=== PATIENT | male | born 1970 | race Caucasian/White ===

== ENCOUNTER → 2022-06-30 13:39 | Outpatient (BNVA) | payer OTHER, SELFPAY | PROVIDERS: Visit Provider Internal Medicine | DX: L98.9 Disorder of the skin and subcutaneous tissue, unspecified (principal); F11.20 Opioid dependence, uncomplicated | CPT/HCPCS: 99202 ==

== ENCOUNTER 2022-07-18 08:00 | Outpatient (RCR) | payer OTHER, SELFPAY | END 2022-12-22 16:00 | disposition home or self-care (01) | LOC: HO.WCC 08:00 | PROVIDERS: PCP Internal Medicine; Visit Provider Physician Assistant | DX: M79.89 Other specified soft tissue disorders (principal); I87.002 Postthrombotic syndrome without complications of left lower extremity; I82.409 Acute embolism and thrombosis of unspecified deep veins of unspecified lower extremity; R60.0 Localized edema; I73.9 Peripheral vascular disease, unspecified; F11.20 Opioid dependence, uncomplicated; Z79.01 Long term (current) use of anticoagulants; Z86.19 Personal history of other infectious and parasitic diseases | CPT/HCPCS: 11042; 99212; 99213; 99215 ==

== ENCOUNTER → 2022-08-08 13:30 | Outpatient (BNVA) | payer OTHER, SELFPAY | PROVIDERS: PCP Internal Medicine; Referring Provider Internal Medicine; Visit Provider Surgery | DX: D17.1 Benign lipomatous neoplasm of skin and subcutaneous tissue of trunk (principal); F19.10 Other psychoactive substance abuse, uncomplicated; L98.9 Disorder of the skin and subcutaneous tissue, unspecified; R63.5 Abnormal weight gain; M79.89 Other specified soft tissue disorders | CPT/HCPCS: 99202 ==

== ENCOUNTER 2022-11-02 07:06 | Inpatient (IN) | payer OTHER, SELFPAY ==
--- NOTE | ~2022-11-02 | CT_ITS ---
EXAMINATION: CT ANGIOGRAM OF THE CHEST WITH AND WITHOUT CONTRAST (CT PULMONARY ANGIOGRAM FOR PE) CLINICAL INFORMATION: Reason for Exam bilateral DVT COMPARISON: None TECHNIQUE: Prior to contrast administration, noncontrast localization images were obtained. Subsequently, multidetector volumetric imaging was performed from the thoracic inlet to below the diaphragms following the administration of 65 mL Omnipaque 350 intravenous contrast. No contrast reaction reported Sagittal, coronal, and MIP oblique sagittal reformatted images were obtained on the CT workstation, uploaded to PACS, and reviewed. This CT examination was performed using dose optimization techniques as appropriate, variously including the following: *Automated exposure control *Adjustment of mA and/or kV according to patient size (this includes techniques or standardized protocols for targeted exams where dose is matched to indication/reason for exam; i.e. extremities or head) *Use of iterative reconstruction technique Total exam dose-length product 338 mGy-cm FINDINGS: QUALITY OF STUDY/CONTRAST BOLUS: Satisfactory. PULMONARY ARTERIES: Bilateral lower lobe pulmonary emboli are present. Emboli are present in the right upper lobe THORACIC AORTA: No aneurysm or dissection. LUNG: No focal consolidation, nodules or masses. PLEURA: No pleural effusion or pneumothorax. MEDIASTINUM: Normal heart size. No pericardial effusion. No hilar or mediastinal lymphadenopathy. No evidence of septal bowing or right heart strain. CHEST WALL/AXILLA: No axillary or internal mammary lymphadenopathy. There is bilateral gynecomastia. OSSEOUS STRUCTURES: No acute or suspicious osseous abnormality. UPPER ABDOMEN: Unremarkable. No reflux of contrast into the hepatic veins to suggest elevated right heart pressures. CT/CT angio chest PE protocol IMPRESSION: Bilateral pulmonary emboli. No evidence of right heart strain. VTE: positive.
--- NOTE | ~2022-11-02 | XR_ITS ---
EXAMINATION: XR CHEST CLINICAL INFORMATION: Bilateral lower extremity edema COMPARISON: None TECHNIQUE: 2 views of the chest were obtained. FINDINGS: No significant abnormality is noted involving the heart, lungs, mediastinum, bony thorax or soft tissues. XR/XR chest 2V IMPRESSION: Unremarkable examination.
--- NOTE | ~2022-11-02 | US_ITS ---
EXAMINATION: US VENOUS ULTRASOUND WITH DOPPLER LOWER EXTREMITY, BILATERAL CLINICAL INFORMATION: Bilateral lower extremity COMPARISON: None TECHNIQUE: Ultrasound of the deep veins is performed from the hip to the calf with compression sonography and color and pulse Doppler assessment. Spectral analysis with color-flow imaging is performed. FINDINGS: RIGHT: There is normal venous compression and respiratory variation and augmented flow. The thrombus is present in the popliteal vein extending throughout the femoral vein into the common femoral vein. Posterior tibial veins are patent, the peroneal veins not seen. No popliteal cyst. LEFT: There is partially occlusive thrombus in the femoral vein with an otherwise normal appearing left deep venous system. There is normal venous compression and respiratory variation and augmented flow. The visualized common femoral vein, profunda femoral vein, popliteal vein, and the trifurcation region shows no evidence of deep venous thrombosis. There is no significant popliteal fossa cyst. US/US venous duplex LE BI IMPRESSION: Bilateral DVT as described above.
[2022-11-02 07:15] VITALS: BP 138/94; BP 148/96; PULSE 116; PULSE 95; RESP 16; TEMP 36.4; O2SAT 95; BMI 34.5
[2022-11-02 07:27] VITALS: BP 138/94; PULSE 94; RESP 24; TEMP 37.6; O2SAT 97
--- NOTE | 2022-11-02 07:30 | PC.NURSE ---
patient a/ox 4 . pearrla . heart rate regular at 96 beats per minute . breathing even and unlabored . lungs clear throughout . skin warm and dry . lower extremities dry , with multiple scabs noted . patient has history of shooting heroine into areas . patient reports going to wound clinic for issues of edema and weeping bilaterally . no weeping noted by this RN at this time . non piting edema noted in right foot . pain reported 10 out of 10 in only right leg below knee . pulses positive in both legs . abdomen soft , positive bowel sounds throughout . patient reports using 2 bags of heroine at 1 am this Am r/t pain in leg and then going to his methadone clinic this AM as scheduled , has proof of last dose on him . patient is aware of plan of care .
[2022-11-02 09:10] LABS: MANUAL DIFF FLAG NO
[2022-11-02 09:12] LABS: Basophils Percent Auto 0.2 % (0-2); Eosinophils Percent Auto 0.2 % (0-4); Hematocrit 40.1 % (42.0-52.0); Hemoglobin 12.5 g/dl (14.0-18.0); Imm Gran Abs Auto 0.03 X10*3/uL (0.00-0.03); Imm Gran Pct Auto 0.3 % (0.0-0.4); Lymphocytes Absolute Auto 1.3 X10*3/uL (1.2-4.9); Lymphocytes Percent Auto 13.2 % (20-40); Mean Corpuscular HGB Conc 31.2 g/dl (31.0-36.0); Mean Corpuscular Hemoglobin 25.3 pg (27.0-33.0); Mean Platelet Volume 8.6 fL (9.4-12.4); Monocytes Absolute Auto 0.8 X10*3/uL (0.1-1.2); Monocytes Percent Auto 8.1 % (2-11); Neutrophils Absolute Auto 7.5 x10*3/uL (2.0-8.3); Platelet Count 253 X10*3/uL (160-400); Red Blood Count 4.95 X10*6/uL (4.60-5.80); Red Cell Distribution Width 15.4 % (11.0-16.0); White Blood Count 9.6 X10*3/uL (4.8-10.8)
[2022-11-02 09:23] LABS: Lactic Acid 0.8 mmol/L (0.5-2.0)
[2022-11-02 09:25] LABS: C Reactive Protein 13.92 mg/dL (< or = 0.50)
--- NOTE | 2022-11-02 09:30 | ED_ITS ---
HPI - Extremity Problem General Chief complaint: Extremity Problem Stated complaint: RLE PAIN/SWELLING PER EMS Time Seen by Provider: 11/02/22 08:02 Source: patient Mode of arrival: ambulatory Limitations: no limitations and physical limitation History of Present Illness HPI Narrative: 52-year-old male patient with a past medical history of back pain, migraines, and polysubstance abuse including IVDU presents to the emergency department with complaint of bilateral lower leg swelling x1 year with pain under his right knee that has been progressively getting worse. He also endorses shortness of breath. He states he last used IV heroin this morning at 1:00 a.m. (injected into the right AC) and received his dose of methadone at 6:00 a.m.. He states he is unable to ambulate due to pain. He states he has several healing lesions throughout his body where he has injected heroin. He denies any fever, chills, n umbness, tingling, chest pain, headache, vision changes, or dizziness. He denies any recent illness or known sick contacts. MD Complaint: extremity pain and extremity swelling Pain Consistency: constant Location: left, right and lower extremity Severity scale (1-10): 5 Quality: aching and constant Radiation: none Relieving factors: nothing Exacerbating factors: range of motion, weight bearing, walking, exertion and palpation Associated symptoms: shortness of breath Related Data Home Medications Medication Instructions Recorded Confirmed methadone 10 mg/mL oral concentrate 160 mg PO DAILY 06/09/22 11/02/22 Allergies Allergy/AdvReac Type Severity Reaction Status Date / Time No Known Allergies Allergy Verified 08/08/22 13:39 [No Known Allergies*] Review of Systems Review of Systems: Constitutional: No Weight loss, No Fever, No Chills, No Night Sweats, No Fatigue, No Malaise ENT/Mouth: No Hearing loss, No Ear Pain, No Nasal Congestion, No Sinus Pain, No Hoarseness, No sore throat, No Rhinorrhea, No Swallowing Difficulty Eyes: No Eye Pain, No Swelling, No Redness, No Discharge, No Vision Changes Cardiovascular: No Chest Pain, No Orthopnea, No Palpitations Respiratory: No Cough, No Sputum, No Wheezing, No Smoke Exposure, No Dyspnea Gastrointestinal: No Nausea, No Vomiting, No Diarrhea, No Constipation, No Abdominal pain, No Hematochezia, No Melena Genitourinary: No Dysuria, No Urinary Frequency, No Hematuria, No Urinary Incontinence/retention, No Urgency, No Flank Pain, No Urinary Flow Changes, No Hesitancy Musculoskeletal: No joint pain, No Myalgias, No Joint Swelling Skin: No rash Neuro: No Weakness, No Numbness, No Paresthesias, No Loss of Consciousness, No Dizziness, No Headache Psych: No Anxiety/Panic, No Depression, No SI/HI/AH/VH, Heme/Lymph: No Bruising, No Bleeding,No Lymphadenopathy Endocrine: No Polyuria, No Polydipsia, No Temperature Intolerance Yes all other systems are reviewed and are negative [facility] Past Medical History Attestation statement: The following information was validated with the patient. Source: old records reviewed Medical History Eyebrow laceration Surgical History No pertinent past surgical history Family History Family History (Updated 11/02/22 @ 14:26 by LANCE Quiroz) Mother COPD (chronic obstructive pulmonary disease) Father Hepatitis Liver cirrhosis Maternal Grandmother Alzheimer disease Maternal Grandfather Prostate cancer Diabetes Social History Social History Household Members: Family Housing: House Alcohol intake: former Year quit: 2011 Patient Tobacco Use Status: Never used Tobacco Smoked in Last 30 Days: No Substance Use Type: Heroin Advance Directives: No service: No Current occupational status: unemployed Cognitive needs: No Hearing needs: No Vision needs: Yes (reading) Physical Exam Vital Signs: Vital Signs: Last Vital Signs Temp 98.8 F 11/02/22 12:56 Pulse 75 11/02/22 12:56 Resp 20 11/02/22 12:56 BP 147/88 H 11/02/22 12:56 Pulse Ox 94 11/02/22 12:56 O2 Del Method 11/02/22 12:56 BMI result Body Mass Index 34.5 Const: General: cooperative, alert, awake and poor hygiene Nutritional Appearance: well nourished Orientation/consciousness: patient oriented x3 Limitations: physical limitations HEENT: Head: Yes normal to inspection, Yes normocephalic and Yes atraumatic Ears: hearing grossly normal bilaterally and external ears normal General nose exam: Normal external nose present and Normal nares present Face and sinus: Yes normal facial exam, Yes face symmetric, No ecchymosis, No erythema and No edema Mouth: Normal oral and palatal mucosa present and tongue normal Teeth and gingiva: abnormal tooth and associated gingiva, caries and poor dentition Throat: Yes uvula midline Eyes: General: appearance normal, both eyes and all related structures Visual Gamino: normal visual gamino by confrontation Alignment and Position: alignment normal Periorbital: periorbital findings normal Eyelids: Yes eyelids normal Conjunctivae: conjunctivae normal Sclerae: sclerae normal Corneas: corneas normal Pupils: Equal, round and reactive pupils present EOM: EOMs intact bilaterally Neck: Neck: Yes normal visual inspection, Yes full ROM and Yes no lymphadenopathy Chest: Chest palpation & inspection: normal inspection of the chest Resp: Effort & Inspection: normal respiratory effort and able to speak in complete sentences Auscultation: diminished lung sounds bilateral throughout Cardio: Rate: regular rate Rhythm: regular rhythm GI: Inspection: Yes distended Palpation (GI): Soft to palpation and nontender Auscultation: normal bowel sounds : General: Yes no CVA tenderness Back/Spine/Pelvis: Back: no CVA tenderness Cervical Spine: cervical ROM normal Thoracic/Lumbar Spine: pain with thoraco-lumbar ROM Skin: General skin exam: dry skin Lesions: lesion noted (bilateral lower extremities) Rashes: no rashes Trauma: no lacerations or abrasions Hair: normal Nails: normal Neuro: General: patient oriented x3, moves all extremities and Unable to assess gait Cranial nerves: Yes Equal, round and reactive pupils present, Yes Midline tongue present and Yes Ability to bilaterally elevate shoulders present Cognition (Neuro): normal cognition Gait exam (Neuro): Unable to assess gait Motor exam (neuro): Other motor observations present (5/5 strength BUE, 3/5 strength BLE) Extrem: General: Yes capillary refill normal, Yes edema (BLE with healing lesions BLE) and Yes other (scaring on BUE due to IVDU and recent injection site right AC) Right upper extremity: normal capillary refill and shoulder/upper arm Details: abnormal ROM Details: pain with active ROM Left upper extremity: full ROM and normal capillary refill Right lower extremity: edema Details: non-pitting and 3+ Left lower extremity: edema Details: non-pitting and 3+ Psych: Appearance: disheveled Mental Status: mental status grossly normal Speech and movement: Normal speech and movement present Affect: Sad affect present Attitude: cooperative Thought process: Normal thought process present Thought content: Normal thought content present Course Course Course Narrative: 0950: ESR and CRP elevated, US positive for DVTs in bilateral lower extremities. Plan for CT chest rule out PE. 1200: CTA chest positive for bilateral PE. Heparin protocol initiated. Pt updated on diagnostic findings and need for admission. Dr. Lemons contacted regarding need for hospital admission. Medications Administered Generic Name Dose Route Start Last Admin Trade Name Freq PRN Reason Stop Dose Admin Heparin Sodium/Sodium Chloride 25,000 unit in 250 mls @ 0 mls/hr 11/02/22 12:00 11/02/22 12:50 Heparin Sodium,Porcine/1/2ns IVCONT 14 units/kg/hr .Q0M JOSE LUIS 14 mls/hr Administration Protocol Per Protocol Discontinued Medications Generic Name Dose Route Start Last Admin Trade Name Freq PRN Reason Stop Dose Admin Heparin Sodium (Porcine) 8,000 unit 11/02/22 11:55 11/02/22 12:49 Heparin Sodium,Porcine 5,000 Unit/Ml Vial 80 unit/kg (8000 unit) 11/02/22 11:56 8,000 unit IVPUSH Administration ONCE ONE Iohexol 65 ml 11/02/22 11:07 11/02/22 11:09 Iohexol 350 Mg/Ml 100 Ml Infus..Btl IV 11/02/22 11:08 65 ml ONCE ONE Administration Medical Decision Making Medical Decision Making [facility] Narrative: 52-year-old male patient with a past medical history of back pain, migraines, and polysubstance abuse including IVDU presents to the emergency department with complaint of bilateral lower leg swelling x1 year with pain under his right knee that has been progressively getting worse with associated shortness of breath. Chest xray negative. US venous duplex shows bilateral DVTs. ESR and CRP elevated. Hematology showing H/H 12.5/40.1. Chemistry unremarkable. Serology negative. CTA chest VTE positive for bilateral PE with no evidence of right heart strain. Heparin protocol iniciated for treatment of DVT/PE. Admitting hospitalist contacted regarding diagnostic findings and need for admission. HPI, PE, diagnostics and plan discussed with patient with no unanswered questions at this time. Pt in agreement with plan. Lab Data [facility] Lab Attestation statement: I reviewed the patient's lab results. Result Diagrams: 11/02/22 09:03 11/02/22 09:03 Labs: Lab Results 11/02/22 11/02/22 11/02/22 Range/Units 09:03 09:03 09:03 WBC 9.6 (4.8-10.8) X10*3/uL RBC 4.95 (4.60-5.80) X10*6/uL Hgb 12.5 L (14.0-18.0) g/dl Hct 40.1 L (42.0-52.0) % MCV 81.0 (80.0-98.0) fL MCH 25.3 L (27.0-33.0) pg MCHC 31.2 (31.0-36.0) g/dl RDW 15.4 (11.0-16.0) % Plt Count 253 (160-400) X10*3/uL MPV 8.6 L (9.4-12.4) fL Immature Gran % (Auto) 0.3 (0.0-0.4) % Neut % (Auto) 78.0 H (45-73) % Lymph % (Auto) 13.2 L (20-40) % [place] % (Auto) 8.1 (2-11) % Eos % (Auto) 0.2 (0-4) % Baso % (Auto) 0.2 (0-2) % Lymph # (Auto) 1.3 (1.2-4.9) X10*3/uL [place] # (Auto) 0.8 (0.1-1.2) X10*3/uL Eos # (Auto) 0.0 (0.0-0.4) X10*3/uL Baso # (Auto) 0.0 (0.0-0.2) X10*3/uL Abs Immat Gran (auto) 0.03 (0.00-0.03) X10*3/uL Absolute Neuts (auto) 7.5 (2.0-8.3) x10*3/uL Absolute Nucleated RBC 0.000 (0.0-0.012) X10*3/uL Nucleated RBC % (auto) 0.0 (0.0-0.2) /100WBC ESR 60 H (0-15) MM/HR PT (10.0-13.1) SEC INR (0.9-1.1) APTT (26.0-36.4) SEC Sodium 134 L (135-145) mmol/L Potassium 4.8 (3.3-5.1) mmol/L Chloride 101 (96-108) mmol/L Carbon Dioxide 25 (22-29) mmol/L Anion Gap 13 (12-20) BUN 14 (9-16) mg/dL Creatinine 0.93 (0.5-1.4) mg/dL Estim Creat Clear Calc 104.7 Estimated GFR > 60 Random Glucose 91 (60-115) mg/dL Lactic Acid (0.5-2.0) mmol/L Calcium 8.7 (8.4-10.2) mg/dL Total Bilirubin 0.4 (0.0-1.0) mg/dL AST 29 (5-37) U/L ALT 30 (0-40) U/L Alkaline Phosphatase 103 (39-117) U/L C-Reactive Protein (< or = 0.50) mg/dL Total Protein 7.9 (6.5-8.0) g/dL Albumin 3.9 (3.5-5.0) g/dL Influenza Type A (PCR) (Negative) Influenza Type B (PCR) (Negative) RSV RNA Qual (PCR) (Negative) SARS-CoV-2 RNA (RT-PCR) (Negative) 11/02/22 11/02/22 11/02/22 Range/Units 09:03 09:03 10:53 WBC (4.8-10.8) X10*3/uL RBC (4.60-5.80) X10*6/uL Hgb (14.0-18.0) g/dl Hct (42.0-52.0) % MCV (80.0-98.0) fL MCH (27.0-33.0) pg MCHC (31.0-36.0) g/dl RDW (11.0-16.0) % Plt Count (160-400) X10*3/uL MPV (9.4-12.4) fL Immature Gran % (Auto) (0.0-0.4) % Neut % (Auto) (45-73) % Lymph % (Auto) (20-40) % [place] % (Auto) (2-11) % Eos % (Auto) (0-4) % Baso % (Auto) (0-2) % Lymph # (Auto) (1.2-4.9) X10*3/uL [place] # (Auto) (0.1-1.2) X10*3/uL Eos # (Auto) (0.0-0.4) X10*3/uL Baso # (Auto) (0.0-0.2) X10*3/uL Abs Immat Gran (auto) (0.00-0.03) X10*3/uL Absolute Neuts (auto) (2.0-8.3) x10*3/uL Absolute Nucleated RBC (0.0-0.012) X10*3/uL Nucleated RBC % (auto) (0.0-0.2) /100WBC ESR (0-15) MM/HR PT 15.4 H (10.0-13.1) SEC INR 1.3 H (0.9-1.1) APTT 32.4 (26.0-36.4) SEC Sodium (135-145) mmol/L Potassium (3.3-5.1) mmol/L Chloride (96-108) mmol/L Carbon Dioxide (22-29) mmol/L Anion Gap (12-20) BUN (9-16) mg/dL Creatinine (0.5-1.4) mg/dL Estim Creat Clear Calc Estimated GFR Random Glucose (60-115) mg/dL Lactic Acid 0.8 (0.5-2.0) mmol/L Calcium (8.4-10.2) mg/dL Total Bilirubin (0.0-1.0) mg/dL AST (5-37) U/L ALT (0-40) U/L Alkaline Phosphatase (39-117) U/L C-Reactive Protein 13.92 H (< or = 0.50) mg/dL Total Protein (6.5-8.0) g/dL Albumin (3.5-5.0) g/dL Influenza Type A (PCR) (Negative) Influenza Type B (PCR) (Negative) RSV RNA Qual (PCR) (Negative) SARS-CoV-2 RNA (RT-PCR) (Negative) 11/02/22 Range/Units 10:53 WBC (4.8-10.8) X10*3/uL RBC (4.60-5.80) X10*6/uL Hgb (14.0-18.0) g/dl Hct (42.0-52.0) % MCV (80.0-98.0) fL MCH (27.0-33.0) pg MCHC (31.0-36.0) g/dl RDW (11.0-16.0) % Plt Count (160-400) X10*3/uL MPV (9.4-12.4) fL Immature Gran % (Auto) (0.0-0.4) % Neut % (Auto) (45-73) % Lymph % (Auto) (20-40) % [place] % (Auto) (2-11) % Eos % (Auto) (0-4) % Baso % (Auto) (0-2) % Lymph # (Auto) (1.2-4.9) X10*3/uL [place] # (Auto) (0.1-1.2) X10*3/uL Eos # (Auto) (0.0-0.4) X10*3/uL Baso # (Auto) (0.0-0.2) X10*3/uL Abs Immat Gran (auto) (0.00-0.03) X10*3/uL Absolute Neuts (auto) (2.0-8.3) x10*3/uL Absolute Nucleated RBC (0.0-0.012) X10*3/uL Nucleated RBC % (auto) (0.0-0.2) /100WBC ESR (0-15) MM/HR PT (10.0-13.1) SEC INR (0.9-1.1) APTT (26.0-36.4) SEC Sodium (135-145) mmol/L Potassium (3.3-5.1) mmol/L Chloride (96-108) mmol/L Carbon Dioxide (22-29) mmol/L Anion Gap (12-20) BUN (9-16) mg/dL Creatinine (0.5-1.4) mg/dL Estim Creat Clear Calc Estimated GFR Random Glucose (60-115) mg/dL Lactic Acid (0.5-2.0) mmol/L Calcium (8.4-10.2) mg/dL Total Bilirubin (0.0-1.0) mg/dL AST (5-37) U/L ALT (0-40) U/L Alkaline Phosphatase (39-117) U/L C-Reactive Protein (< or = 0.50) mg/dL Total Protein (6.5-8.0) g/dL Albumin (3.5-5.0) g/dL Influenza Type A (PCR) NEGATIVE (Negative) Influenza Type B (PCR) NEGATIVE (Negative) RSV RNA Qual (PCR) NEGATIVE (Negative) SARS-CoV-2 RNA (RT-PCR) NEGATIVE (Negative) Radiology Impression Discussion of test interpretation with radiology: I have reviewed the radiologist's reading. Radiologist Impression: EXAMINATION: CT ANGIOGRAM OF THE CHEST WITH AND WITHOUT CONTRAST (CT PULMONARY ANGIOGRAM FOR PE) CLINICAL INFORMATION: Reason for Exam bilateral DVT COMPARISON: None? TECHNIQUE: Prior to contrast administration, noncontrast localization images were obtained. ? Subsequently, multidetector volumetric imaging was performed from the thoracic inlet to below the diaphragms following the administration of 65 mL Omnipaque 350 intravenous contrast. No contrast reaction reported Sagittal, coronal, and MIP oblique sagittal reformatted images were obtained on the CT workstation, uploaded to PACS, and reviewed. This CT examination was performed using dose optimization techniques as appropriate, variously including the following: *Automated exposure control *Adjustment of mA and/or kV according to patient size (this includes techniques or standardized protocols for targeted exams where dose is matched to indication/reason for exam; i.e. extremities or head) *Use of iterative reconstruction technique Total exam dose-length product 338 mGy-cm FINDINGS: QUALITY OF STUDY/CONTRAST BOLUS: Satisfactory. PULMONARY ARTERIES: Bilateral lower lobe pulmonary emboli are present. Emboli are present in the right upper lobe? THORACIC AORTA: No aneurysm or dissection. LUNG: No focal consolidation, nodules or masses. PLEURA: No pleural effusion or pneumothorax. MEDIASTINUM: Normal heart size.? No pericardial effusion.? No hilar or mediastinal lymphadenopathy.? No evidence of septal bowing or right heart strain. CHEST WALL/AXILLA: No axillary or internal mammary lymphadenopathy. There is bilateral gynecomastia. OSSEOUS STRUCTURES: No acute or suspicious osseous abnormality.? UPPER ABDOMEN: Unremarkable.? No reflux of contrast into the hepatic veins to suggest elevated right heart pressures. CT/CT angio chest PE protocol IMPRESSION: Bilateral pulmonary emboli. No evidence of right heart strain. VTE: positive. Dictated By: Chon Gutierrez MD Signed By: <Electronically signed by Chon Gutierrez MD in [place]> 11/02/22 1153 DD/ 1105 TD/TT:? Subway Operator: SS ------ EXAMINATION: XR CHEST CLINICAL INFORMATION: Bilateral lower extremity edema COMPARISON: None TECHNIQUE: 2 views of the chest were obtained. FINDINGS: No significant abnormality is noted involving the heart, lungs, mediastinum, bony thorax or soft tissues. XR/XR chest 2V IMPRESSION: Unremarkable examination. Dictated By: Chon Gutierrez MD Signed By: <Electronically signed by Chon Gutierrez MD in [place]> 11/02/22 0948 DD/ TD/TT:? Subway Operator: GREGORY EXAMINATION:? US VENOUS ULTRASOUND WITH DOPPLER LOWER EXTREMITY, BILATERAL CLINICAL INFORMATION:? Bilateral lower extremity COMPARISON:? None TECHNIQUE: Ultrasound of the deep veins is performed from the hip to the calf with compression sonography and color and pulse Doppler assessment. Spectral analysis with color-flow imaging is performed. FINDINGS: RIGHT: There is normal venous compression and respiratory variation and augmented flow. The thrombus is present in the popliteal vein extending throughout the femoral vein into the common femoral vein. Posterior tibial veins are patent, the peroneal veins not seen. No popliteal cyst. LEFT: There is partially occlusive thrombus in the femoral vein with an otherwise normal appearing left deep venous system. There is normal venous compression and respiratory variation and augmented flow. The visualized common femoral vein,? profunda femoral vein, popliteal vein, and the trifurcation region shows no evidence of deep venous thrombosis. ? There is no significant popliteal fossa cyst. US/US venous duplex LE BI IMPRESSION: Bilateral DVT as described above. ? Dictated By: Chon Gutierrez MD Signed By: <Electronically signed by Chon Gutierrez MD in [place]> 11/02/22946 DD/ 3 TD/TT:? Subway Operator: Discharge Plan Discharge Clinical Impression: DVT, bilateral lower limbs, Pulmonary emboli Patient Disposition: Admitted As Inpatient Discharge Plan Discharge Prescriptions: No Action methadone 10 mg/mL concentrate 5 mg PO DAILY Label Comments: pt reports 135 mg daily doxycycline hyclate 100 mg tablet 100 mg PO BID Qty: 20 0RF diclofenac sodium [Arthritis Pain (diclofenac)] 1 % gel 2 g topical QID Qty: 100 0RF Rx Instructions: apply to single elbow, wrist or hand; for hand includes palm/fingers/back of hand
[2022-11-02 09:33] LABS: Alanine Aminotransferase 30 U/L (0-40); Albumin Level 3.9 g/dL (3.5-5.0); Alkaline Phosphatase 103 U/L (39-117); Anion Gap 13 (12-20); Aspartate Amino Transferase 29 U/L (5-37); Blood Urea Nitrogen 14 mg/dL (9-16); Calcium 8.7 mg/dL (8.4-10.2); Carbon Dioxide 25 mmol/L (22-29); Chloride 101 mmol/L (96-108); Creatinine Clr Calc Pharmacy 104.7; Estimated Glomerular Filt Rate > 60; Glucose Random 91 mg/dL (60-115); Potassium 4.8 mmol/L (3.3-5.1); Sodium 134 mmol/L (135-145); Total Protein 7.9 g/dL (6.5-8.0)
[2022-11-02 09:41] LABS: Bilirubin Total 0.4 mg/dL (0.0-1.0)
[2022-11-02 10:00] LABS: Erythrocyte Sedimentation Rate 60 MM/HR (0-15)
[2022-11-02 10:56] VITALS: BP 134/76; PULSE 82; RESP 18; TEMP 37.2; O2SAT 94
--- NOTE | 2022-11-02 10:59 | PC.NURSE ---
Patient to C .T for images . patient aware of plan of care .
[2022-11-02] MEDS: iohexoL 350 MG/ML 100 ML INFUS..BTL 65 ML IV (11:09)
[2022-11-02 11:10] LABS: Partial Thromboplastin Time 32.4 SEC (26.0-36.4)
[2022-11-02 11:40] LABS: Influenza A PCR NEGATIVE (Negative); Influenza B PCR NEGATIVE (Negative); Resp Syncy Virus RNA Qual PCR NEGATIVE (Negative); SARS COV2 PCR INHOUSE NEGATIVE (Negative)
[2022-11-02 12:17] LABS: INTERNATIONAL NORM RATIO 1.3 (0.9-1.1); Prothrombin Time 15.4 SEC (10.0-13.1)
[2022-11-02] MEDS: Heparin Sodium,Porcine 5,000 UNIT/ML VIAL 8000 UNIT IVPUSH (12:49)
[2022-11-02] MEDS: Heparin Sodium,Porcine/1/2NS 25,000 UNIT/250 ML IV.SOLN 14 UNIT IVCONT (12:50)
--- NOTE | 2022-11-02 12:51 | P.HPHOSP_ITS ---
History of Present Illness Date of Service: 11/02/22 Attending physician on admission: Luis Rocha Chief Complaint: Right knee pain Pt is a 52-year-old male with a PMH significant for polysubstance abuse including IVDU, migraines, and back pain who presents to the ED today for evaluation of right leg pain. Patient states that for the past 2 days he has experienced worsening right leg pain in the back of his knee. The pain arrived acutely during the night while he was sleeping, and today he became so severe that he could not stand. He also notes that he used heroin earlier today because of the pain, after being clean on methadone for over two months. Pt also reports being SOB at rest and with exertion for past 1-2 months. Notes occasional left leg pain that is fleeting and comes and goes. Of note, pt has a recent history of IVDU and has been injecting in his legs intermittently for the past year. In the ED patient's chest x-ray was negative, chemistry unremarkable, serology negative, hematology with slightly reduced H&H of 12.5/40.1, elevated ESR of 60 and C reactive protein of 13.92. US venous duplex showed bilateral DVTs, and CTA VTE positive with bilateral pulmonary emboli and no evidence of right heart strain. Pt was started on heparin drip per protocol. Review of Systems Review of Systems: Constant right leg pain, 10/10 Intermittent left leg pain SOB at rest and with exertion No chest pain/pressure Yes all other systems are reviewed and are negative [facility] Medical History Eyebrow laceration Family History (Updated 11/02/22 @ 14:26 by LANCE Quiroz) Mother COPD (chronic obstructive pulmonary disease) Father Hepatitis Liver cirrhosis Maternal Grandmother Alzheimer disease Maternal Grandfather Prostate cancer Diabetes Surgical History No pertinent past surgical history Social History Household Members: Family Housing: House Alcohol intake: former Year quit: 2011 Patient Tobacco Use Status: Never used Tobacco Smoked in Last 30 Days: No Substance Use Type: Heroin Advance Directives: No service: No Current occupational status: unemployed Cognitive needs: No Hearing needs: No Vision needs: Yes (reading) Meds Allergies Allergy/AdvReac Type Severity Reaction Status Date / Time No Known Allergies Allergy Verified 08/08/22 13:39 [No Known Allergies*] Active Medications: Current Medications Heparin Sodium (Porcine) (Heparin Sodium,Porcine 5,000 Unit/Ml Vial) 4,000 unit 40 unit/kg (4000 unit) IVPUSH PROTOCOL BOLUS PRN; Protocol PRN Reason: 40 unit/kg - Heparin Protocol Heparin Sodium (Porcine) (Heparin Sodium,Porcine 5,000 Unit/Ml Vial) 8,000 unit 80 unit/kg (8000 unit) IVPUSH PROTOCOL BOLUS PRN; Protocol PRN Reason: 80 unit/kg - Heparin Protocol Heparin Sodium/Sodium Chloride (Heparin Sodium,Porcine/1/2ns) 25,000 unit in 250 mls @ 0 mls/hr IVCONT .Q0M JOSE LUIS; Protocol Home Medications Medication Instructions Recorded Confirmed Last Taken Type methadone 10 mg/mL oral concentrate 160 mg PO DAILY 06/09/22 11/02/22 11/02/22 History Physical Exam Vital Signs and Narrative: Vital Signs: Last Vital Signs Temp 99 F 11/02/22 10:56 Pulse 82 11/02/22 10:56 Resp 18 11/02/22 10:56 BP 134/76 11/02/22 10:56 Pulse Ox 94 11/02/22 10:56 O2 Del Method 11/02/22 10:56 BMI result Body Mass Index 34.5 Constitutional: Alert, in no acute distress. Mental Status: Oriented to person, place and time. Eyes: Pupils are equal, round, and reactive to light. Ear, Nose, and Throat: Poor dentition. Oropharynx clear, mucous membranes moist. Ears and nose without deformities. Trachea midline. Respiratory: Mild expiratory wheezing right lung; left lung CTA. Cardiovascular: S1, S2 regular. No murmurs, rubs, or gallops. Gastrointestinal: Abdomen soft, non-tender, non-distended. NOrmal bowel sounds. Neurologic: Cranial nerves II-XI are grossly intact. NO focal neurological deficits. Moves all extremities spontaneously. Skin: Lesions on bilateral lower legs, right lower abdomen. Musculoskeletal: No cyanosis or clubbing. Extremities: Bilateral edema and swelling of lower extremities; right knee swollen and tender to palpation. Feet cool to the touch and faint 1+ pedal pulses. Psychiatric: Normal mood and affect. Results Labs CBC and Chem 7: 11/02/22 09:03 11/02/22 09:03 Labs: Laboratory Results - last 24 hr 11/02/22 11/02/22 11/02/22 09:03 09:03 09:03 MCV 81.0 MCH 25.3 L MCHC 31.2 RDW 15.4 Plt Count 253 MPV 8.6 L Immature Gran % (Auto) 0.3 Neut % (Auto) 78.0 H Lymph % (Auto) 13.2 L Tripp % (Auto) 8.1 Eos % (Auto) 0.2 Baso % (Auto) 0.2 Lymph # (Auto) 1.3 Tripp # (Auto) 0.8 Eos # (Auto) 0.0 Baso # (Auto) 0.0 Abs Immat Gran (auto) 0.03 Absolute Neuts (auto) 7.5 Absolute Nucleated RBC 0.000 Nucleated RBC % (auto) 0.0 ESR 60 H PT INR APTT Anion Gap 13 Estim Creat Clear Calc 104.7 Estimated GFR > 60 Random Glucose 91 Lactic Acid Calcium 8.7 Total Bilirubin 0.4 AST 29 ALT 30 Alkaline Phosphatase 103 C-Reactive Protein Total Protein 7.9 Albumin 3.9 Influenza Type A (PCR) Influenza Type B (PCR) RSV RNA Qual (PCR) SARS-CoV-2 RNA (RT-PCR) 11/02/22 11/02/22 11/02/22 09:03 09:03 10:53 MCV MCH MCHC RDW Plt Count MPV Immature Gran % (Auto) Neut % (Auto) Lymph % (Auto) Tripp % (Auto) Eos % (Auto) Baso % (Auto) Lymph # (Auto) Tripp # (Auto) Eos # (Auto) Baso # (Auto) Abs Immat Gran (auto) Absolute Neuts (auto) Absolute Nucleated RBC Nucleated RBC % (auto) ESR PT 15.4 H INR 1.3 H APTT 32.4 Anion Gap Estim Creat Clear Calc Estimated GFR Random Glucose Lactic Acid 0.8 Calcium Total Bilirubin AST ALT Alkaline Phosphatase C-Reactive Protein 13.92 H Total Protein Albumin Influenza Type A (PCR) Influenza Type B (PCR) RSV RNA Qual (PCR) SARS-CoV-2 RNA (RT-PCR) 11/02/22 10:53 MCV MCH MCHC RDW Plt Count MPV Immature Gran % (Auto) Neut % (Auto) Lymph % (Auto) Tripp % (Auto) Eos % (Auto) Baso % (Auto) Lymph # (Auto) Tripp # (Auto) Eos # (Auto) Baso # (Auto) Abs Immat Gran (auto) Absolute Neuts (auto) Absolute Nucleated RBC Nucleated RBC % (auto) ESR PT INR APTT Anion Gap Estim Creat Clear Calc Estimated GFR Random Glucose Lactic Acid Calcium Total Bilirubin AST ALT Alkaline Phosphatase C-Reactive Protein Total Protein Albumin Influenza Type A (PCR) NEGATIVE Influenza Type B (PCR) NEGATIVE RSV RNA Qual (PCR) NEGATIVE SARS-CoV-2 RNA (RT-PCR) NEGATIVE Imaging Radiologist's Impressions: Impressions Venous Duplex 11/02/22 09:24 IMPRESSION: Bilateral DVT as described above. Chest X-Ray 11/02/22 09:30 IMPRESSION: Unremarkable examination. Chest CTA 11/02/22 11:05 IMPRESSION: Bilateral pulmonary emboli. No evidence of right heart strain. VTE: positive. Assessment and Plan (1) DVT, bilateral lower limbs: Status: Acute (2) Pulmonary emboli: Status: Acute Plan Pt is a 52-year-old male with a PMH significant for polysubstance abuse includin g IVDU, migraines, and back pain who presents to the ED today for evaluation of right leg pain. Imaging showed bilateral DVTs and PE. Pt will be admitted to telemetry for treatment with heparin drip protocol. # bilateral DVTs -- US noted thrombus in right leg in the popliteal vein extending throughout the femoral vein into the common femoral vein; in the left leg there is a partially occlusive thrombus in the femoral vein -- likely secondary to IVDU, pt has been using upper legs for heroin injection over past year -- pt on heparin drip per PE protocol -- hematology consult # bilateral PE -- pt has been experiencing SOB for past 1-2 months -- CTA showed bilateral pulmonary emboli with no evidence of right heart strain -- heparin drip per protocol -- admit to telemetry # IVDU -- on methadone, but used heroin earlier today d/t leg pain, first time in past couple of months -- continue methadone Pt will require a minimum hospitalization of at least two nights for treatment with heparin drip for bilateral PE. Time Spent With Patient Time: Total time managing care of this patient today ____ minutes. Quality Stroke Does the patient have a stroke diagnosis?: No VTE Prior VTE?: No VTE Risk Level:: Medical - moderate - high VTE Device Contraindication: Treatment Not Indicated VTE Drug Contraindication: N/A - Med Ordered
[2022-11-02 12:56] VITALS: BP 147/88; PULSE 75; RESP 20; TEMP 37.1; O2SAT 94
--- NOTE | 2022-11-02 12:58 | PC.NURSE ---
Heparin drip started at 14 units per kg / per/ hr as ordered . patient aware of plan of care for admission . hospitalist at bedside .
--- NOTE | 2022-11-02 14:03 | PHA.MEDREC ---
Pharmacy Consult ? Medication Reconciliation Pharmacy has completed the medication reconciliation. Patient takes 160mg last dosed 11/02 from [facility]
--- NOTE | 2022-11-02 17:49 | MHC.CM.PN ---
Met with admitted patient with bed assignment pending. HX IVDA. Used yesterday. States for the pain. Methadone x2 months. Bilateral DVT's and PE's. Would benefit from CARE/addiction consult. HCP reviewed, completed and signed. Copies given. Uploaded into [employer] and [facility] [employer]. HCP/mother Minal Morel ([phone]). No DME/Services. Unvaccinated. D/C plan: Home w/o services. Pt to arrange transport. CM to follow for discharge needs.
[2022-11-02 19:31] VITALS: BP 170/83; PULSE 74; RESP 16; TEMP 36.6; O2SAT 98
[2022-11-02 20:51] LABS: PTT Heparin Drip > 200.0 SEC (53-77.9)
--- NOTE | 2022-11-02 21:06 | PC.NURSE ---
received critical PTT HD <200. Heparin drip paused at 20:55. Plan stat PTT HD redraw scheduled at 21:55. No s/sx of acute bleeding noted.
[2022-11-02] MEDS: oxyCODONE HCl Immed Release 5 MG TABLET PO (21:20)
--- NOTE | 2022-11-02 21:23 | PC.NURSE ---
Pt c/o /10 posterior R knee intermittent pain described as sharp/ tight. Rn offered pt prn tylenol. Pt declined tylenol and stated, I have a bad liver I normally take aleve. Rn notified hospitalist. Rn administered oxycodone 5 mg po per order.
--- NOTE | 2022-11-02 22:39 | PC.NURSE ---
Telephone call from the lab with critical results for PTT HD 136.1. Heparin drip remaining on hold, next PTT HD scheduled at 22:55 per protocol-no s/s of acute bleeding noted, VSS.
[2022-11-02 23:52] LABS: PTT Heparin Drip 57.8 SEC (53-77.9)
[2022-11-03 00:02] VITALS: BP 148/81; PULSE 75; RESP 11; TEMP 36.9; O2SAT 91
[2022-11-03 00:52] VITALS: O2SAT 92
--- NOTE | 2022-11-03 00:53 | PC.NURSE ---
Addendum entered by Billie Marx RN 11/03/22 07:02: report given to PADMA Payne Original Note: report received from PADMA Frost pt is alert and oriented resting in bed no signs of acute distress notice breathing equally unlabored pt pn continous cardiac monitoring Heparin drip restarted per protocol, last Ptt 57.8, dose started at 10 unit/kg/hr per protocol, next draw at 0700am
[2022-11-03 06:04] VITALS: BP 149/81; PULSE 78; RESP 21; TEMP 36.9; O2SAT 93
[2022-11-03 07:19] LABS: Hematocrit 37.1 % (42.0-52.0); Hemoglobin 11.8 g/dl (14.0-18.0); Mean Corpuscular HGB Conc 31.8 g/dl (31.0-36.0); Mean Corpuscular Hemoglobin 25.6 pg (27.0-33.0); Mean Corpuscular Volume 80.5 fL (80.0-98.0); Mean Platelet Volume 8.7 fL (9.4-12.4); Platelet Count 264 X10*3/uL (160-400); Red Blood Count 4.61 X10*6/uL (4.60-5.80); Red Cell Distribution Width 15.5 % (11.0-16.0); White Blood Count 8.9 X10*3/uL (4.8-10.8)
[2022-11-03 07:29] LABS: INTERNATIONAL NORM RATIO 1.3 (0.9-1.1)
[2022-11-03 07:32] LABS: PTT Heparin Drip 66.5 SEC (53-77.9)
[2022-11-03] MEDS: methADONE HCl 20 MG/2 ML ORAL.CONC 160 MG PO (07:34)
[2022-11-03 07:40] VITALS: BP 119/79; PULSE 75; RESP 20; TEMP 36.6; O2SAT 97
--- NOTE | 2022-11-03 13:25 | HO.PM.IMPN ---
Subjective Subjective Date of Service: 11/03/22 Interval History: Seen and evaluated this morning Complaining of right lower extremity pain and swelling Breathing has been improving No other overnight events Review of Systems Review of Systems: Yes all other systems are reviewed and are negative Physical Exam Vital Signs: Vital Signs: Last Vital Signs Temp 97.9 F 11/03/22 07:40 Pulse 75 11/03/22 07:40 Resp 20 11/03/22 07:40 BP 119/79 11/03/22 07:40 Pulse Ox 97 11/03/22 07:40 O2 Del Method 11/03/22 07:40 BMI result Body Mass Index 34.5 Const: Other: Constitutional : Awake, interactive, not in distress Neck : Normal inspection, Supple Cardiovascular : RRR, no JVP, right lower extremity mildly swollen and wound Respiratory : good bilateral air entry, no crackles, wheezes or rhonchi Gastrointestinal: soft, lax, Normal bowel sounds, Non tender Skin : Warm, Dry Neurological : Alert & oriented x3, No focal deficit Objective Data Active Medications Acetaminophen (Acetaminophen 325 Mg Tablet) 650 mg PO Q6H PRN PRN Reason: Pain, Mild (Pain Scale 1-3) Docusate Sodium (Docusate Sodium 100 Mg Capsule) 100 mg PO DAILY PRN PRN Reason: Constipation Heparin Sodium (Porcine) (Heparin Sodium,Porcine 5,000 Unit/Ml Vial) 4,000 unit 40 unit/kg (4000 unit) IVPUSH PROTOCOL BOLUS PRN; Protocol PRN Reason: 40 unit/kg - Heparin Protocol Heparin Sodium (Porcine) (Heparin Sodium,Porcine 5,000 Unit/Ml Vial) 8,000 unit 80 unit/kg (8000 unit) IVPUSH PROTOCOL BOLUS PRN; Protocol PRN Reason: 80 unit/kg - Heparin Protocol Heparin Sodium/Sodium Chloride (Heparin Sodium,Porcine/1/2ns) 25,000 unit in 250 mls @ 0 mls/hr IVCONT .Q0M JOSE LUIS; Protocol Last Titration: 11/03/22 07:45 Dose: 10 units/kg/hr, 10 mls/hr Documented By: ENRIQUETA Co-signed By: NGUYỄN Methadone HCl (Methadone Hcl 20 Mg/2 Ml Oral.Conc) 160 mg PO DAILY [facility] Last Admin: 11/03/22 07:34 Dose: 160 mg Documented By: ENRIQUETA Oxycodone HCl (Oxycodone Hcl Immed Release 5 Mg Tablet) 5 mg PO Q4H PRN PRN Reason: Pain, Severe (Pain Scale 7-10) Last Admin: 11/02/22 21:20 Dose: 5 mg Documented By: HARISH Sodium Chloride (0.9 % Sodium Chloride Flush 3 Ml Syringe) 3 ml IVFLUSH QSHIFT JOSE LUIS Last Admin: 11/03/22 07:34 Dose: Not Given Documented By: ENRIQUETA Non-Admin Reason: IV Running Labs CBC & Chem 7: 11/03/22 06:56 11/02/22 09:03 Labs: Laboratory Results - last 24 hr 11/02/22 11/02/22 11/02/22 19:41 21:58 23:23 MCV MCH MCHC RDW Plt Count MPV Absolute Nucleated RBC Nucleated RBC % (auto) PT INR aPTT Heparin Protocol > 200.0 H* 136.1 H* D 57.8 D 11/03/22 11/03/22 11/03/22 06:56 06:56 06:56 MCV 80.5 MCH 25.6 L MCHC 31.8 RDW 15.5 Plt Count 264 MPV 8.7 L Absolute Nucleated RBC 0.000 Nucleated RBC % (auto) 0.0 PT Cancelled 15.0 H INR Cancelled 1.3 H aPTT Heparin Protocol 66.5 Microbiology Microbiology Results: Microbiology 11/02/22 09:03 Blood Culture - Preliminary Blood - Venous No growth after 24 hours. 11/02/22 09:03 Blood Culture - Preliminary Blood - Venous No growth after 24 hours. Assessment and Plan (1) DVT, bilateral lower limbs: Status: Acute (2) Pulmonary emboli: Status: Acute Plan Pt is a 52-year-old male with a PMH significant for polysubstance abuse including IVDU, migraines, and back pain who presents to the ED today for evaluation of right leg pain. Imaging showed bilateral DVTs and PE. Pt will be admitted to telemetry for treatment with heparin drip protocol. # bilateral DVTs occlusive thrombus in right leg in the popliteal vein ; in the left leg there is a partially occlusive thrombus in the femoral vein likely secondary to IVDU, using upper legs for heroin injection over past year continue heparin drip per PE protocol for 48 hours pending hematology consult # bilateral PE CTA showed bilateral pulmonary emboli with no evidence of right heart strain continued heparin drip per protocol plan for oral NOACs at time of discharge # IVDU on methadone, reports using heroin for pain management get Addiction team evaluation Pt will need overnight hospital stay to continue treatment of DVTs and PE with IV heparin pending safe discharge plan Time Spent With Patient Time: Total time managing care of this patient today ____ minutes. Quality Stroke Does the patient have a stroke diagnosis?: No VTE Prior VTE?: No VTE Risk Level:: Medical - moderate - high VTE Device Contraindication: Treatment Not Indicated VTE Drug Contraindication: N/A - Med Ordered
[2022-11-03] MEDS: Heparin Sodium,Porcine/1/2NS 25,000 UNIT/250 ML IV.SOLN 10 UNIT IVCONT (14:08)
--- NOTE | 2022-11-03 14:09 | PM.HEMONCCN ---
Subjective - Subjective Chief complaint: Right leg pain Patient: new to practice Consult date: 11/03/22 Primary Care Provider: Kyler Daley MD HPI - Consult Narrative Reason for consult: bilateral DVT and pulmonary emboli Narrative: Don Spence is a 52 year old male admitted for bilateral lower extremity DVT and pulmonary emboli. He presented with right leg pain and swelling. He says the pain is quite severe and he is unable to walk because of it. He has been doing IV drugs, used both lower and upper extremities to shoot up IV drugs. At this time, he denies any pleuritic chest pain shortness of breath or cough. No abdominal pain, nausea or emesis. Next visit This is 1st episode of thromboembolism. No family members with DVT or PE. Review of Systems - Constitutional Reports as per HPI, Denies malaise, Denies night sweats, Denies poor appetite, Denies weight loss - Cardiovascular Reports no additional cardiovascular complaints - Respiratory Reports no additional respiratory complaints [facility] Medical History: Medical History (Last Reviewed 11/02/22 @ 14:23 by LANCE Quiroz) Eyebrow laceration Family History: Family History (Last Updated 11/02/22 @ 14:26 by LANCE Quiroz) Mother COPD (chronic obstructive pulmonary disease) Father Hepatitis Liver cirrhosis Maternal Grandmother Alzheimer disease Maternal Grandfather Prostate cancer Diabetes Surgical History: Surgical History (Last Reviewed 11/02/22 @ 14:23 by LANCE Quiroz) No pertinent past surgical history Social History: Social History (Last Reviewed 11/02/22 @ 14:23 by LANCE Quiroz) Living Situation History: Household Members: Family Housing: House Tobacco History: Patient Tobacco Use Status: Never used Tobacco Smoked in Last 30 Days: No Substance Use History: Substance Use Type: Heroin Advance Directives: Advance Directives: No Advance Directives Information Provided: Advance Directives Information Provided comment: DECLINED Occupation Assessmet: service: No Current occupational status: unemployed Home Medications and Allergies Current Medications: Current Medications Acetaminophen (Acetaminophen 325 Mg Tablet) 650 mg PO Q6H PRN PRN Reason: Pain, Mild (Pain Scale 1-3) Docusate Sodium (Docusate Sodium 100 Mg Capsule) 100 mg PO DAILY PRN PRN Reason: Constipation Heparin Sodium (Porcine) (Heparin Sodium,Porcine 5,000 Unit/Ml Vial) 4,000 unit 40 unit/kg (4000 unit) IVPUSH PROTOCOL BOLUS PRN; Protocol PRN Reason: 40 unit/kg - Heparin Protocol Heparin Sodium (Porcine) (Heparin Sodium,Porcine 5,000 Unit/Ml Vial) 8,000 unit 80 unit/kg (8000 unit) IVPUSH PROTOCOL BOLUS PRN; Protocol PRN Reason: 80 unit/kg - Heparin Protocol Heparin Sodium/Sodium Chloride (Heparin Sodium,Porcine/1/2ns) 25,000 unit in 250 mls @ 0 mls/hr IVCONT .Q0M [facility]; Protocol Last Titration: 11/03/22 07:45 Dose: 10 units/kg/hr, 10 mls/hr Methadone HCl (Methadone Hcl 20 Mg/2 Ml Oral.Conc) 160 mg PO DAILY [facility] Last Admin: 11/03/22 07:34 Dose: 160 mg Oxycodone HCl (Oxycodone Hcl Immed Release 5 Mg Tablet) 5 mg PO Q4H PRN PRN Reason: Pain, Severe (Pain Scale 7-10) Last Admin: 11/02/22 21:20 Dose: 5 mg Sodium Chloride (0.9 % Sodium Chloride Flush 3 Ml Syringe) 3 ml IVFLUSH QSHIFT [facility] Last Admin: 11/03/22 07:34 Dose: Not Given Home Medications Medication Instructions Recorded Confirmed Type methadone 10 mg/mL oral concentrate 160 mg PO DAILY 06/09/22 11/02/22 History Allergies Allergy/AdvReac Type Severity Reaction Status Date / Time No Known Allergies Allergy Verified 08/08/22 13:39 [No Known Allergies*] Physical Exam Vital signs: Vital Signs Temp 97.9 F 11/03/22 07:40 Pulse 75 11/03/22 07:40 Resp 20 11/03/22 07:40 BP 119/79 11/03/22 07:40 Pulse Ox 97 11/03/22 07:40 O2 Del Method 11/03/22 07:40 Intake & Output 11/02/22 11/03/22 11/03/22 18:59 06:59 18:59 Intake Total 482.8 / 482.8 69.167 / 69.167 Output Total 425 / 675 250 / 675 Balance -425 / -192.2 232.8 / -192.2 69.167 / 69.167 Urine Output (Average ml/kg/hr) 0.35 0.21 0.21 Intake: Intake, Oral Amount 360 / 360 Intake, IV Amount 122.8 / 122.8 69.167 / 69.167 Heparin Sodium,Porcine/1/2NS 25 122.8 / 122.8 69.167 / 69.167 ,000 unit In 250 ml @ Per Protocol IVCONT .Q0M [facility] Rx#: [id number] Output: Output, Urine Amount 425 / 675 250 / 675 Other: Dinner % Eaten 75% Urine Urinal Urinal Urine Color Concentrated Tea Weight 100.018 kg Weight 100.018 kg - Constitutional Present: no acute distress - Routine HEENT Exam Head: Present: normal inspection Eye: Present: EOMI - Routine Neck Exam Present: supple - Routine Respiratory Exam Present: CTAB - Routine Cardiovascular Exam Cardiovascular: Present: S1, S2 - Routine Abdominal Exam Present: soft - Routine Extremities Exam Present: calf tenderness, joint swelling Comments: Swelling of right leg /tender - Routine Skin Exam Present: lesions Hem/Onc Consult Result - Labs CBC & Chem 7: 11/03/22 06:56 11/02/22 09:03 Labs: Short CBC 11/03/22 Range/Units 06:56 WBC 8.9 (4.8-10.8) X10*3/uL Hgb 11.8 L (14.0-18.0) g/dl Hct 37.1 L (42.0-52.0) % Plt Count 264 (160-400) X10*3/uL Assessment and Plan Patient Active problem list reviewed?: Yes (1) DVT, bilateral lower limbs Status: Acute Assessment and plan: 1. This is a 52-year-old male with bilateral lower extremity DVT, right worse than left and bilateral pulmonary emboli probably secondary to IV drug abuse. Bilateral lower extremity Doppler 11/02/22 revealed thrombus in the right popliteal vein extending throughout the femoral into common femoral vein. There is partially occlusive thrombus in the left femoral vein. CT angiogram showed bilateral lower lobe pulmonary emboli as well as emboli in the right lower lobe. Patient is having a lot of pain in the right lower extremity. He has been on IV heparin. There is swelling of his right knee, I would recommend a CT of his right knee to rule out septic arthritis. Although there is no fever, he is a IV drug abuser and his pain appears to be out of proportion to the extent of clot. Vascular surgery input would also be appreciated. There is no role of thrombophilia testing. I thank you for this consultation. - Time Spent With Patient Time Spent with Patient (in minutes): 20
[2022-11-03 14:11] VITALS: BP 114/88; PULSE 73; RESP 22; TEMP 37.4; O2SAT 96
[2022-11-03] MEDS: Heparin Sodium,Porcine 5,000 UNIT/ML VIAL 8000 UNIT IVPUSH (15:26)
[2022-11-03] MEDS: 0.9 % Sodium Chloride Flush 3 ML SYRINGE IVFLUSH (15:31)
--- NOTE | 2022-11-03 16:06 | MHC.RECOVRN ---
Attempted to meet with pt after consult placed to Addiction Medicine. Pt asleep. Chart reviewed. Will have [employer] football coach try to meet with pt this evening.
[2022-11-03 19:25] VITALS: BP 125/82; PULSE 77; RESP 20; TEMP 36.9; O2SAT 94
--- NOTE | 2022-11-03 19:30 | PC.NURSE ---
Assumed care for pt. Pt aox3. Breaths even and unlabored. NSR on monitor with HR 74. Pt reports left leg pain, 6/10. Bilateral pedal pulses present. Skin warm pink and dry. Heparin running on left ac at 14u/kg/hr. Pt resting in no apparent distress. Pt aware of plan of care. Will continue to monitor.
[2022-11-03] MEDS: oxyCODONE HCl Immed Release 5 MG TABLET PO (22:05)
--- NOTE | 2022-11-03 22:06 | PC.NURSE ---
Pt reports having a headache. Pt medicated for pain, 04/21. Juice provided. Heparin continues running at 14u/kg/h as ordered. Will continue to monitor.
--- NOTE | 2022-11-03 22:22 | PC.NURSE ---
Critical lab results called in: PTT HD >200. Heparin drip discontinued and tiger text sent to Dr. Wesley. Pending new orders from Dr. Wesley. PTT HD to be redrawn in one hour.
--- NOTE | 2022-11-03 22:28 | PC.NURSE ---
Dr Bermudez orders for Heparin drip to be discontinue and repeat PTT HD @ 2228. Pt aware of plan of care.
--- NOTE | 2022-11-03 23:31 | PC.NURSE ---
Critical lab result received: PTT HD 171.7. Heparin drip continues to be paused. Ordered entered for repeat PTT HD within one hour. [place] text sent to Dr Bermudez with this information.
[2022-11-04] VITALS (7 sets, daily range): BP systolic 101–146; BP diastolic 56–80; PULSE 63–80; RESP 16–20; TEMP 36.2–37.1; O2SAT 94–98
--- NOTE | 2022-11-04 00:30 | PC.NURSE ---
Ptt hd results at 66.1. Heparin drip re started at 10u/kg/h per protocol. Ptt Hd to be drawn at 0600. [place] text sent to Dr. Bermudez RN to RN report given to PADMA Fontaine. Pt being transferred to room 471. Pt aware of plan of care.
[2022-11-04] MEDS: 0.9 % Sodium Chloride Flush 3 ML SYRINGE IVFLUSH ×3 (01:09→19:33)
[2022-11-04] MEDS: oxyCODONE HCl Immed Release 5 MG TABLET PO ×3 (02:16→21:44)
[2022-11-04 07:18] LABS: PTT Heparin Drip 74.4 SEC (53-77.9)
[2022-11-04] MEDS: methADONE HCl 20 MG/2 ML ORAL.CONC 160 MG PO (08:08)
--- NOTE | 2022-11-04 11:57 | HO.PM.IMPN ---
Subjective Subjective Date of Service: 11/04/22 Interval History: Seen and evaluated this morning Complaining of right lower extremity pain and swelling With decreased range of motion Breathing has been improving No other overnight events Review of Systems Review of Systems: Yes all other systems are reviewed and are negative Physical Exam Vital Signs: Vital Signs: Last Vital Signs Temp 97.4 F 11/04/22 11:44 Pulse 63 11/04/22 11:44 Resp 16 11/04/22 11:44 BP 116/75 11/04/22 11:44 Pulse Ox 96 11/04/22 11:44 O2 Del Method 11/04/22 11:44 BMI result Body Mass Index 34.5 Const: Other: Constitutional : Awake, interactive, not in distress Neck : Normal inspection, Supple Cardiovascular : RRR, no JVP, right lower extremity mildly swollen and warm Respiratory : good bilateral air entry, no crackles, wheezes or rhonchi Gastrointestinal: soft, lax, Normal bowel sounds, Non tender Skin : Warm, Dry, mild erythema and swelling in lower extremities more noted on the right leg musculoskeletal; decrease range of motion in the right knee, tenderness medially on the back of the knee with no clear effusion Neurological : Alert & oriented x3, No focal deficit Objective Data Active Medications Acetaminophen (Acetaminophen 325 Mg Tablet) 650 mg PO Q6H PRN PRN Reason: Pain, Mild (Pain Scale 1-3) Apixaban (Apixaban 5 Mg Tablet) 10 mg PO BID [facility] Stop: 11/10/22 21:01 Docusate Sodium (Docusate Sodium 100 Mg Capsule) 100 mg PO DAILY PRN PRN Reason: Constipation Heparin Sodium (Porcine) (Heparin Sodium,Porcine 5,000 Unit/Ml Vial) 4,000 unit 40 unit/kg (4000 unit) IVPUSH PROTOCOL BOLUS PRN; Protocol PRN Reason: 40 unit/kg - Heparin Protocol Heparin Sodium (Porcine) (Heparin Sodium,Porcine 5,000 Unit/Ml Vial) 8,000 unit 80 unit/kg (8000 unit) IVPUSH PROTOCOL BOLUS PRN; Protocol PRN Reason: 80 unit/kg - Heparin Protocol Last Admin: 11/03/22 15:26 Dose: 8,000 unit Documented By: ENRIQUETA Heparin Sodium/Sodium Chloride (Heparin Sodium,Porcine/1/2ns) 25,000 unit in 250 mls @ 0 mls/hr IVCONT .Q0M [facility]; Protocol Stop: 11/04/22 12:00 Last Titration: 11/04/22 07:55 Dose: 10 units/kg/hr, 10 mls/hr Documented By: DARWIN Co-signed By: SHEA Methadone HCl (Methadone Hcl 20 Mg/2 Ml Oral.Conc) 160 mg PO DAILY [facility] Last Admin: 11/04/22 08:08 Dose: 160 mg Documented By: DARWIN Oxycodone HCl (Oxycodone Hcl Immed Release 5 Mg Tablet) 5 mg PO Q4H PRN PRN Reason: Pain, Severe (Pain Scale 7-10) Last Admin: 11/04/22 02:16 Dose: 5 mg Documented By: AJAY Sodium Chloride (0.9 % Sodium Chloride Flush 3 Ml Syringe) 3 ml IVFLUSH QSHIFT [facility] Last Admin: 11/04/22 08:08 Dose: 3 ml Documented By: DARWIN Labs CBC & Chem 7: 11/04/22 06:50 11/04/22 06:50 Labs: Laboratory Results - last 24 hr 11/03/22 11/03/22 11/03/22 14:41 21:28 22:48 MCV MCH MCHC RDW Plt Count MPV Absolute Nucleated RBC Nucleated RBC % (auto) aPTT Heparin Protocol 25.9 L D > 200.0 H* D 171.7 H* Anion Gap Estim Creat Clear Calc Estimated GFR Random Glucose Calcium 11/04/22 11/04/22 11/04/22 00:02 06:50 06:50 MCV 79.6 L MCH 25.4 L MCHC 31.9 RDW 15.3 Plt Count 257 MPV 8.5 L Absolute Nucleated RBC 0.000 Nucleated RBC % (auto) 0.0 aPTT Heparin Protocol 66.1 D Anion Gap 12 Estim Creat Clear Calc 121.7 Estimated GFR > 60 Random Glucose 102 Calcium 8.1 L D 11/04/22 06:50 MCV MCH MCHC RDW Plt Count MPV Absolute Nucleated RBC Nucleated RBC % (auto) aPTT Heparin Protocol 74.4 Anion Gap Estim Creat Clear Calc Estimated GFR Random Glucose Calcium Microbiology Microbiology Results: Microbiology 11/02/22 09:03 Blood Culture - Preliminary Blood - Venous No growth after 48 hours. 11/02/22 09:03 Blood Culture - Preliminary Blood - Venous No growth after 48 hours. Assessment and Plan (1) DVT, bilateral lower limbs: Status: Acute (2) Pulmonary emboli: Status: Acute (3) Right knee pain: Status: Acute Plan Pt is a 52-year-old male with a PMH significant for polysubstance abuse including IVDU, migraines, and back pain who presents to the ED today for evaluation of right leg pain. Imaging showed bilateral DVTs and PE. Pt will be admitted to telemetry for treatment with heparin drip protocol. # bilateral DVTs and PEs occlusive thrombus in right leg in the popliteal vein ; in the left leg there is a partially occlusive thrombus in the femoral vein CTA showed bilateral pulmonary emboli with no evidence of right heart strain likely secondary to IVDU, using upper legs for heroin injection over past year continue heparin drip per PE protocol for 48 hours then changed to full-dose Eliquis 10 mg b.i.d. appreciated hematology consult, no role for thrombophilia testing # knee pain Seems to be related to DVT event Check CT scan with contrast to rule out any abscess, septic arthritis Pain management oxycodone as needed consider vascular surgery evaluation if continues to have pain # IVDU on methadone, reports using heroin for pain management get Addiction team evaluation Pt will need overnight hospital stay to continue treatment of DVTs and PE with IV heparin pending safe discharge plan Time Spent With Patient Time: Total time managing care of this patient today ____ minutes. Quality Stroke Does the patient have a stroke diagnosis?: No VTE Prior VTE?: No VTE Risk Level:: Medical - moderate - high VTE Device Contraindication: Treatment Not Indicated VTE Drug Contraindication: N/A - Med Ordered
[2022-11-04] MEDS: Apixaban 5 MG TABLET 10 MG PO ×2 (12:39→19:32)
[2022-11-05] MEDS: oxyCODONE HCl Immed Release 5 MG TABLET PO ×3 (02:25→20:54)
[2022-11-05 07:08] VITALS: BP 136/84; PULSE 60; RESP 18; TEMP 36.3; O2SAT 95
[2022-11-05] MEDS: Apixaban 5 MG TABLET 10 MG PO ×2 (10:03→20:54)
[2022-11-05] MEDS: 0.9 % Sodium Chloride Flush 3 ML SYRINGE IVFLUSH ×2 (10:03→16:01)
[2022-11-05] MEDS: methADONE HCl 20 MG/2 ML ORAL.CONC 160 MG PO (10:04)
--- NOTE | 2022-11-05 11:47 | HO.PM.IMPN ---
Subjective Subjective Date of Service: 11/05/22 Interval History: Seen and evaluated this morning Complaining of right lower extremity painWith pain to stand and walk on a Breathing has been improving No other overnight events Review of Systems Review of Systems: Yes all other systems are reviewed and are negative Physical Exam Vital Signs: Vital Signs: Last Vital Signs Temp 97.3 F 11/05/22 07:08 Pulse 60 11/05/22 07:08 Resp 18 11/05/22 07:08 BP 136/84 11/05/22 07:08 Pulse Ox 95 11/05/22 07:08 O2 Del Method 11/05/22 07:08 BMI result Body Mass Index 34.5 Const: Other: Constitutional : Awake, interactive, not in distress Neck : Normal inspection, Supple Cardiovascular : RRR, no JVP, right lower extremity mildly swollen and warm Respiratory : good bilateral air entry, no crackles, wheezes or rhonchi Gastrointestinal: soft, lax, Normal bowel sounds, Non tender Skin : Warm, Dry, mild erythema and swelling in lower extremities more noted on the right leg musculoskeletal; decrease range of motion in the right knee, tenderness medially on the back of the knee with no clear effusion, erythema Neurological : Alert & oriented x3, No focal deficit Objective Data Active Medications Acetaminophen (Acetaminophen 325 Mg Tablet) 650 mg PO Q6H PRN PRN Reason: Pain, Mild (Pain Scale 1-3) Apixaban (Apixaban 5 Mg Tablet) 10 mg PO BID [facility] Stop: 11/10/22 21:01 Last Admin: 11/05/22 10:03 Dose: 10 mg Documented By: DOMINIK Docusate Sodium (Docusate Sodium 100 Mg Capsule) 100 mg PO DAILY PRN PRN Reason: Constipation Methadone HCl (Methadone Hcl 20 Mg/2 Ml Oral.Conc) 160 mg PO DAILY [facility] Last Admin: 11/05/22 10:04 Dose: 160 mg Documented By: DOMINIK Oxycodone HCl (Oxycodone Hcl Immed Release 5 Mg Tablet) 5 mg PO Q4H PRN PRN Reason: Pain, Severe (Pain Scale 7-10) Last Admin: 11/05/22 02:25 Dose: 5 mg Documented By: AJAY Sodium Chloride (0.9 % Sodium Chloride Flush 3 Ml Syringe) 3 ml IVFLUSH QSHIFT [facility] Last Admin: 11/05/22 10:03 Dose: 3 ml Documented By: DOMINIK Labs CBC & Chem 7: 11/04/22 06:50 11/04/22 06:50 Microbiology Microbiology Results: Microbiology 11/02/22 09:03 Blood Culture - Preliminary Blood - Venous No growth after 48 hours. 11/02/22 09:03 Blood Culture - Preliminary Blood - Venous No growth after 48 hours. Assessment and Plan (1) Right knee pain: Status: Acute (2) DVT, bilateral lower limbs: Status: Acute (3) Pulmonary emboli: Status: Acute Plan Pt is a 52-year-old male with a PMH significant for polysubstance abuse including IVDU, migraines, and back pain who presents to the ED today for evaluation of right leg pain. Imaging showed bilateral DVTs and PE. Pt will be admitted to telemetry for treatment with heparin drip protocol. # bilateral DVTs and PEs occlusive thrombus in right leg in the popliteal vein ; in the left leg there is a partially occlusive thrombus in the femoral vein CTA showed bilateral pulmonary emboli with no evidence of right heart strain likely secondary to IVDU, using upper legs for heroin injection over past year continue heparin drip per PE protocol for 48 hours then changed to full-dose Eliquis 10 mg b.i.d. appreciated hematology consult, no role for thrombophilia testing # knee pain Seems to be related to DVT event CT scan with contrast showed no evidence of any abscess, septic arthritis Pain management oxycodone as needed to get vascular surgery evaluation # IVDU on methadone, reports using heroin for pain management get Addiction team evaluation Pt will need overnight hospital stay to continue treatment of DVTs and PE pending vascular surgery evaluation for leg pain and safe discharge plan Time Spent With Patient Time: Total time managing care of this patient today ____ minutes. Quality Stroke Does the patient have a stroke diagnosis?: No VTE Prior VTE?: No VTE Risk Level:: Medical - moderate - high VTE Device Contraindication: Treatment Not Indicated VTE Drug Contraindication: N/A - Med Ordered
[2022-11-05 12:00] VITALS: BP 115/63; PULSE 61; RESP 19; TEMP 36.2; O2SAT 97
[2022-11-05 15:13] VITALS: BP 109/70; PULSE 85; RESP 18; TEMP 36.1; O2SAT 97
[2022-11-05 18:57] VITALS: BP 112/73; PULSE 69; RESP 20; TEMP 36; O2SAT 96
[2022-11-05] MEDS: Acetaminophen 325 MG TABLET 650 MG PO (23:27)
[2022-11-05 23:54] VITALS: BP 132/61; PULSE 68; RESP 18; TEMP 37.1; O2SAT 99
[2022-11-06] VITALS (7 sets, daily range): BP systolic 107–127; BP diastolic 60–70; PULSE 59–70; RESP 18–20; TEMP 36.6–37.1; O2SAT 93–99
[2022-11-06] MEDS: 0.9 % Sodium Chloride Flush 3 ML SYRINGE IVFLUSH ×2 (08:18→15:35)
[2022-11-06] MEDS: Apixaban 5 MG TABLET 10 MG PO ×2 (08:18→20:40)
[2022-11-06] MEDS: methADONE HCl 20 MG/2 ML ORAL.CONC 160 MG PO (08:19)
--- NOTE | 2022-11-06 09:08 | PM.CNGS ---
History of Present Illness Consult details Consult date: 11/06/22 Reason for consult: other ( DVT with PE) Narrative: very complex 52-year-old gentleman with a known history of polysubstance abuse presents to the hospital with significant swelling and pain of the right lower extremity. This appears to be a more acute events which happened over the last week or so. He has had persistent lesions throughout his body which have been a source of discomfort for him as well. He reports that actually the swelling and discomfort have been present for over 8 months. Also has occasional shortness of breath when walking long distances. He was subsequently over the past week noted to have an increased swelling and pain and discomfort and particular the right lower extremity. Brought into the hospital and worked up and found to have DVT with extensive clot burden on the right side and evidence of a pulmonary embolism upper lobes and lower lobes as well. He has been subsequently anticoagulated. He does continue to have right lower extremity pain. He now presents for vascular evaluation. Review of Systems Constitutional: Constitutional: Reports as per HPI ENT: Reports system reviewed and no additional complaints, except as documented Cardiovascular: Cardiovascular: Denies chest pain, Denies chest pain at rest and Denies chest pain with activity Respiratory: Respiratory: Denies chest congestion and Denies cough Gastrointestinal: Gastrointestinal: Reports no additional gastrointestinal complaints Musculoskeletal: Musculoskeletal: Denies abnormal gait Integumentary/Breasts: Skin/Breast: Reports pruritus and Denies wounds Neurologic: Reports system reviewed and no additional complaints, except as documented and Denies abnormal gait Psychiatric: Psychiatric: Denies no additional psychiatric complaints [facility] Past Medical History Medical History Eyebrow laceration Family History Family History (Updated 11/02/22 @ 14:26 by LANCE Quiroz) Mother COPD (chronic obstructive pulmonary disease) Father Hepatitis Liver cirrhosis Maternal Grandmother Alzheimer disease Maternal Grandfather Prostate cancer Diabetes Surgical History Surgical History No pertinent past surgical history Social History Social History Household Members: Friend(s) Housing: Unknown / Unable to assess Unable to assess alcohol history related to: Refusing to respond Alcohol intake: former Year quit: 2011 Patient Tobacco Use Status: Never used Tobacco e-Cigarette/Vaping Use: Never Used Second Hand Smoke Exposure: No Substance Use Type: Heroin service: No Current occupational status: unemployed Cognitive needs: No Hearing needs: No Vision needs: Yes (reading) Meds Allergies Allergy/AdvReac Type Severity Reaction Status Date / Time No Known Allergies Allergy Verified 08/08/22 13:39 [No Known Allergies*] Active Medications: Current Medications Acetaminophen (Acetaminophen 325 Mg Tablet) 650 mg PO Q6H PRN PRN Reason: Pain, Mild (Pain Scale 1-3) Last Admin: 11/05/22 23:27 Dose: 650 mg Apixaban (Apixaban 5 Mg Tablet) 10 mg PO BID [facility] Stop: 11/10/22 21:01 Last Admin: 11/06/22 08:18 Dose: 10 mg Docusate Sodium (Docusate Sodium 100 Mg Capsule) 100 mg PO DAILY PRN PRN Reason: Constipation Methadone HCl (Methadone Hcl 20 Mg/2 Ml Oral.Conc) 160 mg PO DAILY [facility] Last Admin: 11/06/22 08:19 Dose: 160 mg Oxycodone HCl (Oxycodone Hcl Immed Release 5 Mg Tablet) 5 mg PO Q4H PRN PRN Reason: Pain, Severe (Pain Scale 7-10) Last Admin: 11/05/22 20:54 Dose: 5 mg Sodium Chloride (0.9 % Sodium Chloride Flush 3 Ml Syringe) 3 ml IVFLUSH [facility] Last Admin: 11/06/22 08:18 Dose: 3 ml Home Medications Medication Instructions Recorded Confirmed Last Taken Type methadone 10 mg/mL oral concentrate 160 mg PO DAILY 06/09/22 11/02/22 11/02/22 History Physical Exam Vital Signs: Vital Signs: Last Vital Signs Temp 98.2 F 11/06/22 08:00 Pulse 59 11/06/22 08:00 Resp 20 11/06/22 08:00 BP 107/60 11/06/22 08:00 Pulse Ox 98 11/06/22 08:00 O2 Del Method 11/06/22 08:00 BMI result Body Mass Index 34.5 Const: General: cooperative, healthy appearing and comfortable Orientation/consciousness: oriented to person, oriented to place and oriented to time Neck: Carotids: no bruits Chest: Chest palpation & inspection: normal inspection of the chest and normal palpation of entire chest wall Resp: Effort & Inspection: normal respiratory effort and able to speak in complete sentences Cardio: Rate: regular rate Heart sounds: S1 normal heart sound present and S2 normal heart sound present Peripheral pulses: Peripheral pulses 2+ throughout GI: Inspection: Yes normal to inspection Skin: Other: +2 edema, Right lower extremity has some superficial lesions which appear to have healed over CEAP Classification C5 - evidence of healed ulceration Ep - Etiology Primary As - superficial veins and deep vein P - reflux General skin exam: dry skin Neuro: General: oriented to person, oriented to place and oriented to time Extrem: Right lower extremity: full ROM, normal capillary refill and edema Left lower extremity: full ROM, normal capillary refill and edema Psych: Mental Status: mental status grossly normal Results Labs Result diagrams: 11/04/22 06:50 11/04/22 06:50 Labs: All other labs normal. Assessment and Plan (1) DVT, bilateral lower limbs: Status: Acute in short patient has bilateral lower extremity DVTs. Unclear etiology of lower extremity pain. He does have palpable bilateral lower extremity pulses motor and sensation are intact. In actuality edema appears to have decreased by patient report as well. He notes that he just cannot find a comfortable position for that leg. At the current time I do not believe that the pain is secondary to A vascular issue. He has palpable arterial pulses. He may have evidence of reflux but he has been in bed and edema has significantly decreased. Would continue anticoagulation and begin physical therapy tomorrow. If he is unable to tolerate that he may benefit from an orthopedic evaluation. He will follow up with us on an as-needed basis. Thank you for allowing us to assist in his care. (2) Pulmonary emboli: Status: Acute Time Spent With Patient Time: Total time managing care of this patient today ____ minutes. Procedures Date of Service Date of Service: 11/06/22
[2022-11-06 09:10] LABS: Anion Gap 13 (12-20); Blood Urea Nitrogen 12 mg/dL (9-16); Calcium 8.7 mg/dL (8.4-10.2); Carbon Dioxide 24 mmol/L (22-29); Chloride 102 mmol/L (96-108); Creatinine Clr Calc Pharmacy 117.3; Estimated Glomerular Filt Rate > 60; Glucose Random 97 mg/dL (60-115); Potassium 5.2 mmol/L (3.3-5.1); Sodium 134 mmol/L (135-145)
--- NOTE | 2022-11-06 09:48 | HO.PM.IMPN ---
Subjective Subjective Date of Service: 11/06/22 Interval History: Seen and evaluated this morning Complaining of right lower extremity painWith pain to stand and walk on a Breathing has been improving No other overnight events Physical Exam Vital Signs: Vital Signs: Last Vital Signs Temp 98.2 F 11/06/22 08:00 Pulse 59 11/06/22 08:00 Resp 20 11/06/22 08:00 BP 107/60 11/06/22 08:00 Pulse Ox 98 11/06/22 08:00 O2 Del Method 11/06/22 08:00 BMI result Body Mass Index 34.5 Const: Other: Constitutional : Awake, interactive, not in distress Neck : Normal inspection, Supple Cardiovascular : RRR, no JVP, right lower extremity mildly swollen and warm Respiratory : good bilateral air entry, no crackles, wheezes or rhonchi Gastrointestinal: soft, lax, Normal bowel sounds, Non tender Skin : Warm, Dry, mild erythema and swelling in lower extremities more noted on the right leg musculoskeletal; decrease range of motion in the right knee, tenderness medially on the back of the knee with no clear effusion, erythema Neurological : Alert & oriented x3, No focal deficit Objective Data Active Medications Acetaminophen (Acetaminophen 325 Mg Tablet) 650 mg PO Q6H PRN PRN Reason: Pain, Mild (Pain Scale 1-3) Last Admin: 11/05/22 23:27 Dose: 650 mg Documented By: JAIMIE Apixaban (Apixaban 5 Mg Tablet) 10 mg PO BID [facility] Stop: 11/10/22 21:01 Last Admin: 11/06/22 08:18 Dose: 10 mg Documented By: AVRIL Docusate Sodium (Docusate Sodium 100 Mg Capsule) 100 mg PO DAILY PRN PRN Reason: Constipation Methadone HCl (Methadone Hcl 20 Mg/2 Ml Oral.Conc) 160 mg PO DAILY [facility] Last Admin: 11/06/22 08:19 Dose: 160 mg Documented By: AVRIL Oxycodone HCl (Oxycodone Hcl Immed Release 5 Mg Tablet) 5 mg PO Q4H PRN PRN Reason: Pain, Severe (Pain Scale 7-10) Last Admin: 11/05/22 20:54 Dose: 5 mg Documented By: JAIMIE Sodium Chloride (0.9 % Sodium Chloride Flush 3 Ml Syringe) 3 ml IVFLUSH QSHIFT [facility] Last Admin: 11/06/22 08:18 Dose: 3 ml Documented By: AVRIL Labs CBC & Chem 7: 11/04/22 06:50 11/06/22 07:34 Labs: Laboratory Results - last 24 hr 11/06/22 07:34 Anion Gap 13 Estim Creat Clear Calc 117.3 Estimated GFR > 60 Random Glucose 97 Calcium 8.7 D Assessment and Plan (1) Right knee pain: Status: Acute (2) DVT, bilateral lower limbs: Status: Acute (3) Pulmonary emboli: Status: Acute Plan Pt is a 52-year-old male with a PMH significant for polysubstance abuse including IVDU, migraines, and back pain who presents to the ED today for evaluation of right leg pain. Imaging showed bilateral DVTs and PE. Pt will be admitted to telemetry for treatment with heparin drip protocol. # bilateral DVTs and PEs occlusive thrombus in right leg in the popliteal vein ; in the left leg there is a partially occlusive thrombus in the femoral vein CTA showed bilateral pulmonary emboli with no evidence of right heart strain likely secondary to IVDU, using upper legs for heroin injection over past year changed to full-dose Eliquis 10 mg b.i.d, to finish total of 6 months of AC appreciated hematology consult, no role for thrombophilia testing # knee pain CT scan with contrast showed no evidence of any abscess, septic arthritis Pain management oxycodone as needed vascular surgery evaluation , no clear vascular etiology to pain, consider ortho consult if no improvement with PT to do PT eval for now # IVDU on methadone, reports using heroin for pain management pendinjg Addiction team evaluation Pt will need overnight hospital stay to continue treatment of DVTs and PE pending PT evaluation for leg pain and safe discharge plan Time Spent With Patient Time: Total time managing care of this patient today ____ minutes. Quality Stroke Does the patient have a stroke diagnosis?: No VTE Prior VTE?: No VTE Risk Level:: Medical - moderate - high VTE Device Contraindication: Treatment Not Indicated VTE Drug Contraindication: N/A - Med Ordered
[2022-11-06 11:09] LABS: Hematocrit 38.4 % (42.0-52.0); Hemoglobin 12.3 g/dl (14.0-18.0); Mean Corpuscular Hemoglobin 25.7 pg (27.0-33.0); Mean Corpuscular Volume 80.3 fL (80.0-98.0); Mean Platelet Volume 9.2 fL (9.4-12.4); Platelet Count 356 X10*3/uL (160-400); Red Blood Count 4.78 X10*6/uL (4.60-5.80); Red Cell Distribution Width 15.1 % (11.0-16.0); White Blood Count 7.1 X10*3/uL (4.8-10.8)
[2022-11-06] MEDS: oxyCODONE HCl Immed Release 5 MG TABLET PO ×2 (15:35→20:40)
[2022-11-07] MEDS: oxyCODONE HCl Immed Release 5 MG TABLET PO ×2 (00:40→10:22)
[2022-11-07] MEDS: 0.9 % Sodium Chloride Flush 3 ML SYRINGE IVFLUSH ×4 (00:41→21:06)
[2022-11-07 04:00] VITALS: BP 117/72; PULSE 66; RESP 20; TEMP 36.4
--- NOTE | 2022-11-07 07:20 | PM.CNOR ---
History of Present Illness HPI Consult date: 11/07/22 Chief complaint: Bilateral DVTs PE Narrative: 52-year-old male patient with a PMH of back pain, migraines, and polysubstance abuse, IVDA (last injecting Heroin on 11/02/22 around 1:00am in the right AC area) presented to the emergency department on 11/02/22 with complaint of bilateral lower leg swelling x1 year with pain behind his right knee that has been progressively getting worse over the past week. He also complained of shortness of breath. He states he has extreme pain when attempting to ambulate behind the right knee. He endorses increased pain with letting the leg hand over the side of the bed, again located behind the knee. He states he has several healing lesions throughout his body where he has injected heroin. Review of Systems Review of Systems: Yes all other systems are reviewed and are negative PMFSH Past Medical History Medical History Eyebrow laceration Family History Family History (Updated 11/02/22 @ 14:26 by LANCE Quiroz) Mother COPD (chronic obstructive pulmonary disease) Father Hepatitis Liver cirrhosis Maternal Grandmother Alzheimer disease Maternal Grandfather Prostate cancer Diabetes Surgical History Surgical History No pertinent past surgical history Social History Social History Household Members: Friend(s) Housing: Unknown / Unable to assess Unable to assess alcohol history related to: Refusing to respond Alcohol intake: former Year quit: 2011 Patient Tobacco Use Status: Never used Tobacco e-Cigarette/Vaping Use: Never Used Second Hand Smoke Exposure: No Substance Use Type: Heroin service: No Current occupational status: unemployed Cognitive needs: No Hearing needs: No Vision needs: Yes (reading) Meds Allergies Allergy/AdvReac Type Severity Reaction Status Date / Time No Known Allergies Allergy Verified 08/08/22 13:39 [No Known Allergies*] Active Medications: Current Medications Acetaminophen (Acetaminophen 325 Mg Tablet) 650 mg PO Q6H PRN PRN Reason: Pain, Mild (Pain Scale 1-3) Last Admin: 11/05/22 23:27 Dose: 650 mg Apixaban (Apixaban 5 Mg Tablet) 10 mg PO BID [facility] Stop: 11/10/22 21:01 Last Admin: 11/06/22 20:40 Dose: 10 mg Docusate Sodium (Docusate Sodium 100 Mg Capsule) 100 mg PO DAILY PRN PRN Reason: Constipation Methadone HCl (Methadone Hcl 20 Mg/2 Ml Oral.Conc) 160 mg PO DAILY [facility] Last Admin: 11/06/22 08:19 Dose: 160 mg Oxycodone HCl (Oxycodone Hcl Immed Release 5 Mg Tablet) 5 mg PO Q4H PRN PRN Reason: Pain, Severe (Pain Scale 7-10) Last Admin: 11/07/22 00:40 Dose: 5 mg Sodium Chloride (0.9 % Sodium Chloride Flush 3 Ml Syringe) 3 ml IVFLUSH QSHIFT [facility] Last Admin: 11/07/22 00:41 Dose: 3 ml Home Medications Medication Instructions Recorded Confirmed Last Taken Type methadone 10 mg/mL oral concentrate 160 mg PO DAILY 06/09/22 11/02/22 11/02/22 History Physical Exam Vital Signs: Vital Signs: Last Vital Signs Temp 97.5 F 11/07/22 04:00 Pulse 66 11/07/22 04:00 Resp 20 11/07/22 04:00 BP 117/72 11/07/22 04:00 Pulse Ox 99 11/06/22 23:17 O2 Del Method 11/07/22 04:00 BMI result Body Mass Index 34.5 Const: General: cooperative, healthy appearing and no acute distress Resp: Effort & Inspection: normal respiratory effort and able to speak in complete sentences Cardio: Rate: regular rate Peripheral pulses: Peripheral pulses 2+ throughout GI: Palpation (GI): Soft to palpation Skin: Lesions: no lesions Rashes: no rashes Extrem: Other: Right knee no erythema or joint effusion. No tenderness to palpation of the medial or lateral joint lines. ROM 0-20 degrees with pain located popliteal fossa. Pain with calf squeeze. Positive Homans. Denies numbness or tingling. Pedal pulse intact. Results Labs Result Diagrams: 11/06/22 10:45 11/06/22 07:34 Labs: Abnormal lab results 11/06/22 11/06/22 Range/Units 07:34 10:45 Hgb 12.3 L (14.0-18.0) g/dl Hct 38.4 L (42.0-52.0) % MCH 25.7 L (27.0-33.0) pg MPV 9.2 L (9.4-12.4) fL Sodium 134 L (135-145) mmol/L Potassium 5.2 H (3.3-5.1) mmol/L H & H 11/02/22 11/03/22 11/04/22 Range/Units 09:03 06:56 06:50 Hgb 12.5 L 11.8 L 11.1 L (14.0-18.0) g/dl Hct 40.1 L 37.1 L 34.8 L (42.0-52.0) % 11/06/22 Range/Units 10:45 Hgb 12.3 L (14.0-18.0) g/dl Hct 38.4 L (42.0-52.0) % Coagulation 11/02/22 11/03/22 11/03/22 Range/Units 10:53 06:56 06:56 INR 1.3 H Cancelled 1.3 H (0.9-1.1) All other labs normal. Assessment and Plan (1) Right knee pain: Status: Acute No evidence of septic joint Pain management as needed WBAT X-rays and CT of the right knee negative for any acute fracture or dislocation Gentle ROM to tolerance No additional orthopedic intervention needed at this time (2) DVT, bilateral lower limbs: Status: Acute (3) Pulmonary emboli: Status: Acute (4) Swelling of lower extremity: Status: Acute (5) History of opioid abuse: Status: Acute (6) Skin lesions: Status: Acute (7) Polysubstance abuse: Status: Acute Time Spent With Patient Time: Total time managing care of this patient today ____ minutes. Procedures Date of Service Date of Service: 11/07/22
[2022-11-07 07:30] VITALS: BP 136/69; PULSE 62; RESP 14; TEMP 36; O2SAT 97
[2022-11-07 08:34] LABS: Hematocrit 39.5 % (42.0-52.0); Hemoglobin 12.5 g/dl (14.0-18.0); Mean Corpuscular HGB Conc 31.6 g/dl (31.0-36.0); Mean Corpuscular Hemoglobin 25.4 pg (27.0-33.0); Mean Corpuscular Volume 80.1 fL (80.0-98.0); PLT CLUMP 1; Red Blood Count 4.93 X10*6/uL (4.60-5.80); Red Cell Distribution Width 15.2 % (11.0-16.0); White Blood Count 7.8 X10*3/uL (4.8-10.8)
[2022-11-07] MEDS: Lidocaine 4 % Patch ADH..PATCH 1 PATCH TRANSDERMA (10:21)
[2022-11-07] MEDS: Apixaban 5 MG TABLET 10 MG PO ×2 (10:22→21:04)
[2022-11-07] MEDS: methADONE HCl 20 MG/2 ML ORAL.CONC 160 MG PO (10:23)
[2022-11-07 10:44] LABS: Anion Gap 16 (12-20); Blood Urea Nitrogen 13 mg/dL (9-16); Calcium 8.8 mg/dL (8.4-10.2); Carbon Dioxide 23 mmol/L (22-29); Chloride 103 mmol/L (96-108); Creatinine Clr Calc Pharmacy 114.5; Estimated Glomerular Filt Rate > 60; Glucose Random 125 mg/dL (60-115); Sodium 137 mmol/L (135-145)
[2022-11-07 11:09] VITALS: BP 124/68; PULSE 58; RESP 14; TEMP 36.6; O2SAT 92
--- NOTE | 2022-11-07 14:46 | HO.PM.IMPN ---
Subjective Subjective Date of Service: 11/07/22 Interval History: Follow-up for bilateral DVTs and PEs Review of Systems still has leg pain right side similar to yesterday Denies any chest pain or shortness of breath or fever or chills. Physical Exam Vital Signs: Vital Signs: Last Vital Signs Temp 97.9 F 11/07/22 11:09 Pulse 58 11/07/22 11:09 Resp 14 11/07/22 11:09 BP 124/68 11/07/22 11:09 Pulse Ox 92 11/07/22 11:09 O2 Del Method 11/07/22 11:09 BMI result Body Mass Index 34.5 Constitutional : Awake, interactive, not in distress Cardiovascular : RRR,[id number]. Respiratory : good bilateral air entry,? no crackles, wheezes or rhonchi Gastrointestinal:? soft, lax, Normal bowel sounds, Non tender. Skin : Warm, Dry, mild erythema and swelling in lower extremities more noted on the right leg ?musculoskeletal; decrease range of motion in the right knee, tenderness medially on the back of the knee with no clear effusion. Neurological : Alert & oriented x3, No focal deficit Objective Data Active Medications Acetaminophen (Acetaminophen 325 Mg Tablet) 650 mg PO Q6H PRN PRN Reason: Pain, Mild (Pain Scale 1-3) Last Admin: 11/05/22 23:27 Dose: 650 mg Documented By: JAIMIE Apixaban (Apixaban 5 Mg Tablet) 10 mg PO BID [facility] Stop: 11/10/22 21:01 Last Admin: 11/07/22 10:22 Dose: 10 mg Documented By: TALIB Docusate Sodium (Docusate Sodium 100 Mg Capsule) 100 mg PO DAILY PRN PRN Reason: Constipation Lidocaine (Lidocaine 4 % Patch Adh..Patch) 1 patch TRANSDERMA DAILY [facility]; Protocol Last Admin: 11/07/22 10:21 Dose: 1 patch Documented By: TALIB Methadone HCl (Methadone Hcl 20 Mg/2 Ml Oral.Conc) 160 mg PO DAILY [facility] Last Admin: 11/07/22 10:23 Dose: 160 mg Documented By: TALIB Oxycodone HCl (Oxycodone Hcl Immed Release 5 Mg Tablet) 5 mg PO Q4H PRN PRN Reason: Pain, Severe (Pain Scale 7-10) Last Admin: 11/07/22 10:22 Dose: 5 mg Documented By: TALIB Sodium Chloride (0.9 % Sodium Chloride Flush 3 Ml Syringe) 3 ml IVFLUSH QSHIFT [facility] Last Admin: 11/07/22 10:24 Dose: 3 ml Documented By: TALIB Labs CBC & Chem 7: 11/07/22 08:12 11/07/22 09:43 Labs: Laboratory Results - last 24 hr 11/07/22 11/07/22 08:12 09:43 MCV 80.1 MCH 25.4 L MCHC 31.6 RDW 15.2 Plt Count TNP MPV Not Reportable Absolute Nucleated RBC 0.000 Nucleated RBC % (auto) 0.0 Anion Gap 16 Estim Creat Clear Calc 114.5 Estimated GFR > 60 Random Glucose 125 H D Calcium 8.8 Microbiology Microbiology Results: Microbiology 11/02/22 09:03 Blood Culture - Final Blood - Venous No growth after 5 days. 11/02/22 09:03 Blood Culture - Final Blood - Venous No growth after 5 days. Assessment and Plan (1) Right knee pain: Status: Acute (2) DVT, bilateral lower limbs: Status: Acute (3) Pulmonary emboli: Status: Acute Plan Pt is a 52-year-old male with a PMH significant for polysubstance abuse including IVDU, migraines, and back pain who presents to the ED today for evaluation of right leg pain. Imaging showed bilateral DVTs and PE. Pt will be admitted to telemetry for treatment with heparin drip protocol. # bilateral DVTs and PEs occlusive thrombus in right leg in the popliteal vein ; in the left leg there is a partially occlusive thrombus in the femoral vein CTA showed bilateral pulmonary emboli with no evidence of right heart strain likely secondary to IVDU, using upper legs for heroin injection over past year changed to full-dose Eliquis 10 mg b.i.d for 1 week,then switch to 5 mg bid, to finish total of 6 months of AC appreciated hematology consult, no role for thrombophilia testing # knee pain CT scan with contrast showed no evidence of any abscess, septic arthritis Pain management adjusted oxycodone,added lidocaine patch as needed vascular surgery evaluation , no clear vascular etiology to pain, consider ortho consult -No evidence of septic joint,Pain management as needed,WBAT X-rays and CT of the right knee negative for any acute fracture or dislocation Gentle ROM to tolerance No additional orthopedic intervention needed at this time # IVDU on methadone, reports using heroin for pain management pendin Addiction team evaluation inpatient need :awaiting placemnt Time Spent With Patient Time: Total time managing care of this patient today ____ minutes. Quality Stroke Does the patient have a stroke diagnosis?: No VTE Prior VTE?: No VTE Risk Level:: Medical - moderate - high VTE Device Contraindication: Treatment Not Indicated VTE Drug Contraindication: N/A - Med Ordered
[2022-11-07 15:17] VITALS: BP 118/65; PULSE 59; RESP 17; TEMP 36.6; O2SAT 97
--- NOTE | 2022-11-07 16:47 | MHC.RECOVRN ---
This screenplay writer met w/ pt, pt laying in bed, watching t.v. Pt states started using opiates in early 30's. Pt reports a few years of opiate use in early 30's then went to detox and was in recovery for 10 years. Pt reports during 10 years was doing well, taking care of Grandparents, keeping busy. Pt states in 2020, primary care provider retired and therefore pain management for chronic low back pain did not continue. Pt states reoccurrence on heroin for 1.5 years. Pt reports history of overdose with reoccurrence, in which narcan was administered. Pt reports for past 6 months has been on Methadone at clinic in [place]. Pt states current dose 160mg. Pt states minimal pain management for low back pain with methadone. Pt states for past 2 months, intermittent heroin use. Pt stated injected heroin in upper legs twice. Pt reports prior to coming to hospital, noticed increased, pain, swelling, redness in legs. Pt discussed prior to being on Methadone, during 1.5 year of heroin use, noticed significant injection site wounds that were crater-like, punched out holes. Pt reports has narcan at home. This screenplay writer and patient discussed current drug trends and harm reduction education. 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 Patient reports pain 4/10 currently laying in bed. Pt states pain is intolerable/excruciating when standing and sitting at bedside. This screenplay writer reviewed with Provider. Provider states will increase pain mediction. This screenplay writer reviewed with patient increased pain med with goal of patient able to ambulate in room/on unit with pain management. Pt verbalized understanding. Pt states concerns for DVT/PE and infection. T/W to check in with patient tomorrow.
[2022-11-07 19:26] VITALS: BP 109/60; PULSE 66; RESP 16; TEMP 35.9; O2SAT 94
[2022-11-07] MEDS: oxyCODONE HCl Immed Release 5 MG TABLET 10 MG PO (21:05)
[2022-11-07 23:47] VITALS: BP 109/69; PULSE 60; RESP 18; TEMP 37.1; O2SAT 96
[2022-11-08] MEDS: oxyCODONE HCl Immed Release 5 MG TABLET 10 MG PO ×3 (01:36→22:05)
[2022-11-08 03:44] VITALS: BP 116/65; PULSE 60; RESP 18; TEMP 36.3; O2SAT 95
[2022-11-08 07:40] VITALS: BP 129/73; PULSE 61; RESP 12; TEMP 36.6; O2SAT 96
[2022-11-08] MEDS: Lidocaine 4 % Patch ADH..PATCH 1 PATCH TRANSDERMA (08:40)
[2022-11-08] MEDS: Apixaban 5 MG TABLET PO (08:40)
[2022-11-08] MEDS: methADONE HCl 20 MG/2 ML ORAL.CONC 160 MG PO (08:42)
[2022-11-08] MEDS: 0.9 % Sodium Chloride Flush 3 ML SYRINGE IVFLUSH ×2 (08:43→21:08)
[2022-11-08] MEDS: Apixaban 5 MG TABLET 10 MG PO ×2 (08:49→21:08)
--- NOTE | 2022-11-08 11:09 | MHC.RECOVRN ---
This content writer met w/ patient, upon entering room, lights off, blinds drawn, t.v. off, patient laying in bed. This content writer and patient reviewed plan of care for DVT's. Pt had concerns for infection, reviewed assessments and lab results performed, which showed no evidence of infection. T/W and patient reviewed pain management and ambulation. Pt verbalized understanding. Pt expressed concerns with ambulation and plan at discharge related to movement and pain.
[2022-11-08 11:30] VITALS: BP 131/84; PULSE 65; RESP 12; TEMP 36.7; O2SAT 97
--- NOTE | 2022-11-08 15:24 | MHC.CM.PN ---
PT is recommending STR; [facility] is reviewing and CM will follow.
[2022-11-08 15:27] VITALS: BP 109/62; PULSE 61; RESP 18; TEMP 37; O2SAT 99
--- NOTE | 2022-11-08 17:12 | P.PNIM_ITS ---
Subjective Subjective Date of Service: 11/08/22 Interval History: dvt and P.e, Review of Systems patient has leg pains d/w him -adjusted oxydone yesterday/added lidocaine patch. Physical Exam Vital Signs: Vital Signs: Last Vital Signs Temp 98.6 F 11/08/22 15:27 Pulse 61 11/08/22 15:27 Resp 18 11/08/22 15:27 BP 109/62 11/08/22 15:27 Pulse Ox 99 11/08/22 15:27 O2 Del Method 11/08/22 15:27 BMI result Body Mass Index 34.5 Constitutional : Awake, interactive, not in distress Cardiovascular : RRR, no JVP,? right lower extremity mildly swollen and? warm Respiratory : good bilateral air entry,? no crackles, wheezes or rhonchi Gastrointestinal:? soft, lax, Normal bowel sounds, Non tender Skin : Warm, Dry, mild erythema and swelling in lower extremities more noted on the right leg ?musculoskeletal; decrease range of motion in the right knee, pain similar as per patient, erythema Neurological : Alert & oriented x3, No focal deficit Objective Data Active Medications Acetaminophen (Acetaminophen 325 Mg Tablet) 650 mg PO Q6H PRN PRN Reason: Pain, Mild (Pain Scale 1-3) Last Admin: 11/05/22 23:27 Dose: 650 mg Documented By: JAIMIE Apixaban (Apixaban 5 Mg Tablet) 10 mg PO BID [facility] Stop: 11/10/22 21:01 Last Admin: 11/08/22 08:49 Dose: 10 mg Documented By: LEODAN Apixaban (Apixaban 5 Mg Tablet) 5 mg PO BID [facility] Last Admin: 11/08/22 08:40 Dose: 5 mg Documented By: LEODAN Docusate Sodium (Docusate Sodium 100 Mg Capsule) 100 mg PO DAILY PRN PRN Reason: Constipation Lidocaine (Lidocaine 4 % Patch Adh..Patch) 1 patch TRANSDERMA DAILY [facility]; Protocol Last Admin: 11/08/22 08:40 Dose: 1 patch Documented By: LEODAN Methadone HCl (Methadone Hcl 20 Mg/2 Ml Oral.Conc) 160 mg PO DAILY [facility] Last Admin: 11/08/22 08:42 Dose: 160 mg Documented By: LEODAN Oxycodone HCl (Oxycodone Hcl Immed Release 5 Mg Tablet) 10 mg PO Q4H PRN PRN Reason: Pain, Severe (Pain Scale 7-10) Last Admin: 11/08/22 01:36 Dose: 10 mg Documented By: LISSETTLM Sodium Chloride (0.9 % Sodium Chloride Flush 3 Ml Syringe) 3 ml IVFLUSH QSHIFT [facility] Last Admin: 11/08/22 08:43 Dose: 3 ml Documented By: LEODAN Labs CBC & Chem 7: 11/07/22 08:12 11/07/22 09:43 Assessment and Plan (1) DVT, bilateral lower limbs: Status: Acute (2) Pulmonary emboli: Status: Acute (3) Obesity: Status: Acute Plan 52-year-old male with a PMH significant for polysubstance abuse including IVDU, migraines, and back pain who presents to the ED today for evaluation of right leg pain. Imaging showed bilateral DVTs and PE. Pt will be admitted to telemetry for treatment with heparin drip protocol. # bilateral DVTs and PEs ?occlusive thrombus in right leg in the popliteal vein ; in the left leg there is a partially occlusive thrombus in the femoral vein CTA showed bilateral pulmonary emboli with no evidence of right heart strain likely secondary to IVDU, using upper legs for heroin injection over past year changed to full-dose Eliquis 10 mg b.i.d, to finish total of 6 months of AC ?appreciated hematology consult, no role for thrombophilia testing #? knee pain CT scan with contrast? showed no evidence of any abscess, septic arthritis vascular surgery evaluation , no clear vascular etiology to pain, consider ortho consult if no improvement with PT to do PT eval for now-patient was strongly encouraged to mobilization, oxycodone adjusted yesterday as well as lidocaine patch added also has Tylenol p.r.n. # IVDU on methadone, ?reports using heroin for pain management Addiction team evaluation apprecaited . obesity : encouraged to lose weight. Pt will? need overnight hospital stay to continue treatment of DVTs and PE? pending PT evaluation for leg pain and safe discharge plan.patient Time Spent With Patient Time: Total time managing care of this patient today ____ minutes. Quality Stroke Does the patient have a stroke diagnosis?: No VTE Prior VTE?: No VTE Risk Level:: Medical - moderate - high VTE Device Contraindication: Treatment Not Indicated VTE Drug Contraindication: N/A - Med Ordered
[2022-11-08 20:00] VITALS: BP 112/67; PULSE 61; RESP 18; TEMP 36.8; O2SAT 99
[2022-11-08 23:53] VITALS: BP 118/75; PULSE 63; RESP 15; TEMP 36.1; O2SAT 96
[2022-11-09] MEDS: oxyCODONE HCl Immed Release 5 MG TABLET 10 MG PO (03:14)
[2022-11-09 03:35] VITALS: BP 108/67; PULSE 57; RESP 16; TEMP 36.1; O2SAT 98
[2022-11-09 07:56] VITALS: BP 107/62; PULSE 61; RESP 20; TEMP 36.9; O2SAT 99
[2022-11-09] MEDS: Lidocaine 4 % Patch ADH..PATCH 1 PATCH TRANSDERMA ×2 (09:23→11:07)
[2022-11-09] MEDS: Apixaban 5 MG TABLET 10 MG PO ×2 (09:24→21:20)
[2022-11-09] MEDS: methADONE HCl 20 MG/2 ML ORAL.CONC 160 MG PO (09:24)
[2022-11-09] MEDS: 0.9 % Sodium Chloride Flush 3 ML SYRINGE IVFLUSH ×2 (09:28→15:26)
[2022-11-09] MEDS: Gabapentin 100 MG CAPSULE PO ×3 (11:07→21:20)
[2022-11-09 11:09] VITALS: BP 111/61; PULSE 65; RESP 20; TEMP 36.1; O2SAT 94
--- NOTE | 2022-11-09 14:17 | P.PNIM_ITS ---
Subjective Subjective Date of Service: 11/10/22 Interval History: dvt and P.e,leg pains Review of Systems patient has leg pains-says can not walk on leg due to pain d/w him -adjusted oxydone yesterday/added lidocaine patch,added gabapentin also. Physical Exam Vital Signs: Vital Signs: Last Vital Signs Temp 97.0 F 11/09/22 11:09 Pulse 65 11/09/22 11:09 Resp 20 11/09/22 11:09 BP 111/61 11/09/22 11:09 Pulse Ox 94 11/09/22 11:09 O2 Del Method 11/09/22 11:09 BMI result Body Mass Index 34.5 ?Constitutional : Awake, interactive, not in distress Cardiovascular : RRR, no JVP,? right lower extremity mildly swollen and? warm Respiratory : good bilateral air entry,? no crackles, wheezes or rhonchi Gastrointestinal:? soft, lax, Normal bowel sounds, Non tender Skin : Warm, Dry, no erythema ,mild swelling in lower extremities more noted on the right leg ?musculoskeletal; decrease range of motion in the right knee, pain similar as per patient, erythema Neurological : Alert & oriented x3, No focal deficit Objective Data Active Medications Acetaminophen (Acetaminophen 325 Mg Tablet) 650 mg PO Q6H PRN PRN Reason: Pain, Mild (Pain Scale 1-3) Last Admin: 11/05/22 23:27 Dose: 650 mg Documented By: JAIMIE Apixaban (Apixaban 5 Mg Tablet) 10 mg PO BID [facility] Stop: 11/10/22 21:01 Last Admin: 11/09/22 09:24 Dose: 10 mg Documented By: LEODAN Apixaban (Apixaban 5 Mg Tablet) 5 mg PO BID [facility] Last Admin: 11/08/22 08:40 Dose: 5 mg Documented By: LEODAN Docusate Sodium (Docusate Sodium 100 Mg Capsule) 100 mg PO DAILY PRN PRN Reason: Constipation Gabapentin (Gabapentin 100 Mg Capsule) 100 mg PO TID [facility] Last Admin: 11/09/22 11:07 Dose: 100 mg Documented By: LEODAN Lidocaine (Lidocaine 4 % Patch Adh..Patch) 1 patch TRANSDERMA DAILY [facility]; Protocol Last Admin: 11/09/22 09:23 Dose: 1 patch Documented By: LEODAN Lidocaine (Lidocaine 4 % Patch Adh..Patch) 1 patch TRANSDERMA DAILY [facility]; Protocol Last Admin: 11/09/22 11:07 Dose: 1 patch Documented By: LEODAN Methadone HCl (Methadone Hcl 20 Mg/2 Ml Oral.Conc) 160 mg PO DAILY [facility] Last Admin: 11/09/22 09:24 Dose: 160 mg Documented By: LEODAN Oxycodone HCl (Oxycodone Hcl Immed Release 5 Mg Tablet) 10 mg PO Q4H PRN PRN Reason: Pain, Severe (Pain Scale 7-10) Last Admin: 11/09/22 03:14 Dose: 10 mg Documented By: JOSE DE JESUS Sodium Chloride (0.9 % Sodium Chloride Flush 3 Ml Syringe) 3 ml IVFLUSH QSHIFT [facility] Last Admin: 11/09/22 09:28 Dose: 3 ml Documented By: LEODAN Labs CBC & Chem 7: 11/07/22 08:12 11/07/22 09:43 Assessment and Plan (1) DVT, bilateral lower limbs: Status: Acute (2) Pulmonary emboli: Status: Acute (3) Obesity: Status: Acute Plan 52-year-old male with a PMH significant for polysubstance abuse including IVDU, migraines, and back pain who presents to the ED today for evaluation of right leg pain. Imaging showed bilateral DVTs and PE. Pt will be admitted to telemetry for treatment with heparin drip protocol. # bilateral DVTs and PEs ?occlusive thrombus in right leg in the popliteal vein ; in the left leg there is a partially occlusive thrombus in the femoral vein CTA showed bilateral pulmonary emboli with no evidence of right heart strain likely secondary to IVDU, using upper legs for heroin injection over past year changed to full-dose Eliquis 10 mg b.i.d, to finish total of 6 months of AC ?appreciated hematology consult, no role for thrombophilia testing #? knee pain CT scan with contrast? showed no evidence of any abscess, septic arthritis vascular surgery evaluation , no clear vascular etiology to pain, consider ortho consult if no improvement with PT to do PT eval for now-patient was strongly encouraged to mobilization, oxycodone adjusted yesterday as well as lidocaine patch added also has Tylenol p.r.n. # IVDU on methadone, ?reports using heroin for pain management Addiction team evaluation apprecaited . obesity : encouraged to lose weight. ongoin hospital stay to continue treatment of DVTs and PE? ,leg pain -unable to walk and participate with pt and safe discharge plan.patient Time Spent With Patient Time: Total time managing care of this patient today ____ minutes. Quality Stroke Does the patient have a stroke diagnosis?: No VTE Prior VTE?: No VTE Risk Level:: Medical - moderate - high VTE Device Contraindication: Treatment Not Indicated VTE Drug Contraindication: N/A - Med Ordered
[2022-11-09 15:41] VITALS: BP 133/79; PULSE 64; RESP 18; TEMP 36.6; O2SAT 93
[2022-11-09 20:00] VITALS: BP 125/57; PULSE 60; RESP 19; TEMP 36.7; O2SAT 95
[2022-11-09 23:04] VITALS: BP 102/62; PULSE 66; RESP 18; TEMP 36.2; O2SAT 96
[2022-11-10] MEDS: 0.9 % Sodium Chloride Flush 3 ML SYRINGE IVFLUSH ×4 (02:12→22:35)
[2022-11-10] MEDS: oxyCODONE HCl Immed Release 5 MG TABLET 10 MG PO ×2 (02:22→21:17)
[2022-11-10 04:00] VITALS: BP 109/59; PULSE 65; RESP 15; TEMP 36.1; O2SAT 95
[2022-11-10 07:50] VITALS: BP 114/55; PULSE 69; RESP 20; TEMP 36.3; O2SAT 97
[2022-11-10] MEDS: methADONE HCl 20 MG/2 ML ORAL.CONC 160 MG PO (08:34)
[2022-11-10] MEDS: Apixaban 5 MG TABLET 10 MG PO ×2 (08:35→21:16)
[2022-11-10] MEDS: Lidocaine 4 % Patch ADH..PATCH 1 PATCH TRANSDERMA ×2 (08:35→08:36)
[2022-11-10] MEDS: Gabapentin 100 MG CAPSULE PO (08:36)
[2022-11-10 11:23] VITALS: BP 106/63; PULSE 60; RESP 20; TEMP 36.1; O2SAT 97
--- NOTE | 2022-11-10 12:52 | P.PNIM_ITS ---
Subjective Subjective Date of Service: 11/11/22 Interval History: follow up for dvt and P.e,leg pains Review of Systems patient has leg pains-tried to stand him -says in lot of pain but at least able to stand with pain. d/w him -adjusted oxydone yesterday/added lidocaine patch,added gabapentin also. Physical Exam Vital Signs: Vital Signs: Last Vital Signs Temp 97.0 F 11/10/22 11:23 Pulse 60 11/10/22 11:23 Resp 20 11/10/22 11:23 BP 106/63 11/10/22 11:23 Pulse Ox 97 11/10/22 11:23 O2 Del Method 11/10/22 11:23 BMI result Body Mass Index 34.5 Constitutional : Awake, interactive, not in distress Cardiovascular : RRR, no JVP,? right lower extremity mildly swollen and? warm Respiratory : good bilateral air entry,? no crackles, wheezes or rhonchi Gastrointestinal:? soft, lax, Normal bowel sounds, Non tender Skin : Warm, Dry, no erythema ,mild swelling in lower extremities more noted on the right leg ?musculoskeletal; decrease range of motion in the right knee, pain similar as per patient, erythema Neurological : Alert & oriented x3, No focal deficiet Objective Data Active Medications Acetaminophen (Acetaminophen 325 Mg Tablet) 650 mg PO Q6H PRN PRN Reason: Pain, Mild (Pain Scale 1-3) Last Admin: 11/05/22 23:27 Dose: 650 mg Documented By: JAIMIE Apixaban (Apixaban 5 Mg Tablet) 10 mg PO BID [facility] Stop: 11/10/22 21:01 Last Admin: 11/10/22 08:35 Dose: 10 mg Documented By: DARWIN Apixaban (Apixaban 5 Mg Tablet) 5 mg PO BID [facility] Last Admin: 11/08/22 08:40 Dose: 5 mg Documented By: LEODAN Docusate Sodium (Docusate Sodium 100 Mg Capsule) 100 mg PO DAILY PRN PRN Reason: Constipation Gabapentin (Gabapentin 100 Mg Capsule) 100 mg PO TID [facility] Last Admin: 11/10/22 08:36 Dose: 100 mg Documented By: DARWIN Lidocaine (Lidocaine 4 % Patch Adh..Patch) 1 patch TRANSDERMA DAILY [facility]; Protocol Last Admin: 11/10/22 08:35 Dose: 1 patch Documented By: DARWIN Lidocaine (Lidocaine 4 % Patch Adh..Patch) 1 patch TRANSDERMA DAILY [facility]; Protocol Last Admin: 11/10/22 08:36 Dose: 1 patch Documented By: DARWIN Methadone HCl (Methadone Hcl 20 Mg/2 Ml Oral.Conc) 160 mg PO DAILY [facility] Last Admin: 11/10/22 08:34 Dose: 160 mg Documented By: DARWIN Oxycodone HCl (Oxycodone Hcl Immed Release 5 Mg Tablet) 10 mg PO Q4H PRN PRN Reason: Pain, Severe (Pain Scale 7-10) Last Admin: 11/10/22 02:22 Dose: 10 mg Documented By: DALILA Sodium Chloride (0.9 % Sodium Chloride Flush 3 Ml Syringe) 3 ml IVFLUSH QSHIFT [facility] Last Admin: 11/10/22 08:37 Dose: 3 ml Documented By: DARWIN Labs CBC & Chem 7: 11/07/22 08:12 11/07/22 09:43 Assessment and Plan (1) DVT, bilateral lower limbs: Status: Acute (2) Pulmonary emboli: Status: Acute (3) Obesity: Status: Acute Plan 52-year-old male with a PMH significant for polysubstance abuse including IVDU, migraines, and back pain who presents to the ED today for evaluation of right leg pain. Imaging showed bilateral DVTs and PE. Pt will be admitted to telemetry for treatment with heparin drip protocol. # bilateral DVTs and PEs ?occlusive thrombus in right leg in the popliteal vein ; in the left leg there is a partially occlusive thrombus in the femoral vein CTA showed bilateral pulmonary emboli with no evidence of right heart strain likely secondary to IVDU, using upper legs for heroin injection over past year changed to full-dose Eliquis 10 mg b.i.d, to finish total of 6 months of AC ?appreciated hematology consult, no role for thrombophilia testing #? knee pain CT scan with contrast? showed no evidence of any abscess, septic arthritis vascular surgery evaluation , no clear vascular etiology to pain, consider ortho consult if no improvement with PT to do PT eval for now-patient was strongly encouraged to mobilization, oxycodone adjusted yesterday as well as lidocaine patch added also has Tylenol ,gabapentinp.r.n. # IVDU on methadone, ?reports using heroin for pain management Addiction team evaluation apprecaited . obesity : encouraged to lose weight. ongoin hospital stay to continue treatment of DVTs and PE? ,leg pain -unable to walk and participate with pt and safe discharge plan.patient Time Spent With Patient Time: Total time managing care of this patient today ____ minutes. Quality Stroke Does the patient have a stroke diagnosis?: No VTE Prior VTE?: No VTE Risk Level:: Medical - moderate - high VTE Device Contraindication: Treatment Not Indicated VTE Drug Contraindication: N/A - Med Ordered
[2022-11-10] MEDS: Gabapentin 100 MG CAPSULE 200 MG PO ×2 (14:45→21:16)
[2022-11-10 16:00] VITALS: BP 131/68; PULSE 62; RESP 16; TEMP 36.5; O2SAT 95
--- NOTE | 2022-11-10 16:03 | MHC.CM.PN ---
REFERRAL FOR REHAB FAXED TO [facility] AWAITING RESPONSES. CM CONTINUING TO FOLLOW.
[2022-11-10 23:35] VITALS: BP 124/67; PULSE 61; RESP 16; TEMP 36.6; O2SAT 98
[2022-11-11] MEDS: oxyCODONE HCl Immed Release 5 MG TABLET 10 MG PO ×3 (02:37→20:37)
[2022-11-11 03:40] VITALS: BP 108/65; PULSE 66; RESP 16; TEMP 36.5; O2SAT 93
[2022-11-11 08:00] VITALS: BP 108/73; PULSE 60; RESP 16; TEMP 36.6; O2SAT 95
[2022-11-11] MEDS: Lidocaine 4 % Patch ADH..PATCH 1 PATCH TRANSDERMA ×2 (09:27→09:29)
[2022-11-11] MEDS: Apixaban 5 MG TABLET PO ×2 (09:28→20:38)
[2022-11-11] MEDS: Gabapentin 100 MG CAPSULE 200 MG PO ×3 (09:28→20:37)
[2022-11-11] MEDS: 0.9 % Sodium Chloride Flush 3 ML SYRINGE IVFLUSH ×3 (09:29→20:38)
[2022-11-11] MEDS: methADONE HCl 20 MG/2 ML ORAL.CONC 160 MG PO (09:29)
[2022-11-11 12:00] VITALS: BP 107/67; PULSE 60; RESP 16; TEMP 36.2; O2SAT 97
--- NOTE | 2022-11-11 15:02 | P.PNIM_ITS ---
Subjective Subjective Date of Service: 11/11/22 Interval History: follow up for dvt and P.e,leg pains Review of Systems Able to get out of bed at least today, still limited on walking Denies any chest pain or shortness of breath or abdominal pain or fever chills. Physical Exam Vital Signs: Vital Signs: Last Vital Signs Temp 97.2 F 11/11/22 12:00 Pulse 60 11/11/22 12:00 Resp 16 11/11/22 12:00 BP 107/67 11/11/22 12:00 Pulse Ox 97 11/11/22 12:00 O2 Del Method 11/11/22 12:00 BMI result Body Mass Index 34.5 Constitutional : Awake, interactive, not in distress Cardiovascular : RRR, no JVP,? right lower extremity mildly swollen and? warm Respiratory : good bilateral air entry,? no crackles, wheezes or rhonchi Gastrointestinal:? soft, lax, Normal bowel sounds, Non tender Skin : Warm, Dry, no erythema ,mild swelling in lower extremities more noted on the right leg ?musculoskeletal; decrease range of motion in the right knee, pain similar as per patient, erythema Neurological : Alert & oriented x3, No focal deficiet Objective Data Active Medications Acetaminophen (Acetaminophen 325 Mg Tablet) 650 mg PO Q6H PRN PRN Reason: Pain, Mild (Pain Scale 1-3) Last Admin: 11/05/22 23:27 Dose: 650 mg Documented By: JAIMIE Apixaban (Apixaban 5 Mg Tablet) 5 mg PO BID [facility] Last Admin: 11/11/22 09:28 Dose: 5 mg Documented By: LUIS M Docusate Sodium (Docusate Sodium 100 Mg Capsule) 100 mg PO DAILY PRN PRN Reason: Constipation Gabapentin (Gabapentin 100 Mg Capsule) 200 mg PO TID [facility] Last Admin: 11/11/22 14:38 Dose: 200 mg Documented By: LUIS M Lidocaine (Lidocaine 4 % Patch Adh..Patch) 1 patch TRANSDERMA DAILY [facility]; Protocol Last Admin: 11/11/22 09:27 Dose: 1 patch Documented By: LUIS M Lidocaine (Lidocaine 4 % Patch Adh..Patch) 1 patch TRANSDERMA DAILY [facility]; Protocol Last Admin: 11/11/22 09:29 Dose: 1 patch Documented By: LUIS M Methadone HCl (Methadone Hcl 20 Mg/2 Ml Oral.Conc) 160 mg PO DAILY [facility] Last Admin: 11/11/22 09:29 Dose: 160 mg Documented By: LUIS M Oxycodone HCl (Oxycodone Hcl Immed Release 5 Mg Tablet) 10 mg PO Q4H PRN PRN Reason: Pain, Severe (Pain Scale 7-10) Last Admin: 11/11/22 14:41 Dose: 10 mg Documented By: LUIS M Sodium Chloride (0.9 % Sodium Chloride Flush 3 Ml Syringe) 3 ml IVFLUSH QSHIFT [facility] Last Admin: 11/11/22 14:39 Dose: 3 ml Documented By: LUIS M Labs CBC & Chem 7: 11/07/22 08:12 11/07/22 09:43 Assessment and Plan (1) DVT, bilateral lower limbs: Status: Acute (2) Pulmonary emboli: Status: Acute (3) Obesity: Status: Acute Plan 52-year-old male with a PMH significant for polysubstance abuse including IVDU, migraines, and back pain who presents to the ED today for evaluation of right leg pain. Imaging showed bilateral DVTs and PE. Pt will be admitted to telemetry for treatment with heparin drip protocol. # bilateral DVTs and PEs ?occlusive thrombus in right leg in the popliteal vein ; in the left leg there is a partially occlusive thrombus in the femoral vein CTA showed bilateral pulmonary emboli with no evidence of right heart strain likely secondary to IVDU, using upper legs for heroin injection over past year changed to full-dose Eliquis 10 mg b.i.d, to finish total of 6 months of AC ?appreciated hematology consult, no role for thrombophilia testing #? knee pain CT scan with contrast? showed no evidence of any abscess, septic arthritis vascular surgery evaluation , no clear vascular etiology to pain, consider ortho consult if no improvement with PT to do PT eval for now-patient was strongly encouraged to mobilization, oxycodone adjusted yesterday as well as lidocaine patch added also has Tylenol ,gabapentinp.r.n. # IVDU on methadone, ?reports using heroin for pain management Addiction team evaluation apprecaited . obesity : encouraged to lose weight. ongoin hospital stay:awaitin rehab Time Spent With Patient Time: Total time managing care of this patient today ____ minutes. Quality Stroke Does the patient have a stroke diagnosis?: No VTE Prior VTE?: No VTE Risk Level:: Medical - moderate - high VTE Device Contraindication: Treatment Not Indicated VTE Drug Contraindication: N/A - Med Ordered
[2022-11-11 15:09] VITALS: BP 124/62; PULSE 65; RESP 20; TEMP 36.5; O2SAT 96
[2022-11-11 19:08] VITALS: BP 149/68; PULSE 89; RESP 20; TEMP 36.1; O2SAT 100
--- NOTE | 2022-11-11 20:28 | PM.HEMONCPN ---
Medical Summary - Medical Summary Date of Service: 11/11/22 Chief complaint: DVT and pulmonary emboli Interval History Interval history: He is tolerating his anticoagulation without bleeding. His chief complaint is pain in his left leg when he attempts to walk. He has been hemodynamically stable. Review of Systems - Constitutional Reports anorexia - Eyes Reports other - ENT Reports system reviewed and no additional complaints, except as documented - Cardiovascular Reports chest pain at rest, Reports shortness of breath when lying down - Respiratory Reports pain with cough, Reports dyspnea - Gastrointestinal Reports feeling full early - Genitourinary Genitourinary: Reports urinary hesitancy - Musculoskeletal Comments: Pain in left leg with weightbearing - Integumentary/Breasts Skin/Breast: Reports other - Neurologic Reports system reviewed and no additional complaints, except as documented, Denies abnormal gait [facility] Medical History: Medical History (Last Reviewed 11/02/22 @ 14:23 by LANCE Quiroz) Eyebrow laceration Family History: Family History (Last Updated 11/02/22 @ 14:26 by LANCE Quiroz) Mother COPD (chronic obstructive pulmonary disease) Father Hepatitis Liver cirrhosis Maternal Grandmother Alzheimer disease Maternal Grandfather Prostate cancer Diabetes Surgical History: Surgical History (Last Reviewed 11/02/22 @ 14:23 by LANCE Quiroz) No pertinent past surgical history Social History: Social History (Last Reviewed 11/02/22 @ 14:23 by LANCE Quiroz) Living Situation History: Household Members: Friend(s) Housing: Unknown / Unable to asses Alcohol History: Unable to assess alcohol history related to: Refusing to respond Tobacco History: Patient Tobacco Use Status: Never used Tobacco e-Cigarette/Vaping Use: Never Used Second Hand Smoke Exposure: No Substance Use History: Substance Use Type: Heroin Occupation Assessmet: service: No Current occupational status: unemployed Home Medications and Allergies Current Medications: Current Medications Acetaminophen (Acetaminophen 325 Mg Tablet) 650 mg PO Q6H PRN PRN Reason: Pain, Mild (Pain Scale 1-3) Last Admin: 11/05/22 23:27 Dose: 650 mg Apixaban (Apixaban 5 Mg Tablet) 5 mg PO BID JOSE LUIS Last Admin: 11/11/22 09:28 Dose: 5 mg Docusate Sodium (Docusate Sodium 100 Mg Capsule) 100 mg PO DAILY PRN PRN Reason: Constipation Gabapentin (Gabapentin 100 Mg Capsule) 200 mg PO TID [facility] Last Admin: 11/11/22 14:38 Dose: 200 mg Lidocaine (Lidocaine 4 % Patch Adh..Patch) 1 patch TRANSDERMA DAILY [facility]; Protocol Last Admin: 11/11/22 09:27 Dose: 1 patch Lidocaine (Lidocaine 4 % Patch Adh..Patch) 1 patch TRANSDERMA DAILY [facility]; Protocol Last Admin: 11/11/22 09:29 Dose: 1 patch Methadone HCl (Methadone Hcl 20 Mg/2 Ml Oral.Conc) 160 mg PO DAILY [facility] Last Admin: 11/11/22 09:29 Dose: 160 mg Oxycodone HCl (Oxycodone Hcl Immed Release 5 Mg Tablet) 10 mg PO Q4H PRN PRN Reason: Pain, Severe (Pain Scale 7-10) Last Admin: 11/11/22 14:41 Dose: 10 mg Sodium Chloride (0.9 % Sodium Chloride Flush 3 Ml Syringe) 3 ml IVFLUSH QSHIFT [facility] Last Admin: 11/11/22 14:39 Dose: 3 ml Home Medications Medication Instructions Recorded Confirmed Type methadone 10 mg/mL oral concentrate 160 mg PO DAILY 06/09/22 11/02/22 History Allergies Allergy/AdvReac Type Severity Reaction Status Date / Time No Known Allergies Allergy Verified 08/08/22 13:39 [No Known Allergies*] Exam Vital signs: Vital Signs Temp 97.0 F 11/11/22 19:08 Pulse 89 11/11/22 19:08 Resp 20 11/11/22 19:08 BP 149/68 H 11/11/22 19:08 Pulse Ox 100 11/11/22 19:08 O2 Del Method 11/11/22 19:08 Intake & Output 11/11/22 11/11/22 11/12/22 06:59 18:59 06:59 Intake Total 1620 / 1740 460 / 460 Output Total 2075 / 2875 500 / 500 Balance -455 / -1135 -40 / -40 Urine Output (Average ml/kg/hr) 1.73 0.42 Intake: Intake, Oral Amount 1620 / 1740 460 / 460 Output: Output, Urine Amount 2075 / 2875 500 / 500 Other: Meal Refused No Breakfast % Eaten 100% Lunch % Eaten 100% Urine Urinal Urinal Urine Color Yellow Yellow Last Bowel Movement 11/08/22 Weight 100.018 kg BMI result Body Mass Index 34.5 - Constitutional Present: no acute distress - Routine HEENT Exam Head: Present: atraumatic, normal inspection Eye: Present: normal appearance ENT: Present: mucous membranes moist - Routine Neck Exam Present: full ROM - Routine Respiratory Exam Present: decreased breath sounds, CTAB - Routine Cardiovascular Exam Cardiovascular: Present: RRR, S1, S2 - Routine Abdominal Exam Present: diminished bowel sounds, soft, nontender - Routine Rectal Exam Patient deferred: visual exam - Routine Extremities Exam Present: calf tenderness, joint swelling - Routine Skin Exam Present: lesions Data - Labs CBC & Chem 7: 11/07/22 08:12 11/07/22 09:43 Labs: 11/02/22 08:41 XR chest 2V Stat US venous duplex LE BI Stat 11/02/22 09:03 CBC W/AUTO DIFF [Complete Blood Count Auto Diff] Stat CMP [Comprehensive Met. Panel] Stat CRP [C Reactive Protein] Stat ESR [Erythrocyte Sedimentation Rate] Stat Lactic Acid Stat Blood Culture X2 [BC] Stat 11/02/22 09:49 CT angio chest PE protocol Stat 11/02/22 10:53 PTT [Partial Thromboplastin Time] Stat Prothrombin Time INR Stat SARS-CoV2/FLU/RSV Stat 11/02/22 11:07 iohexoL 350 MG/ML [Omnipaque 350 MG/ML] 65 ml IV ONCE ONE 11/02/22 11:55 Heparin Sodium,Porcine 4,000 unit IVPUSH PROTOCOL BOLUS PRN Heparin Sodium,Porcine 8,000 unit IVPUSH ONCE ONE Heparin Sodium,Porcine 8,000 unit IVPUSH PROTOCOL BOLUS PRN 11/02/22 12:00 Heparin Sodium,Porcine/1/2NS 25,000 unit in 250 ml IVCONT Per Protocol units/kg/hr 11/02/22 12:14 Add Laboratory Test Stat 11/02/22 19:41 PTT Heparin Drip Stat 11/02/22 21:12 oxyCODONE HCl Immed Release [Roxicodone] 5 mg PO Q4H PRN 11/02/22 21:58 PTT Heparin Drip Routine 11/02/22 23:23 PTT Heparin Drip Stat 11/03/22 06:56 Complete Blood Count no Diff Routine PTT Heparin Drip Stat Prothrombin Time INR Stat 11/03/22 14:41 PTT Heparin Drip Urgent 11/03/22 21:28 PTT Heparin Drip Urgent 11/03/22 22:48 PTT Heparin Drip Stat 11/04/22 CT knee RT w IV con Stat 11/04/22 00:02 PTT Heparin Drip Routine 11/04/22 06:50 Basic Metabolic Panel AM Complete Blood Count no Diff AM PTT Heparin Drip Routine 11/04/22 12:00 Apixaban [Eliquis] 10 mg PO BID 11/04/22 13:47 iohexoL 350 MG/ML [Omnipaque 350 MG/ML] 100 ml IV ONCE ONE 11/06/22 XR knee RT 3V Stat 11/06/22 07:34 Basic Metabolic Panel AM 11/06/22 09:46 Sodium Zirconium Cyclosilicate [Lokelma] 5 gm PO ONCE ONE 11/06/22 10:45 Complete Blood Count no Diff AM 11/07/22 08:12 Complete Blood Count no Diff Routine 11/07/22 09:43 Basic Metabolic Panel AM 11/09/22 11:00 Gabapentin [Neurontin] 100 mg PO TID Laboratory Last Values WBC 7.8 X10*3/uL (4.8-10.8) 11/07/22 08:12 RBC 4.93 X10*6/uL (4.60-5.80) 11/07/22 08:12 Hgb 12.5 g/dl (14.0-18.0) L 11/07/22 08:12 Hct 39.5 % (42.0-52.0) L 11/07/22 08:12 MCV 80.1 fL (80.0-98.0) 11/07/22 08:12 MCH 25.4 pg (27.0-33.0) L 11/07/22 08:12 MCHC 31.6 g/dl (31.0-36.0) 11/07/22 08:12 RDW 15.2 % (11.0-16.0) 11/07/22 08:12 Plt Count TNP 11/07/22 08:12 MPV Not Reportable 11/07/22 08:12 Immature Gran % (Auto) 0.3 % (0.0-0.4) 11/02/22 09:03 Neut % (Auto) 78.0 % (45-73) H 11/02/22 09:03 Lymph % (Auto) 13.2 % (20-40) L 11/02/22 09:03 [place] % (Auto) 8.1 % (2-11) 11/02/22 09:03 Eos % (Auto) 0.2 % (0-4) 11/02/22 09:03 Baso % (Auto) 0.2 % (0-2) 11/02/22 09:03 Lymph # (Auto) 1.3 X10*3/uL (1.2-4.9) 11/02/22 09:03 [place] # (Auto) 0.8 X10*3/uL (0.1-1.2) 11/02/22 09:03 Eos # (Auto) 0.0 X10*3/uL (0.0-0.4) 11/02/22 09:03 Baso # (Auto) 0.0 X10*3/uL (0.0-0.2) 11/02/22 09:03 Abs Immat Gran (auto) 0.03 X10*3/uL (0.00-0.03) 11/02/22 09:03 Absolute Neuts (auto) 7.5 x10*3/uL (2.0-8.3) 11/02/22 09:03 Absolute Nucleated RBC 0.000 X10*3/uL (0.0-0.012) 11/07/22 08:12 Nucleated RBC % (auto) 0.0 /100WBC (0.0-0.2) 11/07/22 08:12 ESR 60 MM/HR (0-15) H 11/02/22 09:03 PT 15.0 SEC (10.0-13.1) H 11/03/22 06:56 PT Cancelled 11/03/22 06:56 INR 1.3 (0.9-1.1) H 11/03/22 06:56 INR Cancelled 11/03/22 06:56 APTT 32.4 SEC (26.0-36.4) 11/02/22 10:53 aPTT Heparin Protocol 74.4 SEC (53-77.9) 11/04/22 06:50 Sodium 137 mmol/L (135-145) 11/07/22 09:43 Potassium 5.0 mmol/L (3.3-5.1) 11/07/22 09:43 Chloride 103 mmol/L (96-108) 11/07/22 09:43 Carbon Dioxide 23 mmol/L (22-29) 11/07/22 09:43 Anion Gap 16 (12-20) 11/07/22 09:43 BUN 13 mg/dL (9-16) 11/07/22 09:43 Creatinine 0.85 mg/dL (0.5-1.4) 11/07/22 09:43 Estim Creat Clear Calc 114.5 11/07/22 09:43 Estimated GFR > 60 11/07/22 09:43 Random Glucose 125 mg/dL (60-115) H D 11/07/22 09:43 Lactic Acid 0.8 mmol/L (0.5-2.0) 11/02/22 09:03 Calcium 8.8 mg/dL (8.4-10.2) 11/07/22 09:43 Total Bilirubin 0.4 mg/dL (0.0-1.0) 11/02/22 09:03 AST 29 U/L (5-37) 11/02/22 09:03 ALT 30 U/L (0-40) 11/02/22 09:03 Alkaline Phosphatase 103 U/L (39-117) 11/02/22 09:03 C-Reactive Protein 13.92 mg/dL (< or = 0.50) H 11/02/22 09:03 Total Protein 7.9 g/dL (6.5-8.0) 11/02/22 09:03 Albumin 3.9 g/dL (3.5-5.0) 11/02/22 09:03 Influenza Type A (PCR) NEGATIVE (Negative) 11/02/22 10:53 Influenza Type B (PCR) NEGATIVE (Negative) 11/02/22 10:53 RSV RNA Qual (PCR) NEGATIVE (Negative) 11/02/22 10:53 SARS-CoV-2 RNA (RT-PCR) NEGATIVE (Negative) 11/02/22 10:53 - Imaging Radiologist's impression: ITS Impressions Venous Duplex 11/02/22 09:24 IMPRESSION: Bilateral DVT as described above. Chest X-Ray 11/02/22 09:30 IMPRESSION: Unremarkable examination. Chest CTA 11/02/22 11:05 IMPRESSION: Bilateral pulmonary emboli. No evidence of right heart strain. VTE: positive. Knee CT 11/04/22 14:04 IMPRESSION: 1. No evidence of acute fracture. No CT findings to suggest definite osteomyelitis. 2. No focal fluid collection is seen within the muscles. 3. Small suprapatellar joint fluid. No specific findings to suggestive septic arthritis. Close clinical correlation and management is recommended. If there is persistent clinical concern for infectious or radiographically a soft tissue/osseous abnormality, MRI can be obtained. Orthopedic consultation, with joint aspiration could be considered as clinically warranted. Knee X-Ray 11/06/22 20:14 IMPRESSION: Mild degenerative changes in the medial compartment of the right knee. No evidence of acute osseous abnormality. No radiographic evidence of osteomyelitis in the right knee. Assessment and Plan Patient Active problem list reviewed?: Yes (1) Pulmonary emboli Status: Acute Assessment and plan: I agree with current therapy and anticoagulation. He is medically stable. No further suggestions. I will cover this patient, over the long weekend. - Time Spent With Patient Time Spent with Patient (in minutes): 15
[2022-11-11 23:35] VITALS: BP 116/67; PULSE 75; RESP 18; TEMP 36.6; O2SAT 97
[2022-11-12] MEDS: oxyCODONE HCl Immed Release 5 MG TABLET 10 MG PO ×2 (02:16→14:16)
[2022-11-12 03:48] VITALS: BP 104/71; PULSE 74; RESP 18; TEMP 36.6; O2SAT 95
[2022-11-12 07:31] VITALS: BP 122/64; PULSE 64; RESP 18; TEMP 36.6; O2SAT 98
[2022-11-12] MEDS: Apixaban 5 MG TABLET PO ×2 (10:03→19:48)
[2022-11-12] MEDS: Gabapentin 100 MG CAPSULE 200 MG PO ×3 (10:03→19:48)
[2022-11-12] MEDS: 0.9 % Sodium Chloride Flush 3 ML SYRINGE IVFLUSH ×3 (10:03→19:48)
[2022-11-12] MEDS: Lidocaine 4 % Patch ADH..PATCH 1 PATCH TRANSDERMA ×2 (10:03→10:04)
[2022-11-12] MEDS: methADONE HCl 20 MG/2 ML ORAL.CONC 160 MG PO (10:04)
[2022-11-12] MEDS: Acetaminophen 325 MG TABLET 650 MG PO (10:06)
[2022-11-12 11:54] VITALS: BP 109/68; PULSE 62; RESP 18; TEMP 36.4; O2SAT 94
[2022-11-12 15:17] VITALS: BP 101/67; PULSE 69; RESP 20; TEMP 36.5; O2SAT 96
--- NOTE | 2022-11-12 15:32 | HO.PM.IMPN ---
Subjective Subjective Date of Service: 11/13/22 Interval History: follow up for dvt and P.e,leg pains Review of Systems Able to walk few steps ,also encouraged to get out to chair Denies any chest pain or shortness of breath or abdominal pain or fever chills. Physical Exam Vital Signs: Vital Signs: Last Vital Signs Temp 97.7 F 11/12/22 15:17 Pulse 69 11/12/22 15:17 Resp 20 11/12/22 15:17 BP 101/67 11/12/22 15:17 Pulse Ox 96 11/12/22 15:17 O2 Del Method 11/12/22 15:17 BMI result Body Mass Index 34.5 Constitutional : Awake, interactive, not in distress Cardiovascular : RRR, no JVP,? right lower extremity mildly swollen and? warm Respiratory : good bilateral air entry,? no crackles, wheezes or rhonchi Gastrointestinal:? soft, lax, Normal bowel sounds, Non tender Skin : Warm, Dry, no erythema ,mild swelling in lower extremities more noted on the right leg ?musculoskeletal; decrease range of motion in the right knee, pain similar as per patient, erythema Neurological : Alert & oriented x3, No focal deficiet Objective Data Active Medications Acetaminophen (Acetaminophen 325 Mg Tablet) 650 mg PO Q6H PRN PRN Reason: Pain, Mild (Pain Scale 1-3) Last Admin: 11/12/22 10:06 Dose: 650 mg Documented By: LUIS M Apixaban (Apixaban 5 Mg Tablet) 5 mg PO BID [facility] Last Admin: 11/12/22 10:03 Dose: 5 mg Documented By: LUIS M Docusate Sodium (Docusate Sodium 100 Mg Capsule) 100 mg PO DAILY PRN PRN Reason: Constipation Gabapentin (Gabapentin 100 Mg Capsule) 200 mg PO TID [facility] Last Admin: 11/12/22 14:16 Dose: 200 mg Documented By: LUIS M Lidocaine (Lidocaine 4 % Patch Adh..Patch) 1 patch TRANSDERMA DAILY [facility]; Protocol Last Admin: 11/12/22 10:03 Dose: 1 patch Documented By: LUIS M Lidocaine (Lidocaine 4 % Patch Adh..Patch) 1 patch TRANSDERMA DAILY [facility]; Protocol Last Admin: 11/12/22 10:04 Dose: 1 patch Documented By: LUIS M Methadone HCl (Methadone Hcl 20 Mg/2 Ml Oral.Conc) 160 mg PO DAILY [facility] Last Admin: 11/12/22 10:04 Dose: 160 mg Documented By: LUIS M Sodium Chloride (0.9 % Sodium Chloride Flush 3 Ml Syringe) 3 ml IVFLUSH QSHIFT [facility] Last Admin: 11/12/22 14:17 Dose: 3 ml Documented By: LUIS M Labs CBC & Chem 7: 11/07/22 08:12 11/07/22 09:43 Assessment and Plan (1) DVT, bilateral lower limbs: Status: Acute (2) Pulmonary emboli: Status: Acute (3) Obesity: Status: Acute Plan 52-year-old male with a PMH significant for polysubstance abuse including IVDU, migraines, and back pain who presents to the ED today for evaluation of right leg pain. Imaging showed bilateral DVTs and PE. Pt will be admitted to telemetry for treatment with heparin drip protocol. # bilateral DVTs and PEs ?occlusive thrombus in right leg in the popliteal vein ; in the left leg there is a partially occlusive thrombus in the femoral vein CTA showed bilateral pulmonary emboli with no evidence of right heart strain likely secondary to IVDU, using upper legs for heroin injection over past year changed to full-dose Eliquis 10 mg b.i.d, to finish total of 6 months of AC ?appreciated hematology consult, no role for thrombophilia testing #? knee pain CT scan with contrast? showed no evidence of any abscess, septic arthritis vascular surgery evaluation , no clear vascular etiology to pain, consider ortho consult if no improvement with PT to do PT eval for now-patient was strongly encouraged to mobilization, oxycodone adjusted yesterday as well as lidocaine patch added also has Tylenol ,gabapentinp.r.n. # IVDU on methadone, ?reports using heroin for pain management Addiction team evaluation apprecaited . obesity : encouraged to lose weight. ongoin hospital stay:awaitin rehab Time Spent With Patient Time: Total time managing care of this patient today ____ minutes. Quality Stroke Does the patient have a stroke diagnosis?: No VTE Prior VTE?: No VTE Risk Level:: Medical - moderate - high VTE Device Contraindication: Treatment Not Indicated VTE Drug Contraindication: N/A - Med Ordered
[2022-11-12 19:04] VITALS: BP 96/61; PULSE 68; RESP 20; TEMP 36.2; O2SAT 94
[2022-11-12 23:31] VITALS: BP 130/71; PULSE 66; RESP 18; TEMP 36.6; O2SAT 96
[2022-11-13 03:02] VITALS: BP 114/59; PULSE 66; RESP 16; TEMP 36.7; O2SAT 95
[2022-11-13 07:21] VITALS: BP 103/62; PULSE 65; RESP 20; TEMP 36; O2SAT 95
[2022-11-13] MEDS: Lidocaine 4 % Patch ADH..PATCH 1 PATCH TRANSDERMA ×2 (09:04→09:16)
[2022-11-13] MEDS: Gabapentin 100 MG CAPSULE 200 MG PO ×3 (09:07→20:26)
[2022-11-13] MEDS: Apixaban 5 MG TABLET PO ×2 (09:07→20:26)
[2022-11-13] MEDS: 0.9 % Sodium Chloride Flush 3 ML SYRINGE IVFLUSH ×3 (09:10→20:26)
[2022-11-13] MEDS: methADONE HCl 20 MG/2 ML ORAL.CONC 160 MG PO (09:10)
--- NOTE | 2022-11-13 10:04 | MHC.CM.PN ---
Per MD request, CM is attempting to determine if any VNA would be able to accommodate Patient in order to explore the possibility of a dc to home instead of STR/SNF.CM will follow.
--- NOTE | 2022-11-13 10:27 | P.PNIM_ITS ---
Subjective Subjective Date of Service: 11/21/22 Interval History: follow up for dvt and P.e,leg pains Review of Systems as per patient walked to bathroom,still painful,also encouraged to get out? to chair Denies any chest pain or shortness of breath or abdominal pain or fever chills. Physical Exam Vital Signs: Vital Signs: Last Vital Signs Temp 96.8 F 11/13/22 07:21 Pulse 65 11/13/22 07:21 Resp 20 11/13/22 07:21 BP 103/62 11/13/22 07:21 Pulse Ox 95 11/13/22 07:21 O2 Del Method 11/13/22 07:21 BMI result Body Mass Index 34.5 ? Constitutional : Awake, interactive, not in distress Cardiovascular : RRR, no JVP,? right lower extremity mildly swollen and? warm Respiratory : good bilateral air entry,? no crackles, wheezes or rhonchi Gastrointestinal:? soft, lax, Normal bowel sounds, Non tender Skin : Warm, Dry, no erythema ,mild swelling in lower extremities more noted on the right leg ?musculoskeletal;range of motion in the right kneeimproving, pain also somewhat improving as per patient report, no erythema Neurological : Alert & oriented x3, No focal deficiet Objective Data Active Medications Acetaminophen (Acetaminophen 325 Mg Tablet) 650 mg PO Q6H PRN PRN Reason: Pain, Mild (Pain Scale 1-3) Last Admin: 11/12/22 10:06 Dose: 650 mg Documented By: LUIS M Apixaban (Apixaban 5 Mg Tablet) 5 mg PO BID [facility] Last Admin: 11/13/22 09:07 Dose: 5 mg Documented By: DAISY Docusate Sodium (Docusate Sodium 100 Mg Capsule) 100 mg PO DAILY PRN PRN Reason: Constipation Gabapentin (Gabapentin 100 Mg Capsule) 200 mg PO TID [facility] Last Admin: 11/13/22 09:07 Dose: 200 mg Documented By: DAISY Lidocaine (Lidocaine 4 % Patch Adh..Patch) 1 patch TRANSDERMA DAILY [facility]; Protocol Last Admin: 11/13/22 09:04 Dose: 1 patch Documented By: DAISY Lidocaine (Lidocaine 4 % Patch Adh..Patch) 1 patch TRANSDERMA DAILY [facility]; Protocol Last Admin: 11/13/22 09:16 Dose: 1 patch Documented By: DAISY Methadone HCl (Methadone Hcl 20 Mg/2 Ml Oral.Conc) 160 mg PO DAILY [facility] Last Admin: 11/13/22 09:10 Dose: 160 mg Documented By: DAISY Sodium Chloride (0.9 % Sodium Chloride Flush 3 Ml Syringe) 3 ml IVFLUSH QSHIFT [facility] Last Admin: 11/13/22 09:10 Dose: 3 ml Documented By: DAISY Labs 11/07/22 08:12 11/07/22 09:43 Assessment and Plan (1) DVT, bilateral lower limbs: Status: Acute (2) Pulmonary emboli: Status: Acute (3) Obesity: Status: Acute Plan 52-year-old male with a PMH significant for polysubstance abuse including IVDU, migraines, and back pain who presents to the ED today for evaluation of right leg pain. Imaging showed bilateral DVTs and PE. Pt will be admitted to telemetry for treatment with heparin drip protocol. # bilateral DVTs and PEs ?occlusive thrombus in right leg in the popliteal vein ; in the left leg there is a partially occlusive thrombus in the femoral vein CTA showed bilateral pulmonary emboli with no evidence of right heart strain likely secondary to IVDU, using upper legs for heroin injection over past year changed to full-dose Eliquis 10 mg b.i.d, to finish total of 6 months of AC ?appreciated hematology consult, no role for thrombophilia testing #? knee pain CT scan with contrast? showed no evidence of any abscess, septic arthritis vascular surgery evaluation , no clear vascular etiology to pain, consider ortho consult if no improvement with PT to do PT eval for now-patient was strongly encouraged to mobilization, oxycodone adjusted yesterday as well as lidocaine patch added also has Tylenol ,gabapentin p.r.n. # IVDU on methadone, ?reports using heroin for pain management Addiction team evaluation apprecaited . obesity : encouraged to lose weight. ongoin hospital stay:awaitin rehab , added reeval PT Time Spent With Patient Time: Total time managing care of this patient today ____ minutes. Quality Stroke Does the patient have a stroke diagnosis?: No VTE Prior VTE?: No VTE Risk Level:: Medical - moderate - high VTE Device Contraindication: Treatment Not Indicated VTE Drug Contraindication: N/A - Med Ordered
[2022-11-13 11:10] VITALS: BP 118/90; PULSE 66; RESP 20; TEMP 36.2; O2SAT 96
--- NOTE | 2022-11-13 13:44 | PM.HEMONCPN ---
Medical Summary - Medical Summary Date of Service: 11/13/22 Medical Summary: He remains hospitalized. Imaging showed DVT and pulmonary emboli. He has had no bleeding. He continues to complain of severe pain in his legs. Interval History Interval history: He is tolerating his anticoagulation without bleeding. His chief complaint is pain in his left leg when he attempts to walk. He has been hemodynamically stable. Review of Systems - Neurologic Reports system reviewed and no additional complaints, except as documented, Denies abnormal gait PMFSH Medical History: Medical History (Last Reviewed 11/02/22 @ 14:23 by LANCE Quiroz) Eyebrow laceration Family History: Family History (Last Updated 11/02/22 @ 14:26 by LANCE Quiroz) Mother COPD (chronic obstructive pulmonary disease) Father Hepatitis Liver cirrhosis Maternal Grandmother Alzheimer disease Maternal Grandfather Prostate cancer Diabetes Surgical History: Surgical History (Last Reviewed 11/02/22 @ 14:23 by LANCE Quiroz) No pertinent past surgical history Social History: Social History (Last Reviewed 11/02/22 @ 14:23 by LANCE Quiroz) Living Situation History: Household Members: Friend(s) Housing: Unknown / Unable to asses Alcohol History: Unable to assess alcohol history related to: Refusing to respond Tobacco History: Patient Tobacco Use Status: Never used Tobacco e-Cigarette/Vaping Use: Never Used Second Hand Smoke Exposure: No Substance Use History: Substance Use Type: Heroin Occupation Assessmet: service: No Current occupational status: unemployed Home Medications and Allergies Current Medications: Current Medications Acetaminophen (Acetaminophen 325 Mg Tablet) 650 mg PO Q6H PRN PRN Reason: Pain, Mild (Pain Scale 1-3) Last Admin: 11/12/22 10:06 Dose: 650 mg Apixaban (Apixaban 5 Mg Tablet) 5 mg PO BID [facility] Last Admin: 11/13/22 09:07 Dose: 5 mg Docusate Sodium (Docusate Sodium 100 Mg Capsule) 100 mg PO DAILY PRN PRN Reason: Constipation Gabapentin (Gabapentin 100 Mg Capsule) 200 mg PO TID [facility] Last Admin: 11/13/22 09:07 Dose: 200 mg Lidocaine (Lidocaine 4 % Patch Adh..Patch) 1 patch TRANSDERMA DAILY [facility]; Protocol Last Admin: 11/13/22 09:04 Dose: 1 patch Lidocaine (Lidocaine 4 % Patch Adh..Patch) 1 patch TRANSDERMA DAILY [facility]; Protocol Last Admin: 11/13/22 09:16 Dose: 1 patch Methadone HCl (Methadone Hcl 20 Mg/2 Ml Oral.Conc) 160 mg PO DAILY [facility] Last Admin: 11/13/22 09:10 Dose: 160 mg Oxycodone HCl (Oxycodone Hcl Immed Release 5 Mg Tablet) 10 mg PO Q4H PRN PRN Reason: Pain, Mild (Pain Scale 1-3) Sodium Chloride (0.9 % Sodium Chloride Flush 3 Ml Syringe) 3 ml IVFLUSH QSHIFT [facility] Last Admin: 11/13/22 09:10 Dose: 3 ml Home Medications Medication Instructions Recorded Confirmed Type methadone 10 mg/mL oral concentrate 160 mg PO DAILY 06/09/22 11/02/22 History Allergies Allergy/AdvReac Type Severity Reaction Status Date / Time No Known Allergies Allergy Verified 08/08/22 13:39 [No Known Allergies*] Exam Vital signs: Vital Signs Temp 97.1 F 11/13/22 11:10 Pulse 66 11/13/22 11:10 Resp 20 11/13/22 11:10 BP 118/90 H 11/13/22 11:10 Pulse Ox 96 11/13/22 11:10 O2 Del Method 11/13/22 11:10 Intake & Output 11/12/22 11/13/22 11/13/22 18:59 06:59 18:59 Intake Total 1040 / 1040 Output Total 225 / 1425 1200 / 1425 300 / 300 Balance -225 / -385 -160 / -385 -300 / -300 Urine Output (Average ml/kg/hr) 0.19 1.00 0.25 Intake: Intake, Oral Amount 1040 / 1040 Output: Output, Urine Amount 225 / 1425 1200 / 1425 300 / 300 Other: Urine Urinal Urine Color Yellow Last Bowel Movement 11/12/22 Weight 100.018 kg BMI result Body Mass Index 34.5 - Constitutional Present: no acute distress - Routine HEENT Exam Head: Present: atraumatic, normal inspection - Routine Neck Exam Present: full ROM - Routine Respiratory Exam Present: decreased breath sounds, CTAB - Routine Cardiovascular Exam Cardiovascular: Present: RRR, S1, S2 - Routine Abdominal Exam Present: diminished bowel sounds, soft, nontender - Routine Extremities Exam Present: calf tenderness, joint swelling - Routine Skin Exam Present: lesions Data - Labs CBC & Chem 7: 11/07/22 08:12 11/07/22 09:43 - Imaging Radiologist's impression: ITS Impressions Venous Duplex 11/02/22 09:24 IMPRESSION: Bilateral DVT as described above. Chest X-Ray 11/02/22 09:30 IMPRESSION: Unremarkable examination. Chest CTA 11/02/22 11:05 IMPRESSION: Bilateral pulmonary emboli. No evidence of right heart strain. VTE: positive. Knee CT 11/04/22 14:04 IMPRESSION: 1. No evidence of acute fracture. No CT findings to suggest definite osteomyelitis. 2. No focal fluid collection is seen within the muscles. 3. Small suprapatellar joint fluid. No specific findings to suggestive septic arthritis. Close clinical correlation and management is recommended. If there is persistent clinical concern for infectious or radiographically a soft tissue/osseous abnormality, MRI can be obtained. Orthopedic consultation, with joint aspiration could be considered as clinically warranted. Knee X-Ray 11/06/22 20:14 IMPRESSION: Mild degenerative changes in the medial compartment of the right knee. No evidence of acute osseous abnormality. No radiographic evidence of osteomyelitis in the right knee. Assessment and Plan Patient Active problem list reviewed?: Yes (1) Pulmonary emboli Status: Acute Assessment and plan: I agree with current therapy and anticoagulation. He is medically stable. No further suggestions. I will cover this patient, over the long weekend. - Time Spent With Patient Time Spent with Patient (in minutes): 15
[2022-11-13 15:27] VITALS: BP 117/59; PULSE 69; RESP 17; TEMP 36.4; O2SAT 95
[2022-11-13 19:12] VITALS: BP 137/80; PULSE 82; RESP 18; TEMP 36.9; O2SAT 93
[2022-11-13] MEDS: oxyCODONE HCl Immed Release 5 MG TABLET 10 MG PO (20:26)
[2022-11-13 23:19] VITALS: BP 143/66; PULSE 65; RESP 18; TEMP 37.1; O2SAT 96
[2022-11-14 03:20] VITALS: BP 115/69; PULSE 64; RESP 20; TEMP 37.1; O2SAT 92
[2022-11-14] MEDS: oxyCODONE HCl Immed Release 5 MG TABLET 10 MG PO ×3 (03:41→20:21)
[2022-11-14 07:00] VITALS: BP 116/67; PULSE 61; RESP 18; TEMP 36.6; O2SAT 96
[2022-11-14] MEDS: methADONE HCl 20 MG/2 ML ORAL.CONC 160 MG PO (07:48)
[2022-11-14] MEDS: Apixaban 5 MG TABLET PO ×2 (07:49→20:21)
[2022-11-14] MEDS: Gabapentin 100 MG CAPSULE 200 MG PO ×3 (07:49→20:21)
[2022-11-14] MEDS: Lidocaine 4 % Patch ADH..PATCH 1 PATCH TRANSDERMA ×2 (07:50→07:51)
[2022-11-14] MEDS: 0.9 % Sodium Chloride Flush 3 ML SYRINGE IVFLUSH ×3 (07:52→20:21)
[2022-11-14 11:44] VITALS: BP 118/61; PULSE 68; RESP 14; TEMP 36.4; O2SAT 95
[2022-11-14 15:33] VITALS: BP 124/61; PULSE 65; RESP 18; TEMP 36.9; O2SAT 95
--- NOTE | 2022-11-14 15:53 | MHC.CM.PN ---
[facility]IPLE [facility] REFERRALS OUT WITH NO OFFERS (PT HAS CLEARED FOR HOME) CM WILL CONTINUE TO PURSUE SERVICES. DEEDEE LUCAS UPDATED.
--- NOTE | 2022-11-14 16:46 | P.PNIM_ITS ---
Subjective Subjective Date of Service: 11/14/22 Interval History: Seen in follow-up for bilateral lower extremity DVT and bilateral pulmonary embolism Interval history: Patient reports improvement in pain in the lower extremities but still has mild discomfort in the right popliteal fossa. Denies any shortness of breath, chest pain. Review of Systems General: No fevers, malaise, unintentional weight loss Cardiovascular: No chest pain, palpitations, or leg edema Respiratory: No shortness of breath, wheezing, cough GI: No abdominal pain, nausea, vomiting, diarrhea MSK: No myalgia, back pain. +pain RLE Neuro: No headaches, weakness, paresthesias Skin: No rashes or lesions Physical Exam Vital Signs: Vital Signs: Last Vital Signs Temp 98.5 F 11/14/22 15:33 Pulse 65 11/14/22 15:33 Resp 18 11/14/22 15:33 BP 124/61 11/14/22 15:33 Pulse Ox 95 11/14/22 15:33 O2 Del Method 11/14/22 15:33 BMI result Body Mass Index 34.5 Constitutional - Awake and Alert, No apparent distress Eyes - PERRLA, EOMI Cardiovascular - S1S2, RRR, No edema Respiratory - Normal lung expansion, Normal respiratory effort, No respiratory distress, CTA bilaterally Gastrointestinal - NT / ND; +BS; No rebound or guarding Extremities - no calf tenderness bilaterally, mild/moderate swelling BLE with ttp right popliteal fossa Skin - Warm/Dry Neurological - Alert & oriented x3, Psychological - Appropriate affect Objective Data Active Medications Acetaminophen (Acetaminophen 325 Mg Tablet) 650 mg PO Q6H PRN PRN Reason: Pain, Mild (Pain Scale 1-3) Last Admin: 11/12/22 10:06 Dose: 650 mg Documented By: LUIS M Apixaban (Apixaban 5 Mg Tablet) 5 mg PO BID [facility] Last Admin: 11/14/22 07:49 Dose: 5 mg Documented By: AIDAN Docusate Sodium (Docusate Sodium 100 Mg Capsule) 100 mg PO DAILY PRN PRN Reason: Constipation Gabapentin (Gabapentin 100 Mg Capsule) 200 mg PO TID [facility] Last Admin: 11/14/22 15:36 Dose: 200 mg Documented By: AIDAN Lidocaine (Lidocaine 4 % Patch Adh..Patch) 1 patch TRANSDERMA DAILY [facility]; Protocol Last Admin: 11/14/22 07:50 Dose: 1 patch Documented By: AIDAN Lidocaine (Lidocaine 4 % Patch Adh..Patch) 1 patch TRANSDERMA DAILY [facility]; Protoc ol Last Admin: 11/14/22 07:51 Dose: 1 patch Documented By: AIDAN Methadone HCl (Methadone Hcl 20 Mg/2 Ml Oral.Conc) 160 mg PO DAILY [facility] Last Admin: 11/14/22 07:48 Dose: 160 mg Documented By: AIDAN Oxycodone HCl (Oxycodone Hcl Immed Release 5 Mg Tablet) 10 mg PO Q4H PRN PRN Reason: Pain, Mild (Pain Scale 1-3) Last Admin: 11/14/22 15:37 Dose: 10 mg Documented By: AIDAN Sodium Chloride (0.9 % Sodium Chloride Flush 3 Ml Syringe) 3 ml IVFLUSH QSHIFT [facility] Last Admin: 11/14/22 07:52 Dose: 3 ml Documented By: AIDAN Labs CBC & Chem 7: 11/07/22 08:12 11/07/22 09:43 Assessment and Plan (1) DVT, bilateral lower limbs: Status: Acute (2) Pulmonary emboli: Status: Acute (3) Obesity: Status: Acute Plan 52-year-old male with a PMH significant for polysubstance abuse including IVDU, migraines, and back pain who presents to the ED today for evaluation of right leg pain. Imaging showed bilateral DVTs and PE. Pt will be admitted to telemetry for treatment with heparin drip protocol. # bilateral DVTs and PEs ?occlusive thrombus in right leg in the popliteal vein ; in the left leg there is a partially occlusive thrombus in the femoral vein CTA showed bilateral pulmonary emboli with no evidence of right heart strain likely secondary to IVDU, using upper legs for heroin injection over past year changed to full-dose Eliquis 10 mg b.i.d, to finish total of 6 months of AC per hematology. No further testing required at this time #? knee pain CT scan with contrast? showed no evidence of any abscess, septic arthritis vascular surgery evaluation , no clear vascular etiology to pain, consider ortho consult if no improvement with PT to do PT eval for now-patient was strongly encouraged to mobilization, oxycodone adjusted yesterday as well as lidocaine patch added also has Tylenol ,gabapentinp.r.n. # IVDU on methadone, ?reports using heroin for pain management Addiction team evaluation apprecaited . obesity : encouraged to lose weight. ongoin hospital stay:awaitin rehab , added reeval PT. Pending acceptance for home services Time Spent With Patient Time: Total time managing care of this patient today 35 minutes. Quality Stroke Does the patient have a stroke diagnosis?: No VTE Prior VTE?: No VTE Risk Level:: Medical - moderate - high VTE Device Contraindication: Treatment Not Indicated VTE Drug Contraindication: N/A - Med Ordered
[2022-11-14 19:53] VITALS: BP 132/65; PULSE 68; RESP 17; TEMP 37.1; O2SAT 98
[2022-11-15] VITALS (7 sets, daily range): BP systolic 110–149; BP diastolic 66–84; PULSE 62–70; RESP 16–20; TEMP 36.1–37.1; O2SAT 94–97
[2022-11-15] MEDS: oxyCODONE HCl Immed Release 5 MG TABLET 10 MG PO ×2 (01:47→06:32)
[2022-11-15] MEDS: Lidocaine 4 % Patch ADH..PATCH 1 PATCH TRANSDERMA ×2 (08:02→08:03)
[2022-11-15] MEDS: methADONE HCl 20 MG/2 ML ORAL.CONC 160 MG PO (08:02)
[2022-11-15] MEDS: Apixaban 5 MG TABLET PO ×2 (08:03→20:39)
[2022-11-15] MEDS: Gabapentin 100 MG CAPSULE 200 MG PO ×3 (08:03→20:39)
[2022-11-15] MEDS: 0.9 % Sodium Chloride Flush 3 ML SYRINGE IVFLUSH ×3 (08:04→20:39)
--- NOTE | 2022-11-15 13:23 | MHC.CM.PN ---
Home with services is the goal; broad vna search updated and CM will follow.
--- NOTE | 2022-11-15 14:50 | P.PNIM_ITS ---
Subjective Subjective Date of Service: 11/15/22 Interval History: Seen and examined this morning Follow-up for DVT, PE Denies chest pain, palpitations Review of Systems Review of Systems: Yes all other systems are reviewed and are negative Constitutional Constitutional: Denies chills and Denies fever(s) ENT Ears, Nose, Mouth, and Throat: Denies dizziness Cardiovascular Cardiovascular: Denies chest pain and Denies palpitations Gastrointestinal Gastrointestinal: Denies abdominal pain Neurologic Neurologic: Denies dizziness Endocrine Endocrine: Denies palpitations Physical Exam Vital Signs: Vital Signs: Last Vital Signs Temp 97.0 F 11/15/22 11:57 Pulse 69 11/15/22 11:57 Resp 18 11/15/22 11:57 BP 110/66 11/15/22 11:57 Pulse Ox 96 11/15/22 11:57 O2 Del Method 11/15/22 11:57 BMI result Body Mass Index 34.5 Const: General: alert and awake Nutritional Appearance: overweight Orientation/consciousness: patient oriented x3 Resp: Effort & Inspection: normal respiratory effort and able to speak in complete sentences Auscultation: clear to auscultation bilaterally Cardio: Rate: regular rate Heart sounds: S1 normal heart sound present and S2 normal heart sound present GI: Inspection: No distended Palpation (GI): not soft and nontender Neuro: General: patient oriented x3 Extrem: Other: no calf tenderness Objective Data Active Medications Acetaminophen (Acetaminophen 325 Mg Tablet) 650 mg PO Q6H PRN PRN Reason: Pain, Mild (Pain Scale 1-3) Last Admin: 11/12/22 10:06 Dose: 650 mg Documented By: LUIS M Apixaban (Apixaban 5 Mg Tablet) 5 mg PO BID [facility] Last Admin: 11/15/22 08:03 Dose: 5 mg Documented By: AIDAN Docusate Sodium (Docusate Sodium 100 Mg Capsule) 100 mg PO DAILY PRN PRN Reason: Constipation Gabapentin (Gabapentin 100 Mg Capsule) 200 mg PO TID [facility] Last Admin: 11/15/22 08:03 Dose: 200 mg Documented By: AIDAN Lidocaine (Lidocaine 4 % Patch Adh..Patch) 1 patch TRANSDERMA DAILY [facility]; Protocol Last Admin: 11/15/22 08:02 Dose: 1 patch Documented By: AIDAN Lidocaine (Lidocaine 4 % Patch Adh..Patch) 1 patch TRANSDERMA DAILY [facility]; Protocol Last Admin: 11/15/22 08:03 Dose: 1 patch Documented By: AIDAN Methadone HCl (Methadone Hcl 20 Mg/2 Ml Oral.Conc) 160 mg PO DAILY [facility] Last Admin: 11/15/22 08:02 Dose: 160 mg Documented By: AIDAN Oxycodone HCl (Oxycodone Hcl Immed Release 5 Mg Tablet) 10 mg PO Q4H PRN PRN Reason: Pain, Mild (Pain Scale 1-3) Last Admin: 11/15/22 06:32 Dose: 10 mg Documented By: GABY Sodium Chloride (0.9 % Sodium Chloride Flush 3 Ml Syringe) 3 ml IVFLUSH QSHIFT [facility] Last Admin: 11/15/22 08:04 Dose: 3 ml Documented By: AIDAN Labs CBC & Chem 7: 11/07/22 08:12 11/07/22 09:43 Assessment and Plan (1) DVT, bilateral lower limbs: Status: Acute (2) Pulmonary emboli: Status: Acute Plan 52-year-old male with a PMH significant for polysubstance abuse including IVDU, migraines, and back pain who presents to the ED today for evaluation of right leg pain found to have bilateral DVTs and PE bilateral DVTs and PEs occlusive thrombus in right leg in the popliteal vein ; in the left leg there is a partially occlusive thrombus in the femoral vein CTA showed bilateral pulmonary emboli with no evidence of right heart strain likely secondary to IVDU, using upper legs for heroin injection over past year changed to Eliquis 5 mg bid to finish total of 6 months of AC per hematology. No further testing required at this time knee pain CT scan with contrast showed no evidence of any abscess, septic arthritis vascular surgery evaluation, no clear vascular etiology to pain, consider ortho consult if no improvement with PT continue pain control Opiate use disorder Continue methadone reports using heroin for pain management Addiction team evaluation appreciated obesity : encouraged to lose weight. attending [facility] Pending acceptance for home services Time Spent With Patient Time: Total time managing care of this patient today ____ minutes. Quality Stroke Does the patient have a stroke diagnosis?: No VTE Prior VTE?: No VTE Risk Level:: Medical - moderate - high VTE Device Contraindication: Treatment Not Indicated VTE Drug Contraindication: N/A - Med Ordered
[2022-11-16] MEDS: oxyCODONE HCl Immed Release 5 MG TABLET 10 MG PO ×2 (00:09→05:00)
[2022-11-16 04:00] VITALS: BP 125/66; PULSE 66; RESP 18; TEMP 36.2; O2SAT 96
[2022-11-16 07:33] VITALS: BP 109/71; PULSE 70; RESP 18; TEMP 35.9; O2SAT 95
[2022-11-16] MEDS: Lidocaine 4 % Patch ADH..PATCH 1 PATCH TRANSDERMA ×2 (08:30→08:31)
[2022-11-16] MEDS: Gabapentin 100 MG CAPSULE 200 MG PO (08:31)
[2022-11-16] MEDS: Apixaban 5 MG TABLET PO (08:31)
[2022-11-16] MEDS: methADONE HCl 20 MG/2 ML ORAL.CONC 160 MG PO (08:32)
[2022-11-16] MEDS: 0.9 % Sodium Chloride Flush 3 ML SYRINGE IVFLUSH (08:35)
[2022-11-16 10:48] VITALS: BP 105/64; PULSE 72; RESP 20; TEMP 36.2; O2SAT 94
--- NOTE | 2022-11-16 11:10 | P.DS_ITS ---
DS: Providers Provider Date of Service: 11/16/22 Date of admission: 11/02/22 13:28 Date of discharge: 11/16/22 Primary care physician: Kyler Daley MD Consults: 11/02/22 14:08 Consult to Hematology / Oncology Routine Consulting Provider: Dorie Kirk Reason for consultation: Bilateral DVTs, PE Has provider been notified: No 11/03/22 08:17 Addiction Medicine Routine Consulting Provider: Addiction Covering Reason for consultation: IVDU on Methadone, DVTs and PEs, for eval and rec. 11/05/22 11:46 Consult to Vascular Surgery Routine Consulting Provider: Parminder Bass Reason for consultation: bilateral DVT, left leg pain 11/06/22 12:44 Consult to Orthopedics Routine Consulting Provider: Michael López Reason for consultation: Rt knee\leg pain, New DVT, small effusion, for eval and rec. Has provider been notified: No Attending physician on discharge: Luis Rocha Discharging clinician: Jess Gutiérrez DS: Diagnosis Discharge Diagnosis (1) DVT, bilateral lower limbs: Status: Acute (2) Pulmonary emboli: Status: Acute DS: Summary Hospital Course Hospital Course: From H&P on day of admission Pt is a 52-year-old male with a PMH significant for polysubstance abuse including IVDU, migraines, and back pain who presents to the ED today for evaluation of right leg pain.? Patient states that for the past 2 days he has experienced worsening right leg pain in the back of his knee. The pain arrived acutely during the night while he was sleeping, and today he became so severe that he could not stand. He also notes that he used heroin earlier today because of the pain, after being clean on methadone for over two months. Pt also reports being SOB at rest and with exertion for past 1-2 months. Notes occasional left leg pain that is fleeting and comes and goes. Of note, pt has a recent history of IVDU and has been injecting in his legs intermittently for the past year.? In the ED patient's chest x-ray was negative, chemistry unremarkable, serology negative, hematology with slightly reduced H&H of 12.5/40.1, elevated ESR of 60 and C reactive protein of 13.92.? US venous duplex showed bilateral DVTs, and CTA VTE positive with bilateral pulmonary emboli and no evidence of right heart strain. Pt was started on heparin drip per protocol. bilateral DVTs and PEs Patient was found to have occlusive thrombus in right leg in the popliteal vein; in the left leg there is a partially occlusive thrombus in the femoral vein. CTA showed bilateral pulmonary emboli with no evidence of right heart strain. Blood clots likely secondary to IVDU, using upper legs for heroin injection over past year. was initially treated with heparin drip, transitioned to oral Eliquis 10 mg b.i.d. x1 week and now on 5 mg b.i.d. moving forward. Patient was seen in consultation by Hematology and recommended to complete total of 6 months of anticoagulation. He has remained hemodynamically stable and is not currently requiring any supplemental oxygen. He is stable for discharge home. knee pain CT scan with contrast showed no evidence of any abscess, septic arthritis. vascular surgery evaluation, no clear vascular etiology to pain. seen by orthopedic surgery, no fracture, dislocation or infection evident, no need for further orthopedic intervention. Pain improving, patient able to ambulate. Was initially evaluated by Physical therapy who recommended rehab however mobility and pain have improved and PT now recommends home with services. Unfortunately no home services were able to be obtained however the patient lives with multiple family members and has been able to ambulate independently and feels comfortable returning home without services. He has a follow-up appointment with his PCP in the next couple of weeks and he is encouraged to call to see if he is about to get outpatient physical therapy services. Opiate use disorder Continue methadone. was seen by Addiction team and harm reduction/continuing methadone was discussed. recommend to continue following at methadone clinic. encouraged complete cessation. Time Spent with Patient Time attestation: Total time managing care of this patient today ____ minutes. Discharge coordination time: Greater than 30 minutes Quality: Safe Use of Opioids Does Pt have an Active Cancer Diagnosis on the Problem List?: No Quality: Stroke Does the patient have a stroke diagnosis?: No Physical Exam Vital Signs: Vital Signs: Last Vital Signs Temp 97.1 F 11/16/22 10:48 Pulse 72 11/16/22 10:48 Resp 20 11/16/22 10:48 BP 105/64 11/16/22 10:48 Pulse Ox 94 11/16/22 10:48 O2 Del Method 11/16/22 10:48 BMI result Body Mass Index 34.5 Const: General: alert and awake Nutritional Appearance: overweight Orientation/consciousness: patient oriented x3 Resp: Effort & Inspection: normal respiratory effort and able to speak in complete sentences Auscultation: clear to auscultation bilaterally Cardio: Rate: regular rate Heart sounds: S1 normal heart sound present and S2 normal heart sound present GI: Inspection: No distended Palpation (GI): not soft and nontender Neuro: General: patient oriented x3 Extrem: Other: no calf tenderness Discharge Plan Discharge Anticipated Discharge Date/Time: 11/16/22 11:20 Patient Disposition: Home, Self-Care Discharge Diagnosis: bilateral pulmonary emboli bilateral lower extremity DVT Referrals: Dorie Kirk MD [Physician] - 2 Weeks Kyler Daley MD [Primary Care Provider] - 1 Week Discharge Medications: New Eliquis 5 mg Tablet 5 mg PO BID 30 Days Qty: 60 0RF lidocaine [Lidocaine Pain Relief] 4 % Adhesive Patch,Medicated 1 patch transdermal DAILY Qty: 30 0RF Protocol: Apply to: Apply to: pain area oxycodone 5 mg tablet 5 mg PO Q8H PRN (Reason: pain (scale score 7-10)) Qty: 15 0RF Rx Instructions: Partial Fill upon patient request. gabapentin 100 mg Capsule 200 mg PO TID 14 Days Qty: 84 0RF Continued methadone 10 mg/mL concentrate 160 mg PO DAILY Discharge Orders: Discharge Order (Routine); Ordered 11/16/22 Ordered By: Jess Gutiérrez Activity on Discharge: As tolerated Stand Alone Forms: Patient Portal Discharge page Care Plan Goals: see below Health Concerns: bilateral DVT and PE IVDU Plan of Treatment: call to schedule follow up with PCP - maybe able to arrange for outpatient physical therapy take Eliquis as prescribed. monitor for signs of bleeding. 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 do not use heroin Assessment: see discharge summary Discharge Date/Time: 11/16/22 12:35
--- NOTE | 2022-11-16 11:37 | MHC.CM.PN ---
Patient has been medically cleared for dc to home today, self care.
--- NOTE | 2022-11-16 12:30 | PC.NURSE ---
pt alert and oriented x 3, appropriate upon discharge. discharge instruction given to pt - pt verbalized understanding. last dose letter given to pt sealed in envelope, oxy 5mg PO script given to pt - instructed pt to go to pharmacy with physical script for retrieval of medication. pt verbalized understanding. [facility] staff wheeled pt down to main entrance to wait for brother.
== END 2022-11-16 12:35 | disposition home or self-care (01) | DRG 134 ==
LOC: HO.ED 08:56 → HO.EDOVER 14:03 → HO.IMC 11-04 00:05
PROVIDERS: Internal Medicine; Nurse Practitioner Family; Student in an Organized Health Care Education/Training Program; Admitting Provider Student in an Organized Health Care Education/Training Program; Emergency Provider Emergency Medicine Emergency Medical Services; PCP Internal Medicine; Visit Provider Physician Assistant Medical
DX: I26.99 Other pulmonary embolism without acute cor pulmonale (principal); I82.412 Acute embolism and thrombosis of left femoral vein; E66.9 Obesity, unspecified; Z68.34 Body mass index [BMI] 34.0-34.9, adult; I82.431 Acute embolism and thrombosis of right popliteal vein; F11.20 Opioid dependence, uncomplicated; Z20.822 Contact with and (suspected) exposure to COVID-19
CPT/HCPCS: 0241U; 36415; 71046; 71275; 73562; 73701; 80048; 80053; 83605; 85025; 85027; 85610; 85652; 85730; 86140; 87040; 93970; 97161; 97530; 99285; Q9967

== ENCOUNTER → 2022-12-01 13:39 | Outpatient (BNV) | payer OTHER, SELFPAY | PROVIDERS: PCP Internal Medicine Rheumatology; Visit Provider Internal Medicine | DX: I82.401 Acute embolism and thrombosis of unspecified deep veins of right lower extremity (principal); I82.402 Acute embolism and thrombosis of unspecified deep veins of left lower extremity | CPT/HCPCS: 99213; 99214; G2211 ==

== ENCOUNTER 2022-12-12 16:34 | Outpatient (REF) | payer OTHER, SELFPAY ==
--- NOTE | ~2022-12-12 | US_ITS ---
EXAMINATION: US VENOUS ULTRASOUND WITH DOPPLER LOWER EXTREMITY, BILATERAL CLINICAL INFORMATION: DVT COMPARISON: 11/02/2022 TECHNIQUE: Ultrasound of the deep veins is performed from the hip to the calf with compression sonography and color and pulse Doppler assessment. Spectral analysis with color-flow imaging is performed. FINDINGS: RIGHT: There has been some mild improvement, but similar changes of DVT are present, when compared to the prior study from 11/02/2022. Again noted is thrombus in the popliteal vein extending into the femoral vein. The common femoral vein is free of thrombus. The GSV is free of thrombus. In the distal femoral vein, there is partial flow seen at this time whereas previously this was occlusive. The popliteal vein remains with occlusive thrombus. As previously, calf veins could not be visualized. LEFT: There is partially occlusive thrombus seen in the proximal left femoral vein with the deep venous system appearing otherwise normal. Similar findings were present previously.The visualized common femoral vein, distal femoral vein, profunda femoral vein and popliteal vein show no evidence of deep venous thrombosis. There is no significant popliteal fossa cyst. US/US venous duplex LE BI IMPRESSION: Bilateral DVT, similar on the left with partially occlusive thrombus in the proximal femoral vein. On the right, appearances seen mildly improved with nonocclusive thrombus seen in the distal femoral vein where as previously this was occlusive. Other findings described above. This result was delivered to Anne nurse practitioner, in the provider's office at the time of the exam and it was ascertained that the content of the report was understood at the time of communication.
== END 2022-12-12 16:35 | disposition home or self-care (01) ==
LOC: HO.US 16:34
PROVIDERS: PCP Internal Medicine; Visit Provider Nurse Practitioner Family
DX: I82.403 Acute embolism and thrombosis of unspecified deep veins of lower extremity, bilateral (principal)
CPT/HCPCS: 93970

== ENCOUNTER 2022-12-14 13:17 | Outpatient (REF) | payer OTHER, SELFPAY ==
--- NOTE | ~2022-12-14 | MM_ITS ---
EXAMINATION: MM DIAGNOSTIC DIGITAL BREAST TOMOSYNTHESIS, BILATERAL US DIAGNOSTIC ULTRASOUND BREAST, LEFT CLINICAL INFORMATION: Left breast pain and fullness for several weeks. No discharge. Patient also notes subtle fullness anterior chest wall soft tissues just inferior to the left breast. Male age 52. No prior breast imaging. No known family history breast cancer. COMPARISON: No prior mammography (current study represents initial baseline exam). Comparison made with CTA chest 11/02/2022. TECHNIQUE: Digital breast tomosynthesis is performed in both the craniocaudal and mediolateral oblique views along with computer-aided detection (CAD). Synthesized 2D images are generated from the tomosynthesis. Ultrasound left breast is performed using grayscale imaging and color Doppler without and with harmonics. Imaging is targeted to the retroareolar and periareolar region with additional imaging in the area of additional palpable concern just inferior to the left breast. Comparison imaging is also performed right breast at time of real-time imaging. FINDINGS: There are scattered areas of fibroglandular density (ACR BI-RADS breast composition Category b). There is moderate bilateral gynecomastia type pattern, slightly greater on left. There is no mass or architectural abnormality. The axilla and skin contours are unremarkable. The synthesized 2-D images show scattered punctate densities retroareolar regions, more conspicuous on CC views, likely digital processing artifact rather than calcification. Patient has already left office and will be asked to return for additional standard 2-D views to confirm. Ultrasound left breast demonstrates no cystic or solid mass or architectural abnormality. There is no skin thickening or edema tracking in soft tissue planes. There is no cystic or solid mass in the area of palpable concern just inferior to the left breast. Preliminary results are discussed with patient at time of office visit. MM/MM tomosynthesis diagnostic BI IMPRESSION: -Bilateral gynecomastia, slightly greater on left. -Unremarkable targeted left breast ultrasound. -Probable digital processing artifact punctate densities on 2-D synthesized images. ASSESSMENT: BI-RADS 0: Incomplete - Need Additional Imaging Evaluation RECOMMENDATION: -Additional bilateral standard 2-D mammography (performed as an addendum to this exam).
== END 2022-12-14 13:18 | disposition home or self-care (01) ==
LOC: HO.CT 13:17
PROVIDERS: PCP Internal Medicine; Visit Provider Nurse Practitioner Family
DX: R22.9 Localized swelling, mass and lump, unspecified (principal)
CPT/HCPCS: 76642; 77062; 77066

== ENCOUNTER 2022-12-15 14:47 | Outpatient (REF) | payer OTHER, SELFPAY ==
--- NOTE | ~2022-12-15 | CT_ITS ---
EXAMINATION: CT ANGIOGRAM OF THE CHEST WITH AND WITHOUT CONTRAST (CT PULMONARY ANGIOGRAM FOR PE) CLINICAL INFORMATION: Pulmonary embolism without acute cor pulmonale COMPARISON: None TECHNIQUE: Prior to contrast administration, noncontrast localization images were obtained. Subsequently, multidetector volumetric imaging was performed from the thoracic inlet to below the diaphragms following the administration of 80 mL Omnipaque 350 intravenous contrast. No contrast reaction reported Sagittal, coronal, and MIP oblique sagittal reformatted images were obtained on the CT workstation, uploaded to PACS, and reviewed. This CT examination was performed using dose optimization techniques as appropriate, variously including the following: *Automated exposure control *Adjustment of mA and/or kV according to patient size (this includes techniques or standardized protocols for targeted exams where dose is matched to indication/reason for exam; i.e. extremities or head) *Use of iterative reconstruction technique Total exam dose-length product 167 mGy-cm FINDINGS: QUALITY OF STUDY/CONTRAST BOLUS: Satisfactory. PULMONARY ARTERIES: No central or segmental pulmonary emboli. THORACIC AORTA: No aneurysm or dissection. Minimal calcifications in the aortic arch LUNGS/PLEURA/AIRWAYS: No focal consolidation, significant/suspicious pulmonary nodules or masses. Mild bibasilar linear atelectasis/scarring. MEDIASTINUM: The thyroid gland is unremarkable. Normal heart size. No pericardial effusion. No hilar or mediastinal lymphadenopathy. No evidence of septal bowing or right heart strain. CORONARY ARTERY CALCIFICATION: None visualized on this study. CHEST WALL/AXILLA: No axillary or internal mammary lymphadenopathy. Moderate bilateral gynecomastia. OSSEOUS STRUCTURES: Mild multilevel degenerative changes. No suspicious abnormality. UPPER ABDOMEN: Unremarkable. No reflux of contrast into the hepatic veins to suggest elevated right heart pressures. CT/CT angio chest PE protocol IMPRESSION: 1. No evidence of pulmonary embolism. 2. No acute cardiopulmonary process. 3. Moderate bilateral gynecomastia. VTE: negative
[2022-12-15] MEDS: iohexoL 350 MG/ML 100 ML INFUS..BTL IV (15:57)
[2022-12-23 13:51] LABS: Creatinine POC 0.6 mg/dL (0.5-1.4); GFR POC > 60
== END 2022-12-15 14:48 | disposition home or self-care (01) ==
LOC: HO.CT 14:47
PROVIDERS: PCP Nurse Practitioner Family; Visit Provider Nurse Practitioner Family
DX: I26.99 Other pulmonary embolism without acute cor pulmonale (principal); R06.09 Other forms of dyspnea
CPT/HCPCS: 71275; 82565; Q9967

== ENCOUNTER → 2022-12-28 12:53 | Outpatient (REF) | payer OTHER, SELFPAY ==
--- NOTE | 2022-12-28 12:56 | CA_ITS ---
Transthoracic Echocardiogram Patient (Last, First, Middle): Don Spence, Gender: Male Date of : 1970 Age: 52 Procedure Date: 12/28/2022 Procedure Type: Transthoracic Echocardiogram Location: OP Height: 172.72 cm Weight: 99.79 kg BSA: 2.13 m2 Heart Rate: bpm BP: 135 / 84 mmHg Supervisor Payroll: ANGI Referring MD: Anne MENDEZ Healthcare Educator: Ciro Gramajo MD Symptoms: R06.09 - Other forms of dyspnea Study Quality: Fair, contrast ECG Rhythm: Sinus Conclusions: - Essentially normal study Findings Procedure Information Contrast agent, definity, is being given per protocol without apparent complications. Left Ventricle Normal left ventricular size, thickness, and systolic function. The visually estimated ejection fraction is between 60-65%. There is no evidence of regional wall motion abnormalities. Spectral Doppler is indicative of a normal filling pattern. Right Ventricle Mildly increased right ventricular cavity size. There is normal right ventricular systolic function. Atria Both atria are normal in size. There is no evidence of interatrial shunt. Aortic Valve The aortic valve structure and function is likely normal. There is no aortic valve stenosis. There is no aortic valve regurgitation. Mitral Valve Normal mitral valve structure and function. There is trace mitral valve regurgitation. There is no mitral valve stenosis. Pulmonic Valve The pulmonic valve was not well visualized. Tricuspid Valve Likely normal tricuspid valve structure and function. Tricuspid regurgitation envelope is inadequate for calculation of right ventricular systolic pressure. Normal right atrial pressure. Great Vessels All visible segments of the aorta are normal in size. The pulmonary artery was not well visualized. Venous The inferior vena cava is normal in size and collapses greater than 50% with inspiration. Pericardium/Pleural There is no evidence of pericardial effusion. Prior Study Comparison No prior study available for comparison. Measurements 2D Linear Measurements IVSd: 1.05 0.6-0.9/0.6-1.0 cm LVIDd: 5.08 3.9-5.3/4.2-5.9 cm LVIDd Index: 2.38 2.4-3.2/2.2-3.1 cm/m2 LVIDs: 2.81 2.0-3.6 cm LVPWd: 1.13 0.7-1.1 cm LA Diam: 4.10 2.7-3.8/3.0-4.0 cm LAIDs Index: 1.92 1.5-2.3 cm/m2 LV Mass: 261.62 67-162/88-224 g LV Mass Index: 122.83 43-95/49-115 g/m2 LVOT Diam: 2.20 3.0+(-)1.3 cm 2D Systolic Function EF 4C: 59.70 >55% EF 2C: 68.50 >55% EF BiP: 65.00 >55% Mitral Valve MV Pk E: 0.76 MV PK A: 0.54 MV Decel Time: 221.00 E/A: 1.40 E'Lateral: 11.60 E'Medial: 8.49 E/E' Med: 9.00 E/E' Lat: 6.60 PHT: 65.00 MVA PHT: 3.38 Decel [place]: 3.45 Aortic Valve AoV Pk Librado: 1.15 AoV Mn Librado: 0.87 AoV VTI: 0.26 AoV Pk Grad: 5.00 Aov Mn Grad: 3.00 SHAUNNA Cont.VTI: 2.85 LVOT LVOT Pk Librado: 0.82 LVOT Mn Librado: 0.60 LVOT VTI: 0.20 LVOT Pk Grad: 3.00 LVOT Mn Grad: 2.00 LVOT Diam: 2.20 LVOT Area: 3.80 Diastolic Function MV Pk E: 0.76 MV Pk A: 0.54 E/A: 1.40 E'Medial: 8.49 E/E' Med: 9.00 E' Laterial: 11.60 E/E' Lat: 6.60 Right Ventricle TAPSE (mm): 30.00 TVS' Librado: 12.70 Tricuspid Valve RA Press: 3.00 Great Vessels Aorta Sinus of Valsalva: 3.66 2.0-3.[address] [place]: 2.75 1.7-3.4 cm Ao Asc: 3.10 2.1-3.4 cm Updated in Other Vendor System with Status of Final Ciro Gramajo MD electronically signed on 12/28/2022 3:10:14 PM with status of Final
== END ==
LOC: HO.CARD 12:53
PROVIDERS: PCP Internal Medicine; Visit Provider Nurse Practitioner Family
DX: R06.09 Other forms of dyspnea (principal)
CPT/HCPCS: 93306; Q9957

== ENCOUNTER 2023-03-20 13:20 | Outpatient (REF) | payer OTHER, SELFPAY ==
--- NOTE | ~2023-03-20 | US_ITS ---
EXAMINATION: Ultrasound extremity nonvascular CLINICAL INFORMATION: Palpable lump COMPARISON: None. TECHNIQUE: Grayscale and color imaging of the soft tissues of the right groin using a linear transducer FINDINGS: There is a 0.5 cm round hyperechoic avascular area just deep to the skin corresponding to palpable abnormality. This probably represents a small lipoma. There are 2 small right inguinal lymph nodes. These are normal in size and demonstrate normal ultrasound morphology and flow. US/US extremity nonvascular IMPRESSION: Probable small lipoma just deep to the skin. Normal-appearing right inguinal lymph nodes.
== END 2023-03-20 13:21 | disposition home or self-care (01) ==
LOC: HO.US 13:20
PROVIDERS: PCP Nurse Practitioner Family; Visit Provider Nurse Practitioner Family
DX: R22.41 Localized swelling, mass and lump, right lower limb (principal)
CPT/HCPCS: 76882

== ENCOUNTER 2023-06-29 15:48 | Outpatient (REF) | payer OTHER, SELFPAY ==
--- NOTE | ~2023-06-29 | US_ITS ---
US/US venous duplex LE BI IMPRESSION: Bilateral deep venous thrombosis of the femoral veins extending into the popliteal veins. Similar findings were seen previously. Dr. Segovia was notified of findings at approximately 6:03 PM 06/29/2020. EXAMINATION: US VENOUS ULTRASOUND WITH DOPPLER LOWER EXTREMITY, BILATERAL CLINICAL INFORMATION: Swelling and pain. COMPARISON: None available. TECHNIQUE: Ultrasound of the deep veins is performed from the hip to the calf with compression sonography and color and pulse Doppler assessment. Spectral analysis with color-flow imaging is performed. FINDINGS: RIGHT: There is normal venous compression and respiratory variation and augmented flow within the right common femoral, profunda femoral and proximal femoral vein. There is nearly occlusive thrombus within the mid right femoral vein extending to the distal right femoral vein with partial thrombus within the right popliteal vein. The calf veins are not well seen on the right. There is no significant popliteal fossa cyst. LEFT: There is normal venous compression and respiratory variation and augmented flow within the common femoral, and deep femoral vein. There is partial thrombosis of the proximal femoral vein, popliteal vein and extending into the popliteal vein. Calf veins are not well seen. There is no popliteal fossa cyst.
== END 2023-06-29 15:49 | disposition home or self-care (01) ==
LOC: HO.US 15:48
PROVIDERS: PCP Nurse Practitioner Family; Visit Provider Internal Medicine
DX: I82.403 Acute embolism and thrombosis of unspecified deep veins of lower extremity, bilateral (principal)
CPT/HCPCS: 93970

== ENCOUNTER 2023-07-10 15:22 | Outpatient (AMB) | payer OTHER, SELFPAY ==
--- NOTE | 2023-07-10 15:26 | MHC.PC.OV ---
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: No Accompanied by: Self / Same As Patient Allergies No Known Allergies [No Known Allergies*] Allergy (Verified 07/10/23 15:44) Medication List - Last Reconciled 07/10/23 by VANESSA Bailey apixaban (Eliquis) 5 mg PO BID 30 days methadone 160 mg PO DAILY Tobacco use date assessed: 07/10/23 Dental Screening Dental Screen Date: 07/10/23 Did you have a dental visit in the last 12 months?: Yes Did you have a dental problem in the last 6 months where you did not have access to dental care?: No Was dental information given to patient?: Patient has dentist HPI BLE edema HPI Details Patient is a 53-year-old male who presents today to follow-up on bilateral lower extremity swelling.? Medical history significant for history of opioid abuse-on methadone, PE and bilateral lower extremity DVT 10/2022 - on Eliquis-followed by Dr. Kirk every 6 months, dyspnea on exertion, migraines, elevated LFTs 05/2023.? Patient reports that his bilateral lower extremity edema is improving although he still has intermittent pain-right leg pain when bending, left leg feel like tightness. He reports right-sided neck pain for the past almost 2 months now, reports taking ibuprofen as needed with no much improvement, denies injury. Denies chest pain, no difficulty breathing. 12/2022 echocardiogram Conclusions: - Essentially normal study ??? 12/2022 CT/CT angio chest PE protocol IMPRESSION: 1.? No evidence of pulmonary embolism. 2.? No acute cardiopulmonary process. 3.? Moderate bilateral gynecomastia. [facility] Medical History Encounter to establish care Eyebrow laceration Obesity Polysubstance abuse Surgical History No pertinent past surgical history Family History Mother COPD (chronic obstructive pulmonary disease) Father Hepatitis Liver cirrhosis Maternal Grandmother Alzheimer disease Maternal Grandfather Prostate cancer Diabetes Other Mental health disorder Substance use disorder Social History Household Members: Family Housing: House Unable to assess alcohol history related to: Refusing to respond Alcohol intake: former Year quit: 2012 Patient Tobacco Use Status: Former Tobacco user e-Cigarette/Vaping Use: Never Used Second Hand Smoke Exposure: No Substance Use Type: Heroin service: No Current occupational status: unemployed Cognitive needs: No Hearing needs: No Vision needs: Yes (reading) Questionnaire PHQ-9 Over the last 2 weeks, how often have you been bothered by any of the following problems? 1. Little interest or pleasure in doing things: not at all 2. Feeling down, depressed, or hopeless: not at all 3. Trouble falling or staying asleep, or sleeping too much: not at all 4. Feeling tired or having little energy: not at all 5. Poor appetite or overeating: not at all 6. Feeling bad about yourself - or that you are a failure or have let yourself or your family down: not at all 7. Trouble concentrating on things, such as reading the newspaper or watching television: not at all 8. Moving or speaking so slowly that other people could have noticed. Or the opposite - being so fidgety or restless that you have been moving around a lot more than usual: not at all 9. Thoughts that you would be better off or of hurting yourself in some way: not at all Total score: 0 Depression Screening Interpretation: Negative 07838 - PHQ-9 Billing: Yes Source: Developed by Drs. Angel Dent, Maria Isabel Dash, Gelacio Hernandez and colleagues, with an educational quincy from [employer]. Thrive Questionnaire Date Thrive assessed: 07/10/23 I am a: Patient What is your living situation today?: I have a steady place to live Within the past 12 months, did the food you bought not last and you didn't have the money to get more?: Never true Within the past 12 months, did you worry whether your food would run out before you got money to buy more?: Never true Do you have trouble paying for medicines?: No Do you have trouble getting transportation to medical appointments?: No Do you have trouble paying your heating and electricity bill?: No Do you have trouble taking care of your child, family member or friend?: No Do you have trouble with day-to-day activities such as bathing, preparing meals, shopping, managing finances, etc.?: No Are you currently unemployed and looking for a job?: No Are you interested in more education?: No Please select the resources that you would like help with: None Currently or been in a relationship where the following occur: no concerns reported AUDIT C Alcohol Use Questionnaire (AUDIT-C) 1. How often do you have a drink containing alcohol?: Never 3. How often do you have six or more drinks on one occasion?: Never Total Score: 0 Score Reviewed/Action Taken: No TIFFANIE-7 AMB Questionnaire TIFFANIE-7 Date TIFFANIE - 7 assessed: 07/10/23 Feeling nervous, anxious, or on edge: 0 = Not at all Not being able to stop or control worryin = Not at all Worrying too much about different things: 0 = Not at all Trouble relaxin = Not at all Being so restless that it is hard to sit still: 0 = Not at all Becoming easily annoyed or irritable: 0 = Not at all Feeling afraid as if something awful might happen: 0 = Not at all Total TIFFANIE-7 score (0-4 normal; 5-9 mild; 10-14 moderate; 15-21 severe): 0 Source: Developed by Drs. Angel Dent, Maria Isabel Dash, Gelacio Hernandez and colleagues, with an educational quincy from [employer]. TIFFANIE-7 Assessment Billing TIFFANIE-7 Assessment Tool: TIFFANIE-7 Assessment 19059 Review of Systems Const Denies body aches, Denies chills, Denies fever(s) and Denies headache(s) ENT Denies dizziness, Denies otalgia, Denies headache(s), Denies nasal discharge, Denies sinus pain and Denies sore throat Card Denies chest pain, Denies edema, Reports leg edema, Denies lightheadedness, Denies dyspnea and Reports dyspnea on exertion Resp Denies cough, Denies hemoptysis, Denies dyspnea and Reports dyspnea on exertion GI Denies constipation, Denies diarrhea, Denies nausea and Denies vomiting Denies dysuria Musc Details: Bilateral leg pain Reports as per HPI, Denies myalgias, Denies arthralgias and Denies joint swelling Skin/Breast Denies lesions and Denies rash Neuro Denies dizziness and Denies headache(s) Physical exam (Primary Care) Vital Signs: Last Vital Signs Pulse 89 07/10/23 15:27 BP 130/80 07/10/23 15:27 Pulse Ox 67 L 07/10/23 15:27 Oxygen Delivery Method Room Air 07/10/23 15:27 BMI result Body Mass Index 36.4 Tobacco/Smoking Status: Tobacco use Status Tobacco use date assessed 07/10/23 07/10/23 15:35 Patient Tobacco Use Status Former Tobacco user 07/10/23 15:35 e-Cigarette/Vaping Use Never Used 07/10/23 15:35 PHQ-9: PHQ-9 Score PHQ-9: Total score 0 07/10/23 15:41 Depression Screening Interpretation: Negative Thrive Assessment: Date of Thrive Assessment Date Thrive assessed 07/10/23 07/10/23 15:35 Currently or been in a relationship where the following occur: no concerns reported Const General: cooperative and no acute distress Orientation/consciousness: patient oriented x3 HENMT Head: Yes normocephalic and Yes atraumatic Face and sinus: Yes sinuses nontender Mouth: oropharynx normal and moist mucous membranes Throat: Yes posterior oropharynx normal Eyes General: appearance normal, both eyes and all related structures Pupils: Equal, round and reactive pupils present EOM: EOMs intact bilaterally Neck Neck: Yes normal visual inspection, Yes full ROM and Yes no lymphadenopathy Resp Effort & Inspection: normal respiratory effort and able to speak in complete sentences Auscultation: clear to auscultation bilaterally, no crackles, no rales, no rhonchi and no wheezes Cardio Rate: regular rate Rhythm: regular rhythm Heart sounds: S1 normal heart sound present, S2 normal heart sound present and no murmurs GI Auscultation: normal bowel sounds Back/Spine/Pelvis Cervical Spine: cervical ROM normal, cervical muscular tenderness (Right) and No Cervical spine tenderness Skin Other: Multiple intact scabs noted to bilateral lower extremity - no signs of infection noted Neuro General: patient oriented x3 Cranial nerves: Yes Equal, round and reactive pupils present Gait exam (Neuro): Normal gait present Extrem Other: Trace edema to bilateral distal lower extremity General: Yes full ROM Assessment and Plan Assessment & Plan (1) DVT, bilateral lower limbs: Code(s): I82.403 - Acute embolism and thrombosis of unspecified deep veins of lower extremity, bilateral Plan: Swelling improving Continue Eliquis 5 mg b.i.d.-continue to follow-up with Hematology Dr. Kirk - has appointment next month Elevate bilateral lower extremity, patient reports using compression stockings p.r.n. (2) Elevated LFTs: Code(s): R79.89 - Other specified abnormal findings of blood chemistry Plan: ALT 74, AST 77 05/2023 Abdominal ultrasound and hepatitis blood work ordered Also patient gained weight Encouraged healthy food choices and exercise as tolerated (3) Neck pain: Code(s): M54.2 - Cervicalgia Plan: Suspect musculoskeletal in origin Will treat with diclofenac cream q.i.d. p.r.n. and tizanidine at bedtime p.r.n.-educated about drowsiness Patient has declined physical therapy referral Encouraged heating packs p.r.n. Patient is to stop using ibuprofen due to being on Eliquis (4) Obesity (BMI 30-39.9): Code(s): E66.9 - Obesity, unspecified Plan: Healthy food choices and exercise as tolerated Dietitian referral Plan Follow-up in 4 months or sooner as needed Orders: Orders Comprehensive Met. Panel 2 Months R7. - Other specified abnormal findings of blood chemistry Hepatitis A,B,C Profile Today R7. - Other specified abnormal findings of blood chemistry US abdomen limited Today R7 - Other specified abnormal findings of blood chemistry Referrals Chief Ultrasound Technologist Nutrition Referral E66.9 - Obesity, unspecified Medications: New diclofenac sodium 1% (Arthritis Pain (diclofenac)) 2 grams topical QID PRN 100 grams 0RF pain M54.2 - Cervicalgia tizanidine 2 mg PO BEDTIME PRN 10 tabs 0RF muscle spasticity M54.2 - Cervicalgia Coding Level of Care Code Est Pt Level 4 (87754) Diagnoses DVT, bilateral lower limbs I82.403 Elevated LFTs R7. Neck pain M54.2 Obesity (BMI 30-39.9) E66.9 Additional Codes TIFFANIE-7 Assessment Billing - TIFFANIE-7 Assessment Tool: TIFFANIE-7 Assessment 52473 ([id number])
[2023-07-10 15:27] VITALS: BP 130/80; PULSE 89; O2SAT 97; BMI 36.4
== END 2023-07-10 16:01 | disposition home or self-care (01) ==
PROVIDERS: PCP Nurse Practitioner Family; Visit Provider Nurse Practitioner Family
DX: I82.403 Acute embolism and thrombosis of unspecified deep veins of lower extremity, bilateral (principal); R79.89 Other specified abnormal findings of blood chemistry; M54.2 Cervicalgia; Z68.34 Body mass index [BMI] 34.0-34.9, adult; E66.9 Obesity, unspecified
CPT/HCPCS: 99214

== ENCOUNTER 2023-08-10 13:47 | Outpatient (AMB) | payer OTHER, SELFPAY ==
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
[2023-08-10 14:38] LABS: ~PT, ~INR - Anti Coag Clinic 3.4 (0.9-1.1)
[2023-08-10 15:19] VITALS: BP 120/78; PULSE 54; RESP 18
== END 2023-08-10 16:40 | disposition home or self-care (01) ==
LOC: HO.ACS 13:47
PROVIDERS: PCP Nurse Practitioner Family; Visit Provider Internal Medicine
DX: Z79.01 Long term (current) use of anticoagulants (principal)

== ENCOUNTER → 2023-08-10 13:47 | Outpatient (BNVA) | payer OTHER, SELFPAY | PROVIDERS: PCP Nurse Practitioner Family; Visit Provider Internal Medicine | DX: I26.99 Other pulmonary embolism without acute cor pulmonale (principal); Z86.718 Personal history of other venous thrombosis and embolism; Z79.01 Long term (current) use of anticoagulants; Z51.81 Encounter for therapeutic drug level monitoring | CPT/HCPCS: 85610; 99202 ==

== ENCOUNTER 2023-08-13 08:41 | Outpatient (AMB) | payer OTHER, SELFPAY ==
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
[2023-08-13 09:01] LABS: Prothrombin Time Whole Bld POC 67.1 sec (11.1-13.5); ~PT, ~INR - Anti Coag Clinic 5.6 (0.9-1.1)
== END 2023-08-13 09:29 | disposition home or self-care (01) ==
LOC: HO.ACS 08:41
PROVIDERS: PCP Nurse Practitioner Family; Visit Provider Internal Medicine
DX: Z79.01 Long term (current) use of anticoagulants (principal)

== ENCOUNTER → 2023-08-13 08:41 | Outpatient (BNVA) | payer OTHER, SELFPAY | PROVIDERS: PCP Nurse Practitioner Family; Visit Provider Internal Medicine | DX: I26.99 Other pulmonary embolism without acute cor pulmonale (principal); Z86.718 Personal history of other venous thrombosis and embolism; Z51.81 Encounter for therapeutic drug level monitoring; Z79.01 Long term (current) use of anticoagulants | CPT/HCPCS: 85610; 99212 ==

== ENCOUNTER 2023-08-15 13:03 | Outpatient (AMB) | payer OTHER, SELFPAY ==
[2023-08-15 13:17] LABS: Prothrombin Time Whole Bld POC 43.5 sec (11.1-13.5); ~PT, ~INR - Anti Coag Clinic 3.6 (0.9-1.1)
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
== END 2023-08-15 13:46 | disposition home or self-care (01) ==
LOC: HO.ACS 13:03
PROVIDERS: PCP Nurse Practitioner Family; Visit Provider Internal Medicine
DX: Z79.01 Long term (current) use of anticoagulants (principal)

== ENCOUNTER → 2023-08-15 13:03 | Outpatient (BNVA) | payer OTHER, SELFPAY | PROVIDERS: PCP Nurse Practitioner Family; Visit Provider Internal Medicine | DX: Z86.718 Personal history of other venous thrombosis and embolism (principal); Z51.81 Encounter for therapeutic drug level monitoring; Z79.01 Long term (current) use of anticoagulants | CPT/HCPCS: 85610; 99211 ==

== ENCOUNTER 2023-08-17 14:47 | Outpatient (REF) | payer OTHER, SELFPAY | END 2023-08-17 14:48 | disposition home or self-care (01) | LOC: HO.US 14:47 | PROVIDERS: PCP Nurse Practitioner Family; Visit Provider Nurse Practitioner Family | DX: R79.89 Other specified abnormal findings of blood chemistry (principal) | CPT/HCPCS: 76705 ==

== ENCOUNTER 2023-08-21 14:21 | Outpatient (AMB) | payer OTHER, SELFPAY ==
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
== END 2023-08-21 14:36 | disposition home or self-care (01) ==
LOC: HO.ACS 14:21
PROVIDERS: PCP Nurse Practitioner Family; Visit Provider Internal Medicine
DX: Z79.01 Long term (current) use of anticoagulants (principal)

== ENCOUNTER → 2023-08-21 14:21 | Outpatient (BNVA) | payer OTHER, SELFPAY | PROVIDERS: PCP Nurse Practitioner Family; Visit Provider Internal Medicine | DX: Z86.718 Personal history of other venous thrombosis and embolism (principal); I26.99 Other pulmonary embolism without acute cor pulmonale; Z79.01 Long term (current) use of anticoagulants; Z51.81 Encounter for therapeutic drug level monitoring | CPT/HCPCS: 85610; 99211 ==

== ENCOUNTER 2023-08-24 14:16 | Outpatient (AMB) | payer OTHER, SELFPAY ==
[2023-08-24 14:38] LABS: Prothrombin Time Whole Bld POC 45.8 sec (11.1-13.5); ~PT, ~INR - Anti Coag Clinic 3.8 (0.9-1.1)
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
== END 2023-08-24 15:46 | disposition home or self-care (01) ==
LOC: HO.ACS 14:16
PROVIDERS: PCP Nurse Practitioner Family; Visit Provider Internal Medicine
DX: Z79.01 Long term (current) use of anticoagulants (principal)

== ENCOUNTER → 2023-08-24 14:16 | Outpatient (BNVA) | payer OTHER, SELFPAY | PROVIDERS: PCP Nurse Practitioner Family; Visit Provider Internal Medicine | DX: I26.99 Other pulmonary embolism without acute cor pulmonale (principal); Z86.718 Personal history of other venous thrombosis and embolism; Z79.01 Long term (current) use of anticoagulants; Z51.81 Encounter for therapeutic drug level monitoring | CPT/HCPCS: 85610; 99211 ==

== ENCOUNTER 2023-08-28 13:16 | Outpatient (AMB) | payer OTHER, SELFPAY ==
[2023-08-28 13:31] LABS: Prothrombin Time Whole Bld POC 34.6 sec (11.1-13.5); ~PT, ~INR - Anti Coag Clinic 2.9 (0.9-1.1)
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
== END 2023-08-28 13:41 | disposition home or self-care (01) ==
LOC: HO.ACS 13:16
PROVIDERS: PCP Nurse Practitioner Family; Visit Provider Internal Medicine
DX: Z79.01 Long term (current) use of anticoagulants (principal)

== ENCOUNTER → 2023-08-28 13:16 | Outpatient (BNVA) | payer OTHER, SELFPAY | PROVIDERS: PCP Nurse Practitioner Family; Visit Provider Internal Medicine | DX: I26.99 Other pulmonary embolism without acute cor pulmonale (principal); Z86.718 Personal history of other venous thrombosis and embolism; Z79.01 Long term (current) use of anticoagulants; Z51.81 Encounter for therapeutic drug level monitoring | CPT/HCPCS: 85610; 97802; 99211 ==

== ENCOUNTER 2023-08-28 13:49 | Outpatient (AMB) | payer OTHER, SELFPAY ==
--- NOTE | 2023-08-28 13:57 | A.OFFVIS_ITS ---
Intake VS Expanded 08/28/23 13:58 08/28/23 14:17 Height 5 ft 8 in 5 ft 8 in Weight 238 lb 8.642 oz 238 lb BMI 36.3 36.2 Intake Visit Reasons: Obesity, unspecified Allergies No Known Allergies [No Known Allergies*] Allergy (Verified 08/28/23 13:25) HPI Nutrition Presentation Details Pt presents for MNT for obesity. The Pt was referred by Roberto Pickett NP Pt has missing front teeth and is choosing soft foods Reports typically having coffee 2 x/d with milk and sugar Reports having 1-2 meals a day: 10 am cheerios with 2% milk 5-7 pm mashed potato, beef, broccoli, wa ter, ice tea Beverages: sports drink, ice tea (water/tea bags and sugar , 2% milk and yogurt physical activity: daily life activities ETOH/SMoking --- VQA-Eonitap-Ap.Jeor Equation Height 5 ft 8 in Weight 238 lb Resting Metabolic Rate 1902.21 Calculated Activity Level Sedentary Calories Needed to Maintain Weight 2282.65 Diagnosis Nutrition problem #1 food nutri know defi As related to (etiology) #1 diagnosis As evidenced by (sign/symptom) #1 knowledge deficit of diet Monitoring/Goals Nutrition problem monitoring level of knowledge/skill and weight Nutrition goal/outcome list 3 CHO foods, wt loss 5lbs in 2 months and list 3 high fiber foods Outcome progress verbalized understanding Learning/Education Readiness to learn good Stages of change preparation Educational materials provided Yes (meal planning ) Most Recent Diabetes Results: No Data to Display [facility] Medical History Encounter to establish care Eyebrow laceration Obesity Polysubstance abuse Surgical History No pertinent past surgical history Family History Mother COPD (chronic obstructive pulmonary disease) Father Hepatitis Liver cirrhosis Maternal Grandmother Alzheimer disease Maternal Grandfather Prostate cancer Diabetes Other Mental health disorder Substance use disorder Social History Household Members: Family Housing: House Unable to assess alcohol history related to: Refusing to respond Alcohol intake: former Year quit: 2012 Patient Tobacco Use Status: Former Tobacco user e-Cigarette/Vaping Use: Never Used Second Hand Smoke Exposure: No Substance Use Type: Heroin service: No Current occupational status: unemployed Current occupational exposures/hazards: No Cognitive needs: No Hearing needs: No Vision needs: Yes (reading) Assessment & Plan Assessment & Plan (1) Obesity (BMI 30-39.9): Code(s): E66.9 - Obesity, unspecified Plan: wt: 108 kg Est kcal needs as per MSJ: 2300 (40% carb, 30% protein/fat) Est fluid needs as per 25-30 ml/d: 3200 Est prot per day as per 1 g/kg bw: 108 Recommend fiber intake : 8-10 g per day and gradually increase to 25-28 g per day for women and 35-38 g for men or as tolerated Recommend sodium intake per day : less than 2000 mg Educated patient on: ( R = reviewed V = verbalizes understanding N/R = needs review N/A = not applicable * Food sources of carbohydrate, adequate serving sizes and its role in various health conditions: R * Reducing sugars :R * Differences between complex carbohydrates a simple carbohydrates, role of fiber in diet: R * Differences between types of fats and role in diet (mono on saturated fat fatty acids, saturated fatty acids, trans fats): R basic * Food sources of sodium in salt and healthy modifications for heart health in kidney health: NR * Vitamins and minerals: NR * Healthy plate method concept: R V * Physical activity: Benefits a precaution: R * Patient Instructions: Reduce sugar from beverages - see list of low sugar options Switch to great value angolan yogurt Have a fruit in place of pastry once a day Coding Level of Care Code Nutr Indiv Intake (38340) Diagnoses Obesity (BMI 30-39.9) E66.9 Time Spent (min) 30
[2023-08-28 13:58] VITALS: BMI 36.3
[2023-09-03 19:08] VITALS: BMI 36.2
== END 2023-08-28 14:28 | disposition home or self-care (01) ==
PROVIDERS: PCP Nurse Practitioner Family; Visit Provider Dietitian, Registered
DX: E66.9 Obesity, unspecified (principal)

== ENCOUNTER 2023-09-04 13:52 | Outpatient (AMB) | payer OTHER, SELFPAY ==
[2023-09-04 14:02] LABS: Prothrombin Time Whole Bld POC 25.1 sec (11.1-13.5); ~PT, ~INR - Anti Coag Clinic 2.1 (0.9-1.1)
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
== END 2023-09-04 14:32 | disposition home or self-care (01) ==
LOC: HO.ACS 13:52
PROVIDERS: PCP Nurse Practitioner Family; Visit Provider Internal Medicine
DX: Z79.01 Long term (current) use of anticoagulants (principal)

== ENCOUNTER → 2023-09-04 13:52 | Outpatient (BNVA) | payer OTHER, SELFPAY | PROVIDERS: PCP Nurse Practitioner Family; Visit Provider Internal Medicine | DX: Z86.718 Personal history of other venous thrombosis and embolism (principal); I26.99 Other pulmonary embolism without acute cor pulmonale; Z79.01 Long term (current) use of anticoagulants; Z51.81 Encounter for therapeutic drug level monitoring | CPT/HCPCS: 85610; 99211 ==

== ENCOUNTER 2023-09-11 15:52 | Outpatient (AMB) | payer OTHER, SELFPAY ==
[2023-09-11 15:57] LABS: Prothrombin Time Whole Bld POC 35.5 sec (11.1-13.5)
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
== END 2023-09-11 16:09 | disposition home or self-care (01) ==
LOC: HO.ACS 15:52
PROVIDERS: PCP Nurse Practitioner Family; Visit Provider Internal Medicine
DX: Z79.01 Long term (current) use of anticoagulants (principal)

== ENCOUNTER → 2023-09-11 15:52 | Outpatient (BNVA) | payer OTHER, SELFPAY | PROVIDERS: PCP Nurse Practitioner Family; Visit Provider Internal Medicine | DX: Z86.718 Personal history of other venous thrombosis and embolism (principal); Z79.01 Long term (current) use of anticoagulants; Z51.81 Encounter for therapeutic drug level monitoring | CPT/HCPCS: 85610; 99211 ==

== ENCOUNTER 2023-09-28 13:02 | Outpatient (AMB) | payer OTHER, SELFPAY ==
[2023-09-28 14:09] LABS: Prothrombin Time Whole Bld POC 24.9 sec (11.1-13.5); ~PT, ~INR - Anti Coag Clinic 2.1 (0.9-1.1)
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
== END 2023-09-28 14:14 | disposition home or self-care (01) ==
LOC: HO.ACS 13:02
PROVIDERS: PCP Nurse Practitioner Family; Visit Provider Internal Medicine
DX: Z79.01 Long term (current) use of anticoagulants (principal)

== ENCOUNTER → 2023-09-28 13:02 | Outpatient (BNVA) | payer OTHER, SELFPAY | PROVIDERS: PCP Nurse Practitioner Family; Visit Provider Internal Medicine | DX: I26.99 Other pulmonary embolism without acute cor pulmonale (principal); Z86.718 Personal history of other venous thrombosis and embolism; Z79.01 Long term (current) use of anticoagulants; Z51.81 Encounter for therapeutic drug level monitoring | CPT/HCPCS: 85610; 99211 ==

== ENCOUNTER 2023-10-15 11:15 | Outpatient (AMB) | payer OTHER, SELFPAY ==
[2023-10-15 11:21] LABS: Prothrombin Time Whole Bld POC 54.3 sec (11.1-13.5); ~PT, ~INR - Anti Coag Clinic 4.5 (0.9-1.1)
--- NOTE | 2023-10-15 11:33 | MHC.OFFVISCO ---
Intake Intake Visit Reasons: Anticoagulation Allergies No Known Allergies [No Known Allergies*] Allergy (Verified 10/15/23 11:16) Medication List - Last Reconciled 10/15/23 by Ana Lilia Garibay RN diclofenac sodium 1% (Arthritis Pain (diclofenac)) 2 grams topical QID PRN methadone 160 mg PO DAILY tizanidine 2 mg PO BEDTIME PRN warfarin 2.5 mg See Protocol PO DAILY Nursing Note INR 4.5 out of therapeutic range Medications and supplements reviewed Patient status: INCREASE IN STRESS Medications or supplements: NO CHANGES Diet: GOOD Denies any signs and symptoms of bleeding or clotting or unusual bruising Bleeding, bruising, clotting discussed Nutritional guidance given: REMEBER GREENS LOWER THE INR, COOKED MORE THAN RAW, AVOID EATING REDS AND ORANGE TODAY THEY RAISE THE INR Dose: HOLD TODAY AND DECREASE WEEKLY DOSE 2.5MG X 2 DAYS/ 1.25MG X 5 DAYS F/U INR Date : 1 WEEK? Patient verbalizing understanding of instructions given. Anti-Coag Initial Assessment Social Hx Patient Tobacco Use Status: Former Tobacco user alcohol intake: former Alcohol intake frequency: does not drink Cardiovascular Hx: HTN, Arrhythmias and Other Lung Disease HX: DVT/PE Endocrine Hx: Other Musculoskeletal Hx: Arthritis Blood Disorder Hx: Hepatitis GI Hx: Other Hx: Other Neurological Hx: Serious Head Injury and Migraines/Headaches Cancer HX: No Psych. 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
== END 2023-10-15 11:36 | disposition home or self-care (01) ==
LOC: HO.ACS 11:15
PROVIDERS: PCP Nurse Practitioner Family; Visit Provider Internal Medicine
DX: Z79.01 Long term (current) use of anticoagulants (principal)

== ENCOUNTER → 2023-10-15 11:15 | Outpatient (BNVA) | payer OTHER, SELFPAY | PROVIDERS: PCP Nurse Practitioner Family; Visit Provider Internal Medicine | DX: I26.99 Other pulmonary embolism without acute cor pulmonale (principal); Z86.718 Personal history of other venous thrombosis and embolism; Z79.01 Long term (current) use of anticoagulants; Z51.81 Encounter for therapeutic drug level monitoring | CPT/HCPCS: 85610; 99211 ==

== ENCOUNTER 2023-10-16 12:59 | Outpatient (AMB) | payer OTHER, SELFPAY ==
[2023-10-16 13:04] VITALS: BMI 35.8
--- NOTE | 2023-10-16 13:04 | MHC.AMNUTRGE ---
Intake VS Expanded 10/16/23 13:04 Height 5 ft 8 in Weight 235 lb 3.732 oz BMI 35.8 Intake Visit Reasons: obesity Allergies No Known Allergies [No Known Allergies*] Allergy (Verified 10/22/23 13:06) HPI Nutrition Presentation Details Pt presents for MNT for obesity with bilateral DVT Pt reports working on diet modifications, choosing lower calorie foods and foods with less sodium Typical meal intake Cereal ( cheerios with 2% ) fruits : 3-4 serving/day yogurt : 2-3 /day Chicken breast 6-8oz/d physical activity : reports doing stretches , hand movements beverages: flavored water , low sugar ice tea Most Recent Diabetes Results: No Data to Display [facility] Medical History Encounter to establish care Eyebrow laceration Obesity Polysubstance abuse Surgical History No pertinent past surgical history Family History Mother COPD (chronic obstructive pulmonary disease) Father Hepatitis Liver cirrhosis Maternal Grandmother Alzheimer disease Maternal Grandfather Prostate cancer Diabetes Other Mental health disorder Substance use disorder Social History Household Members: Family Housing: House Unable to assess alcohol history related to: Refusing to respond Alcohol intake: former Year quit: 2011 Patient Tobacco Use Status: Former Tobacco user e-Cigarette/Vaping Use: Never Used Second Hand Smoke Exposure: No Substance Use Type: Heroin service: No Current occupational status: unemployed Current occupational exposures/hazards: No Cognitive needs: No Hearing needs: No Vision needs: Yes (reading) Assessment & Plan Assessment & Plan (1) Obesity (BMI 30-39.9): Code(s): E66.9 - Obesity, unspecified Plan: wt: 108 kg (106 kg 10/2023) Est kcal needs as per MSJ: 2300 (40% carb, 30% protein/fat) Est fluid needs as per 25-30 ml/d: 3200 Est prot per day as per 1 g/kg bw: 108 Recommend fiber intake : 8-10 g per day and gradually increase to 25-28 g per day for women and 35-38 g for men or as tolerated Recommend sodium intake per day : less than 2000 mg Educated patient on: ( R = reviewed V = verbalizes understanding N/R = needs review N/A = not applicable Food sources of carbohydrate, adequate serving sizes and its role in various health conditions: R Reducing sugars :R Differences between complex carbohydrates a simple carbohydrates, role of fiber in diet: R Differences between types of fats and role in diet (mono on saturated fat fatty acids, saturated fatty acids, trans fats): R basic Food sources of sodium in salt and healthy modifications for heart health in kidney health: R Vitamins and minerals: NR Healthy plate method concept: R V Physical activity: Benefits a precaution: R Patient Instructions: Reduce on salt/sodium, read food labels aiming at less than 100 mg for snack (1-2 /day) and less than 500 mg at meal, 3 meals/d) Have a meal replacement at lunch time Coding Level of Care Code Nutr Indiv Subseq (25040) Diagnoses Obesity (BMI 30-39.9) E66.9 Time Spent (min) 20
== END 2023-10-16 13:26 | disposition home or self-care (01) ==
PROVIDERS: PCP Nurse Practitioner Family; Visit Provider Dietitian, Registered
DX: E66.9 Obesity, unspecified (principal)

== ENCOUNTER → 2023-10-16 12:59 | Outpatient (BNVA) | payer OTHER, SELFPAY | PROVIDERS: PCP Nurse Practitioner Family; Visit Provider Dietitian, Registered | DX: E66.9 Obesity, unspecified (principal); Z68.35 Body mass index [BMI] 35.0-35.9, adult | CPT/HCPCS: 97803 ==

== ENCOUNTER 2023-10-22 11:14 | Outpatient (AMB) | payer OTHER, SELFPAY ==
--- NOTE | 2023-10-22 11:15 | MHC.PC.OV ---
Vital Signs 10/22/23 11:16 Height 5 ft 8 in Weight 231 lb 6 oz BMI 35.2 BP 124/82 Blood Pressure Location Lt brachial Position Sitting Pulse 65 Pulse Source Pulse Oximeter Pulse Oximetry (%) 99 Oxygen Delivery Method Room Air Intake Visit Reasons: f/u on neck pain Diamond Cleaner Required: No Accompanied by: Self / Same As Patient Allergies No Known Allergies [No Known Allergies*] Allergy (Verified 10/22/23 11:29) Tobacco use date assessed: 07/10/23 Dental Screening Dental Screen Date: 10/22/23 Did you have a dental visit in the last 12 months?: Yes Did you have a dental problem in the last 6 months where you did not have access to dental care?: No Was dental information given to patient?: Patient has dentist HPI HPI Comments History of Present Illness Details 53-year-old male past medical history significant for migraines, pulmonary emboli, DVT currently on coumadin and neck pain. 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 Patient declined referral to physical therapy at that time was recommended to use heating packs as needed and avoid NSAIDs on coumadin. Patient presents today for follow-up pain Neck pain has resolved. Patient reports neck pain has resolved. Patient states he concerned over hx of blood clotts in legs and PE, states continues to have ongoing left leg swelling. Patient was advised to wear compression stocking by parks and recreation worker however he does not have the mom during this appointment today., D-dimer and elevated in July for , CTA performed in March 2023 showed resolution of pulmonary embolism. Given patient continues to have persistent leg swelling patient was transitioned to from Eliquis to Coumadin by Dr. Kirk. Patient advised to follow-up with parks and recreation worker regarding concerns of persistent left lower extremity swelling. Patient follows with [facility]in [facility]. Follow up D-dimer ordered. [facility] Medical History Encounter to establish care Eyebrow laceration Obesity Polysubstance abuse Surgical History No pertinent past surgical history Family History Mother COPD (chronic obstructive pulmonary disease) Father Hepatitis Liver cirrhosis Maternal Grandmother Alzheimer disease Maternal Grandfather Prostate cancer Diabetes Other Mental health disorder Substance use disorder Social History Household Members: Family Housing: House Unable to assess alcohol history related to: Refusing to respond Alcohol intake: former Year quit: 2012 Patient Tobacco Use Status: Former Tobacco user e-Cigarette/Vaping Use: Never Used Second Hand Smoke Exposure: No Substance Use Type: Heroin service: No Current occupational status: unemployed Current occupational exposures/hazards: No Cognitive needs: No Hearing needs: No Vision needs: Yes (reading) Questionnaire PHQ-9 Over the last 2 weeks, how often have you been bothered by any of the following problems? 1. Little interest or pleasure in doing things: not at all 2. Feeling down, depressed, or hopeless: not at all 3. Trouble falling or staying asleep, or sleeping too much: not at all 4. Feeling tired or having little energy: not at all 5. Poor appetite or overeating: not at all 6. Feeling bad about yourself - or that you are a failure or have let yourself or your family down: not at all 7. Trouble concentrating on things, such as reading the newspaper or watching television: not at all 8. Moving or speaking so slowly that other people could have noticed. Or the opposite - being so fidgety or restless that you have been moving around a lot more than usual: not at all 9. Thoughts that you would be better off or of hurting yourself in some way: not at all Total score: 0 Depression Screening Interpretation: Negative Depression Screening Done: Yes 01534 - PHQ-9 Billing: Yes Source: Developed by Drs. Angel Dent, Maria Isabel Dash, Gelacio Hernandez and colleagues, with an educational quincy from [employer]. Thrive Questionnaire Date Thrive assessed: 07/10/23 TIFFANIE-7 AMB Questionnaire TIFFANIE-7 Date TIFFANIE - 7 assessed: 07/10/23 Source: Developed by Drs. Angel Dent, Maria Isabel Dash, Gelacio Hernandez and colleagues, with an educational quincy from [employer]. Review of Systems Const Denies chills, Denies fatigue, Denies fever(s) and Denies poor appetite Eyes Denies no additional complaints ENT Reports Normal hearing present Card Denies chest pain, Denies syncope, Denies rapid heart rate and Denies dyspnea Resp Denies cough and Denies dyspnea GI Denies change in stool character, Denies constipation, Denies diarrhea, Denies nausea and Denies vomiting Denies dysuria, Denies urinary frequency and Denies urinary urgency Neuro Reports Normal hearing present, Denies confusion and Denies syncope Psych Denies confusion Endo Denies fatigue Physical exam (Primary Care) Vital Signs: Last Vital Signs Pulse 65 10/22/23 11:16 BP 124/82 10/22/23 11:16 Pulse Ox 99 10/22/23 11:16 Oxygen Delivery Method Room Air 10/22/23 11:16 BMI result Body Mass Index 35.2 Tobacco/Smoking Status: Tobacco use Status Tobacco use date assessed 07/10/23 10/22/23 11:17 Patient Tobacco Use Status Former Tobacco user 10/22/23 11:17 e-Cigarette/Vaping Use Never Used 10/22/23 11:17 PHQ-9: PHQ-9 Score PHQ-9: Total score 0 10/22/23 11:47 Depression Screening Interpretation: Negative Thrive Assessment: Date of Thrive Assessment Date Thrive assessed 07/10/23 10/22/23 11:17 Const General: No confusion Orientation/consciousness: No confusion HENMT Head: Yes normocephalic and Yes atraumatic Eyes Conjunctivae: conjunctivae normal Chest Chest palpation & inspection: normal inspection of the chest Resp Effort & Inspection: normal respiratory effort Auscultation: clear to auscultation bilaterally, no crackles, no rhonchi and no wheezes Cardio Rate: regular rate Rhythm: regular rhythm Heart sounds: S1 normal heart sound present and S2 normal heart sound present Peripheral pulses: dorsalis pedis present GI Inspection: Yes normal to inspection Neuro General: No confusion Cranial nerves: Yes Normal hearing present Extrem General: No edema Assessment and Plan Assessment & Plan (1) DVT, bilateral lower limbs: Code(s): I82.403 - Acute embolism and thrombosis of unspecified deep veins of lower extremity, bilateral Plan: Continue on Coumadin. Patient advised to follow-up with parks and recreation worker (2) Pulmonary emboli: Code(s): I26.99 - Other pulmonary embolism without acute cor pulmonale Plan: Patient continues to report ongoing shortness of breath. D-dimer in Isabel[place] remain elevated at 426, repeat D-dimer ordered. Repeat chest CTA in March 2023 showed resolution of pulmonary embolism. Cotninue to follow with hematology. (3) Neck pain: Code(s): M54.2 - Cervicalgia Plan: Patient reports neck pain has resolved. Plan Follow up in 4 months Orders: Orders D Dimer High Sensitivity Today I82.403 - Acute embolism and thrombosis of unspecified deep veins of lower extremity, bilateral Coding Level of Care Code Est Pt Level 3 (89439) Diagnoses DVT, bilateral lower limbs I82.403 Pulmonary emboli I26.99 Neck pain M54.2
[2023-10-22 11:16] VITALS: BP 124/82; PULSE 65; O2SAT 99; BMI 35.2
== END 2023-10-22 11:57 | disposition home or self-care (01) ==
PROVIDERS: PCP Nurse Practitioner Family; Visit Provider Nurse Practitioner Family
DX: I82.403 Acute embolism and thrombosis of unspecified deep veins of lower extremity, bilateral (principal); I26.99 Other pulmonary embolism without acute cor pulmonale; M54.2 Cervicalgia; G43.909 Migraine, unspecified, not intractable, without status migrainosus
CPT/HCPCS: 99213

== ENCOUNTER 2023-10-22 13:06 | Outpatient (AMB) | payer OTHER, SELFPAY ==
--- NOTE | 2023-10-22 13:10 | MHC.OFFVISCO ---
Intake Intake Visit Reasons: Anticoagulation Allergies No Known Allergies [No Known Allergies*] Allergy (Verified 10/22/23 13:06) Medication List - Last Reconciled 10/22/23 by Gege Rose RN diclofenac sodium 1% (Arthritis Pain (diclofenac)) 2 grams topical QID PRN methadone 160 mg PO DAILY tizanidine 2 mg PO BEDTIME PRN warfarin 2.5 mg See Protocol PO DAILY Nursing Note INR 2.2-? out of therapeutic range of 3.0-3.5 denies missed dose Medications and supplements reviewed Patient status: pt with increased stress with caring for brother Medications or supplements: no changes Diet: same Denies any signs and symptoms of bleeding or clotting or unusual bruising Bleeding, bruising, clotting discussed Nutritional guidance given: no greens for 2 days, eat reds to help raise Dose: 2.5mg today then cont prev dosing- 2.5mg x 2, 1.25mg x 5 F/U INR Date : 1 week?? Patient verbalizing understanding of instructions given. Anti-Coag Initial Assessment Social Hx Patient Tobacco Use Status: Former Tobacco user alcohol intake: former Alcohol intake frequency: does not drink Cardiovascular Hx: HTN, Arrhythmias and Other Lung Disease HX: DVT/PE Endocrine Hx: Other Musculoskeletal Hx: Arthritis Blood Disorder Hx: Hepatitis GI Hx: Other Hx: Other Neurological Hx: Serious Head Injury and Migraines/Headaches Cancer HX: No Psych. Illness/Depression: No Coding Level of Care Code Est Patient Level 1 Diagnoses Current use of anticoagulant therapy Z79.01 Assessment & Plan Assessment & Plan (1) Current use of anticoagulant therapy: Code(s): Z79.01 - supervisor intermediates (current) use of anticoagulants Category: Medical
[2023-10-22 13:11] LABS: ~PT, ~INR - Anti Coag Clinic 2.2 (0.9-1.1)
== END 2023-10-22 13:17 | disposition home or self-care (01) ==
LOC: HO.ACS 13:06
PROVIDERS: PCP Nurse Practitioner Family; Visit Provider Internal Medicine
DX: Z79.01 Long term (current) use of anticoagulants (principal)

== ENCOUNTER → 2023-10-22 13:06 | Outpatient (BNVA) | payer OTHER, SELFPAY | PROVIDERS: PCP Nurse Practitioner Family; Visit Provider Internal Medicine | DX: I26.99 Other pulmonary embolism without acute cor pulmonale (principal); Z86.718 Personal history of other venous thrombosis and embolism; Z79.01 Long term (current) use of anticoagulants; Z51.81 Encounter for therapeutic drug level monitoring | CPT/HCPCS: 85610; 99211 ==

== ENCOUNTER 2023-11-09 12:56 | Outpatient (AMB) | payer OTHER, SELFPAY ==
[2023-11-09 13:08] LABS: Prothrombin Time Whole Bld POC 27.2 sec (11.1-13.5); ~PT, ~INR - Anti Coag Clinic 2.3 (0.9-1.1)
--- NOTE | 2023-11-09 13:20 | MHC.OFFVISCO ---
Intake Intake Visit Reasons: Anticoagulation Allergies No Known Allergies [No Known Allergies*] Allergy (Verified 11/09/23 13:04) Medication List - Last Reconciled 11/09/23 by Adrienne Clemente RN diclofenac sodium 1% (Arthritis Pain (diclofenac)) 2 grams topical QID PRN methadone 160 mg PO DAILY tizanidine 2 mg PO BEDTIME PRN warfarin 2.5 mg See Protocol PO DAILY Nursing Note PT.DENIES ANY MISSED DOSES,CP,SOB,MED CHANGES OR SX OF BLEEDING. BOOSTER DOSE TODAY AND TOMORROW THEN INCREASE WEEKLY DOSE AND FOLLOW-UP IN 1 WEEK. NO GREENS 1-2 DAYS PT.VERB.GOOD UNDERSTANDING OF DOSING INSTR. Anti-Coag Initial Assessment Social Hx Patient Tobacco Use Status: Former Tobacco user alcohol intake: former Alcohol intake frequency: does not drink Cardiovascular Hx: HTN, Arrhythmias and Other Lung Disease HX: DVT/PE Endocrine Hx: Other Musculoskeletal Hx: Arthritis Blood Disorder Hx: Hepatitis GI Hx: Other Hx: Other Neurological Hx: Serious Head Injury and Migraines/Headaches Cancer HX: No Psych. Illness/Depression: No Coding Level of Care Code Est Patient Level 1 Diagnoses Current use of anticoagulant therapy Z79.01 Assessment & Plan Assessment & Plan (1) Current use of anticoagulant therapy: Code(s): Z79.01 - prison (current) use of anticoagulants Category: Medical
== END 2023-11-09 13:23 | disposition home or self-care (01) ==
LOC: HO.ACS 12:56
PROVIDERS: PCP Nurse Practitioner Family; Visit Provider Internal Medicine
DX: Z79.01 Long term (current) use of anticoagulants (principal)

== ENCOUNTER → 2023-11-09 12:56 | Outpatient (BNVA) | payer OTHER, SELFPAY | PROVIDERS: PCP Nurse Practitioner Family; Visit Provider Internal Medicine | DX: Z86.718 Personal history of other venous thrombosis and embolism (principal); Z51.81 Encounter for therapeutic drug level monitoring; Z79.01 Long term (current) use of anticoagulants | CPT/HCPCS: 85610; 99211 ==

== ENCOUNTER 2023-11-16 13:49 | Outpatient (AMB) | payer OTHER, SELFPAY ==
--- NOTE | 2023-11-16 13:57 | MHC.OFFVISCO ---
Intake Intake Visit Reasons: Anticoagulation Allergies No Known Allergies [No Known Allergies*] Allergy (Verified 11/16/23 13:52) Medication List - Last Reconciled 11/16/23 by Gege Rose RN diclofenac sodium 1% (Arthritis Pain (diclofenac)) 2 grams topical QID PRN methadone 160 mg PO DAILY tizanidine 2 mg PO BEDTIME PRN warfarin 2.5 mg See Protocol PO DAILY Nursing Note INR 3.9=? out of therapeutic range 3.0-3.5 Medications and supplements reviewed Patient status: pt states nose bleed this am Medications or supplements: no changes Diet: same, has not had greens or reds Denies any signs and symptoms of bleeding or clotting or unusual bruising Bleeding, bruising, clotting discussed Nutritional guidance given: eat greens today Dose: 1.25mg today then 2.5mg x 2, 1.25mg x 5 F/U INR Date : 1 week?? Patient verbalizing understanding of instructions given. Anti-Coag Initial Assessment Social Hx Patient Tobacco Use Status: Former Tobacco user alcohol intake: former Alcohol intake frequency: does not drink Cardiovascular Hx: HTN, Arrhythmias and Other Lung Disease HX: DVT/PE Endocrine Hx: Other Musculoskeletal Hx: Arthritis Blood Disorder Hx: Hepatitis GI Hx: Other Hx: Other Neurological Hx: Serious Head Injury and Migraines/Headaches Cancer HX: No Psych. Illness/Depression: No Coding Level of Care Code Est Patient Level 1 Diagnoses Current use of anticoagulant therapy Z79.01 Assessment & Plan Assessment & Plan (1) Current use of anticoagulant therapy: Code(s): Z79.01 - half-way (current) use of anticoagulants Category: Medical
== END 2023-11-16 14:06 | disposition home or self-care (01) ==
LOC: HO.ACS 13:49
PROVIDERS: PCP Nurse Practitioner Family; Visit Provider Internal Medicine
DX: Z79.01 Long term (current) use of anticoagulants (principal)

== ENCOUNTER → 2023-11-16 13:49 | Outpatient (BNVA) | payer OTHER, SELFPAY | PROVIDERS: PCP Nurse Practitioner Family; Visit Provider Internal Medicine | DX: Z86.718 Personal history of other venous thrombosis and embolism (principal); Z51.81 Encounter for therapeutic drug level monitoring; Z79.01 Long term (current) use of anticoagulants | CPT/HCPCS: 85610; 99211 ==

== ENCOUNTER 2023-11-23 13:03 | Outpatient (AMB) | payer OTHER, SELFPAY ==
[2023-11-23 13:30] LABS: Prothrombin Time Whole Bld POC 31.1 sec (11.1-13.5); ~PT, ~INR - Anti Coag Clinic 2.6 (0.9-1.1)
--- NOTE | 2023-11-23 13:40 | MHC.OFFVISCO ---
Intake Intake Visit Reasons: Anticoagulation Allergies No Known Allergies [No Known Allergies*] Allergy (Verified 11/23/23 13:23) Medication List - Last Reconciled 11/23/23 by Ana Lilia Garibay RN diclofenac sodium 1% (Arthritis Pain (diclofenac)) 2 grams topical QID PRN methadone 160 mg PO DAILY tizanidine 2 mg PO BEDTIME PRN warfarin 2.5 mg See Protocol PO DAILY Nursing Note INR 2.6??out of therapeutic range 3.0-3.5 Medications and supplements reviewed Patient status: LEGS BOTHER HIM - UMABLE TO WEAR COMPRESSION SOCKS - MAKE HIS LEGS TURN BLUE- HAS SCABS AND SMALL ULCERS ON LEGS MAY ENC VACULAR CONSULT Medications or supplements: NO CHANGES Diet: TRYING TO LOOSE WEIGHT EATING YOGURT AND CHEERIOS WATER AND TEA ONLY Denies any signs and symptoms of bleeding or clotting or unusual bruising Bleeding, bruising, clotting discussed Nutritional guidance given: BALANCE FRUITS IN YOGURT - MAY NEED OTHER FOODS FOR LEGS TO HEAL- DOESNT EAT VEGETABLES Dose: INCREASE TO 5MG X 3 DAYS THIS WEEK THEN RESUME 5MG X 2 DAYS/ 2.5MG X 5 DAYS- LAST TIME TRIED THIS DOSE HIS INR WENT TO 3.9 AND HE HAD A NOSE BLEED POSSIBLE 2MG TAB - UNCERTAIN OF BEST PLAN FOR HIM F/U INR Date : 1 WEEK ?? Patient verbalizing understanding of instructions given. Anti-Coag Initial Assessment Social Hx Patient Tobacco Use Status: Former Tobacco user alcohol intake: former Alcohol intake frequency: does not drink Cardiovascular Hx: HTN, Arrhythmias and Other Lung Disease HX: DVT/PE Endocrine Hx: Other Musculoskeletal Hx: Arthritis Blood Disorder Hx: Hepatitis GI Hx: Other Hx: Other Neurological Hx: Serious Head Injury and Migraines/Headaches Cancer HX: No Psych. Illness/Depression: No Coding Level of Care Code Est Patient Level 1 Diagnoses Current use of anticoagulant therapy Z79.01 Assessment & Plan Assessment & Plan (1) Current use of anticoagulant therapy: Code(s): Z79.01 - care home (current) use of anticoagulants Category: Medical
== END 2023-11-23 13:46 | disposition home or self-care (01) ==
LOC: HO.ACS 13:03
PROVIDERS: PCP Nurse Practitioner Family; Visit Provider Internal Medicine
DX: Z79.01 Long term (current) use of anticoagulants (principal)

== ENCOUNTER → 2023-11-23 13:03 | Outpatient (BNVA) | payer OTHER, SELFPAY | PROVIDERS: PCP Nurse Practitioner Family; Visit Provider Internal Medicine | DX: Z86.718 Personal history of other venous thrombosis and embolism (principal); Z79.01 Long term (current) use of anticoagulants; Z51.81 Encounter for therapeutic drug level monitoring | CPT/HCPCS: 85610; 99211 ==

== ENCOUNTER 2023-11-27 18:32 | Emergency (ER) | payer OTHER, SELFPAY ==
--- NOTE | ~2023-11-27 | US_ITS ---
EXAMINATION: US VENOUS WITH DOPPLER UPPER EXTREMITY, LEFT CLINICAL INFORMATION: Pain posteromedial elbow for 2 months. Bilateral lower extremity deep venous thrombosis with patient on Coumadin. COMPARISON: None available. TECHNIQUE: Ultrasound of the upper extremity is performed using compression sonography and color and pulse Doppler flow with assessment of augmentation of flow. There is also imaging and Doppler assessment of the jugular and subclavian veins. Spectral analysis with color-flow imaging is performed. FINDINGS: Respiratory variation, normal compression, and augmented flow are noted throughout the upper extremity including the axillary, brachial, cubital, and radial and ulnar veins. There is normal flow in the internal jugular and subclavian veins. There is no visible deep or superficial thrombophlebitis. In region of patient's pain, no abnormal fluid collections or edema identified. There is a circumscribed 1.3 x 0.8 cm homogeneously hyperechoic subcutaneous lesion about the posteromedial aspect of the elbow with the appearance of lipoma. Other smaller simple-appearing structures are present as well.. US/US venous duplex UE LT IMPRESSION: No acute DVT demonstrated in the left upper extremity.
--- NOTE | ~2023-11-27 | XR_ITS ---
EXAMINATION: XR CHEST CLINICAL INFORMATION: Chest pain after shoveling snow COMPARISON: 11/02/2022 TECHNIQUE: 2 views of the chest were obtained. FINDINGS: No significant abnormality is noted involving the heart, lungs, mediastinum, bony thorax or soft tissues. XR/XR chest 2V IMPRESSION: Unremarkable examination.
--- NOTE | ~2023-11-27 | US_ITS ---
EXAMINATION: US VENOUS ULTRASOUND WITH DOPPLER LOWER EXTREMITY, LEFT CLINICAL INFORMATION: History of DVT. Left leg pain.. Patient on umbilicus. COMPARISON: Bilateral ultrasound lower extremity 06/29/2023 TECHNIQUE: Ultrasound of the deep veins is performed from the hip to the calf with compression sonography and color and pulse Doppler assessment. Spectral analysis with color-flow imaging is performed. FINDINGS: There is normal venous compression and respiratory variation and augmented flow in left common femoral, greater saphenous, profunda and posterior tibial veins. There is an echogenic area seen within the veins which is partially occlusive suggestive chronic clot. Left peroneal veins are not seen. There is no Lowe's cyst. If the patient's symptoms persist, followup ultrasound in 5 days 7 days might be of value to exclude proximal propagation from a non-visualized calf vein. US/US venous duplex LE IMPRESSION: 1. Noncompressible chronic clot visualized with no flow in entire left superficial femoral and popliteal vein. Patient is on Eliquis. Similar findings were visualized on previous ultrasound 06/29/2023. 2. The left common femoral, greater saphenous, profunda and the posterior tibial vein are patent.
--- NOTE | 2023-11-27 18:40 | ECG_ITS ---
Test Reason : CHEST PAIN Blood Pressure : / mmHG Vent. Rate : 099 BPM Atrial Rate : 099 BPM P-R Int : 200 ms QRS Dur : 106 ms QT Int : 344 ms P-R-T Axes : 039 -22 086 degrees QTc Int : 441 ms Normal sinus rhythm Possible Left atrial enlargement Minimal voltage criteria for LVH, may be normal variant ( R in aVL ) Nonspecific ST and T wave abnormality Abnormal ECG No previous ECGs available Referred By: Generic ED Physician Electronically Signed By:ÁLVARO MITCHELL
[2023-11-27 18:42] VITALS: BP 158/97; PULSE 108; O2SAT 96
[2023-11-27 18:45] VITALS: BP 171/100; PULSE 92; RESP 18; TEMP 36.8; O2SAT 96; BMI 34.5
[2023-11-27 19:31] LABS: MANUAL DIFF FLAG NO
[2023-11-27 19:35] LABS: Basophils Percent Auto 0.2 % (0-2); Eosinophils Absolute Auto 0.1 X10*3/uL (0.0-0.4); Eosinophils Percent Auto 1.1 % (0-4); Hematocrit 40.6 % (42.0-52.0); Hemoglobin 13.1 g/dl (14.0-18.0); Imm Gran Abs Auto 0.02 X10*3/uL (0.00-0.03); Imm Gran Pct Auto 0.2 % (0.0-0.4); Mean Corpuscular HGB Conc 32.3 g/dl (31.0-36.0); Mean Corpuscular Hemoglobin 27.1 pg (27.0-33.0); Mean Corpuscular Volume 83.9 fL (80.0-98.0); Mean Platelet Volume 9.4 fL (9.4-12.4); Monocytes Absolute Auto 0.7 X10*3/uL (0.1-1.2); Neutrophils Absolute Auto 5.3 x10*3/uL (2.0-8.3); Neutrophils Percent Auto 65.5 % (45-73); Platelet Count 266 X10*3/uL (160-400); Red Blood Count 4.84 X10*6/uL (4.60-5.80); Red Cell Distribution Width 16.5 % (11.0-16.0); White Blood Count 8.1 X10*3/uL (4.8-10.8)
[2023-11-27 19:46] LABS: INTERNATIONAL NORM RATIO 2.4 (0.9-1.1); Prothrombin Time 29.5 SEC (11.1-13.3)
[2023-11-27 19:50] LABS: Alanine Aminotransferase 64 U/L (0-40); Albumin Level 4.1 g/dL (3.5-5.0); Alkaline Phosphatase 110 U/L (39-117); Anion Gap 14 (12-20); Aspartate Amino Transferase 96 U/L (5-37); Bilirubin Total 0.3 mg/dL (0.0-1.0); Blood Urea Nitrogen 17 mg/dL (9-16); Calcium 9.2 mg/dL (8.4-10.2); Carbon Dioxide 23 mmol/L (22-29); Chloride 102 mmol/L (96-108); Estimated Glomerular Filt Rate > 60; Glucose Random 85 mg/dL (60-115); Potassium 4.5 mmol/L (3.3-5.1); Sodium 134 mmol/L (135-145); Total Protein 8.5 g/dL (6.5-8.0)
[2023-11-27 19:55] LABS: B Type Natriuretic Peptide 26 pg/mL (<100)
[2023-11-27 20:00] LABS: Partial Thromboplastin Time 44.3 SEC (26.0-36.4)
[2023-11-27 20:11] LABS: Troponin-I High Sensitivity < 2.7 ng/L (<3.5-35.0)
--- NOTE | 2023-11-27 20:18 | ED_ITS ---
HPI - Chest Pain General Chief Complaint: Chest Pain Stated Complaint: PALPITATIONS FELLING OFF Time Seen by Provider: 11/28/23 06:11 Source: patient Mode of arrival: EMS Limitations: no limitations History of Present Illness HPI narrative: Patient comes to the emergency room via ambulance from home. Patient states that he had sharp pain approximately 1 hour prior to arrival. Patient also complaining of swelling in his left upper extremity and left lower extremity. Patient states that he has noticed that his left lower extremity is also becoming more erythematous. 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 At this time, patient states that he has no chest pain or shortness of breath. Related Data Home Medications Medication Instructions Recorded Confirmed methadone 10 mg/mL oral concentrate 160 mg PO DAILY 06/09/22 11/23/23 Previous Rx's Medication Instructions Recorded tizanidine 2 mg tablet 2 mg PO BEDTIME PRN muscle 07/10/23 spasticity #10 tabs warfarin 2.5 mg tablet 2.5 mg PO DAILY #90 tabs 08/15/23 diclofenac sodium 1 % topical gel 2 g topical QID PRN pain #100 grams 08/29/23 (Arthritis Pain (diclofenac)) cephalexin 500 mg capsule 500 mg PO BID #14 caps 11/28/23 doxycycline hyclate 100 mg capsule 100 mg PO BID #14 caps 11/28/23 Allergies Allergy/AdvReac Type Severity Reaction Status Date / Time No Known Allergies Allergy Verified 11/23/23 13:23 [No Known Allergies*] Review of Systems 2 Review of Systems: Constitutional : No Weight loss, No Fever, No Chills, No Night Sweats, No Fatigue, No Malaise ENT/Mouth : No Hearing loss, No Ear Pain, No Nasal Congestion, No Sinus Pain, No Hoarseness, No sore throat, No Rhinorrhea, No Swallowing Difficulty Eyes: No Eye Pain, No Swelling, No Redness, No Foreign Body, No Discharge, No Vision Changes Cardiovascular : Complaining of sharp chest pain that lasted a few minutes and then self-resolved., No SOB, No Dyspnea on Exertion, No Orthopnea, No Edema, No Palpitations Respiratory : No Cough, No Sputum, No Wheezing, No Smoke Exposure, No Dyspnea Gastrointestinal : No Nausea, No Vomiting, No Diarrhea, No Constipation, No abdominal Pain, No Hematochezia, No Melena Genitourinary : no irregular bleeding, No Dysuria, No Urinary Frequency, No Hematuria, No Urinary Incontinence, No Urgency, No Flank Pain, No Urinary Flow Changes, No Hesitancy Musculoskeletal : Complaining of redness and swelling of left lower extremity and swelling of the right upper extremity No joint pain, No Myalgias, No Joint Swelling Skin : No Skin Lesions, No rash Neuro : No Weakness, No Numbness, No Paresthesias, No Loss of Consciousness, No Dizziness, No Headache Psych : No Anxiety/Panic, No Depression, No SI/HI/AH/VH, No Social Issues, Heme/Lymph: No Bruising, No Bleeding,No Lymphadenopathy Endocrine : No Polyuria, No Polydipsia, No Temperature Intolerance PMFSH Past Medical History Onset Date is defined in the Problem List Problems that require an onset date and time if occurred within 24 hrs of arrival to the ED Aortic Dissection and Rupture; Neurologic impairment; Cardiopulmonary Arrest; Endotracheal Intubation; Insertion or Replacement of Mechanical Circulatory Assist Device Medical History (Updated 11/28/23 @ 06:33 by Maritza Quiros MD) Pulmonary emboli DVT, bilateral lower limbs Obesity Polysubstance abuse Encounter to establish care Eyebrow laceration Surgical History No pertinent past surgical history Family History Family History Mother COPD (chronic obstructive pulmonary disease) Father Hepatitis Liver cirrhosis Maternal Grandmother Alzheimer disease Maternal Grandfather Prostate cancer Diabetes Other Mental health disorder Substance use disorder Social History Social History Household Members: Family Housing: House Unable to assess alcohol history related to: Refusing to respond Alcohol intake: former Year quit: 2011 Patient Tobacco Use Status: Former Tobacco user Smoked in Last 30 Days: No e-Cigarette/Vaping Use: Never Used Second Hand Smoke Exposure: No Use of substances other than those prescribed or required for medical reasons: No Substance Use Type: Heroin Advance Directives: No Advance Directives Information Provided: Yes service: No Current occupational status: unemployed Current occupational exposures/hazards: No Cognitive needs: No Hearing needs: No Vision needs: Yes (reading) Physical Exam 2 Vital Signs: Vital Signs: Last Vital Signs Temp 98.5 F 11/28/23 04:47 Pulse 74 11/28/23 04:47 Resp 16 11/28/23 04:47 BP 133/79 11/28/23 04:47 Pulse Ox 98 11/28/23 04:47 O2 Del Method Room Air 11/28/23 04:47 BMI result Body Mass Index 34.5 Const: Other: Appearance: Alert. Oriented X3. No acute distress. Eyes: Pupils equal, round and reactive to light. ENT: Pharynx normal. Neck: Normal inspection. Neck supple. No lymph nodes noted. No crepitus CVS: Normal heart rate and rhythm. Pulses normal. Normal S1 and S2 Respiratory: No respiratory distress. Breath sounds normal. No Wheezing. No rales Abdomen: Soft and nontender. No rigidity. No distention. Skin: Skin warm and dry. Normal skin color. Normal skin turgor. Extremities: No lower extremity edema. Patient has erythema of both lower extremities, more so on the left lower extremity. Patient's left upper extremity is slightly swollen, nonpitting edema, especially around the elbow area not distally or proximally to the elbow. Neuro: Oriented X 3. No motor deficit. No sensory deficit. Moving all extremities. No slurred speech. CN 2 through 12 grossly intact Psych: calm, cooperative, normal affect Medical Decision Making Medical Decision Making MDM Narrative: -my interpretation of EKG: Normal sinus rhythm, heart rate 99, no ST segment depression or elevation, no T-wave inversion, QTC 441 -my interpretation of chest x-ray: No pneumonia -my interpretation of labs: Hematology at baseline, INR therapeutic at 2.4, chemistry shows no significant abnormalities in electrolytes, troponin x2 negative -patient seems to have cellulitis versus vasculitis in the lower extremity, patient's white blood cell count is 8.1. Patient has not become hypotensive. Sepsis not suspected. -ultrasound of the upper extremity and lower extremity both on the left pending -patient's vital stable, patient has no chest pain or shortness of breath, still complaining of mild discomfort in the left upper and lower extremity. -sign-out given to my colleague Dr. Fu Differential Diagnosis Differential Diagnoses: The differential diagnosis associated with the presentation includes (Acute coronary syndrome, anxiety, pneumonia, DVTs, cellulitis) Admission/Observation Consideration of admission/observation: Escalation of care including admission/observation considered (Given patient's initial presentation and past medical history, admission was considered on arrival) Lab Data MDM Lab Attestation statement: I reviewed the patient's lab results. 11/27/23 19:23 11/27/23 19:23 Labs: Lab Results 11/27/23 11/28/23 Range/Units 19:23 01:54 WBC 8.1 (4.8-10.8) X10*3/uL RBC 4.84 (4.60-5.80) X10*6/uL Hgb 13.1 L (14.0-18.0) g/dl Hct 40.6 L (42.0-52.0) % MCV 83.9 (80.0-98.0) fL MCH 27.1 (27.0-33.0) pg MCHC 32.3 (31.0-36.0) g/dl RDW 16.5 H (11.0-16.0) % Plt Count 266 (160-400) X10*3/uL MPV 9.4 (9.4-12.4) fL Immature Gran % (Auto) 0.2 (0.0-0.4) % Neut % (Auto) 65.5 (45-73) % Lymph % (Auto) 25.0 (20-40) % [place] % (Auto) 8.0 (2-11) % Eos % (Auto) 1.1 (0-4) % Baso % (Auto) 0.2 (0-2) % Lymph # (Auto) 2.0 (1.2-4.9) X10*3/uL [place] # (Auto) 0.7 (0.1-1.2) X10*3/uL Eos # (Auto) 0.1 (0.0-0.4) X10*3/uL Baso # (Auto) 0.0 (0.0-0.2) X10*3/uL Abs Immat Gran (auto) 0.02 (0.00-0.03) X10*3/uL Absolute Neuts (auto) 5.3 (2.0-8.3) x10*3/uL Absolute Nucleated RBC 0.000 (0.0-0.012) X10*3/uL Nucleated RBC % (auto) 0.0 (0.0-0.2) /100WBC PT 29.5 H (11.1-13.3) SEC INR 2.4 H (0.9-1.1) APTT 44.3 H D (26.0-36.4) SEC Sodium 134 L (135-145) mmol/L Potassium 4.5 (3.3-5.1) mmol/L Chloride 102 (96-108) mmol/L Carbon Dioxide 23 (22-29) mmol/L Anion Gap 14 (12-20) BUN 17 H (9-16) mg/dL Creatinine 1.13 (0.5-1.4) mg/dL Estim Creat Clear Calc 85.0 Estimated GFR > 60 Random Glucose 85 (60-115) mg/dL Calcium 9.2 (8.4-10.2) mg/dL Total Bilirubin 0.3 (0.0-1.0) mg/dL AST 96 H (5-37) U/L ALT 64 H (0-40) U/L Alkaline Phosphatase 110 (39-117) U/L Troponin I High Sens < 2.7 < 2.7 (<3.5-35.0) ng/L B-Natriuretic Peptide 26 (<100) pg/mL Total Protein 8.5 H (6.5-8.0) g/dL Albumin 4.1 (3.5-5.0) g/dL Independent Interpretation I performed an independent interpretation of an: Plain X-Ray Radiology Impression Discussion of test interpretation with radiology: I have reviewed the radiologist's reading. Radiologist Impression: FINDINGS: No significant abnormality is noted involving the heart, lungs, mediastinum, bony thorax or soft tissues. XR/XR chest 2V IMPRESSION: Unremarkable examination. Independent Historian Clinical information obtained from an independent historian. History obtained from or confirmed by: EMS Critical Care Time Critical Care Time Critical Care Time: Yes Total Critical Care Time: 60 Attestation: I have personally provided critical care time. Time includes review of lab data, radiology results, discussion with consultants, and monitoring for potential decompensation. Intervention performed as documented. Discharge Plan Discharge Clinical Impression: Atypical chest pain, Cellulitis Patient Disposition: Still a Patient Instructions: Chest Pain (ED), Cellulitis (ED) Additional Instructions: Please follow-up with your primary care physician tomorrow. If you have any worsening or new symptoms, please return to the emergency room or call 911 Prescriptions: New cephalexin 500 mg capsule 500 mg PO BID Qty: 14 0RF doxycycline hyclate 100 mg capsule 100 mg PO BID Qty: 14 0RF No Action warfarin 2.5 mg tablet 2.5 mg PO DAILY Qty: 90 1RF Protocol: Dose Management Condition: Sunday (Week One) Dose/Route: 2.5 mg Instruction: 1 x 2.5 mg tablet Condition: Sunday Dose/Route: 1.25 mg Instruction: 0.5 x 2.5 mg tablets Condition: Sunday Dose/Route: 1.25 mg Instruction: 0.5 x 2.5 mg tablets Condition: Sunday Dose/Route: 2.5 mg Instruction: 1 x 2.5 mg tablet Condition: Dose/Route: 1.25 mg Instruction: 0.5 x 2.5 mg tablets Condition: Sunday Dose/Route: 2.5 mg Instruction: 1 x 2.5 mg tablet Condition: Sunday Dose/Route: 1.25 mg Instruction: 0.5 x 2.5 mg tablets Condition: Sunday (Week Two) Dose/Route: 2.5 mg Instruction: 1 x 2.5 mg tablet Condition: Sunday Dose/Route: 1.25 mg Instruction: 0.5 x 2.5 mg tablets Condition: Sunday Dose/Route: 1.25 mg Instruction: 0.5 x 2.5 mg tablets Condition: Sunday Dose/Route: 2.5 mg Instruction: 1 x 2.5 mg tablet Condition: Dose/Route: 1.25 mg Instruction: 0.5 x 2.5 mg tablets Condition: Sunday Dose/Route: 1.25 mg Instruction: 0.5 x 2.5 mg tablets Condition: Sunday Dose/Route: 1.25 mg Instruction: 0.5 x 2.5 mg tablets Protocol Text: Adjustment Start Date: Sunday11/23/23 INR Value: 2.6 INR Date: 11/23/23 Recheck Date: 11/30/23 Additional Instructions: REVIEW FOOD LIST WEEKLY diclofenac sodium [Arthritis Pain (diclofenac)] 1 % gel 2 g topical QID PRN (Reason: pain) Qty: 100 0RF tizanidine 2 mg tablet 2 mg PO BEDTIME PRN (Reason: muscle spasticity) Qty: 10 0RF methadone 10 mg/mL concentrate 160 mg PO DAILY
[2023-11-27 21:07] VITALS: BP 195/91; PULSE 89; RESP 18; TEMP 36.8; O2SAT 97
[2023-11-27 21:11] VITALS: BP 185/96
--- NOTE | 2023-11-28 00:59 | MHC.EDTECH ---
attempted blood draw three times for repeat trop, unsuccessful due to poor access.
[2023-11-28 02:00] VITALS: BP 133/83; PULSE 85; RESP 18; O2SAT 92
[2023-11-28 02:23] LABS: Troponin-I High Sensitivity < 2.7 ng/L (<3.5-35.0)
[2023-11-28 04:47] VITALS: BP 133/79; PULSE 74; RESP 16; TEMP 36.9; O2SAT 98
[2023-11-28 08:18] VITALS: BP 129/70; PULSE 64; RESP 16; TEMP 36.6; O2SAT 93
== END 2023-11-28 09:25 | disposition still patient (30) ==
PROVIDERS: Registered Nurse Emergency; Emergency Provider Emergency Medicine; PCP Internal Medicine
DX: R07.89 Other chest pain (principal); L03.116 Cellulitis of left lower limb; R22.32 Localized swelling, mass and lump, left upper limb; Z86.718 Personal history of other venous thrombosis and embolism; Z79.01 Long term (current) use of anticoagulants
CPT/HCPCS: 36415; 71046; 80053; 83880; 84484; 85025; 85610; 85730; 93005; 93971; 99284

== ENCOUNTER → 2023-11-27 18:40 | Outpatient (BNV) | payer OTHER, SELFPAY | PROVIDERS: Emergency Provider Emergency Medicine; PCP Internal Medicine; Visit Provider Internal Medicine | DX: R07.9 Chest pain, unspecified (principal) | CPT/HCPCS: 93010 ==

== ENCOUNTER 2023-12-10 10:46 | Emergency (ER) | payer OTHER, SELFPAY ==
--- NOTE | ~2023-12-10 | XR_ITS ---
EXAMINATION: XR CHEST CLINICAL INFORMATION: Chest pain COMPARISON: None available. TECHNIQUE: 2 views of the chest were obtained. FINDINGS: No significant abnormality is noted involving the heart, lungs, mediastinum, bony thorax or soft tissues. XR/XR chest 2V IMPRESSION: Unremarkable chest examination.
--- NOTE | 2023-12-10 10:52 | ECG_ITS ---
Test Reason : CHEST PAIN X1HR Blood Pressure : / mmHG Vent. Rate : 062 BPM Atrial Rate : 062 BPM P-R Int : 154 ms QRS Dur : 102 ms QT Int : 442 ms P-R-T Axes : 042 -17 007 degrees QTc Int : 448 ms Normal sinus rhythm Minimal voltage criteria for LVH, may be normal variant ( R in aVL ) Borderline ECG When compared with ECG of 27-NOV-2023 19:22, Vent. rate has decreased BY 37 BPM T wave inversion now evident in Inferior leads Nonspecific T wave abnormality no longer evident in Lateral leads Referred By: Silke Fu Electronically Signed By:ZEYNEP VALENTIN MD
[2023-12-10 10:53] VITALS: BP 168/104; PULSE 89; O2SAT 95
[2023-12-10 11:04] VITALS: BP 158/89; PULSE 77; RESP 20; TEMP 36.8; O2SAT 96; BMI 35.2
--- NOTE | 2023-12-10 11:25 | ED_ITS ---
HPI - Chest Pain General Chief Complaint: Chest Pain Stated Complaint: CHEST TIGHTNESS,HIGH BP 164/109 PER EMS Time Seen by Provider: 12/10/23 10:53 Source: patient, EMS and RN notes reviewed Mode of arrival: EMS Limitations: no limitations History of Present Illness HPI narrative: Patient is a 53-year-old male with history of polysubstance abuse, PE, DVT, on methadone presenting to the emergency department with complaint of chest pain since this morning. Patient states that he was seen here recently for chest pain and was also prescribed antibiotics for cellulitis. 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 At that time he felt his cellulitis had improved so he did not begin taking the antibiotics as prescribed. Reports yesterday he noted some erythema to his left leg and began antibiotics at that time. This morning developed chest/epigastric pain and vomited twice. States emesis was nonbloody, nonbilious. States that when he checked his blood pressure he noted it was elevated. Reports some lightheadedness and feels anxious. MD complaint: chest pain Onset (ago): hour(s) Timing of current episode: episodic Prior episodes: Yes Onset: during rest Pain location: epigastric Pain radiation: none Severity: moderate Quality: burning Context: new medications Associated symptoms: nausea and vomiting Treatment prior to arrival: aspirin (from EMS) Related Data Home Medications Medication Instructions Recorded Confirmed methadone 10 mg/mL oral concentrate 160 mg PO DAILY 06/09/22 11/23/23 Previous Rx's Medication Instructions Recorded tizanidine 2 mg tablet 2 mg PO BEDTIME PRN muscle 07/10/23 spasticity #10 tabs warfarin 2.5 mg tablet 2.5 mg PO DAILY #90 tabs 08/15/23 diclofenac sodium 1 % topical gel 2 g topical QID PRN pain #100 grams 08/29/23 (Arthritis Pain (diclofenac)) cephalexin 500 mg capsule 500 mg PO BID #14 caps 11/28/23 doxycycline hyclate 100 mg capsule 100 mg PO BID #14 caps 11/28/23 ondansetron 4 mg disintegrating 4 mg PO Q8H PRN nausea and 12/10/23 tablet vomiting #10 tabs Allergies Allergy/AdvReac Type Severity Reaction Status Date / Time No Known Allergies Allergy Verified 11/23/23 13:23 [No Known Allergies*] Review of Systems 2 Review of Systems: As per HPI. Yes all other systems are reviewed and are negative Constitutional: Constitutional: Reports as per HPI [facility] [place] Past Medical History Medical History (Updated 12/10/23 @ 14:05 by Florence Schofield NP) Pulmonary emboli DVT, bilateral lower limbs Obesity Polysubstance abuse Encounter to establish care Eyebrow laceration Surgical History No pertinent past surgical history Family History Family History Mother COPD (chronic obstructive pulmonary disease) Father Hepatitis Liver cirrhosis Maternal Grandmother Alzheimer disease Maternal Grandfather Prostate cancer Diabetes Other Mental health disorder Substance use disorder Social History Social History Household Members: Family Housing: House Unable to assess alcohol history related to: Refusing to respond Alcohol intake: former Year quit: 2011 Patient Tobacco Use Status: Former Tobacco user e-Cigarette/Vaping Use: Never Used Second Hand Smoke Exposure: No Substance Use Type: Heroin Advance Directives: No Advance Directives Information Provided: No service: No Current occupational status: unemployed Current occupational exposures/hazards: No Cognitive needs: No Hearing needs: No Vision needs: Yes (reading) Physical Exam 2 Vital Signs: Vital Signs: Last Vital Signs Temp 98.2 F 12/10/23 11:04 Pulse 60 12/10/23 12:38 Resp 16 12/10/23 12:38 BP 151/95 H 12/10/23 12:38 Pulse Ox 95 12/10/23 12:38 O2 Del Method Room Air 12/10/23 12:38 BMI result Body Mass Index 35.2 Vital signs have been reviewed and appear to be correct. Blood pressure elevated. Heart rate normal. Respiratory rate normal. Temperature normal. Oxygen saturation normal. Const: General: cooperative and no acute distress O rientation/consciousness: oriented to person, oriented to place, oriented to time and patient oriented x3 Limitations: no limitations HEENT: Head: Yes normocephalic and Yes atraumatic Ears: external ears normal General nose exam: Normal external nose present Face and sinus: Yes face symmetric Mouth: oropharynx normal and moist mucous membranes Teeth and gingiva: poor dentition Throat: Yes uvula midline Eyes: Pupils: Equal, round and reactive pupils present Neck: Neck: Yes normal visual inspection and Yes supple Resp: Effort & Inspection: normal respiratory effort and able to speak in complete sentences Auscultation: clear to auscultation bilaterally Cardio: Rate: regular rate Rhythm: regular rhythm Heart sounds: S1 normal heart sound present and S2 normal heart sound present GI: Palpation (GI): Soft to palpation and nontender Auscultation: n ormoactive bowel sounds : General: Yes no CVA tenderness Back/Spine/Pelvis: Back: no CVA tenderness Skin: General skin exam: elasticity normal and turgor normal Neuro: General: oriented to person, oriented to place, oriented to time, patient oriented x3, moves all extremities, no focal motor deficits and CN's II- XI intact bilaterally Cranial nerves: Yes Equal, round and reactive pupils present Cognition (Neuro): normal cognition Extrem: Other: very slight erythema to LLE General: Yes full ROM, Yes no pedal edema and Yes no calf tenderness R ight lower extremity: foot Details: vascular exam Details: dorsalis pedis pulse present and posterior tibial pulse present Left lower extremity: foot Details: vascular exam Details: dorsalis pedis pulse present and posterior tibial pulse present Psych: Mental Status: mental status grossly normal Affect: normal affect Thought process: Normal thought process present Medical Decision Making Medical Decision Making MDM Narrative: Patient is a 53-year-old male with history of polysubstance abuse, PE, DVT, on methadone presenting to the emergency department with complaint of chest pain since this morning. On exam patient is awake, A+Ox3, VS WNL, afebrile, normal neurological exam without focal deficits, physical exam findings as above. Given reported symptoms and physical exam findings, initial differential includes ACS, adverse medication reaction, GERD, PUD, gastritis, musculoskeletal pain. Less likely PE as patient is anticoagulated but will check D-dimer. Plan: EKG, CXR, labs, viral swabs Labs notable for negative troponin, elevated LFTs consistent with baseline, normal bilirubin, no electrolyte abnormalities, no leukocytosis or left shift, microcytic anemia consistent with baseline. Age adjusted D-dimer negative. CTA not indicated. EKG shows normal sinus rhythm. X-ray notable for no acute abnormalities. My interpretation is in agreement with the radiologist's interpretation. HEART score 2. Feel patient is stable for discharge home. Discussed all results with patient and answered all questions, advised patient that he should be taking his antibiotics with a full meal. Case discussed with Dr. Fu who recommends discontinuing doxycycline and having patient finish only cephalexin, as patient does not have any abscesses or purulent drainage. Will prescribe zofran for nausea. Return precautions discussed. Patient verbalized understanding of and agreement with plan. Differential Diagnosis Differential Diagnoses: The differential diagnosis associated with the presentation includes As per [facility]. Admission/Observation Consideration of admission/observation: Escalation of care including admission/observation considered Lab Data [facility] Lab Attestation statement: I reviewed the patient's lab results. As Per MDM. 12/10/23 11:48 12/10/23 11:48 Labs: Lab Results 12/10/23 12/10/23 Range/Units 11:47 11:48 WBC 6.3 (4.8-10.8) X10*3/uL RBC 4.35 L (4.60-5.80) X10*6/uL Hgb 11.9 L (14.0-18.0) g/dl Hct 36.6 L (42.0-52.0) % MCV 84.1 (80.0-98.0) fL MCH 27.4 (27.0-33.0) pg MCHC 32.5 (31.0-36.0) g/dl RDW 15.8 (11.0-16.0) % Plt Count 234 (160-400) X10*3/uL MPV 9.1 L (9.4-12.4) fL Immature Gran % (Auto) 0.5 H (0.0-0.4) % Neut % (Auto) 65.5 (45-73) % Lymph % (Auto) 21.5 (20-40) % [place] % (Auto) 10.6 (2-11) % Eos % (Auto) 1.6 (0-4) % Baso % (Auto) 0.3 (0-2) % Lymph # (Auto) 1.4 (1.2-4.9) X10*3/uL [place] # (Auto) 0.7 (0.1-1.2) X10*3/uL Eos # (Auto) 0.1 (0.0-0.4) X10*3/uL Baso # (Auto) 0.0 (0.0-0.2) X10*3/uL Abs Immat Gran (auto) 0.03 (0.00-0.03) X10*3/uL Absolute Neuts (auto) 4.2 (2.0-8.3) x10*3/uL Absolute Nucleated RBC 0.000 (0.0-0.012) X10*3/uL Nucleated RBC % (auto) 0.0 (0.0-0.2) /100WBC PT 24.8 H (11.1-13.3) SEC INR 2.0 H (0.9-1.1) D-Dimer High Sensitivty 233 NG/ML Sodium 138 (135-145) mmol/L Potassium 4.7 (3.3-5.1) mmol/L Chloride 102 (96-108) mmol/L Carbon Dioxide 27 (22-29) mmol/L Anion Gap 14 (12-20) BUN 14 (9-16) mg/dL Creatinine 0.87 (0.5-1.4) mg/dL Estim Creat Clear Calc 111.7 Estimated GFR > 60 Random Glucose 96 (60-115) mg/dL Calcium 8.9 (8.4-10.2) mg/dL Magnesium 2.0 (1.6-2.6) mg/dL Total Bilirubin 0.2 (0.0-1.0) mg/dL AST 72 H (5-37) U/L ALT 79 H (0-40) U/L Alkaline Phosphatase 112 (39-117) U/L Troponin I High Sens < 2.7 (<3.5-35.0) ng/L Total Protein 7.7 (6.5-8.0) g/dL Albumin 3.5 (3.5-5.0) g/dL COVID-19 (REBA) Negative (Negative) COVID-19 Clin Com See Note Influenza Type A (ELINA) Negative (Negative) Influenza Type B (ELINA) Negative (Negative) Influenza A & B Note See Note Independent Interpretation I performed an independent interpretation of an: EKG (normal sinus rhythm, rate 62 bpm, normal LA interval and QTc) and Plain X-Ray Interpretation: no acute abnormalities on chest xray Radiology Impression Discussion of test interpretation with radiology: I have reviewed the radiologist's reading. Radiologist Impression: XR/XR chest 2V IMPRESSION: Unremarkable chest examination. External Record Review External record reviewed: Inpatient record, Office record and Outpatient record Prescription Management I considered prescription management with: Other Chronic Conditions Patient?s care impacted by: Other Scores Heart Score History: -0- slightly suspicious ECG: -0- normal Age: -1- >45 - <65 Risk factory: -1- 1 or 2 risk factors Troponin: -0- < or = normal limit Score: 2 Risk: 1.7% Discharge Plan Discharge Clinical Impression: Chest pain, Gastritis Patient Disposition: Home, Self-Care Instructions: Chest Pain (DC), Gastritis (DC) Additional Instructions: You were evaluated in the emergency department today for chest pain. Your evaluation has shown no signs of medical conditions requiring emergent intervention at this time, however we recommend that you follow-up with your primary care physician as soon as possible for further testing as an outpatient. You should STOP TAKING THE DOXYCYCLINE, BUT CONTINUE TAKING THE CEPHALEXIN UNTIL FINISHED. You are being prescribed zofran (ondansetron) which you can take every 8 hours as needed for nausea. Return to the emergency department if you experience worsening or uncontrolled chest pain, shortness of breath, lightheadedness, feeling faint, loss of consciousness, nausea, vomiting, or any other concerning symptoms. Prescriptions: New ondansetron 4 mg tablet,disintegrating 4 mg PO Q8H PRN (Reason: nausea and vomiting) Qty: 10 0RF No Action warfarin 2.5 mg tablet 2.5 mg PO DAILY Qty: 90 1RF Protocol: Dose Management Condition: Sunday (Week One) Dose/Route: 2.5 mg Instruction: 1 x 2.5 mg tablet Condition: Sunday Dose/Route: 1.25 mg Instruction: 0.5 x 2.5 mg tablets Condition: Sunday Dose/Route: 1.25 mg Instruction: 0.5 x 2.5 mg tablets Condition: Sunday Dose/Route: 2.5 mg Instruction: 1 x 2.5 mg tablet Condition: Dose/Route: 1.25 mg Instruction: 0.5 x 2.5 mg tablets Condition: Sunday Dose/Route: 2.5 mg Instruction: 1 x 2.5 mg tablet Condition: Sunday Dose/Route: 1.25 mg Instruction: 0.5 x 2.5 mg tablets Condition: Sunday (Week Two) Dose/Route: 2.5 mg Instruction: 1 x 2.5 mg tablet Condition: Sunday Dose/Route: 1.25 mg Instruction: 0.5 x 2.5 mg tablets Condition: Sunday Dose/Route: 1.25 mg Instruction: 0.5 x 2.5 mg tablets Condition: Sunday Dose/Route: 2.5 mg Instruction: 1 x 2.5 mg tablet Condition: Dose/Route: 1.25 mg Instruction: 0.5 x 2.5 mg tablets Condition: Sunday Dose/Route: 1.25 mg Instruction: 0.5 x 2.5 mg tablets Condition: Sunday Dose/Route: 1.25 mg Instruction: 0.5 x 2.5 mg tablets Protocol Text: Adjustment Start Date: Sunday11/23/23 INR Value: 2.6 INR Date: 11/23/23 Recheck Date: 11/30/23 Additional Instructions: REVIEW FOOD LIST WEEKLY diclofenac sodium [Arthritis Pain (diclofenac)] 1 % gel 2 g topical QID PRN (Reason: pain) Qty: 100 0RF cephalexin 500 mg capsule 500 mg PO BID Qty: 14 0RF doxycycline hyclate 100 mg capsule 100 mg PO BID Qty: 14 0RF tizanidine 2 mg tablet 2 mg PO BEDTIME PRN (Reason: muscle spasticity) Qty: 10 0RF methadone 10 mg/mL concentrate 160 mg PO DAILY
[2023-12-10 11:53] LABS: MANUAL DIFF FLAG NO
[2023-12-10 11:54] LABS: Basophils Percent Auto 0.3 % (0-2); Eosinophils Absolute Auto 0.1 X10*3/uL (0.0-0.4); Eosinophils Percent Auto 1.6 % (0-4); Hematocrit 36.6 % (42.0-52.0); Hemoglobin 11.9 g/dl (14.0-18.0); Imm Gran Abs Auto 0.03 X10*3/uL (0.00-0.03); Imm Gran Pct Auto 0.5 % (0.0-0.4); Lymphocytes Absolute Auto 1.4 X10*3/uL (1.2-4.9); Lymphocytes Percent Auto 21.5 % (20-40); Mean Corpuscular HGB Conc 32.5 g/dl (31.0-36.0); Mean Corpuscular Hemoglobin 27.4 pg (27.0-33.0); Mean Corpuscular Volume 84.1 fL (80.0-98.0); Mean Platelet Volume 9.1 fL (9.4-12.4); Monocytes Absolute Auto 0.7 X10*3/uL (0.1-1.2); Monocytes Percent Auto 10.6 % (2-11); Neutrophils Absolute Auto 4.2 x10*3/uL (2.0-8.3); Neutrophils Percent Auto 65.5 % (45-73); Platelet Count 234 X10*3/uL (160-400); Red Blood Count 4.35 X10*6/uL (4.60-5.80); Red Cell Distribution Width 15.8 % (11.0-16.0); White Blood Count 6.3 X10*3/uL (4.8-10.8)
[2023-12-10 12:04] LABS: Prothrombin Time 24.8 SEC (11.1-13.3)
[2023-12-10 12:06] LABS: D Dimer High Sensitivity 233 NG/ML
[2023-12-10 12:07] LABS: Alanine Aminotransferase 79 U/L (0-40); Albumin Level 3.5 g/dL (3.5-5.0); Alkaline Phosphatase 112 U/L (39-117); Anion Gap 14 (12-20); Aspartate Amino Transferase 72 U/L (5-37); Bilirubin Total 0.2 mg/dL (0.0-1.0); Blood Urea Nitrogen 14 mg/dL (9-16); Calcium 8.9 mg/dL (8.4-10.2); Carbon Dioxide 27 mmol/L (22-29); Chloride 102 mmol/L (96-108); Creatinine Clr Calc Pharmacy 111.7; Estimated Glomerular Filt Rate > 60; Glucose Random 96 mg/dL (60-115); Potassium 4.7 mmol/L (3.3-5.1); Sodium 138 mmol/L (135-145); Total Protein 7.7 g/dL (6.5-8.0)
[2023-12-10 12:08] LABS: COVID-19 Test Negative (Negative); IDNOW Serial# 08D9AD1C
[2023-12-10 12:12] LABS: IDNOW Serial# 152EDE1D; Influenza A Negative (Negative); Influenza B2 Negative (Negative)
[2023-12-10 12:17] LABS: Troponin-I High Sensitivity < 2.7 ng/L (<3.5-35.0)
[2023-12-10 12:38] VITALS: BP 151/95; PULSE 60; RESP 16; O2SAT 95
== END 2023-12-10 14:27 | disposition home or self-care (01) ==
PROVIDERS: Registered Nurse Emergency; Emergency Provider Emergency Medicine
DX: K29.70 Gastritis, unspecified, without bleeding (principal); R07.9 Chest pain, unspecified; F19.90 Other psychoactive substance use, unspecified, uncomplicated; Z86.711 Personal history of pulmonary embolism; Z11.52 Encounter for screening for COVID-19
CPT/HCPCS: 71046; 80053; 83735; 84484; 85025; 85379; 85610; 87502; 87635; 93005; 99283; 99284

== ENCOUNTER → 2023-12-10 10:52 | Outpatient (BNV) | payer OTHER, SELFPAY | PROVIDERS: Emergency Provider Emergency Medicine; Visit Provider Internal Medicine Cardiovascular Disease | DX: R07.89 Other chest pain (principal) | CPT/HCPCS: 93010 ==

== ENCOUNTER 2023-12-12 14:03 | Outpatient (AMB) | payer OTHER, SELFPAY ==
[2023-12-12 14:15] LABS: Prothrombin Time Whole Bld POC 18.9 sec (11.1-13.5); ~PT, ~INR - Anti Coag Clinic 1.6 (0.9-1.1)
--- NOTE | 2023-12-12 14:21 | MHC.OFFVISCO ---
Intake Intake Visit Reasons: Anticoagulation Allergies No Known Allergies [No Known Allergies*] Allergy (Verified 12/12/23 14:10) Medication List - Last Reconciled 12/12/23 by Ana Lilia Garibay, RN diclofenac sodium 1% (Arthritis Pain (diclofenac)) 2 grams topical QID PRN methadone 160 mg PO DAILY ondansetron 4 mg PO Q8H PRN tizanidine 2 mg PO BEDTIME PRN warfarin 2.5 mg See Protocol PO DAILY Nursing Note INR 1.6? out of therapeutic range Medications and supplements reviewed Patient status: pt is status post covid and leg cellulitis - he was on antbx and was afraid se he decreased his warfarin dose on his own to 1.25mg x 5 days he was enc to always call [facility] with any med changes he saw Dr Kirk today who ordered labs and referral for a vascular consult to assist with his circulation and pain Medications or supplements:no changes Diet: fair Denies any signs and symptoms of bleeding or clotting or unusual bruising Bleeding, bruising, clotting discussed Nutritional guidance given: avoid greens x 3 days , eat orange and red fruits and vegetables to help raise the INR Dose: 5mg today then 2.5mg x 3 days/ 1.25mg x 4 days F/U INR Date : 5 days ?? Enc hydration and walkin or ankle pumps for improved circulation for his legs Patient verbalizing understanding of instructions given. t/c to Dr Kirk to report INR and plan of care spoke with nursing triage line due to busy staff to report INR and plan of care to Dr Kirk this msg will be sent to Anti-Coag Initial Assessment Social Hx Patient Tobacco Use Status: Former Tobacco user alcohol intake: former Alcohol intake frequency: does not drink Cardiovascular Hx: HTN, Arrhythmias and Other Lung Disease HX: DVT/PE Endocrine Hx: Other Musculoskeletal Hx: Arthritis Blood Disorder Hx: Hepatitis GI Hx: Other Hx: Other Neurological Hx: Serious Head Injury and Migraines/Headaches Cancer HX: No Psych. 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
== END 2023-12-12 14:43 | disposition home or self-care (01) ==
LOC: HO.ACS 14:03
PROVIDERS: PCP Internal Medicine; Visit Provider Internal Medicine
DX: Z79.01 Long term (current) use of anticoagulants (principal)

== ENCOUNTER → 2023-12-12 14:03 | Outpatient (BNVA) | payer OTHER, SELFPAY | PROVIDERS: PCP Internal Medicine; Visit Provider Internal Medicine | DX: Z86.718 Personal history of other venous thrombosis and embolism (principal); Z79.01 Long term (current) use of anticoagulants; Z51.81 Encounter for therapeutic drug level monitoring | CPT/HCPCS: 85610; 99211 ==

== ENCOUNTER 2023-12-17 13:16 | Outpatient (AMB) | payer OTHER, SELFPAY ==
--- NOTE | 2023-12-17 13:43 | MHC.OFFVISCO ---
Intake Intake Visit Reasons: Anticoagulation Allergies No Known Allergies [No Known Allergies*] Allergy (Verified 12/17/23 13:19) Medication List - Last Reconciled 12/17/23 by Rashida Cash RN diclofenac sodium 1% (Arthritis Pain (diclofenac)) 2 grams topical QID PRN levothyroxine (Synthroid) 25 mcg PO DAILY methadone 160 mg PO DAILY ondansetron 4 mg PO Q8H PRN tizanidine 2 mg PO BEDTIME PRN warfarin 2.5 mg See Protocol PO DAILY Nursing Note INR: 4.2 in therapeutic range Medications and supplements reviewed, Pt to start levothyroxine today. No changes in health, diet, medications, or supplements, States he feels better S/P covid Denies any signs and symptoms of bleeding or bruising or clotting. Bleeding, bruising, clotting discussed Nutritional guidance given Dose: Hold today and then decrease to 2.5mg Tues and Fri and 1.25mg all other days, F/U INR: 1 week, Patient verbalizes understanding of instructions given Anti-Coag Initial Assessment Social Hx Patient Tobacco Use Status: Former Tobacco user alcohol intake: former Alcohol intake frequency: does not drink Cardiovascular Hx: HTN, Arrhythmias and Other Lung Disease HX: DVT/PE Endocrine Hx: Other Musculoskeletal Hx: Arthritis Blood Disorder Hx: Hepatitis GI Hx: Other Hx: Other Neurological Hx: Serious Head Injury and Migraines/Headaches Cancer HX: No Psych. Illness/Depression: No Coding Level of Care Code Est Patient Level 1 Diagnoses Current use of anticoagulant therapy Z79.01 Results AMB INR Fingerstick AMB INR Fingerstick 4.2 Last Edit by Rashida aCsh RN on 12/17/23 13:34 interface delay Assessment & Plan Assessment & Plan (1) Current use of anticoagulant therapy: Code(s): Z79.01 - FDC (current) use of anticoagulants Category: Medical
[2023-12-17 15:38] LABS: Prothrombin Time Whole Bld POC 51.1 sec (11.1-13.5); ~PT, ~INR - Anti Coag Clinic 4.3 (0.9-1.1)
== END 2023-12-17 13:52 | disposition home or self-care (01) ==
LOC: HO.ACS 13:16
PROVIDERS: PCP Internal Medicine; Visit Provider Internal Medicine
DX: Z79.01 Long term (current) use of anticoagulants (principal)

== ENCOUNTER → 2023-12-17 13:16 | Outpatient (BNVA) | payer OTHER, SELFPAY | PROVIDERS: PCP Internal Medicine; Visit Provider Internal Medicine | DX: I82.403 Acute embolism and thrombosis of unspecified deep veins of lower extremity, bilateral (principal); I26.99 Other pulmonary embolism without acute cor pulmonale; Z51.81 Encounter for therapeutic drug level monitoring; Z79.01 Long term (current) use of anticoagulants | CPT/HCPCS: 85610; 99211 ==

== ENCOUNTER 2023-12-19 10:06 | Outpatient (AMB) | payer OTHER, SELFPAY ==
--- NOTE | 2023-12-19 10:18 | MHC.PC.OV ---
Vital Signs 12/19/23 10:20 Height 5 ft 8 in Weight 239 lb 6 oz BMI 36.4 BP 142/70 H Blood Pressure Location Lt brachial Position Sitting Pulse 71 Pulse Source Pulse Oximeter Pulse Oximetry (%) 96 Oxygen Delivery Method Room Air Intake Visit Reasons: Deep vein thrombosis Intake Note: Patient is here to follow up on DVT. Left leg pain with swelling, possible cardiac issues with high blood pressure Intensive Care Anaesthetist Required: No Sql Server Developer: Not Required per policy Accompanied by: Self / Same As Patient Allergies No Known Allergies [No Known Allergies*] Allergy (Verified 12/21/23 11:50) Medication List - Last Reconciled 12/21/23 by Kyler Daley MD levothyroxine (Synthroid) 25 mcg PO DAILY methadone 160 mg PO DAILY warfarin 2.5 mg See Protocol PO DAILY Tobacco use date assessed: 12/19/23 Dental Screening Dental Screen Date: 12/19/23 Did you have a dental visit in the last 12 months?: No Did you have a dental problem in the last 6 months where you did not have access to dental care?: No Was dental information given to patient?: No HPI Deep vein thrombosis HPI Details 53-year-old male presents to the office to discuss his medical conditions. I am assuming his care as his primary care provider has left the practice. Patient has history of DVT in the right leg. He was on Eliquis when he had recurrent symptoms and is now on Coumadin. Pain in swelling in the right leg. In the past the DVT was triggered by injection of heroin. Patient has not been abusing drugs for many months now. Also complains of anxiety when his blood pressures go up suddenly. This has warranted a few trips to the emergency room. He recently had blood work done. [facility] Medical History (Updated 12/21/23 @ 11:55 by Kyler Daley MD) Acquired hypothyroidism Pulmonary emboli DVT, bilateral lower limbs Obesity Polysubstance abuse Encounter to establish care Eyebrow laceration Surgical History No pertinent past surgical history Family History Mother COPD (chronic obstructive pulmonary disease) Father Hepatitis Liver cirrhosis Maternal Grandmother Alzheimer disease Maternal Grandfather Prostate cancer Diabetes Other Mental health disorder Substance use disorder Social History Household Members: Family Housing: House Unable to assess alcohol history related to: Refusing to respond Alcohol intake: former Year quit: 2012 Patient Tobacco Use Status: Former Tobacco user e-Cigarette/Vaping Use: Never Used Second Hand Smoke Exposure: No Substance Use Type: Heroin service: No Current occupational status: unemployed Current occupational exposures/hazards: No Cognitive needs: No Hearing needs: No Vision needs: Yes (reading) Questionnaire PHQ-9 Over the last 2 weeks, how often have you been bothered by any of the following problems? 1. Little interest or pleasure in doing things: not at all 2. Feeling down, depressed, or hopeless: not at all 3. Trouble falling or staying asleep, or sleeping too much: not at all 4. Feeling tired or having little energy: not at all 5. Poor appetite or overeating: not at all 6. Feeling bad about yourself - or that you are a failure or have let yourself or your family down: not at all 7. Trouble concentrating on things, such as reading the newspaper or watching television: not at all 8. Moving or speaking so slowly that other people could have noticed. Or the opposite - being so fidgety or restless that you have been moving around a lot more than usual: not at all 9. Thoughts that you would be better off or of hurting yourself in some way: not at all Total score: 0 Depression Screening Interpretation: Negative Depression Screening Done: Yes Source: Developed by Drs. Angel Dent, Maria Isabel Dash, Gelacio Hernandez and colleagues, with an educational quincy from [employer]. Thrive Questionnaire Date Thrive assessed: 12/19/23 I am a: Patient What is your living situation today?: I have a steady place to live Within the past 12 months, did the food you bought not last and you didn't have the money to get more?: Never true Within the past 12 months, did you worry whether your food would run out before you got money to buy more?: Never true Do you have trouble paying for medicines?: No Do you have trouble getting transportation to medical appointments?: No Do you have trouble paying your heating and electricity bill?: No Do you have trouble taking care of your child, family member or friend?: No Do you have trouble with day-to-day activities such as bathing, preparing meals, shopping, managing finances, etc.?: No Are you currently unemployed and looking for a job?: No Are you interested in more education?: No Currently or been in a relationship where the following occur: no concerns reported THRIVE Score: 0 AUDIT C Alcohol Use Questionnaire (AUDIT-C) 1. How often do you have a drink containing alcohol?: Never Total Score: 0 TIFFANIE-7 AMB Questionnaire TIFFANIE-7 Date TIFFANIE - 7 assessed: 12/19/23 Feeling nervous, anxious, or on edge: 0 = Not at all Not being able to stop or control worryin = Not at all Worrying too much about different things: 0 = Not at all Trouble relaxin = Not at all Being so restless that it is hard to sit still: 0 = Not at all Becoming easily annoyed or irritable: 0 = Not at all Feeling afraid as if something awful might happen: 0 = Not at all Total TIFFANIE-7 score (0-4 normal; 5-9 mild; 10-14 moderate; 15-21 severe): 0 Source: Developed by Drs. Angel Dent, Maria Isabel Dash, Gelacio Hernandez and colleagues, with an educational quincy from [employer]. Physical exam (Primary Care) Vital Signs: Last Vital Signs Pulse 71 12/19/23 10:20 BP 142/70 H 12/19/23 10:20 Pulse Ox 96 12/19/23 10:20 Oxygen Delivery Method Room Air 12/19/23 10:20 Care Plan Goal for BP management: Blood pressure is stable. BMI result Body Mass Index 36.4 BMI Assessment/Plan discussion: High (1 lb per week weight loss suggested.) BMI High, discussed plan: lifestyle, weight reduction and dietary Tobacco/Smoking Status: Tobacco use Status Tobacco use date assessed 12/19/23 12/19/23 10:29 Patient Tobacco Use Status Former Tobacco user 12/19/23 10:29 e-Cigarette/Vaping Use Never Used 12/19/23 10:29 PHQ-9: PHQ-9 Score PHQ-9: Total score 0 12/19/23 10:29 Depression Screening Interpretation: Negative Thrive Assessment: Date of Thrive Assessment Date Thrive assessed 12/19/23 12/19/23 10:29 Currently or been in a relationship where the following occur: no concerns reported Const General: cooperative and healthy appearing Nutritional Appearance: well nourished Orientation/consciousness: patient oriented x3 Limitations: no limitations HENMT Head: Yes normal to inspection Eyes General: appearance normal, both eyes and all related structures Neck Neck: Yes normal visual inspection Chest Chest palpation & inspection: normal palpation of entire chest wall Resp Effort & Inspection: normal respiratory effort Neuro General: patient oriented x3 Assessment and Plan Assessment & Plan (1) Peripheral vascular disease: Code(s): I73.9 - Peripheral vascular disease, unspecified Plan: A referral with the vascular surgeon to rule out any peripheral vascular disease. (2) Pulmonary emboli: Code(s): I26.99 - Other pulmonary embolism without acute cor pulmonale Plan: Condition is stable. Patient is on anticoagulants. (3) History of opioid abuse: Code(s): F11.11 - Opioid abuse, in remission Plan: Patient has not been using drugs for a while. On methadone. (4) Acquired hypothyroidism: Code(s): E03.9 - Hypothyroidism, unspecified Plan: TSH is elevated. Synthroid has been started at 25 mcg. Repeat blood work in 6 weeks. Orders: Referrals Vascular Surgery Referral I73.9 - Peripheral vascular disease, unspecified Coding Level of Care Code Est Pt Level 4 (01444) Diagnoses Peripheral vascular disease I73.9 Pulmonary emboli I26.99 History of opioid abuse F11.11 Acquired hypothyroidism E03.9
[2023-12-19 10:20] VITALS: BP 142/70; PULSE 71; O2SAT 96; BMI 36.4
== END 2023-12-19 11:08 | disposition home or self-care (01) ==
PROVIDERS: PCP Internal Medicine; Visit Provider Internal Medicine
DX: I73.9 Peripheral vascular disease, unspecified (principal); I26.99 Other pulmonary embolism without acute cor pulmonale; F11.11 Opioid abuse, in remission; E03.9 Hypothyroidism, unspecified
CPT/HCPCS: 99214

== ENCOUNTER 2023-12-26 13:01 | Outpatient (AMB) | payer OTHER, SELFPAY ==
--- NOTE | 2023-12-26 13:13 | MHC.OFFVISCO ---
Intake Intake Visit Reasons: Anticoagulation Allergies No Known Allergies [No Known Allergies*] Allergy (Verified 12/26/23 13:08) Medication List - Last Reconciled 12/26/23 by Gege Rose RN levothyroxine (Synthroid) 25 mcg PO DAILY methadone 160 mg PO DAILY warfarin 2.5 mg See Protocol PO DAILY Nursing Note INR: 3.4 in therapeutic range of 3.0-3.5 Medications and supplements reviewed- recently started levothyroxine No changes in health, diet, medications, or supplements, Denies any signs and symptoms of bleeding or bruising or clotting. Bleeding, bruising, clotting discussed Nutritional guidance given Dose: 2.5mg x 2, 1.25mg x 5 F/U INR: 1 week Patient verbalizes understanding of instructions given Anti-Coag Initial Assessment Social Hx Patient Tobacco Use Status: Former Tobacco user alcohol intake: former Alcohol intake frequency: does not drink Cardiovascular Hx: HTN, Arrhythmias and Other Lung Disease HX: DVT/PE Endocrine Hx: Other Musculoskeletal Hx: Arthritis Blood Disorder Hx: Hepatitis GI Hx: Other Hx: Other Neurological Hx: Serious Head Injury and Migraines/Headaches Cancer HX: No Psych. 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
[2023-12-26 13:14] LABS: Prothrombin Time Whole Bld POC 40.8 sec (11.1-13.5); ~PT, ~INR - Anti Coag Clinic 3.4 (0.9-1.1)
== END 2023-12-26 13:17 | disposition home or self-care (01) ==
LOC: HO.ACS 13:01
PROVIDERS: PCP Internal Medicine; Visit Provider Internal Medicine
DX: Z79.01 Long term (current) use of anticoagulants (principal)

== ENCOUNTER → 2023-12-26 13:01 | Outpatient (BNVA) | payer OTHER, SELFPAY | PROVIDERS: PCP Internal Medicine; Visit Provider Internal Medicine | DX: I26.99 Other pulmonary embolism without acute cor pulmonale (principal); Z86.718 Personal history of other venous thrombosis and embolism; Z79.01 Long term (current) use of anticoagulants; Z51.81 Encounter for therapeutic drug level monitoring | CPT/HCPCS: 85610; 99211 ==

== ENCOUNTER 2024-01-07 14:08 | Outpatient (AMB) | payer OTHER, SELFPAY ==
[2024-01-07 14:16] LABS: Prothrombin Time Whole Bld POC 24.5 sec (11.1-13.5)
--- NOTE | 2024-01-07 14:23 | MHC.OFFVISCO ---
Intake Intake Visit Reasons: Anticoagulation Allergies No Known Allergies [No Known Allergies*] Allergy (Verified 01/07/24 14:10) Medication List - Last Reconciled 01/07/24 by Rashida Lee RN levothyroxine (Synthroid) 25 mcg PO DAILY methadone 160 mg PO DAILY warfarin 2.5 mg See Protocol PO DAILY Nursing Note Amb to [facility] feeling ok- mentions family member, brother ill cardiac issues Medications and supplements reviewed pt new to levothyroxine 12/17/23 (major raiser, unspecified onset) No other changes in health, diet, medications, or supplements Denies any unusual signs and symptoms of bruising, bleeding Denies any new Chest pain, SOB, or clotting INR: 2.0 below therapeutic range (3.0-3.5) Nutritional guidance given:no greens today, pt sts not much of a green eater diet mostly cheerios, cereals and fruit Dose: increase dose today to 2.5mg (vs 1.25mg) then resume usual dosing; 2.5mg x 2 days and 1.25mg x 5 days F/U INR: 1 week, however pt sts he has to check at home to see if brother has any appts- reminded to call and resched if needed Patient verbalizes understanding of instructions given with accurate read back/ teach back of dosing Anti-Coag Initial Assessment Social Hx Patient Tobacco Use Status: Former Tobacco user alcohol intake: former Alcohol intake frequency: does not drink Cardiovascular Hx: HTN, Arrhythmias and Other Lung Disease HX: DVT/PE Endocrine Hx: Other Musculoskeletal Hx: Arthritis Blood Disorder Hx: Hepatitis GI Hx: Other Hx: Other Neurological Hx: Serious Head Injury and Migraines/Headaches Cancer HX: No Psych. Illness/Depression: No Coding Level of Care Code Est Patient Level 1 Diagnoses Current use of anticoagulant therapy Z79.01 Time Spent (min) 15 Assessment & Plan Assessment & Plan (1) Current use of anticoagulant therapy: Code(s): Z79.01 - retirement (current) use of anticoagulants Category: Medical
== END 2024-01-07 15:04 | disposition home or self-care (01) ==
LOC: HO.ACS 14:08
PROVIDERS: PCP Internal Medicine; Visit Provider Internal Medicine
DX: Z79.01 Long term (current) use of anticoagulants (principal)

== ENCOUNTER → 2024-01-07 14:08 | Outpatient (BNVA) | payer OTHER, SELFPAY | PROVIDERS: PCP Internal Medicine; Visit Provider Internal Medicine | DX: Z86.718 Personal history of other venous thrombosis and embolism (principal); Z79.01 Long term (current) use of anticoagulants; Z51.81 Encounter for therapeutic drug level monitoring | CPT/HCPCS: 85610; 99211 ==

== ENCOUNTER 2024-01-14 12:56 | Outpatient (AMB) | payer OTHER, SELFPAY ==
[2024-01-14 13:05] LABS: Prothrombin Time Whole Bld POC 17.7 sec (11.1-13.5); ~PT, ~INR - Anti Coag Clinic 1.5 (0.9-1.1)
--- NOTE | 2024-01-14 13:16 | MHC.OFFVISCO ---
Intake Intake Visit Reasons: Anticoagulation Allergies No Known Allergies [No Known Allergies*] Allergy (Verified 01/14/24 13:00) Medication List - Last Reconciled 01/14/24 by Rashida Cash RN levothyroxine (Synthroid) 25 mcg PO DAILY methadone 160 mg PO DAILY warfarin 2.5 mg See Protocol PO DAILY Nursing Note INR 1.5 out of therapeutic range of 3-3.5 Pt states he did not miss a dose Medications and supplements reviewed: no changes Patient status: States he feels good He points out the swelling in his lower legs with some mild erythema bilat. Also , he has [place] on his arms, legs and abd that he states is not itchy but keeps picking at them. Diet: Trying to increase protein in his diet Denies any signs and symptoms of bleeding or clotting or unusual bruising Bleeding, bruising, clotting discussed Nutritional guidance given: no greens today tomorrow or next day Dose: increased today to 5mg (1.25mg) then usual dose of 2.5mg tomorrow and 1.25mg Sun and . Then will be tested again F/U INR Date : 4 days 01/18/24?? Patient verbalizing understanding of instructions given. Anti-Coag Initial Assessment Social Hx Patient Tobacco Use Status: Former Tobacco user alcohol intake: former Alcohol intake frequency: does not drink Cardiovascular Hx: HTN, Arrhythmias and Other Lung Disease HX: DVT/PE Endocrine Hx: Other Musculoskeletal Hx: Arthritis Blood Disorder Hx: Hepatitis GI Hx: Other Hx: Other Neurological Hx: Serious Head Injury and Migraines/Headaches Cancer HX: No Psych. Illness/Depression: No Coding Level of Care Code Est Patient Level 1 Diagnoses Current use of anticoagulant therapy Z79.01 Assessment & Plan Assessment & Plan (1) Current use of anticoagulant therapy: Code(s): Z79.01 - care home (current) use of anticoagulants Category: Medical
== END 2024-01-14 13:52 | disposition home or self-care (01) ==
LOC: HO.ACS 12:56
PROVIDERS: PCP Internal Medicine; Visit Provider Internal Medicine
DX: Z79.01 Long term (current) use of anticoagulants (principal)

== ENCOUNTER → 2024-01-14 12:56 | Outpatient (BNVA) | payer OTHER, SELFPAY | PROVIDERS: PCP Internal Medicine; Visit Provider Internal Medicine | DX: Z86.718 Personal history of other venous thrombosis and embolism (principal); Z79.01 Long term (current) use of anticoagulants; Z51.81 Encounter for therapeutic drug level monitoring | CPT/HCPCS: 85610; 99211 ==

== ENCOUNTER 2024-01-24 10:05 | Outpatient (AMB) | payer OTHER, SELFPAY ==
--- NOTE | 2024-01-24 10:23 | MHC.OFFVISCO ---
Intake Intake Visit Reasons: Anticoagulation Allergies No Known Allergies [No Known Allergies*] Allergy (Verified 01/24/24 10:40) Medication List - Last Reconciled 01/24/24 by Rashida Cash RN levothyroxine (Synthroid) 25 mcg PO DAILY methadone 160 mg PO DAILY warfarin 2.5 mg See Protocol PO DAILY Nursing Note INR: 3.9 out of therapeutic range of 2.5-3.5 Medications and supplements reviewed, pt states he is on antibx and today is last dose. He states he was on them but stopped early because cellulitis in left leg was better but then started to get worse again and he restarted the med. he has an appt with PCP today and will call [facility] if starts on new antibx. No changes in health, diet, medications, or supplements, Denies any signs and symptoms of bleeding or bruising or clotting. Bleeding, bruising, clotting discussed Nutritional guidance given Dose: will decrease tomorrow's dose to 1.25mg(2.5mg) then to continue usual dose of 2.5mg X2 days and 1.25mg X 5 days F/U INR: 1 week Patient verbalizes understanding of instructions given Anti-Coag Initial Assessment Social Hx Patient Tobacco Use Status: Former Tobacco user alcohol intake: former Alcohol intake frequency: does not drink Cardiovascular Hx: HTN, Arrhythmias and Other Lung Disease HX: DVT/PE Endocrine Hx: Other Musculoskeletal Hx: Arthritis Blood Disorder Hx: Hepatitis GI Hx: Other Hx: Other Neurological Hx: Serious Head Injury and Migraines/Headaches Cancer HX: No Psych. 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
[2024-01-24 10:32] LABS: Prothrombin Time Whole Bld POC 46.8 sec (11.1-13.5); ~PT, ~INR - Anti Coag Clinic 3.9 (0.9-1.1)
== END 2024-01-24 10:42 | disposition home or self-care (01) ==
LOC: HO.ACS 10:05
PROVIDERS: PCP Internal Medicine; Visit Provider Internal Medicine
DX: Z79.01 Long term (current) use of anticoagulants (principal)

== ENCOUNTER → 2024-01-24 10:05 | Outpatient (BNVA) | payer OTHER, SELFPAY | PROVIDERS: PCP Internal Medicine; Visit Provider Internal Medicine | DX: I26.99 Other pulmonary embolism without acute cor pulmonale (principal); Z86.718 Personal history of other venous thrombosis and embolism; Z79.01 Long term (current) use of anticoagulants; Z51.81 Encounter for therapeutic drug level monitoring | CPT/HCPCS: 85610; 99211 ==

== ENCOUNTER 2024-01-24 10:35 | Outpatient (AMB) | payer OTHER, SELFPAY ==
--- NOTE | 2024-01-24 10:39 | A.OFFPC_ITS ---
Vital Signs 01/24/24 10:41 Height 5 ft 8 in Weight 243 lb 6 oz BMI 37.0 BP 120/74 Blood Pressure Location Lt brachial Position Sitting Pulse 76 Pulse Source Pulse Oximeter Pulse Oximetry (%) 97 Oxygen Delivery Method Room Air Intake Visit Reasons: 3 month Follow up Intake Note: Patient is here to follow up on Obesity, Hypothyroidism Wearing Apparel Presser Required: No Upholsterer Helper: Not Required per policy Accompanied by: Self / Same As Patient Allergies No Known Allergies [No Known Allergies*] Allergy (Verified 01/24/24 11:11) Medication List - Last Reconciled 01/24/24 by Kyler Daley MD levothyroxine (Synthroid) 25 mcg PO DAILY methadone 160 mg PO DAILY warfarin 2.5 mg See Protocol PO DAILY Tobacco use date assessed: 01/24/24 Dental Screening Dental Screen Date: 01/24/24 Did you have a dental visit in the last 12 months?: Yes Did you have a dental problem in the last 6 months where you did not have access to dental care?: No Was dental information given to patient?: Patient has dentist HPI 3 month Follow up HPI Details 53-year-old male presents to the office for a follow-up visit. Patient is compliant with medications. He is taking the Coumadin as directed and following up at the lab to check his INR. INR is therapeutic. Patient continues to have pain and redness in both his lower extremities. He was in the ER recently and diagnosed with cellulitis. Taking his thyroid medications as directed. [facility] Medical History (Updated 12/21/23 @ 11:55 by Kyler Daley MD) Acquired hypothyroidism Pulmonary emboli DVT, bilateral lower limbs Obesity Polysubstance abuse Encounter to establish care Eyebrow laceration Surgical History No pertinent past surgical history Family History Mother COPD (chronic obstructive pulmonary disease) Father Hepatitis Liver cirrhosis Maternal Grandmother Alzheimer disease Maternal Grandfather Prostate cancer Diabetes Other Mental health disorder Substance use disorder Social History Household Members: Family Housing: House Unable to assess alcohol history related to: Refusing to respond Alcohol intake: former Year quit: 2011 Patient Tobacco Use Status: Former Tobacco user e-Cigarette/Vaping Use: Never Used Second Hand Smoke Exposure: No Substance Use Type: Heroin service: No Current occupational status: unemployed Current occupational exposures/hazards: No Cognitive needs: No Hearing needs: No Vision needs: Yes (reading) Questionnaire Thrive Questionnaire Date Thrive assessed: 12/19/23 TIFFANIE-7 AMB Questionnaire TIFFANIE-7 Date TIFFANIE - 7 assessed: 12/19/23 Source: Developed by Drs. Angel Dent, Maria Isabel Dash, Gelacio Hernandez and colleagues, with an educational quincy from [employer]. Physical exam (Primary Care) Vital Signs: Last Vital Signs Pulse 76 01/24/24 10:41 BP 120/74 01/24/24 10:41 Pulse Ox 97 01/24/24 10:41 Oxygen Delivery Method Room Air 01/24/24 10:41 BMI result Body Mass Index 37.0 Tobacco/Smoking Status: Tobacco use Status Tobacco use date assessed 01/24/24 01/24/24 10:41 Patient Tobacco Use Status Former Tobacco user 01/24/24 10:41 e-Cigarette/Vaping Use Never Used 01/24/24 10:41 Thrive Assessment: Date of Thrive Assessment Date Thrive assessed 12/19/23 01/24/24 10:41 Const General: cooperative and healthy appearing Nutritional Appearance: well nourished Orientation/consciousness: patient oriented x3 Limitations: no limitations HENMT Head: Yes normal to inspection Eyes General: appearance normal, both eyes and all related structures Neck Neck: Yes normal visual inspection Chest Chest palpation & inspection: normal palpation of entire chest wall Resp Effort & Inspection: normal respiratory effort Neuro General: patient oriented x3 Extrem Other: Right lower extremity: Erythema without break in skin. No pitting edema. Results AMB INR Fingerstick AMB INR Fingerstick 3.9 Last Edit by Rashida Cash RN on 10:25 interface delay Assessment and Plan Assessment & Plan (1) Acquired hypothyroidism: Code(s): E03.9 - Hypothyroidism, unspecified Plan: Patient tolerating the Synthroid. Repeat TSH has been ordered. Continue current medications. Patient has poor circulation in his legs. Advised to exercise. Medications: Refilled levothyroxine (Synthroid) 25 mcg PO DAILY 30 tabs 2RF Coding Level of Care Code Est Pt Level 3 (61021) Diagnoses Acquired hypothyroidism E03.9
[2024-01-24 10:41] VITALS: BP 120/74; PULSE 76; O2SAT 97; BMI 37.0
== END 2024-01-24 11:08 | disposition home or self-care (01) ==
PROVIDERS: PCP Nurse Practitioner Family; Visit Provider Internal Medicine
DX: E03.9 Hypothyroidism, unspecified (principal)
CPT/HCPCS: 99213

== ENCOUNTER 2024-02-08 13:26 | Outpatient (REF) | payer OTHER, SELFPAY | END 2024-02-08 13:27 | disposition home or self-care (01) | LOC: HO.LAB 13:26 | PROVIDERS: PCP Internal Medicine; Visit Provider Internal Medicine | DX: I82.409 Acute embolism and thrombosis of unspecified deep veins of unspecified lower extremity (principal); I26.99 Other pulmonary embolism without acute cor pulmonale; Z51.81 Encounter for therapeutic drug level monitoring; Z79.01 Long term (current) use of anticoagulants | CPT/HCPCS: 85610; 99211 ==

== ENCOUNTER 2024-02-08 13:26 | Outpatient (AMB) | payer OTHER, SELFPAY ==
[2024-02-08 13:39] LABS: Prothrombin Time Whole Bld POC 76.7 sec (11.1-13.5); ~PT, ~INR - Anti Coag Clinic 6.4 (0.9-1.1)
--- NOTE | 2024-02-08 13:49 | MHC.OFFVISCO ---
Intake Intake Visit Reasons: Anticoagulation Allergies No Known Allergies [No Known Allergies*] Allergy (Verified 02/08/24 13:32) Medication List - Last Reconciled 02/08/24 by Ana Lilia Garibay RN levothyroxine (Synthroid) 25 mcg PO DAILY methadone 160 mg PO DAILY warfarin 2.5 mg See Protocol PO DAILY Nursing Note INR 6.4 out of therapeutic range- PT HABITUALLY R/S APPTS Medications and supplements reviewed Patient status: STATES HIS LEGS HURT AND ARE SWOLLEN- ENC TO CALL MD OR GO TO ER HE STATES HE HAS AN APPT NEXT WEEK HE STATES HE CANNOT STAY FOR LAB WORK TODAY BECAUSE HIS BROTHER HAS AN APPT, HE STATES HE CAN DO IT SUNDAY, HE STATES HE IS A HARD STICK AND IT WOULD TAKE A WHILE Medications or supplements: STATES NO CHANGES - HE WAS STARTED ON THYROID MED ABOUT 4 WEEKS AGO, IT CAN RAISE THE INR - BUT IS A LOW DOSE -HE HAS A HX OF LIVER DISEASE - IT IS POSSIBLE THAT MAY BE CONTRIBUTING TO THE ELEVATED INR Diet: DOESNT EAT MUCH - YOGURT, CHERRIOS AND OCC MEAL WITH MOTHER Denies any signs and symptoms of bleeding or clotting or unusual bruising Bleeding, bruising, clotting discussed Nutritional guidance given: EAT GREENS TODAY AND HAVE REAL PROTEIN Dose: HOLD WARARIN TODAY AND TOMORROW / 1/25MG SUN F/U INR Date : RECHECK INR 02/11/24 WITH OTHER LABS - MAY NEED 1.25 MG DAILY ?? Patient verbalizing understanding of instructions given. INSTRUCTED TO GO TO ER WITH ANY UNUSUAL BLEEDING OR BRUISING OR INJURY AND TO APPLY COLD COMPRESS RIGHT AWAY PCP office called with results spoke with Miranda RUOSE who will convey msg to PCP or covering providers. Anti-Coag Initial Assessment Social Hx Patient Tobacco Use Status: Former Tobacco user alcohol intake: former Alcohol intake frequency: does not drink Cardiovascular Hx: HTN, Arrhythmias and Other Lung Disease HX: DVT/PE Endocrine Hx: Other Musculoskeletal Hx: Arthritis Blood Disorder Hx: Hepatitis GI Hx: Other Hx: Other Neurological Hx: Serious Head Injury and Migraines/Headaches Cancer HX: No Psych. 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 anticoagulants Category: Medical Orders: Orders Basic Metabolic Panel Today I26.99 - Other pulmonary embolism without acute cor pulmonale, I82.403 - Acute embolism and thrombosis of unspecified deep veins of lower extremity, bilateral, Z79.01 - terminal gauger supervisor (current) use of anticoagulants Prothrombin Time INR Today I26.99 - Other pulmonary embolism without acute cor pulmonale, I82.409 - Acute embolism and thrombosis of unspecified deep veins of unspecified lower extremity, Z79.01 - terminal gauger supervisor (current) use of anticoagulants Complete Blood Count Auto Diff Today I26.99 - Other pulmonary embolism without acute cor pulmonale, I82.403 - Acute embolism and thrombosis of unspecified deep veins of lower extremity, bilateral, Z79.01 - [facility] (current) use of anticoagulants
== END 2024-02-08 14:03 | disposition home or self-care (01) ==
LOC: HO.ACS 13:26
PROVIDERS: PCP Internal Medicine; Visit Provider Internal Medicine
DX: Z79.01 Long term (current) use of anticoagulants (principal)

== ENCOUNTER 2024-02-11 14:23 | Outpatient (AMB) | payer OTHER, SELFPAY ==
[2024-02-11 14:53] LABS: Prothrombin Time Whole Bld POC 35.1 sec (11.1-13.5); ~PT, ~INR - Anti Coag Clinic 2.9 (0.9-1.1)
--- NOTE | 2024-02-11 14:53 | MHC.OFFVISCO ---
Intake Intake Visit Reasons: Anticoagulation Allergies No Known Allergies [No Known Allergies*] Allergy (Verified 02/08/24 13:32) Medication List - Last Reconciled 02/11/24 by Ana Lilia Garibay RN levothyroxine (Synthroid) 25 mcg PO DAILY methadone 160 mg PO DAILY warfarin 2.5 mg See Protocol PO DAILY Nursing Note INR: 2.9 in therapeutic range- PT DID NOT STAY FOR LABS LAST WEEK OR TODAY - STATES HIS BROTHER HAS APPTS IN AT [address] IN [place], VERY NERVOUS ACTING BEHAVIOR Medications and supplements reviewed No changes in health, diet, medications, or supplements, Denies any signs and symptoms of bleeding or bruising or clotting. Bleeding, bruising, clotting discussed Nutritional guidance given REVIEW FOOD LIST WEEKLY, EAT 1 SERVING OF GREENS / WEEKS Dose: DECREASE WEEKLY DOSE TO 1.25MG X 1 DAY/ 2.5MG X 6 DAYS F/U INR: WEEKLY Patient verbalizes understanding of instructions given Anti-Coag Initial Assessment Social Hx Patient Tobacco Use Status: Former Tobacco user alcohol intake: former Alcohol intake frequency: does not drink Cardiovascular Hx: HTN, Arrhythmias and Other Lung Disease HX: DVT/PE Endocrine Hx: Other Musculoskeletal Hx: Arthritis Blood Disorder Hx: Hepatitis GI Hx: Other Hx: Other Neurological Hx: Serious Head Injury and Migraines/Headaches Cancer HX: No Psych. 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
== END 2024-02-11 14:57 | disposition home or self-care (01) ==
LOC: HO.ACS 14:23
PROVIDERS: PCP Internal Medicine; Visit Provider Internal Medicine
DX: Z79.01 Long term (current) use of anticoagulants (principal)

== ENCOUNTER → 2024-02-11 14:23 | Outpatient (BNVA) | payer OTHER, SELFPAY | PROVIDERS: PCP Internal Medicine; Visit Provider Internal Medicine | DX: I82.503 Chronic embolism and thrombosis of unspecified deep veins of lower extremity, bilateral (principal); I26.99 Other pulmonary embolism without acute cor pulmonale; Z79.01 Long term (current) use of anticoagulants; Z51.81 Encounter for therapeutic drug level monitoring | CPT/HCPCS: 85610; 99211 ==

== ENCOUNTER 2024-02-19 13:01 | Outpatient (AMB) | payer OTHER, SELFPAY ==
[2024-02-19 13:23] LABS: Prothrombin Time Whole Bld POC 42.9 sec (11.1-13.5); ~PT, ~INR - Anti Coag Clinic 3.6 (0.9-1.1)
--- NOTE | 2024-02-19 13:23 | MHC.OFFVISCO ---
Intake Intake Visit Reasons: Anticoagulation Allergies No Known Allergies [No Known Allergies*] Allergy (Verified 02/19/24 13:10) Medication List - Last Reconciled 02/19/24 by Rashida Cash, RN levothyroxine (Synthroid) 25 mcg PO DAILY methadone 160 mg PO DAILY warfarin 2.5 mg See Protocol PO DAILY Nursing Note INR: 3.6 out of therapeutic range of 3-3.5 Medications and supplements reviewed: no changes No changes in health, diet, medications, or supplements, Denies any signs and symptoms of bleeding or bruising or clotting. Bleeding, bruising, clotting discussed Nutritional guidance given to cont to balance greens and reds Dose: 2.5mg X 1 day and 1.25mg X 6 days F/U INR: 10 days Patient verbalizes understanding of instructions given Anti-Coag Initial Assessment Social Hx Patient Tobacco Use Status: Former Tobacco user alcohol intake: former Alcohol intake frequency: does not drink Cardiovascular Hx: HTN, Arrhythmias and Other Lung Disease HX: DVT/PE Endocrine Hx: Other Musculoskeletal Hx: Arthritis Blood Disorder Hx: Hepatitis GI Hx: Other Hx: Other Neurological Hx: Serious Head Injury and Migraines/Headaches Cancer HX: No Psych. Illness/Depression: No Coding Level of Care Code Est Patient Level 1 Diagnoses Current use of anticoagulant therapy Z79.01 Results AMB INR Fingerstick AMB INR Fingerstick 3.6 Last Edit by Rashida Cash RN on 02/19/24 13:15 interface delay Assessment & Plan Assessment & Plan (1) Current use of anticoagulant therapy: Code(s): Z79.01 - salvage determiner (current) use of anticoagulants Category: Medical
== END 2024-02-19 13:31 | disposition home or self-care (01) ==
LOC: HO.ACS 13:01
PROVIDERS: PCP Internal Medicine; Visit Provider Internal Medicine
DX: Z79.01 Long term (current) use of anticoagulants (principal)

== ENCOUNTER → 2024-02-19 13:01 | Outpatient (BNVA) | payer OTHER, SELFPAY | PROVIDERS: PCP Internal Medicine; Visit Provider Internal Medicine | DX: I82.403 Acute embolism and thrombosis of unspecified deep veins of lower extremity, bilateral (principal); I26.99 Other pulmonary embolism without acute cor pulmonale; Z79.01 Long term (current) use of anticoagulants; Z51.81 Encounter for therapeutic drug level monitoring | CPT/HCPCS: 85610; 99211 ==

== ENCOUNTER 2024-02-21 13:14 | Outpatient (AMB) | payer OTHER, SELFPAY ==
[2024-02-21 13:23] VITALS: BMI 36.3
--- NOTE | 2024-02-21 13:23 | MHC.OFFVIS ---
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 Pt has very swollen LE, w/ skin changes, hyperpigmentation, weeping, ulcers, dry skin, tightness and pain. Left LE is now more swollen than Right. Pain is with or without ambulation. 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 He has a prior history of IV drug abuse. And he reports that he had used his lower extremity veins for sites of injection. He does point to bilateral calf great saphenous veins. He subsequently developed bilateral lower extremities DVTs in October of 2022. He also at that time had pulmonary emboli. He had been on Eliquis at that time. He had a Doppler on 06/29/2023 he was subsequently started on Coumadin. There was concerns phlebitis at some point. He had repeat DVT studies which was concerning for chronic occlusive clots. He is quite concerned about his overall leg status. He has significantly edematous lower extremities. Patient denies any previous venous surgery or injections. Patient positive for 3 prior episodes Patient notes previous history phlebitis on several occasions in particular calf Trial of compression includes - compression of 20-30 mmHg They now present for vascular evaluation regarding their varicose veins. [facility] Medical History DVT (deep venous thrombosis) Acquired hypothyroidism Pulmonary emboli DVT, bilateral lower limbs Obesity Polysubstance abuse Encounter to establish care Eyebrow laceration Surgical History No pertinent past surgical history Family History Mother COPD (chronic obstructive pulmonary disease) Father Hepatitis Liver cirrhosis Maternal Grandmother Alzheimer disease Maternal Grandfather Prostate cancer Diabetes Other Mental health disorder Substance use disorder Social History Household Members: Family Housing: House Unable to assess alcohol history related to: Refusing to respond Alcohol intake: former Year quit: 2011 Patient Tobacco Use Status: Former Tobacco user e-Cigarette/Vaping Use: Never Used Second Hand Smoke Exposure: No Substance Use Type: Heroin service: No Current occupational status: unemployed Current occupational exposures/hazards: No Cognitive needs: No Hearing needs: No Vision needs: Yes (reading) Review of Systems Const Reports as per HPI ENT Reports no additional complaints Card Denies chest pain, Denies chest pain at rest and Denies chest pain with activity Resp Denies chest congestion and Denies cough GI Reports no additional complaints Musc Details: pain over varicosities, aching of lower extremities, swelling, cramping, heaviness and tiredness, itching Denies abnormal gait Skin/Breast Reports pruritus and Denies wounds Neuro Reports no additional complaints and Denies abnormal gait Psych Denies no additional complaints Physical Exam Vital Signs: BMI result Body Mass Index 36.3 Const General: cooperative, healthy appearing and comfortable Orientation/consciousness: oriented to person, oriented to place and oriented to time Neck Carotids: no bruits Chest Chest palpation & inspection: normal inspection of the chest and normal palpation of entire chest wall Resp Effort & Inspection: normal respiratory effort and able to speak in complete sentences Cardio Rate: regular rate Heart sounds: S1 normal heart sound present and S2 normal heart sound present Peripheral pulses: Peripheral pulses 2+ throughout GI Inspection: Yes normal to inspection Skin Other: +2 edema, large rope-like varicosities greater than 4 mm CEAP Classification C4 - skin color changes Ep - Etiology Primary As - superficial veins P - reflux General skin exam: dry skin Neuro General: oriented to person, oriented to place and oriented to time Extrem Right lower extremity: full ROM, normal capillary refill and edema Left lower extremity: full ROM, normal capillary refill and edema Psych Mental Status: mental status grossly normal Assessment & Plan Assessment & Plan (1) DVT, bilateral lower limbs: Code(s): I82.403 - Acute embolism and thrombosis of unspecified deep veins of lower extremity, bilateral Qualifiers: Affected thrombotic vein of extremity: unspecified vein of extremity Chronicity: unspecified Qualified Code(s): I82.403 - Acute embolism and thrombosis of unspecified deep veins of lower extremity, bilateral Plan: In short patient has significant bilateral lower extremity DVTs. The concern is the significant amount of swelling. Unfortunately due to his recurrent DVTs he would not be a candidate for any superficial vein treatments. I am concerned that there may be a more central problem to all this. I have taken the liberty of ordering a CT venogram to better elucidate this. He will follow up with us after testing. Thank you for allowing us to assist in his care. If there are any questions or concerns please do not hesitate to contact us. Orders: Orders Creatinine Today I82.403 - Acute embolism and thrombosis of unspecified deep veins of lower extremity, bilateral Blood Urea Nitrogen Today I82.403 - Acute embolism and thrombosis of unspecified deep veins of lower extremity, bilateral CT angio abdomen pelvis 1 Week I82.403 - Acute embolism and thrombosis of unspecified deep veins of lower extremity, bilateral Coding Level of Care Code Est Pt Level 4 (64889) Diagnoses Deep vein thrombosis (DVT) of both lower extremities, unspecified chronicity, unspecified vein I82.403 Affected thrombotic vein of extremity: unspecified vein of extremity Chronicity: unspecified
== END 2024-02-21 14:08 | disposition home or self-care (01) ==
PROVIDERS: PCP Internal Medicine; Visit Provider Surgery Vascular Surgery
DX: I82.403 Acute embolism and thrombosis of unspecified deep veins of lower extremity, bilateral (principal)
CPT/HCPCS: 99214

== ENCOUNTER → 2024-02-21 13:14 | Outpatient (BNVA) | payer OTHER, SELFPAY | PROVIDERS: PCP Internal Medicine; Visit Provider Surgery Vascular Surgery | DX: I82.403 Acute embolism and thrombosis of unspecified deep veins of lower extremity, bilateral (principal) | CPT/HCPCS: 99212 ==

== ENCOUNTER 2024-03-04 13:51 | Outpatient (AMB) | payer OTHER, SELFPAY ==
[2024-03-04 14:10] LABS: Prothrombin Time Whole Bld POC 23.7 sec (11.1-13.5)
--- NOTE | 2024-03-04 14:25 | MHC.OFFVISCO ---
Intake Intake Visit Reasons: Anticoagulation Allergies No Known Allergies [No Known Allergies*] Allergy (Verified 03/04/24 14:00) Medication List - Last Reconciled 03/04/24 by Ana Lilia Garibay RN levothyroxine (Synthroid) 25 mcg PO DAILY methadone 160 mg PO DAILY warfarin 2.5 mg See Protocol PO DAILY Nursing Note INR 2.0 out of therapeutic range 3.0-3.5- VERY LABILE Medications and supplements reviewed Patient status: PT states he has chronic leg pain and swelling , hx of chronic constipation, hypothyroidism and hx of iv drug abuse in the past on methadone, all can contribute to constipation and hyper coagu-ability, INR very labile, drinks a lot of ice-tea does not like plain water, Medications or supplements: no changes Diet: limited diet only has greens maybe 2 x / month- eats cheerios and yogurts Denies any signs and symptoms of bleeding or clotting or unusual bruising Bleeding, bruising, clotting discussed Nutritional guidance given: review food list, avoid greens x 3 days until INR back in range Dose: booster dose today of 3.75mg now/ 2.5mg sun / 1.25mg thur / chk INR Sunday F/U INR Date : ?03/07/24 he is supposed to have f/u labs this Sunday possibly for Endocrin 03/07/24 Patient verbalizing understanding of instructions given. Will send msg to Dr Kirk with f/u call also ask if he has had a vascular consult Anti-Coag Initial Assessment Social Hx Patient Tobacco Use Status: Former Tobacco user alcohol intake: former Alcohol intake frequency: does not drink Cardiovascular Hx: HTN, Arrhythmias and Other Lung Disease HX: DVT/PE Endocrine Hx: Other Musculoskeletal Hx: Arthritis Blood Disorder Hx: Hepatitis GI Hx: Other Hx: Other Neurological Hx: Serious Head Injury and Migraines/Headaches Cancer HX: No Psych. Illness/Depression: No Coding Level of Care Code Est Patient Level 1 Diagnoses Current use of anticoagulant therapy Z79.01 Results AMB INR Fingerstick AMB INR Fingerstick 2.0 Last Edit by Ana Lilia Garibay RN on 03/04/24 14:09 MANUAL ENTRY Assessment & Plan Assessment & Plan (1) Current use of anticoagulant therapy: Code(s): Z79.01 - halfway (current) use of anticoagulants Category: Medical
== END 2024-03-04 14:38 | disposition home or self-care (01) ==
LOC: HO.ACS 13:51
PROVIDERS: PCP Internal Medicine; Visit Provider Internal Medicine
DX: Z79.01 Long term (current) use of anticoagulants (principal)

== ENCOUNTER → 2024-03-04 13:51 | Outpatient (BNVA) | payer OTHER, SELFPAY | PROVIDERS: PCP Internal Medicine; Visit Provider Internal Medicine | DX: Z86.718 Personal history of other venous thrombosis and embolism (principal); Z51.81 Encounter for therapeutic drug level monitoring; Z79.01 Long term (current) use of anticoagulants | CPT/HCPCS: 85610; 99211 ==

== ENCOUNTER 2024-03-07 13:44 | Outpatient (AMB) | payer OTHER, SELFPAY ==
[2024-03-07 14:01] LABS: Prothrombin Time Whole Bld POC 38.6 sec (11.1-13.5); ~PT, ~INR - Anti Coag Clinic 3.2 (0.9-1.1)
--- NOTE | 2024-03-07 14:03 | MHC.OFFVISCO ---
Intake Intake Visit Reasons: Anticoagulation Allergies No Known Allergies [No Known Allergies*] Allergy (Verified 03/07/24 13:55) Medication List - Last Reconciled 03/07/24 by Gege Rose RN levothyroxine (Synthroid) 25 mcg PO DAILY methadone 160 mg PO DAILY warfarin 2.5 mg See Protocol PO DAILY Nursing Note INR: 3.2- in therapeutic range of 3.0-3.5 Medications and supplements reviewed- no changes No changes in health, diet, medications, or supplements, Denies any signs and symptoms of bleeding or bruising or clotting. Bleeding, bruising, clotting discussed Nutritional guidance given Dose: 2.5mg x 1. 1.25mg x 6 F/U INR: 1 week Patient verbalizes understanding of instructions given Anti-Coag Initial Assessment Social Hx Patient Tobacco Use Status: Former Tobacco user alcohol intake: former Alcohol intake frequency: does not drink Cardiovascular Hx: HTN, Arrhythmias and Other Lung Disease HX: DVT/PE Endocrine Hx: Other Musculoskeletal Hx: Arthritis Blood Disorder Hx: Hepatitis GI Hx: Other Hx: Other Neurological Hx: Serious Head Injury and Migraines/Headaches Cancer HX: No Psych. 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
== END 2024-03-07 14:07 | disposition home or self-care (01) ==
LOC: HO.ACS 13:44
PROVIDERS: PCP Internal Medicine; Visit Provider Internal Medicine
DX: Z79.01 Long term (current) use of anticoagulants (principal)

== ENCOUNTER → 2024-03-07 13:44 | Outpatient (BNVA) | payer OTHER, SELFPAY | PROVIDERS: PCP Internal Medicine; Visit Provider Internal Medicine | DX: I26.99 Other pulmonary embolism without acute cor pulmonale (principal); I82.403 Acute embolism and thrombosis of unspecified deep veins of lower extremity, bilateral; Z51.81 Encounter for therapeutic drug level monitoring; Z79.01 Long term (current) use of anticoagulants | CPT/HCPCS: 85610; 99211 ==

== ENCOUNTER 2024-03-14 15:31 | Outpatient (AMB) | payer OTHER, SELFPAY ==
[2024-03-14 15:49] LABS: Prothrombin Time Whole Bld POC 31.2 sec (11.1-13.5); ~PT, ~INR - Anti Coag Clinic 2.6 (0.9-1.1)
--- NOTE | 2024-03-14 16:20 | MHC.OFFVISCO ---
Intake Intake Visit Reasons: Anticoagulation Allergies No Known Allergies [No Known Allergies*] Allergy (Verified 03/14/24 15:43) Medication List - Last Reconciled 03/14/24 by Ana Lilia Garibay RN levothyroxine (Synthroid) 25 mcg PO DAILY methadone 160 mg PO DAILY warfarin 2.5 mg See Protocol PO DAILY Nursing Note INR 2.6?? 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 Patient verbalizing understanding of instructions given. Anti-Coag Initial Assessment Social Hx Patient Tobacco Use Status: Former Tobacco user alcohol intake: former Alcohol intake frequency: does not drink Cardiovascular Hx: HTN, Arrhythmias and Other Lung Disease HX: DVT/PE Endocrine Hx: Other Musculoskeletal Hx: Arthritis Blood Disorder Hx: Hepatitis GI Hx: Other Hx: Other Neurological Hx: Serious Head Injury and Migraines/Headaches Cancer HX: No Psych. 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
== END 2024-03-14 16:23 | disposition home or self-care (01) ==
LOC: HO.ACS 15:31
PROVIDERS: PCP Internal Medicine; Visit Provider Internal Medicine
DX: Z79.01 Long term (current) use of anticoagulants (principal)

== ENCOUNTER → 2024-03-14 15:31 | Outpatient (BNVA) | payer OTHER, SELFPAY | PROVIDERS: PCP Internal Medicine; Visit Provider Internal Medicine | DX: I26.99 Other pulmonary embolism without acute cor pulmonale (principal); Z86.718 Personal history of other venous thrombosis and embolism; Z51.81 Encounter for therapeutic drug level monitoring; Z79.01 Long term (current) use of anticoagulants | CPT/HCPCS: 85610; 99211 ==

== ENCOUNTER 2024-03-21 15:25 | Outpatient (AMB) | payer OTHER, SELFPAY ==
[2024-03-21 15:35] LABS: Prothrombin Time Whole Bld POC 33.1 sec (11.1-13.5); ~PT, ~INR - Anti Coag Clinic 2.8 (0.9-1.1)
--- NOTE | 2024-03-21 15:43 | MHC.OFFVISCO ---
Intake Intake Visit Reasons: Anticoagulation Allergies No Known Allergies [No Known Allergies*] Allergy (Verified 03/21/24 15:30) Medication List - Last Reconciled 03/21/24 by Adrienne Clemente RN levothyroxine (Synthroid) 25 mcg PO DAILY methadone 160 mg PO DAILY warfarin 2.5 mg See Protocol PO DAILY Nursing Note PT.DENIES ANY CP,SOB,DIET/MED CHANGES,FALLS OR SX OF BLEEDING. INCREASE WEEKLY DOSE AND FOLLOW-UP HERE IN 1 WEEK. GOOD UNDERSTANDING OF DOSING INSTR. Anti-Coag Initial Assessment Social Hx Patient Tobacco Use Status: Former Tobacco user alcohol intake: former Alcohol intake frequency: does not drink Cardiovascular Hx: HTN, Arrhythmias and Other Lung Disease HX: DVT/PE Endocrine Hx: Other Musculoskeletal Hx: Arthritis Blood Disorder Hx: Hepatitis GI Hx: Other Hx: Other Neurological Hx: Serious Head Injury and Migraines/Headaches Cancer HX: No Psych. 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
== END 2024-03-21 15:46 | disposition home or self-care (01) ==
LOC: HO.ACS 15:25
PROVIDERS: PCP Internal Medicine; Visit Provider Internal Medicine
DX: Z79.01 Long term (current) use of anticoagulants (principal)

== ENCOUNTER → 2024-03-21 15:25 | Outpatient (BNVA) | payer OTHER, SELFPAY | PROVIDERS: PCP Internal Medicine; Visit Provider Internal Medicine | DX: Z86.718 Personal history of other venous thrombosis and embolism (principal); Z51.81 Encounter for therapeutic drug level monitoring; Z79.01 Long term (current) use of anticoagulants | CPT/HCPCS: 85610; 99211 ==

== ENCOUNTER 2024-04-04 15:44 | Outpatient (AMB) | payer OTHER, SELFPAY ==
--- NOTE | 2024-04-04 15:49 | MHC.OFFVISCO ---
Intake Intake Visit Reasons: Anticoagulation Allergies No Known Allergies [No Known Allergies*] Allergy (Verified 04/04/24 15:45) Medication List - Last Reconciled 04/04/24 by Gege Rose RN levothyroxine (Synthroid) 25 mcg PO DAILY methadone 160 mg PO DAILY warfarin 2.5 mg See Protocol PO DAILY Nursing Note INR 2.4-?? out of therapeutic range of 3-3.5 denies missed dose Medications and supplements reviewed Patient status: pt with c.o sob, Medications or supplements: no changes Diet: same- 1500 job diet with attempt at weight loss Denies any signs and symptoms of bleeding or clotting or unusual bruising Bleeding, bruising, clotting discussed Nutritional guidance given: no greens for 2-3 days, eat reds to raise Dose: 2.5mg today and tomm then 2.5mg x 3, 1.25mg x 4 F/U INR Date : 1 week? Patient verbalizing understanding of instructions given. composed note to dr boucher with low inr Anti-Coag Initial Assessment Social Hx Patient Tobacco Use Status: Former Tobacco user alcohol intake: former Alcohol intake frequency: does not drink Cardiovascular Hx: HTN, Arrhythmias and Other Lung Disease HX: DVT/PE Endocrine Hx: Other Musculoskeletal Hx: Arthritis Blood Disorder Hx: Hepatitis GI Hx: Other Hx: Other Neurological Hx: Serious Head Injury and Migraines/Headaches Cancer HX: No Psych. Illness/Depression: No Coding Level of Care Code Est Patient Level 1 Diagnoses Current use of anticoagulant therapy Z79.01 Assessment & Plan Assessment & Plan (1) Current use of anticoagulant therapy: Code(s): Z79.01 - intermediate (current) use of anticoagulants Category: Medical
[2024-04-04 15:50] LABS: Prothrombin Time Whole Bld POC 28.5 sec (11.1-13.5); ~PT, ~INR - Anti Coag Clinic 2.4 (0.9-1.1)
== END 2024-04-04 16:17 | disposition home or self-care (01) ==
LOC: HO.ACS 15:44
PROVIDERS: PCP Internal Medicine; Visit Provider Internal Medicine
DX: Z79.01 Long term (current) use of anticoagulants (principal)

== ENCOUNTER → 2024-04-04 15:44 | Outpatient (BNVA) | payer OTHER, SELFPAY | PROVIDERS: PCP Internal Medicine; Visit Provider Internal Medicine | DX: I26.99 Other pulmonary embolism without acute cor pulmonale (principal); Z86.718 Personal history of other venous thrombosis and embolism; Z79.01 Long term (current) use of anticoagulants; Z51.81 Encounter for therapeutic drug level monitoring | CPT/HCPCS: 85610; 99211 ==

== ENCOUNTER 2024-04-14 13:58 | Outpatient (AMB) | payer OTHER, SELFPAY ==
[2024-04-14 14:30] LABS: Prothrombin Time Whole Bld POC 77.5 sec (11.1-13.5); ~PT, ~INR - Anti Coag Clinic 6.5 (0.9-1.1)
--- NOTE | 2024-04-14 14:40 | MHC.OFFVISCO ---
Intake Intake Visit Reasons: Anticoagulation Allergies No Known Allergies [No Known Allergies*] Allergy (Verified 04/14/24 14:24) Medication List - Last Reconciled 04/14/24 by Ana Lilia Garibay RN levothyroxine (Synthroid) 25 mcg PO DAILY methadone 160 mg PO DAILY warfarin 2.5 mg See Protocol PO DAILY Nursing Note INR 6.5 out of therapeutic range- REFUSED LAB DRAW TODAY DUE TO TIME BUT WILLING TO COME TOMORROW AND DO ALL LABS THAT ACS AND MD ORDERS. Medications and supplements reviewed Patient status: PT INR VERY LABILE- DIET IS MOSTLY 2 YOGURTS/ DAY , CHEERIOS AND OCC EGG SANDWHICH OR CHICKEN BREAST, SOME FRUITS WATERMELON OR GRAPES Medications or supplements: TOOK GABAPENTIN A FEW TIMES THAT HE HAD LEFT BECAUSE HIS LEGS ACHE SO BAD- NO RELIEF, METHADONE DOSE THE SAME NO CHANGES Diet: SAME PER PT Denies any signs and symptoms of bleeding or clotting or unusual bruising Bleeding, bruising, clotting discussed Nutritional guidance given: GREENS TODAY IF HE HAS THEM Dose: HOLD WARFARIN TODAY AND RECHECK TOMORROW F/U INR Date : 04/15/24 AT LAB ?? Patient verbalizing understanding of instructions given. Well send this msg to PCP and Hem/Onc with pt status and plan of care and to order labs PRN pt needs - pt states he is a hard stick and wants to get all the labs MD need all at once > Anti-Coag Initial Assessment Social Hx Patient Tobacco Use Status: Former Tobacco user alcohol intake: former Alcohol intake frequency: does not drink Cardiovascular Hx: HTN, Arrhythmias and Other Lung Disease HX: DVT/PE Endocrine Hx: Other Musculoskeletal Hx: Arthritis Blood Disorder Hx: Hepatitis GI Hx: Other Hx: Other Neurological Hx: Serious Head Injury and Migraines/Headaches Cancer HX: No Psych. Illness/Depression: No Coding Level of Care Code Est Patient Level 1 Diagnoses Current use of anticoagulant therapy Z79.01 Assessment & Plan Assessment & Plan (1) Current use of anticoagulant therapy: Code(s): Z79.01 - [facility] (current) use of anticoagulants Category: Medical Orders: Orders Prothrombin Time INR 04/15/24 Z79.01 - [facility] (current) use of anticoagulants Complete Blood Count Auto Diff 04/15/24 I26.99 - Other pulmonary embolism without acute cor pulmonale, I82.403 - Acute embolism and thrombosis of unspecified deep veins of lower extremity, bilateral Medications: New gabapentin PO
== END 2024-04-14 14:51 | disposition home or self-care (01) ==
LOC: HO.ACS 13:58
PROVIDERS: PCP Internal Medicine; Visit Provider Internal Medicine
DX: Z79.01 Long term (current) use of anticoagulants (principal)

== ENCOUNTER → 2024-04-14 13:58 | Outpatient (BNVA) | payer OTHER, SELFPAY | PROVIDERS: PCP Internal Medicine; Visit Provider Internal Medicine | DX: Z86.718 Personal history of other venous thrombosis and embolism (principal); I26.99 Other pulmonary embolism without acute cor pulmonale; Z51.81 Encounter for therapeutic drug level monitoring; Z79.01 Long term (current) use of anticoagulants | CPT/HCPCS: 85610; 99211 ==

== ENCOUNTER 2024-04-15 10:04 | Outpatient (REF) | payer OTHER, SELFPAY ==
[2024-04-15 10:30] LABS: MANUAL DIFF FLAG NO
[2024-04-15 10:32] LABS: Basophils Percent Auto 0.4 % (0-2); Eosinophils Absolute Auto 0.1 X10*3/uL (0.0-0.4); Eosinophils Percent Auto 2.3 % (0-4); Hematocrit 37.4 % (42.0-52.0); Hemoglobin 11.9 g/dl (14.0-18.0); Imm Gran Abs Auto 0.01 X10*3/uL (0.00-0.03); Imm Gran Pct Auto 0.2 % (0.0-0.4); Lymphocytes Absolute Auto 1.8 X10*3/uL (1.2-4.9); Lymphocytes Percent Auto 32.1 % (20-40); Mean Corpuscular HGB Conc 31.8 g/dl (31.0-36.0); Mean Corpuscular Hemoglobin 27.4 pg (27.0-33.0); Monocytes Absolute Auto 0.6 X10*3/uL (0.1-1.2); Monocytes Percent Auto 10.7 % (2-11); Neutrophils Absolute Auto 3.1 x10*3/uL (2.0-8.3); Neutrophils Percent Auto 54.3 % (45-73); Platelet Count 262 X10*3/uL (160-400); Red Blood Count 4.35 X10*6/uL (4.60-5.80); Red Cell Distribution Width 15.7 % (11.0-16.0); White Blood Count 5.7 X10*3/uL (4.8-10.8)
[2024-04-15 10:39] LABS: INTERNATIONAL NORM RATIO 4.8 (0.9-1.1); Prothrombin Time 58.4 SEC (11.1-13.3)
[2024-04-15 10:57] LABS: Anion Gap 14 (12-20); Blood Urea Nitrogen 15 mg/dL (9-16); Calcium 8.8 mg/dL (8.4-10.2); Carbon Dioxide 21 mmol/L (22-29); Chloride 107 mmol/L (96-108); Estimated Glomerular Filt Rate > 60; Glucose Random 87 mg/dL (60-115); Potassium 4.5 mmol/L (3.3-5.1); Sodium 137 mmol/L (135-145)
[2024-04-15 11:13] LABS: Thyroid Stimulating Hormone 3.58 uIU/mL (0.32-4.0)
== END 2024-04-15 10:05 | disposition home or self-care (01) ==
LOC: HO.LAB 10:04
PROVIDERS: PCP Internal Medicine; Visit Provider Internal Medicine
DX: E03.9 Hypothyroidism, unspecified (principal); I26.99 Other pulmonary embolism without acute cor pulmonale; I82.403 Acute embolism and thrombosis of unspecified deep veins of lower extremity, bilateral; Z79.01 Long term (current) use of anticoagulants
CPT/HCPCS: 36415; 80048; 84443; 85025; 85610; 99211

== ENCOUNTER 2024-04-15 10:14 | Outpatient (AMB) | payer OTHER, SELFPAY ==
--- NOTE | 2024-04-15 11:36 | MHC.OFFVISCO ---
Intake Intake Visit Reasons: Anticoagulation Allergies No Known Allergies [No Known Allergies*] Allergy (Verified 04/15/24 10:58) Medication List - Last Reconciled 04/15/24 by Ana Lilia Garibay RN gabapentin PO levothyroxine (Synthroid) 25 mcg PO DAILY methadone 160 mg PO DAILY warfarin 2.5 mg See Protocol PO DAILY Nursing Note came in f/u INR lab today - he was unable to stay for lab validation yesterday INR LAB 4.8?out of therapeutic range - BETTER THAN YESTERDAY Medications and supplements reviewed Patient status: pt came for other labs also - BUT forgot to fast for lipid and liver studies - he will do those another time Medications or supplements: no changes- discussed taking thyroid med in am 1 hour prior or 2 hours after any food and to take in am - may help sleep better when not taking it at night. Diet: same - no chagnes Denies any signs and symptoms of bleeding or clotting or unusual bruising Bleeding, bruising, clotting discussed Nutritional guidance given: review food list- keep what fruits and vegetables you are able to have in diet, likes melon grapes and broccoli Dose: hold today 2.5mg wed/ 1.25mg thur and chk hung - possible 2.5mg wed thur and 1.25mg x 5 days F/U INR Date : 04/18/24?? Patient verbalizing understanding of instructions given. Anti-Coag Initial Assessment Social Hx Patient Tobacco Use Status: Former Tobacco user alcohol intake: former Alcohol intake frequency: does not drink Cardiovascular Hx: HTN, Arrhythmias and Other Lung Disease HX: DVT/PE Endocrine Hx: Other Musculoskeletal Hx: Arthritis Blood Disorder Hx: Hepatitis GI Hx: Other Hx: Other Neurological Hx: Serious Head Injury and Migraines/Headaches Cancer HX: No Psych. Illness/Depression: No Coding Level of Care Code Est Patient Level 1 Diagnoses Current use of anticoagulant therapy Z79.01 Assessment & Plan Assessment & Plan (1) Current use of anticoagulant therapy: Code(s): Z79.01 - correction (current) use of anticoagulants Category: Medical Orders: Orders Prothrombin Time INR Today Z79.01 - salvage determiner (current) use of anticoagulants
== END 2024-04-15 11:50 | disposition home or self-care (01) ==
LOC: HO.ACS 10:14
PROVIDERS: PCP Internal Medicine; Visit Provider Internal Medicine
DX: Z79.01 Long term (current) use of anticoagulants (principal)

== ENCOUNTER 2024-04-18 13:23 | Outpatient (AMB) | payer OTHER, SELFPAY ==
[2024-04-18 13:32] LABS: Prothrombin Time Whole Bld POC 43.6 sec (11.1-13.5); ~PT, ~INR - Anti Coag Clinic 3.6 (0.9-1.1)
--- NOTE | 2024-04-18 13:42 | MHC.OFFVISCO ---
Intake Intake Visit Reasons: Anticoagulation Allergies No Known Allergies [No Known Allergies*] Allergy (Verified 04/18/24 13:27) Medication List - Last Reconciled 04/18/24 by Rashida Cash, PADMA gabapentin PO levothyroxine (Synthroid) 25 mcg PO DAILY methadone 160 mg PO DAILY warfarin 2.5 mg See Protocol PO DAILY Nursing Note INR: 3.6 out of therapeutic range of 3.0-3.5 Medications and supplements reviewed: no changes No changes in health, diet, medications, or supplements, Pt c/o swollen legs. Lower extremity pitting edema 2-3+ noted Denies any signs and symptoms of bleeding or bruising or clotting. Bleeding, bruising, clotting discussed Nutritional guidance given to balance fruits and vegetables Dose: 1.25mg X 5 days and 2.5mg X 2 days F/U INR: 1 week Patient verbalizes understanding of instructions given Anti-Coag Initial Assessment Social Hx Patient Tobacco Use Status: Former Tobacco user alcohol intake: former Alcohol intake frequency: does not drink Cardiovascular Hx: HTN, Arrhythmias and Other Lung Disease HX: DVT/PE Endocrine Hx: Other Musculoskeletal Hx: Arthritis Blood Disorder Hx: Hepatitis GI Hx: Other Hx: Other Neurological Hx: Serious Head Injury and Migraines/Headaches Cancer HX: No Psych. Illness/Depression: No Coding Level of Care Code Est Patient Level 1 Diagnoses Current use of anticoagulant therapy Z79.01 Assessment & Plan Assessment & Plan (1) Current use of anticoagulant therapy: Code(s): Z79.01 - shelter (current) use of anticoagulants Category: Medical
== END 2024-04-18 13:45 | disposition home or self-care (01) ==
LOC: HO.ACS 13:23
PROVIDERS: PCP Internal Medicine; Visit Provider Internal Medicine
DX: Z79.01 Long term (current) use of anticoagulants (principal)

== ENCOUNTER → 2024-04-18 13:23 | Outpatient (BNVA) | payer OTHER, SELFPAY | PROVIDERS: PCP Internal Medicine; Visit Provider Internal Medicine | DX: I26.99 Other pulmonary embolism without acute cor pulmonale (principal); Z86.718 Personal history of other venous thrombosis and embolism; Z79.01 Long term (current) use of anticoagulants; Z51.81 Encounter for therapeutic drug level monitoring | CPT/HCPCS: 85610; 99211 ==

== ENCOUNTER 2024-04-22 15:12 | Outpatient (REF) | payer OTHER, SELFPAY ==
--- NOTE | ~2024-04-22 | CT_ITS ---
EXAMINATION: CT ANGIOGRAM ABDOMEN AND PELVIS CLINICAL INFORMATION: Acute embolism and thrombosis of unspecified deep veins. COMPARISON: None available. TECHNIQUE: Multiple axial images were obtained through the abdomen and pelvis both before as well as following the administration of 100 mL of Omnipaque 350 intravenous contrast. Two postcontrast scans were performed, one during the arterial phase and another during the venous phase. Images were reviewed on a dedicated 3-D workstation. This CT examination was performed using dose optimization techniques as appropriate, variously including the following: *Automated exposure control *Adjustment of mA and/or kV according to patient size (this includes techniques or standardized protocols for targeted exams where dose is matched to indication/reason for exam; i.e. extremities or head) *Use of iterative reconstruction technique DLP: 712 mGy-cm VASCULAR FINDINGS: The abdominal aorta and iliofemoral vessels appear normal. The celiac, SMA and FRAN are patent. There is a single renal artery present on the right with 2 renal arteries present on the left, the larger of which has an extremely early bifurcation. The iliofemoral veins appear entirely normal as does the IVC. There is no evidence to suggest the presence of May-Thurner syndrome. Hepatic veins and the portal venous system are widely patent. NONVASCULAR FINDINGS: LUNG BASES: The visualized lung bases are unremarkable. LIVER, GALLBLADDER, AND BILIARY TREE: The liver is normal in size, shape, and attenuation. No focal hepatic lesion or biliary ductal dilatation is present. The gallbladder is unremarkable with no evidence of radiopaque gallstones, gallbladder wall thickening, or obvious pericholecystic inflammatory changes. PANCREAS: Unremarkable. SPLEEN: Unremarkable. ADRENAL GLANDS: Unremarkable. KIDNEYS AND URETERS: The kidneys are normal in size, shape, and attenuation. No hydronephrosis, hydroureter, or calculi seen. No perinephric stranding. A benign 1.0 cm right upper pole Bosniak class I renal cyst is noted which requires no additional imaging or follow up. No solid renal masses are seen. GASTROINTESTINAL TRACT: The small and large bowel are unremarkable. The appendix is unremarkable. ABDOMINAL WALL: No significant hernia is appreciated. LYMPH NODES: No adenopathy. Some small external iliac lymph nodes are present bilaterally. OSSEOUS STRUCTURES: There is a mild lumbar scoliosis convex to the left. Mild degenerative changes. No bony destructive lesions. CT/CT angio abdomen pelvis IMPRESSION: No evidence of May-Thurner syndrome. Fleischner guidelines were followed.
[2024-04-22] MEDS: iohexoL 350 MG/ML 100 ML INFUS..BTL 85 ML IV (17:01)
== END 2024-04-22 15:13 | disposition home or self-care (01) ==
LOC: HO.CT 15:12
PROVIDERS: PCP Internal Medicine; Visit Provider Surgery Vascular Surgery
DX: I82.403 Acute embolism and thrombosis of unspecified deep veins of lower extremity, bilateral (principal)
CPT/HCPCS: 74174; Q9967

== ENCOUNTER 2024-04-24 14:20 | Outpatient (AMB) | payer OTHER, SELFPAY ==
--- NOTE | 2024-04-24 14:24 | MHC.PC.OV ---
Vital Signs 04/24/24 14:26 Height 5 ft 8 in Weight 246 lb 8 oz BMI 37.5 BP 132/68 Blood Pressure Location Lt brachial Position Sitting Pulse 61 Pulse Source Pulse Oximeter Pulse Oximetry (%) 94 Oxygen Delivery Method Room Air Intake Visit Reasons: 3mth f/u Intake Note: Patient is here to follow up on Back Pain, Hypothyroidism. Barn Hand Required: No Lens Mold Setter: Not Required per policy Accompanied by: Self / Same As Patient Allergies No Known Allergies [No Known Allergies*] Allergy (Verified 04/24/24 14:26) Tobacco use date assessed: 04/24/24 Dental Screening Dental Screen Date: 01/24/24 HPI 3mth f/u HPI Details 54-year-old male presents to the office to discuss his medical condition. Patient continues to have left leg pain. He has been to the emergency room a few times for it. He has now seeing a vascular surgeon in an appointment is scheduled for next week. Compliant with his anticoagulants. [facility] Medical History DVT (deep venous thrombosis) Acquired hypothyroidism Pulmonary emboli DVT, bilateral lower limbs Obesity Polysubstance abuse Encounter to establish care Eyebrow laceration Surgical History No pertinent past surgical history Family History Mother COPD (chronic obstructive pulmonary disease) Father Hepatitis Liver cirrhosis Maternal Grandmother Alzheimer disease Maternal Grandfather Prostate cancer Diabetes Other Mental health disorder Substance use disorder Social History Household Members: Family Housing: House Unable to assess alcohol history related to: Refusing to respond Alcohol intake: former Year quit: 2011 Patient Tobacco Use Status: Former Tobacco user e-Cigarette/Vaping Use: Never Used Second Hand Smoke Exposure: No Substance Use Type: Heroin service: No Current occupational status: unemployed Current occupational exposures/hazards: No Cognitive needs: No Hearing needs: No Vision needs: Yes (reading) Questionnaire Thrive Questionnaire Date Thrive assessed: 12/19/23 TIFFANIE-7 AMB Questionnaire TIFFANIE-7 Date TIFFANIE - 7 assessed: 12/19/23 Source: Developed by Drs. Angel L. Maria Isabel Dent, Gelacio Hernandez and colleagues, with an educational quincy from [employer]. Physical exam (Primary Care) Vital Signs: Last Vital Signs Pulse 61 04/24/24 14:26 BP 132/68 04/24/24 14:26 Pulse Ox 94 04/24/24 14:26 Oxygen Delivery Method Room Air 04/24/24 14:26 BMI result Body Mass Index 37.5 Tobacco/Smoking Status: Tobacco use Status Tobacco use date assessed 04/24/24 04/24/24 14:27 Patient Tobacco Use Status Former Tobacco user 04/24/24 14:27 e-Cigarette/Vaping Use Never Used 04/24/24 14:27 Thrive Assessment: Date of Thrive Assessment Date Thrive assessed 12/19/23 04/24/24 14:27 Const General: cooperative and healthy appearing Nutritional Appearance: well nourished Orientation/consciousness: patient oriented x3 Limitations: no limitations HENMT Head: Yes normal to inspection Eyes General: appearance normal, both eyes and all related structures Neck Neck: Yes normal visual inspection Chest Chest palpation & inspection: normal palpation of entire chest wall Resp Effort & Inspection: normal respiratory effort Neuro General: patient oriented x3 Assessment and Plan Assessment & Plan (1) Pulmonary emboli: Code(s): I26.99 - Other pulmonary embolism without acute cor pulmonale Plan: Continue anticoagulation. Patient is current on his prescriptions. (2) Left leg pain: Code(s): M79.605 - Pain in left leg Plan: Patient has a follow-up appointment with the vascular surgeon. He just did a diagnostic test for him. Follow-up with the vascular surgeon. Coding Level of Care Code Est Pt Level 3 (91714) Complex EM visit Add On G2211 Diagnoses Pulmonary emboli I26.99 Left leg pain M79.605
[2024-04-24 14:26] VITALS: BP 132/68; PULSE 61; O2SAT 94; BMI 37.5
== END 2024-04-24 15:29 | disposition home or self-care (01) ==
LOC: HO.HMGH 14:21
PROVIDERS: PCP Internal Medicine; Visit Provider Internal Medicine
DX: I26.99 Other pulmonary embolism without acute cor pulmonale (principal); M79.605 Pain in left leg
CPT/HCPCS: 99213; G2211

== ENCOUNTER 2024-04-28 13:41 | Outpatient (AMB) | payer OTHER, SELFPAY ==
[2024-04-28 13:47] LABS: Prothrombin Time Whole Bld POC 30.8 sec (11.1-13.5); ~PT, ~INR - Anti Coag Clinic 2.6 (0.9-1.1)
--- NOTE | 2024-04-28 13:55 | MHC.OFFVISCO ---
Intake Intake Visit Reasons: Anticoagulation Allergies No Known Allergies [No Known Allergies*] Allergy (Verified 04/28/24 13:42) Medication List - Last Reconciled 04/28/24 by Rashida Lee RN gabapentin PO levothyroxine (Synthroid) 25 mcg PO DAILY methadone 160 mg PO DAILY warfarin 2.5 mg See Protocol PO DAILY Nursing Note Amb to [facility], noted ward wrap to both lower legs, sts its the blood clots sts they are causing him pain -05/21 sts there are wounds, sts Dr Kirk is aware Medications and supplements reviewed, sts he has not been taking the gabapentin (? dosing) (no warfarin interaction) encouraged to resume gabapentin and try for a week instead of just a couple days and see if better pain control No new changes in health, diet, medications, or supplements, diet limited, sts he eats cheerios, yogurt,watermelon, grapes, occasional egg sts he is trying to loose weight- sts 1250 calories per day- Denies any signs and symptoms of bleeding or bruising or clotting. Bleeding, bruising, clotting discussed INR 2.6 below therapeutic range (3.0-3.5) already took warfarin today- will increase dose tomorrow to 2.5mg, then resume usual dosing Sunday, 2.5mg x 2 days and 1.25mg x 5 days Nutritional guidance given try to eat a variety of foods F/U INR: 1 week Patient verbalizes understanding of instructions given Anti-Coag Initial Assessment Social Hx Patient Tobacco Use Status: Former Tobacco user alcohol intake: former Alcohol intake frequency: does not drink Cardiovascular Hx: HTN, Arrhythmias and Other Lung Disease HX: DVT/PE Endocrine Hx: Other Musculoskeletal Hx: Arthritis Blood Disorder Hx: Hepatitis GI Hx: Other Hx: Other Neurological Hx: Serious Head Injury and Migraines/Headaches Cancer HX: No Psych. Illness/Depression: No Coding Level of Care Code Est Patient Level 1 Diagnoses Current use of anticoagulant therapy Z79.01 Time Spent (min) 15 Assessment & Plan Assessment & Plan (1) Current use of anticoagulant therapy: Code(s): Z79.01 - FPC (current) use of anticoagulants Category: Medical
== END 2024-04-28 14:08 | disposition home or self-care (01) ==
LOC: HO.ACS 13:41
PROVIDERS: PCP Internal Medicine; Visit Provider Internal Medicine
DX: Z79.01 Long term (current) use of anticoagulants (principal)

== ENCOUNTER → 2024-04-28 13:41 | Outpatient (BNVA) | payer OTHER, SELFPAY | PROVIDERS: PCP Internal Medicine; Visit Provider Internal Medicine | DX: I26.99 Other pulmonary embolism without acute cor pulmonale (principal); Z86.718 Personal history of other venous thrombosis and embolism; Z79.01 Long term (current) use of anticoagulants; Z51.81 Encounter for therapeutic drug level monitoring | CPT/HCPCS: 85610; 99211 ==

== ENCOUNTER 2024-05-05 13:23 | Outpatient (AMB) | payer OTHER, SELFPAY ==
[2024-05-05 13:45] LABS: Prothrombin Time Whole Bld POC 38.5 sec (11.1-13.5); ~PT, ~INR - Anti Coag Clinic 3.2 (0.9-1.1)
--- NOTE | 2024-05-05 13:52 | MHC.OFFVISCO ---
Intake Intake Visit Reasons: Anticoagulation Allergies No Known Allergies [No Known Allergies*] Allergy (Verified 05/05/24 13:40) Medication List - Last Reconciled 05/05/24 by Rashida Cash, PADMA gabapentin PO levothyroxine (Synthroid) 25 mcg PO DAILY methadone 160 mg PO DAILY warfarin 2.5 mg See Protocol PO DAILY Nursing Note INR: 3.2 in therapeutic range of 3.0-3.5 Medications and supplements reviewed No changes in health, diet, medications, or supplements, Denies any signs and symptoms of bleeding or bruising or clotting. Bleeding, bruising, clotting discussed Nutritional guidance given Dose: this week 2.5mgX 2 days and 1.25mg X 5 days next week 2.5mg X 3 days and 1.25mg X 4 days F/U INR: 05/13/24 Patient verbalizes understanding of instructions given Anti-Coag Initial Assessment Social Hx Patient Tobacco Use Status: Former Tobacco user alcohol intake: former Alcohol intake frequency: does not drink Cardiovascular Hx: HTN, Arrhythmias and Other Lung Disease HX: DVT/PE Endocrine Hx: Other Musculoskeletal Hx: Arthritis Blood Disorder Hx: Hepatitis GI Hx: Other Hx: Other Neurological Hx: Serious Head Injury and Migraines/Headaches Cancer HX: No Psych. Illness/Depression: No Coding Level of Care Code Est Patient Level 1 Diagnoses Current use of anticoagulant therapy Z79.01 Assessment & Plan Assessment & Plan (1) Current use of anticoagulant therapy: Code(s): Z79.01 - snf (current) use of anticoagulants Category: Medical
== END 2024-05-05 13:56 | disposition home or self-care (01) ==
LOC: HO.ACS 13:23
PROVIDERS: PCP Internal Medicine; Visit Provider Internal Medicine
DX: Z79.01 Long term (current) use of anticoagulants (principal)

== ENCOUNTER → 2024-05-05 13:23 | Outpatient (BNVA) | payer OTHER, SELFPAY | PROVIDERS: PCP Internal Medicine; Visit Provider Internal Medicine | DX: Z86.718 Personal history of other venous thrombosis and embolism (principal); Z79.01 Long term (current) use of anticoagulants; Z51.81 Encounter for therapeutic drug level monitoring | CPT/HCPCS: 85610; 99211 ==

== ENCOUNTER 2024-05-26 14:07 | Outpatient (AMB) | payer OTHER, SELFPAY ==
[2024-05-26 14:27] LABS: Prothrombin Time Whole Bld POC 37.1 sec (11.1-13.5); ~PT, ~INR - Anti Coag Clinic 3.1 (0.9-1.1)
--- NOTE | 2024-05-26 14:32 | MHC.OFFVISCO ---
Intake Intake Visit Reasons: Anticoagulation Allergies No Known Allergies [No Known Allergies*] Allergy (Verified 05/26/24 14:22) Medication List - Last Reconciled 05/26/24 by Rashida Cash RN gabapentin PO levothyroxine (Synthroid) 25 mcg PO DAILY methadone 160 mg PO DAILY warfarin 2.5 mg See Protocol PO DAILY Nursing Note INR: 3.1 in therapeutic range of 3-3.5 Medications and supplements reviewed No changes in health, diet, medications, or supplements, Denies any signs and symptoms of bleeding or bruising or clotting. Bleeding, bruising, clotting discussed Nutritional guidance given to continue to balance reds and greens Dose: 1.25mg X 4 days and 2.5mg X 3 days F/U INR: 1 week Patient verbalizes understanding of instructions given Anti-Coag Initial Assessment Social Hx Patient Tobacco Use Status: Former Tobacco user alcohol intake: former Alcohol intake frequency: does not drink Cardiovascular Hx: HTN, Arrhythmias and Other Lung Disease HX: DVT/PE Endocrine Hx: Other Musculoskeletal Hx: Arthritis Blood Disorder Hx: Hepatitis GI Hx: Other Hx: Other Neurological Hx: Serious Head Injury and Migraines/Headaches Cancer HX: No Psych. 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
== END 2024-05-26 14:36 | disposition home or self-care (01) ==
LOC: HO.ACS 14:07
PROVIDERS: PCP Internal Medicine; Visit Provider Internal Medicine
DX: Z79.01 Long term (current) use of anticoagulants (principal)

== ENCOUNTER → 2024-05-26 14:07 | Outpatient (BNVA) | payer OTHER, SELFPAY | PROVIDERS: PCP Internal Medicine; Visit Provider Internal Medicine | DX: I82.403 Acute embolism and thrombosis of unspecified deep veins of lower extremity, bilateral (principal); I89.0 Lymphedema, not elsewhere classified; Z86.718 Personal history of other venous thrombosis and embolism; Z79.01 Long term (current) use of anticoagulants; Z51.81 Encounter for therapeutic drug level monitoring | CPT/HCPCS: 85610; 99211; 99212 ==

== ENCOUNTER 2024-05-26 14:44 | Outpatient (AMB) | payer OTHER, SELFPAY ==
--- NOTE | 2024-05-26 15:03 | A.OFFVIS_ITS ---
Vital Signs 05/26/24 15:04 Height 5 ft 8 in Weight 239 lb BMI 36.3 Intake Visit Reasons: f/u s/p CTA Abd/pelvis 04/22/2024 Intake Note: Follow up CTA Abb/pelvis 04/22/24 for Hx of Right LE DVT and Hx of multiple DVTs, on warfarin.Le swelling, hyperpigmentation, weeping, ulcers, tightness, dry skin and pain. Left LE swelling is wors connie Right LE, pain is w/ or w/o ambulation. Hx of PE as well. Accompanied by: Self / Same As Patient Allergies No Known Allergies [No Known Allergies*] Allergy (Verified 05/26/24 15:08) HPI HPI f/u s/p CTA Abd/pelvis 04/22/2024: Details: Morbidly obese 54-year-old gentleman presents for follow-up regarding lower extremity swelling. He has recurrent DVTs and has a prior history of IV drug abuse. He reports that he used his lower extremity vein sites for injection. He developed bilateral lower extremity DVTs in 10/31/2022 along with PE. This was his 3rd overall episode. It is concerning for his lower extremity swelling. Now presents for follow-up with CT angiogram. Of note his morbid obesity may be contributing to his lymphedema [facility] Medical History DVT (deep venous thrombosis) Acquired hypothyroidism Pulmonary emboli DVT, bilateral lower limbs Obesity Polysubstance abuse Encounter to establish care Eyebrow laceration Surgical History No pertinent past surgical history Family History Mother COPD (chronic obstructive pulmonary disease) Father Hepatitis Liver cirrhosis Maternal Grandmother Alzheimer disease Maternal Grandfather Prostate cancer Diabetes Other Mental health disorder Substance use disorder Social History Household Members: Family Housing: House Unable to assess alcohol history related to: Refusing to respond Alcohol intake: former Year quit: 2011 Patient Tobacco Use Status: Former Tobacco user e-Cigarette/Vaping Use: Never Used Second Hand Smoke Exposure: No Substance Use Type: Heroin service: No Current occupational status: unemployed Current occupational exposures/hazards: No Cognitive needs: No Hearing needs: No Vision needs: Yes (reading) Review of Systems Const All systems reviewed & are unremarkable except as noted in HPI and below Reports no additional complaints ENT Reports Normal hearing present Card Denies chest pain, Denies chest pain at rest, Denies chest pain with activity and Denies pedal edema Resp Denies cough GI Denies abdominal pain Musc Denies abnormal gait, Denies muscle cramps and Denies radiating pain into limb Skin/Breast Denies skin ulcer and Denies wounds Neuro Reports Normal hearing present and Denies abnormal gait Psych Reports no additional complaints Physical Exam Vital Signs: BMI result Body Mass Index 36.3 Const General: cooperative, healthy appearing and comfortable Orientation/consciousness: oriented to person, oriented to place and oriented to time HEENT Head: Yes normal to inspection Neck Neck: Yes normal visual inspection Carotids: no bruits Chest Chest palpation & inspection: normal inspection of the chest Resp Effort & Inspection: normal respiratory effort and able to speak in complete sentences Auscultation: clear to auscultation bilaterally, no crackles, no rales, no rhonchi and no wheezes Cardio Rate: regular rate Rhythm: regular rhythm Heart sounds: S1 normal heart sound present and S2 normal heart sound present Bruits: no carotid bruits Peripheral pulses: Peripheral pulses 2+ throughout GI Inspection: Yes normal to inspection Skin Wounds: no wounds Hair: normal Neuro General: oriented to person, oriented to place and oriented to time Cranial nerves: Yes CN's II-XII intact bilaterally and Yes Normal hearing present Cognition (Neuro): normal cognition Motor exam (neuro): 5/5 motor strength present throughout Extrem Other: venous exam: +2 to +3 edema Right in cm: Thigh 65 Knee 49 Calf 43.5 Ankle 31 Left in cm: Thigh 71 Knee 53.5 Calf 47 Ankle 34 Hip/waist 133 General: No clubbing, No cyanosis and Yes edema Psych Appearance: grossly normal Mental Status: mental status grossly normal Speech and movement: Normal speech and movement present Results AMB INR Fingerstick AMB INR Fingerstick 3.1 Last Edit by Rashida Cash RN on 0 05/26/24 14:32 interface delay Results Reviewed Results Reviewed: CT angio dated 04/22/2024 demonstrates normal iliofemoral veins and IVC. No evidence of May-Thurner written report and images were reviewed Assessment & Plan Assessment & Plan (1) DVT, bilateral lower limbs: Code(s): I82.403 - Acute embolism and thrombosis of unspecified deep veins of lower extremity, bilateral Category: Medical Qualifiers: Affected thrombotic vein of extremity: unspecified vein of extremity Chronicity: unspecified Qualified Code(s): I82.403 - Acute embolism and thrombosis of unspecified deep veins of lower extremity, bilateral Plan: Patient has lower extremity swelling just secondary to the fact of valvular damage secondary to DVTs. No intervention indicated. In addition CT scan demonstrates no central pathology as well. At the current time would manage conservatively. We will treat for lymphedema. (2) Lymphedema: Code(s): I89.0 - Lymphedema, not elsewhere classified Category: Medical Plan: In short the patient has late on sent lymphedema. The patient has been on conservative treatment for at least 3 months with minimal relief. Patient has tried 30 mm of mercury compression garments, elevation, exercise healthy diet and doing manual says self MLD to the best of their ability for over 4 weeks but with no significant relief. She has been compliant with the program but has provided minimal relief. In addition on physical we are noticing hyperpigmentation, lymphorrhea, and hyperplasia. It appears that she has stage 2 lymphedema. Patient has completed multiple forms of conservative therapy yet significant symptoms remain. Patient requires the use of a pneumatic compression device which we will assist in trying to have the patient obtain them. A pneumatic compression device will help reduce swelling and other lymphedema comorbidities. Thank you for allowing us to assist in this patient's care. Coding Level of Care Code Est Pt Level 4 (94910) Diagnoses Deep vein thrombosis (DVT) of both lower extremities, unspecified chronicity, unspecified vein I82.403 Affected thrombotic vein of extremity: unspecified vein of extremity Chronicity: unspecified Lymphedema I89.0
[2024-05-26 15:04] VITALS: BMI 36.3
== END 2024-05-26 15:35 | disposition home or self-care (01) ==
PROVIDERS: PCP Internal Medicine; Visit Provider Surgery Vascular Surgery
DX: I82.403 Acute embolism and thrombosis of unspecified deep veins of lower extremity, bilateral (principal); I89.0 Lymphedema, not elsewhere classified
CPT/HCPCS: 99214

== ENCOUNTER 2024-06-04 10:11 | Outpatient (AMB) | payer OTHER, SELFPAY ==
[2024-06-04 10:20] LABS: Prothrombin Time Whole Bld POC 51.7 sec (11.1-13.5); ~PT, ~INR - Anti Coag Clinic 4.3 (0.9-1.1)
--- NOTE | 2024-06-04 10:35 | MHC.OFFVISCO ---
Intake Intake Visit Reasons: Anticoagulation Allergies No Known Allergies [No Known Allergies*] Allergy (Verified 06/04/24 10:15) Medication List - Last Reconciled 06/04/24 by Adrienne Clemente RN gabapentin PO levothyroxine (Synthroid) 25 mcg PO DAILY methadone 160 mg PO DAILY warfarin 2.5 mg See Protocol PO DAILY Nursing Note PT.STATES THAT HE CONTINUES TO HAVE SOME SOB WITH EXERTION OF WHICH HIS PCP IS AWARE. NO CP,MED CHANGES OR SX OF BLEEDING. HOLD WARFARIN TOMORROW(TOOK THIS AM) THEN RESUME SAME DOSE AND FOLLOW-UP IN 1 WEEK. PT.WILL BE SURE TO HAVE D[place] TODAY AND TOMORROW. GOOD UNDERSTANDING OF DOSING INSTR. Anti-Coag Initial Assessment Social Hx Patient Tobacco Use Status: Former Tobacco user alcohol intake: former Alcohol intake frequency: does not drink Cardiovascular Hx: HTN, Arrhythmias and Other Lung Disease HX: DVT/PE Endocrine Hx: Other Musculoskeletal Hx: Arthritis Blood Disorder Hx: Hepatitis GI Hx: Other Hx: Other Neurological Hx: Serious Head Injury and Migraines/Headaches Cancer HX: No Psych. 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
== END 2024-06-04 10:38 | disposition home or self-care (01) ==
LOC: HO.ACS 10:11
PROVIDERS: PCP Internal Medicine; Visit Provider Internal Medicine
DX: Z79.01 Long term (current) use of anticoagulants (principal)

== ENCOUNTER → 2024-06-04 10:11 | Outpatient (BNVA) | payer OTHER, SELFPAY | PROVIDERS: PCP Internal Medicine; Visit Provider Internal Medicine | DX: I26.99 Other pulmonary embolism without acute cor pulmonale (principal); Z86.718 Personal history of other venous thrombosis and embolism; Z79.01 Long term (current) use of anticoagulants; Z51.81 Encounter for therapeutic drug level monitoring | CPT/HCPCS: 85610; 99211 ==

== ENCOUNTER 2024-06-13 13:01 | Outpatient (AMB) | payer OTHER, SELFPAY ==
--- NOTE | 2024-06-13 13:20 | MHC.OFFVISCO ---
Intake Intake Visit Reasons: Anticoagulation Allergies No Known Allergies [No Known Allergies*] Allergy (Verified 06/13/24 13:04) Medication List - Last Reconciled 06/13/24 by Ana Lilia Garibay RN gabapentin PO PRN levothyroxine (Synthroid) 25 mcg PO DAILY methadone 160 mg PO DAILY warfarin 2.5 mg See Protocol PO DAILY Nursing Note INR: 2.7 ALMOST therapeutic range 3.0-3.5 Medications and supplements reviewed No changes in health, diet, medications, or supplements, Denies any signs and symptoms of bleeding or bruising or clotting. Bleeding, bruising, clotting discussed Nutritional guidance given - EAT Dose: KEEP SAME FOR NOW 2.5MG MON SUN SAT/ 1.25MG X 4 DAYS- IT SEEMS WHENEVER HIS DOSE IS LOWERED OR INCREASED IT BECOMES EVEN MORE OUT OF RANGE F/U INR: 06/23/24 Patient verbalizes understanding of instructions given Anti-Coag Initial Assessment Social Hx Patient Tobacco Use Status: Former Tobacco user alcohol intake: former Alcohol intake frequency: does not drink Cardiovascular Hx: HTN, Arrhythmias and Other Lung Disease HX: DVT/PE Endocrine Hx: Other Musculoskeletal Hx: Arthritis Blood Disorder Hx: Hepatitis GI Hx: Other Hx: Other Neurological Hx: Serious Head Injury and Migraines/Headaches Cancer HX: No Psych. Illness/Depression: No Coding Level of Care Code Est Patient Level 1 Diagnoses Current use of anticoagulant therapy Z79.01 Results AMB INR Fingerstick AMB INR Fingerstick 2.7 Last Edit by Ana Lilia Garibay RN on 06/13/24 13:13 manual entry Assessment & Plan Assessment & Plan (1) Current use of anticoagulant therapy: Code(s): Z79.01 - half-way (current) use of anticoagulants Category: Medical
[2024-06-13 13:30] LABS: Prothrombin Time Whole Bld POC 32.1 sec (11.1-13.5); ~PT, ~INR - Anti Coag Clinic 2.7 (0.9-1.1)
== END 2024-06-13 13:23 | disposition home or self-care (01) ==
LOC: HO.ACS 13:01
PROVIDERS: PCP Internal Medicine; Visit Provider Internal Medicine
DX: Z79.01 Long term (current) use of anticoagulants (principal)

== ENCOUNTER → 2024-06-13 13:01 | Outpatient (BNVA) | payer OTHER, SELFPAY | PROVIDERS: PCP Internal Medicine; Visit Provider Internal Medicine | DX: Z86.718 Personal history of other venous thrombosis and embolism (principal); I26.99 Other pulmonary embolism without acute cor pulmonale; Z79.01 Long term (current) use of anticoagulants; Z51.81 Encounter for therapeutic drug level monitoring | CPT/HCPCS: 85610; 99211 ==

== ENCOUNTER 2024-06-30 13:02 | Outpatient (AMB) | payer OTHER, SELFPAY ==
[2024-06-30 13:12] LABS: Prothrombin Time Whole Bld POC 28.3 sec (11.1-13.5); ~PT, ~INR - Anti Coag Clinic 2.4 (0.9-1.1)
--- NOTE | 2024-06-30 13:21 | MHC.OFFVISCO ---
Intake Intake Visit Reasons: Anticoagulation Allergies No Known Allergies [No Known Allergies*] Allergy (Verified 06/30/24 13:07) Medication List - Last Reconciled 06/30/24 by Rashida Cash RN gabapentin PO PRN levothyroxine (Synthroid) 25 mcg PO DAILY methadone 160 mg PO DAILY warfarin 2.5 mg See Protocol PO DAILY Nursing Note INR 2.4?out of therapeutic range Medications and supplements reviewed Patient status: usual state of health Medications or supplements: no changes Diet: no change Denies any signs and symptoms of bleeding or clotting or unusual bruising Bleeding, bruising, clotting discussed Nutritional guidance given: to have a serving of food from the list that raises the INR Dose: increase today's dose to 3.75mg then resume usual dose of 1.25mg X 4 days and 2.5mg X 3 days F/U INR Date : 1 week?? Patient verbalizing understanding of instructions given. Composed note sent to Dr Kirk and to Dr Daley. Anti-Coag Initial Assessment Social Hx Patient Tobacco Use Status: Former Tobacco user alcohol intake: former Alcohol intake frequency: does not drink Cardiovascular Hx: HTN, Arrhythmias and Other Lung Disease HX: DVT/PE Endocrine Hx: Other Musculoskeletal Hx: Arthritis Blood Disorder Hx: Hepatitis GI Hx: Other Hx: Other Neurological Hx: Serious Head Injury and Migraines/Headaches Cancer HX: No Psych. 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
== END 2024-06-30 13:40 | disposition home or self-care (01) ==
LOC: HO.ACS 13:02
PROVIDERS: PCP Internal Medicine; Visit Provider Internal Medicine
DX: Z79.01 Long term (current) use of anticoagulants (principal)

== ENCOUNTER → 2024-06-30 13:02 | Outpatient (BNVA) | payer OTHER, SELFPAY | PROVIDERS: PCP Internal Medicine; Visit Provider Internal Medicine | DX: I26.99 Other pulmonary embolism without acute cor pulmonale (principal); Z86.718 Personal history of other venous thrombosis and embolism; Z79.01 Long term (current) use of anticoagulants; Z51.81 Encounter for therapeutic drug level monitoring | CPT/HCPCS: 85610; 99211 ==

== ENCOUNTER 2024-07-11 13:12 | Outpatient (AMB) | payer OTHER, SELFPAY ==
--- NOTE | 2024-07-11 13:34 | MHC.OFFVISCO ---
Intake Intake Visit Reasons: Anticoagulation Allergies No Known Allergies [No Known Allergies*] Allergy (Verified 07/11/24 13:30) Medication List - Last Reconciled 07/11/24 by Rashida Cash RN levothyroxine (Synthroid) 25 mcg PO DAILY methadone 160 mg PO DAILY warfarin 2.5 mg See Protocol PO DAILY Nursing Note INR: 3.1 in therapeutic range of 3-3.5 Medications and supplements reviewed No changes in health, diet, medications, or supplements, Denies any signs and symptoms of bleeding or bruising or clotting. Bleeding, bruising, clotting discussed Nutritional guidance given Dose: 2.5mg X 4 days and 1.25mg X 3 days F/U INR: 1 week Patient verbalizes understanding of instructions given Anti-Coag Initial Assessment Social Hx Patient Tobacco Use Status: Former Tobacco user alcohol intake: former Alcohol intake frequency: does not drink Cardiovascular Hx: HTN, Arrhythmias and Other Lung Disease HX: DVT/PE Endocrine Hx: Other Musculoskeletal Hx: Arthritis Blood Disorder Hx: Hepatitis GI Hx: Other Hx: Other Neurological Hx: Serious Head Injury and Migraines/Headaches Cancer HX: No Psych. Illness/Depression: No Coding Level of Care Code Est Patient Level 1 Diagnoses Current use of anticoagulant therapy Z79.01 Assessment & Plan Assessment & Plan (1) Current use of anticoagulant therapy: Code(s): Z79.01 - salvage determiner (current) use of anticoagulants Category: Medical
[2024-07-11 13:35] LABS: Prothrombin Time Whole Bld POC 37.3 sec (11.1-13.5); ~PT, ~INR - Anti Coag Clinic 3.1 (0.9-1.1)
== END 2024-07-11 13:46 | disposition home or self-care (01) ==
LOC: HO.ACS 13:12
PROVIDERS: PCP Internal Medicine; Visit Provider Internal Medicine
DX: Z79.01 Long term (current) use of anticoagulants (principal)

== ENCOUNTER → 2024-07-11 13:12 | Outpatient (BNVA) | payer OTHER, SELFPAY | PROVIDERS: PCP Internal Medicine; Visit Provider Internal Medicine | DX: I26.99 Other pulmonary embolism without acute cor pulmonale (principal); Z86.718 Personal history of other venous thrombosis and embolism; Z79.01 Long term (current) use of anticoagulants; Z51.81 Encounter for therapeutic drug level monitoring | CPT/HCPCS: 85610; 99211 ==

== ENCOUNTER 2024-07-25 13:19 | Outpatient (AMB) | payer OTHER, SELFPAY ==
[2024-07-25 13:43] LABS: Prothrombin Time Whole Bld POC 52.5 sec (11.1-13.5); ~PT, ~INR - Anti Coag Clinic 4.4 (0.9-1.1)
--- NOTE | 2024-07-25 14:00 | MHC.OFFVISCO ---
Intake Intake Visit Reasons: Anticoagulation Allergies No Known Allergies [No Known Allergies*] Allergy (Verified 07/25/24 13:32) Medication List - Last Reconciled 07/25/24 by Ana Lilia Garibay RN levothyroxine (Synthroid) 25 mcg PO DAILY methadone 160 mg PO DAILY warfarin 2.5 mg See Protocol PO DAILY Nursing Note INR: 4.4 OUT OF therapeutic range- ate a lot of fruit recently Medications and supplements reviewed pt ready to change diet of cheerios and yogurt - enc to try a protein daily, mix of fruits and vegetables -enc dietary consult legs are bothering him - enc vascular consult, enc to ask to recheck thyroid function- usually when starting on thyroid meds the thyroid function is checked every 4-6 months, also concerned about leg discoloration especially right foot and appears to be having a possible ulcer forming - will send msg to PCP enc pt to peform leg exercises and walk and elevate legs x 3 times daily Denies any signs and symptoms of bleeding or bruising or clotting. Bleeding, bruising, clotting discussed Nutritional guidance given - greenbeatriz today Dose: hold warfarin dose today- then try dose again 2.5mg mwf/ 1.25mg x 4 days - enc to eat a protein source daily and eat a mix of fruits and vegetables during the week. F/u with manager mechanical F/U INR: 1 week Patient verbalizes understanding of instructions given Anti-Coag Initial Assessment Social Hx Patient Tobacco Use Status: Former Tobacco user alcohol intake: former Alcohol intake frequency: does not drink Cardiovascular Hx: HTN, Arrhythmias and Other Lung Disease HX: DVT/PE Endocrine Hx: Other Musculoskeletal Hx: Arthritis Blood Disorder Hx: Hepatitis GI Hx: Other Hx: Other Neurological Hx: Serious Head Injury and Migraines/Headaches Cancer HX: No Psych. Illness/Depression: No Coding Level of Care Code Est Patient Level 1 Diagnoses Current use of anticoagulant therapy Z79.01 Assessment & Plan Assessment & Plan (1) Current use of anticoagulant therapy: Code(s): Z79.01 - senior living (current) use of anticoagulants Category: Medical
== END 2024-07-25 14:05 | disposition home or self-care (01) ==
LOC: HO.ACS 13:19
PROVIDERS: PCP Internal Medicine; Visit Provider Internal Medicine
DX: Z79.01 Long term (current) use of anticoagulants (principal)

== ENCOUNTER → 2024-07-25 13:19 | Outpatient (BNVA) | payer OTHER, SELFPAY | PROVIDERS: PCP Internal Medicine; Visit Provider Internal Medicine | DX: I26.99 Other pulmonary embolism without acute cor pulmonale (principal); Z86.718 Personal history of other venous thrombosis and embolism; Z79.01 Long term (current) use of anticoagulants; Z51.81 Encounter for therapeutic drug level monitoring | CPT/HCPCS: 85610; 99211 ==

== ENCOUNTER 2024-07-31 15:17 | Outpatient (AMB) | payer OTHER, SELFPAY ==
--- NOTE | 2024-07-31 15:21 | MHC.PC.OV ---
Vital Signs 07/31/24 15:23 Height 5 ft 8 in Weight 257 lb 8 oz BMI 39.1 BP 126/80 Blood Pressure Location Lt brachial Position Sitting Pulse 72 Pulse Source Pulse Oximeter Pulse Oximetry (%) 93 Oxygen Delivery Method Room Air Intake Visit Reasons: head pain, blood clots in legs blood clots in legs Intake Note: Patient is here to follow up on head pain, blood clots in both legs with foot pain. Pl Sql Developer Required: No Radiology Physician: Not Required per policy Accompanied by: Self / Same As Patient Allergies No Known Allergies [No Known Allergies*] Allergy (Verified 08/01/24 09:52) Medication List - Last Reconciled 08/01/24 by Kyler Daley MD levothyroxine (Synthroid) 25 mcg PO DAILY methadone 160 mg PO DAILY sulfamethoxazole-trimethoprim 800-160 mg (Bactrim DS) 1 tab PO BID 7 days warfarin 2.5 mg See Protocol PO DAILY Tobacco use date assessed: 07/31/24 Dental Screening Dental Screen Date: 01/24/24 HPI head pain, blood clots in legs blood clots in legs HPI Details 54-year-old male presents to the office with several questions regarding his health. Patient reports he is developing a rash all over his body. It starts office small blisters, that he scratches and on healing, they leave a scar. He has numerous such lesions on his arms and few on his chest. He has not tried any medications for them. Patient wonders if he should get a repeat thyroid blood work done. Continues to have pain in the left leg. Cramping in nature. The vascular surgeon had given him a lymphedema pump which he has not used fearing that it would dislodge a blood clot. Patient also has tiny break in skin over the right foot and is worried about an ulcer. Patient reports that despite eating a healthy diet with calorie restriction he is not losing weight. Not exercising. Patient reports increasing frequency of sharp stabbing pain in the forehead. Symptoms started suddenly and patient has to stop and rest. Episodes of pain last from 15-20 minutes. No change in vision. [facility] Medical History DVT (deep venous thrombosis) Acquired hypothyroidism Pulmonary emboli DVT, bilateral lower limbs Obesity Polysubstance abuse Encounter to establish care Eyebrow laceration Surgical History No pertinent past surgical history Family History Mother COPD (chronic obstructive pulmonary disease) Father Hepatitis Liver cirrhosis Maternal Grandmother Alzheimer disease Maternal Grandfather Prostate cancer Diabetes Other Mental health disorder Substance use disorder Social History Household Members: Family Housing: House Unable to assess alcohol history related to: Refusing to respond Alcohol intake: former Year quit: 2011 Patient Tobacco Use Status: Former Tobacco user e-Cigarette/Vaping Use: Never Used Second Hand Smoke Exposure: No Substance Use Type: Heroin service: No Current occupational status: unemployed Current occupational exposures/hazards: No Cognitive needs: No Hearing needs: No Vision needs: Yes (reading) Questionnaire Thrive Questionnaire Date Thrive assessed: 12/19/23 Are you currently unemployed and looking for a job?: No TIFFANIE-7 AMB Questionnaire TIFFANIE-7 Date TIFFANIE - 7 assessed: 12/19/23 Source: Developed by Drs. Angel Detn, Maria Isabel Dash, Gelacio Hernandez and colleagues, with an educational quincy from [employer]. Physical exam (Primary Care) Vital Signs: Last Vital Signs Pulse 72 07/31/24 15:23 BP 126/80 07/31/24 15:23 Pulse Ox 93 07/31/24 15:23 Oxygen Delivery Method Room Air 07/31/24 15:23 Care Plan Goal for BP management: Blood pressure is in range. BMI result Body Mass Index 39.1 BMI Assessment/Plan discussion: High (Appointment for a nutritional consult made.) BMI High, discussed plan: lifestyle, weight reduction, dietary and physical activity Tobacco/Smoking Status: Tobacco use Status Tobacco use date assessed 07/31/24 07/31/24 15:37 Patient Tobacco Use Status Former Tobacco user 07/31/24 15:37 e-Cigarette/Vaping Use Never Used 07/31/24 15:37 Thrive Assessment: Date of Thrive Assessment Date Thrive assessed 12/19/23 07/31/24 15:37 Const General: cooperative and healthy appearing Nutritional Appearance: well nourished Orientation/consciousness: patient oriented x3 Limitations: no limitations HENMT Head: Yes normal to inspection Eyes General: appearance normal, both eyes and all related structures Neck Neck: Yes normal visual inspection Chest Chest palpation & inspection: normal palpation of entire chest wall Resp Effort & Inspection: normal respiratory effort Skin Other: Right leg: Dry skin with erythema. No visible ulcers seen. Left leg: Dry skin. Upper extremity/chest: Scattered papules, few pustules. Neuro General: patient oriented x3 Assessment and Plan Assessment & Plan (1) Obesity (BMI 30-39.9): Code(s): E66.9 - Obesity, unspecified Plan: Nutrition consult has been placed. Patient has seen a outside sales representative insurance in the past. Encouraged to exercise. (2) Lymphedema: Code(s): I89.0 - Lymphedema, not elsewhere classified Plan: Patient encouraged to use the pump provided. Reassurance on the blood clot. (3) Acquired hypothyroidism: Code(s): E03.9 - Hypothyroidism, unspecified Plan: Patient was euthyroid in May. Repeat TSH will be in 6 months. (4) Bilateral headaches: Code(s): R51.9 - Headache, unspecified Plan: A CT scan of the head has been ordered. Will call with the results. (5) Rash: Code(s): R21 - Rash and other nonspecific skin eruption Plan: The rash on the lower extremities represents eczema in a advised him to continue the steroid cream. On the upper extremity he has folliculitis and Bactrim has been ordered. Orders: Referrals Medical Nutrition Therapy Referral E66.9 - Obesity, unspecified Cologuard Test Z12.11 - Encounter for screening for malignant neoplasm of colon, Z12.12 - Encounter for screening for malignant neoplasm of rectum Medications: New sulfamethoxazole-trimethoprim 800-160 mg (Bactrim DS) 1 tab PO BID 7 days 14 tabs 0RF Coding Level of Care Code Est Pt Level 4 (36718) Complex EM visit Add On G2211 Diagnoses Obesity (BMI 30-39.9) E66.9 Lymphedema I89.0 Acquired hypothyroidism E03.9 Bilateral headaches R51.9 Rash R21
[2024-07-31 15:23] VITALS: BP 126/80; PULSE 72; O2SAT 93; BMI 39.1
== END 2024-07-31 16:01 | disposition home or self-care (01) ==
PROVIDERS: PCP Internal Medicine; Visit Provider Internal Medicine
DX: I89.0 Lymphedema, not elsewhere classified (principal); E66.9 Obesity, unspecified; Z68.39 Body mass index [BMI] 39.0-39.9, adult; E03.9 Hypothyroidism, unspecified; R51.9 Headache, unspecified; R21 Rash and other nonspecific skin eruption

== ENCOUNTER → 2024-07-31 15:17 | Outpatient (BNVA) | payer OTHER, SELFPAY | PROVIDERS: PCP Internal Medicine; Visit Provider Internal Medicine | DX: I89.0 Lymphedema, not elsewhere classified (principal); E66.9 Obesity, unspecified; E03.9 Hypothyroidism, unspecified; R51.9 Headache, unspecified; R21 Rash and other nonspecific skin eruption | CPT/HCPCS: 99212 ==

== ENCOUNTER 2024-08-01 13:00 | Outpatient (AMB) | payer OTHER, SELFPAY ==
[2024-08-01 13:07] LABS: Prothrombin Time Whole Bld POC 22.1 sec (11.1-13.5); ~PT, ~INR - Anti Coag Clinic 1.8 (0.9-1.1)
--- NOTE | 2024-08-01 13:15 | MHC.OFFVISCO ---
Intake Intake Visit Reasons: Anticoagulation Allergies No Known Allergies [No Known Allergies*] Allergy (Verified 08/01/24 13:02) Medication List - Last Reconciled 08/01/24 by Adrienne Clemente RN levothyroxine (Synthroid) 25 mcg PO DAILY methadone 160 mg PO DAILY sulfamethoxazole-trimethoprim 800-160 mg (Bactrim DS) 1 tab PO BID 7 days warfarin 2.5 mg See Protocol PO DAILY Nursing Note NO CP,SOB,DIET/MED CHANGES,FALLS OR SX OF BLEEDING. BOOST TO 5MGM TODAY THEN RESUME USUAL DOSE AND FOLLOW-UP IN 1 WEEK. GOOD UNDERSTANDING OF DOSING INSTR. NO GREENS 2 DAYS Anti-Coag Initial Assessment Social Hx Patient Tobacco Use Status: Former Tobacco user alcohol intake: former Alcohol intake frequency: does not drink Cardiovascular Hx: HTN, Arrhythmias and Other Lung Disease HX: DVT/PE Endocrine Hx: Other Musculoskeletal Hx: Arthritis Blood Disorder Hx: Hepatitis GI Hx: Other Hx: Other Neurological Hx: Serious Head Injury and Migraines/Headaches Cancer HX: No Psych. Illness/Depression: No Coding Level of Care Code Est Patient Level 1 Diagnoses Current use of anticoagulant therapy Z79.01 Assessment & Plan Assessment & Plan (1) Current use of anticoagulant therapy: Code(s): Z79.01 - prison (current) use of anticoagulants Category: Medical
== END 2024-08-01 13:19 | disposition home or self-care (01) ==
LOC: HO.ACS 13:00
PROVIDERS: PCP Internal Medicine; Visit Provider Internal Medicine
DX: Z79.01 Long term (current) use of anticoagulants (principal)

== ENCOUNTER → 2024-08-01 13:00 | Outpatient (BNVA) | payer OTHER, SELFPAY | PROVIDERS: PCP Internal Medicine; Visit Provider Internal Medicine | DX: I26.99 Other pulmonary embolism without acute cor pulmonale (principal); Z86.718 Personal history of other venous thrombosis and embolism; Z79.01 Long term (current) use of anticoagulants; Z51.81 Encounter for therapeutic drug level monitoring | CPT/HCPCS: 85610; 99211 ==

== ENCOUNTER 2024-08-27 13:08 | Outpatient (AMB) | payer OTHER, SELFPAY ==
[2024-08-27 13:19] LABS: Prothrombin Time Whole Bld POC 42.5 sec (11.1-13.5); ~PT, ~INR - Anti Coag Clinic 3.5 (0.9-1.1)
--- NOTE | 2024-08-27 13:25 | MHC.OFFVISCO ---
Intake Intake Visit Reasons: Anticoagulation Allergies No Known Allergies [No Known Allergies*] Allergy (Verified 08/01/24 13:02) Medication List - Last Reconciled 08/27/24 by Adrienne Clemente RN levothyroxine (Synthroid) 25 mcg PO DAILY methadone 160 mg PO DAILY sulfamethoxazole-trimethoprim 800-160 mg (Bactrim DS) 1 tab PO BID 7 days warfarin 2.5 mg See Protocol PO DAILY Nursing Note PT.STATES THAT HE WAS ON ANTIBIOTICS> 1 WEEK AGO FOR (L)LEG CELLULITIS. LEG REMAINS SLIGHTLY REDENNED WITH PERSISTENT EDEMA. PT.AGREES TO CALL PCP IF ANY WORSENING SX DEVELOP. CONTINUE PRESENT WARFARIN DOSING AND FOLLOW-UP IN 1 WEEK. GOOD UNDERSTANDING OF DOSING INSTR. Anti-Coag Initial Assessment Social Hx Patient Tobacco Use Status: Former Tobacco user alcohol intake: former Alcohol intake frequency: does not drink Cardiovascular Hx: HTN, Arrhythmias and Other Lung Disease HX: DVT/PE Endocrine Hx: Other Musculoskeletal Hx: Arthritis Blood Disorder Hx: Hepatitis GI Hx: Other Hx: Other Neurological Hx: Serious Head Injury and Migraines/Headaches Cancer HX: No Psych. 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
== END 2024-08-27 13:29 | disposition home or self-care (01) ==
LOC: HO.ACS 13:08
PROVIDERS: PCP Internal Medicine; Visit Provider Internal Medicine
DX: Z79.01 Long term (current) use of anticoagulants (principal)

== ENCOUNTER → 2024-08-27 13:08 | Outpatient (BNVA) | payer OTHER, SELFPAY | PROVIDERS: PCP Internal Medicine; Visit Provider Internal Medicine | DX: I26.99 Other pulmonary embolism without acute cor pulmonale (principal); Z86.718 Personal history of other venous thrombosis and embolism; Z79.01 Long term (current) use of anticoagulants; Z51.81 Encounter for therapeutic drug level monitoring | CPT/HCPCS: 85610; 99211 ==

== ENCOUNTER 2024-09-08 13:05 | Outpatient (AMB) | payer OTHER, SELFPAY ==
--- NOTE | 2024-09-08 13:30 | MHC.OFFVISCO ---
Intake Intake Visit Reasons: Anticoagulation Allergies No Known Allergies [No Known Allergies*] Allergy (Verified 09/08/24 13:24) Medication List - Last Reconciled 09/08/24 by Gege Rose RN levothyroxine (Synthroid) 25 mcg PO DAILY methadone 160 mg PO DAILY warfarin 2.5 mg See Protocol PO DAILY Nursing Note INR 1.8-?? out of therapeutic range of 3.0-3.5 Medications and supplements reviewed Patient status: states edema LE Medications or supplements: no changes Diet: eating less, more veg Denies any signs and symptoms of bleeding or clotting or unusual bruising Bleeding, bruising, clotting discussed Nutritional guidance given: no greens for 2 days, eat a red Dose: 5mg today then cont reg 2.5mg x 3, 1.25mg x 4 F/U INR Date : 09/11/24? Patient verbalizing understanding of instructions given. dr boucher called at 1400- dr mcdermott covering-made aware pt with low inr/dosing and f/u appt Anti-Coag Initial Assessment Social Hx Patient Tobacco Use Status: Former Tobacco user alcohol intake: former Alcohol intake frequency: does not drink Cardiovascular Hx: HTN, Arrhythmias and Other Lung Disease HX: DVT/PE Endocrine Hx: Other Musculoskeletal Hx: Arthritis Blood Disorder Hx: Hepatitis GI Hx: Other Hx: Other Neurological Hx: Serious Head Injury and Migraines/Headaches Cancer HX: No Psych. Illness/Depression: No Coding Level of Care Code Est Patient Level 1 Diagnoses Current use of anticoagulant therapy Z79.01 Assessment & Plan Assessment & Plan (1) Current use of anticoagulant therapy: Code(s): Z79.01 - residential (current) use of anticoagulants Category: Medical Medications: Discontinued sulfamethoxazole-trimethoprim 800-160 mg (Bactrim DS) Discontinued Reason: Patient Completed Course 1 tab PO BID 7 days 14 tabs 0RF
[2024-09-08 13:31] LABS: Prothrombin Time Whole Bld POC 21.5 sec (11.1-13.5); ~PT, ~INR - Anti Coag Clinic 1.8 (0.9-1.1)
== END 2024-09-08 14:02 | disposition home or self-care (01) ==
LOC: HO.ACS 13:05
PROVIDERS: PCP Internal Medicine; Visit Provider Internal Medicine
DX: Z79.01 Long term (current) use of anticoagulants (principal)

== ENCOUNTER → 2024-09-08 13:05 | Outpatient (BNVA) | payer OTHER, SELFPAY | PROVIDERS: PCP Internal Medicine; Visit Provider Internal Medicine | DX: I26.99 Other pulmonary embolism without acute cor pulmonale (principal); Z86.718 Personal history of other venous thrombosis and embolism; Z79.01 Long term (current) use of anticoagulants; Z51.81 Encounter for therapeutic drug level monitoring | CPT/HCPCS: 85610; 99211 ==

== ENCOUNTER 2024-09-11 13:27 | Outpatient (AMB) | payer OTHER, SELFPAY ==
[2024-09-11 13:49] LABS: Prothrombin Time Whole Bld POC 35.5 sec (11.1-13.5)
--- NOTE | 2024-09-11 13:58 | MHC.OFFVISCO ---
Intake Intake Visit Reasons: Anticoagulation Allergies No Known Allergies [No Known Allergies*] Allergy (Verified 09/11/24 13:32) Medication List - Last Reconciled 09/11/24 by Ana Lilia Garibay RN levothyroxine (Synthroid) 25 mcg PO DAILY methadone 160 mg PO DAILY warfarin 2.5 mg See Protocol PO DAILY Nursing Note INR: 3.0 in therapeutic range Medications and supplements reviewed pt states that his headaches have been more frequent left temporal lobe area- start off as a stabbing pain 8/10 pain scale then dissipates over 10minutes then feels dizzy afterwards from 1-4 hours same thing happened today b/p 150/82 HR 80 regular- pt enc to go to ER when happens again or worsens in any way msg sent to pcp regardign pt status and request CT scan Denies any signs and symptoms of bleeding or bruising or clotting. Bleeding, bruising, clotting discussed Nutritional guidance given Dose: resume for now 2.5mg x 3 days/ 1.25mg x 4 days F/U INR: 1 week Patient verbalizes understanding of instructions given Anti-Coag Initial Assessment Social Hx Patient Tobacco Use Status: Former Tobacco user alcohol intake: former Alcohol intake frequency: does not drink Cardiovascular Hx: HTN, Arrhythmias and Other Lung Disease HX: DVT/PE Endocrine Hx: Other Musculoskeletal Hx: Arthritis Blood Disorder Hx: Hepatitis GI Hx: Other Hx: Other Neurological Hx: Serious Head Injury and Migraines/Headaches Cancer HX: No Psych. 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
== END 2024-09-11 14:03 | disposition home or self-care (01) ==
PROVIDERS: PCP Internal Medicine; Visit Provider Internal Medicine
DX: Z79.01 Long term (current) use of anticoagulants (principal)

== ENCOUNTER → 2024-09-11 13:27 | Outpatient (BNVA) | payer OTHER, SELFPAY | PROVIDERS: PCP Internal Medicine; Visit Provider Internal Medicine | DX: I26.99 Other pulmonary embolism without acute cor pulmonale (principal); Z86.718 Personal history of other venous thrombosis and embolism; Z79.01 Long term (current) use of anticoagulants; Z51.81 Encounter for therapeutic drug level monitoring | CPT/HCPCS: 85610; 99211 ==

== ENCOUNTER 2024-09-17 17:57 | Emergency (ER) | payer OTHER, SELFPAY ==
[2024-09-17 18:04] VITALS: BP 165/87; PULSE 92; RESP 20; TEMP 37.1; O2SAT 98; BMI 37.6
--- NOTE | 2024-09-17 18:07 | ED_ITS ---
HPI - Skin/Abscess/Foreign Bdy General Chief complaint: Skin/Abscess/Foreign Body Stated complaint: ? cellulitis legs Time Seen by Provider: 09/18/24 01:52 Source: patient Mode of arrival: ambulatory Limitations: no limitations History of Present Illness ED Provider: Dr. Maritza Quiros HPI narrative: Patient comes to emergency room complaining of redness and swelling of both lower extremities. Patient has history of recurrent cellulitis. Patient states that it hurts a lot when he walks. Patient states that he has history of DVTs, is currently on Coumadin and is compliant with his medications. Patient states that the redness started today. Patient denies fever chills. Patient states that he has had multiple times cellulitis, states that he does not do well with cephalosporins, doxycycline or Bactrim. Patient states that he has violent vomiting after taking any of these medications. Related Data Home Medications ?Medication ?Instructions ?Recorded ?Confirmed methadone 10 mg/mL oral concentrate 160 mg PO DAILY 06/09/22 09/11/24 Previous Rx's ?Medication ?Instructions ?Recorded levothyroxine 25 mcg tablet 25 mcg PO DAILY #90 tabs 08/28/24 (Synthroid) warfarin 2.5 mg tablet 2.5 mg PO DAILY #90 tabs 08/28/24 linezolid 600 mg tablet 600 mg PO BID #14 tabs 09/18/24 Allergies Allergy/AdvReac Type Severity Reaction Status Date / Time No Known Allergies Allergy Verified 09/17/24 18:07 [No Known Allergies*] Review of Systems 2 Review of Systems: Constitutional : No Weight loss, No Fever, No Chills, No Night Sweats, No Fatigue, No Malaise ENT/Mouth : No Hearing loss, No Ear Pain, No Nasal Congestion, No Sinus Pain, No Hoarseness, No sore throat, No Rhinorrhea, No Swallowing Difficulty Eyes: No Eye Pain, No Swelling, No Redness, No Foreign Body, No Discharge, No Vision Changes Cardiovascular : No Chest Pain, No SOB, No Dyspnea on Exertion, No Orthopnea, No Edema, No Palpitations Respiratory : No Cough, No Sputum, No Wheezing, No Smoke Exposure, No Dyspnea Gastrointestinal : No Nausea, No Vomiting, No Diarrhea, No Constipation, No abdominal Pain, No Hematochezia, No Melena Genitourinary : no irregular bleeding, No Dysuria, No Urinary Frequency, No Hematuria, No Urinary Incontinence, No Urgency, No Flank Pain, No Urinary Flow Changes, No Hesitancy Musculoskeletal : No joint pain, No Myalgias, No Joint Swelling Skin : Complaining of lower extremity redness Neuro : No Weakness, No Numbness, No Paresthesias, No Loss of Consciousness, No Dizziness, No Headache Psych : No Anxiety/Panic, No Depression, No SI/HI/AH/VH, No Social Issues, Heme/Lymph: No Bruising, No Bleeding,No Lymphadenopathy Endocrine : No Polyuria, No Polydipsia, No Temperature Intolerance [facility] Past Medical History Medical History Headache DVT (deep venous thrombosis) Acquired hypothyroidism Pulmonary emboli DVT, bilateral lower limbs Obesity Polysubstance abuse Encounter to establish care Eyebrow laceration Surgical History No pertinent past surgical history Family History Family History Mother COPD (chronic obstructive pulmonary disease) Father Hepatitis Liver cirrhosis Maternal Grandmother Alzheimer disease Maternal Grandfather Prostate cancer Diabetes Other Mental health disorder Substance use disorder Social History Social History Household Members: Family Housing: House Unable to assess alcohol history related to: Refusing to respond Alcohol intake: former Year quit: 2012 Patient Tobacco Use Status: Former Tobacco user Smoked in Last 30 Days: No e-Cigarette/Vaping Use: Never Used Second Hand Smoke Exposure: No Use of substances other than those prescribed or required for medical reasons: No Substance Use Type: Heroin Advance Directives: No Advance Directives Information Provided: Yes service: No Current occupational status: unemployed Current occupational exposures/hazards: No Cognitive needs: No Hearing needs: No Vision needs: Yes (reading) Physical Exam 2 Vital Signs: Vital Signs: Last Vital Signs Temp 98 F 09/17/24 22:06 Pulse 73 09/17/24 22:06 Resp 16 09/17/24 22:06 BP 149/108 H 09/17/24 22:06 Pulse Ox 96 09/17/24 22:06 O2 Del Method Room Air 09/17/24 22:06 BMI result Body Mass Index 37.6 Const: Other: Appearance: Alert. Oriented X3. No acute distress. Eyes: Pupils equal, round and reactive to light. ENT: Pharynx normal. Neck: Normal inspection. Neck supple. No lymph nodes noted. No crepitus CVS: Normal heart rate and rhythm. Pulses normal. Normal S1 and S2 Respiratory: No respiratory distress. Breath sounds normal. No Wheezing. No rales Abdomen: Soft and nontender. No rigidity. No distention. Skin: Skin warm and dry. See extremities below Extremities: Patient has history of chronic lymphedema, patient has bilateral lower extremity erythema. Plus 3 pitting edema. Neuro: Oriented X 3. No motor deficit. No sensory deficit. Moving all extremities. No slurred speech. CN 2 through 12 grossly intact Psych: calm, cooperative, normal affect Course Course Course Narrative: This is a Rapid Medical Examination (RME) performed by Dacia Martin PA-C in triage. Full HPI, ROS, assessment and treatment plan per primary provider in the Main ED. 54 yo male hx of hypothyroid, DVT, PE, lymphedema here for increased redness/ swelling to left lower leg x12 hours. hx of cellulitis to the LLE - noncompliant with antibiotics. currently on warfarin. Plan: labs Medical Decision Making Medical Decision Making [facility] Narrative: My interpretation of labs: Patient's white blood cell count 6.5, INR 4.2, normal chemistry, normal LFTs -given the appearance of the patient's legs, admission was considered and offered. However, patient states that he would prefer to try antibiotics p.o. and if needed he can return. Patient concerned about the side effects of the medications including cephalosporins, doxycycline and Bactrim. Patient was given p.o. Zofran prior to getting antibiotic, patient received a dose of linezolid p.o. -discussed with the patient that if the erythema worsens, develops fever, overall not improving or any worsening symptoms, he needs to be sent to the emergency room and likely plan for admission -patient's INR is supratherapeutic. Patient instructed to not take Coumadin today and then resume his normal dose. Patient is due for an INR check tomorrow at the [facility] Differential Diagnosis Differential Diagnoses: The differential diagnosis associated with the presentation includes Admission/Observation Consideration of admission/observation: Escalation of care including admission/observation considered Lab Data [facility] Lab Attestation statement: I reviewed the patient's lab results. 09/17/24 18:33 09/17/24 18:33 Labs: Lab Results 09/17/24 09/18/24 09/18/24 Range/Units 18:33 00:13 00:16 WBC 6.5 (4.8-10.8) X10*3/uL RBC 4.21 L (4.60-5.80) X10*6/uL Hgb 12.4 L (14.0-18.0) g/dl Hct 37.5 L (42.0-52.0) % MCV 89.1 (80.0-98.0) fL MCH 29.5 (27.0-33.0) pg MCHC 33.1 (31.0-36.0) g/dl RDW 14.4 (11.0-16.0) % Plt Count 228 (160-400) X10*3/uL MPV 9.0 L (9.4-12.4) fL Immature Gran % (Auto) 0.2 (0.0-0.4) % Neut % (Auto) 52.5 (45-73) % Lymph % (Auto) 30.9 (20-40) % [place] % (Auto) 13.5 H (2-11) % Eos % (Auto) 2.6 (0-4) % Baso % (Auto) 0.3 (0-2) % Lymph # (Auto) 2.0 (1.2-4.9) X10*3/uL [place] # (Auto) 0.9 (0.1-1.2) X10*3/uL Eos # (Auto) 0.2 (0.0-0.4) X10*3/uL Baso # (Auto) 0.0 (0.0-0.2) X10*3/uL Abs Immat Gran (auto) 0.01 (0.00-0.03) X10*3/uL Absolute Neuts (auto) 3.4 (2.0-8.3) x10*3/uL Absolute Nucleated RBC 0.000 (0.0-0.012) X10*3/uL Nucleated RBC % (auto) 0.0 (0.0-0.2) /100WBC PT 48.7 H (10.9-12.4) SEC INR 4.2 H (0.9-1.1) Sodium 136 (135-145) mmol/L Potassium 4.5 (3.3-5.1) mmol/L Chloride 102 (96-108) mmol/L Carbon Dioxide 23 (22-29) mmol/L Anion Gap 16 (12-20) BUN 21 H (9-16) mg/dL Creatinine 0.98 (0.5-1.4) mg/dL Estim Creat Clear Calc 101.4 Estimated GFR > 60 POC Glucose 120 H (60-115) mg/dL Random Glucose 94 (60-115) mg/dL Calcium 9.2 (8.4-10.2) mg/dL Magnesium 2.2 (1.6-2.6) mg/dL Total Bilirubin 0.4 (0.0-1.0) mg/dL AST 108 H (5-37) U/L ALT 103 H (0-40) U/L Alkaline Phosphatase 127 H (39-117) U/L Total Protein 8.1 H (6.5-8.0) g/dL Albumin 3.8 (3.5-5.0) g/dL Urine Color Yellow Urine Appearance Clear Urine pH 5.5 (5.0-9.0) Ur Specific [place] 1.015 (1.005-1.025) Urine Protein Negative (Neg-Trace) mg/dL Urine Glucose (UA) Negative (Negative) mg/dL Urine Ketones Negative (Negative) mg/dL Urine Blood Negative (Negative) Urine Nitrite Negative (Negative) Ur Leukocyte Esterase Negative (Negative) Discharge Plan Discharge Clinical Impression: Cellulitis, Supratherapeutic INR Patient Disposition: Home, Self-Care Instructions: Cellulitis (ED), Elevated INR (ED) Additional Instructions: Please follow-up with your primary care physician tomorrow. If you have any worsening or new symptoms, please return to the emergency room or call 911 Prescriptions: New linezolid 600 mg tablet 600 mg PO BID Qty: 14 0RF No Action levothyroxine [Synthroid] 25 mcg tablet 25 mcg PO DAILY Qty: 90 1RF warfarin 2.5 mg tablet 2.5 mg PO DAILY Qty: 90 1RF Protocol: Dose Management Condition: Sunday (Week One) Dose/Route: 1.25 mg Instruction: 0.5 x 2.5 mg tablets Condition: Sunday Dose/Route: 5 mg Instruction: 2 x 2.5 mg tablets Condition: Sunday Dose/Route: 1.25 mg Instruction: 0.5 x 2.5 mg tablets Condition: Sunday Dose/Route: 2.5 mg Instruction: 1 x 2.5 mg tablet Condition: Dose/Route: 1.25 mg Instruction: 0.5 x 2.5 mg tablets Condition: Sunday Dose/Route: 2.5 mg Instruction: 1 x 2.5 mg tablet Condition: Sunday Dose/Route: 1.25 mg Instruction: 0.5 x 2.5 mg tablets Condition: Sunday (Week Two) Dose/Route: 1.25 mg Instruction: 0.5 x 2.5 mg tablets Condition: Sunday Dose/Route: 2.5 mg Instruction: 1 x 2.5 mg tablet Condition: Sunday Dose/Route: 1.25 mg Instruction: 0.5 x 2.5 mg tablets Condition: Sunday Dose/Route: 2.5 mg Instruction: 1 x 2.5 mg tablet Condition: Dose/Route: 1.25 mg Instruction: 0.5 x 2.5 mg tablets Condition: Sunday Dose/Route: 2.5 mg Instruction: 1 x 2.5 mg tablet Condition: Sunday Dose/Route: 1.25 mg Instruction: 0.5 x 2.5 mg tablets Protocol Text: Adjustment Start Date: 09/11/24 INR Value: 3.0 INR Date: 09/11/24 Recheck Date: 09/18/24 Additional Instructions: REVIEW FOOD LIST WEEKLY, EAT A MIX OF FRUITS AND VEGETABLES methadone 10 mg/mL concentrate 160 mg PO DAILY Print Language: Kiswahili
[2024-09-17 18:40] LABS: MANUAL DIFF FLAG NO
[2024-09-17 18:44] LABS: Basophils Percent Auto 0.3 % (0-2); Eosinophils Absolute Auto 0.2 X10*3/uL (0.0-0.4); Eosinophils Percent Auto 2.6 % (0-4); Hematocrit 37.5 % (42.0-52.0); Hemoglobin 12.4 g/dl (14.0-18.0); Imm Gran Abs Auto 0.01 X10*3/uL (0.00-0.03); Imm Gran Pct Auto 0.2 % (0.0-0.4); Lymphocytes Percent Auto 30.9 % (20-40); Mean Corpuscular HGB Conc 33.1 g/dl (31.0-36.0); Mean Corpuscular Hemoglobin 29.5 pg (27.0-33.0); Mean Corpuscular Volume 89.1 fL (80.0-98.0); Monocytes Absolute Auto 0.9 X10*3/uL (0.1-1.2); Monocytes Percent Auto 13.5 % (2-11); Neutrophils Absolute Auto 3.4 x10*3/uL (2.0-8.3); Neutrophils Percent Auto 52.5 % (45-73); Platelet Count 228 X10*3/uL (160-400); Red Blood Count 4.21 X10*6/uL (4.60-5.80); Red Cell Distribution Width 14.4 % (11.0-16.0); White Blood Count 6.5 X10*3/uL (4.8-10.8)
[2024-09-17 19:00] LABS: Alanine Aminotransferase 103 U/L (0-40); Albumin Level 3.8 g/dL (3.5-5.0); Alkaline Phosphatase 127 U/L (39-117); Anion Gap 16 (12-20); Aspartate Amino Transferase 108 U/L (5-37); Bilirubin Total 0.4 mg/dL (0.0-1.0); Blood Urea Nitrogen 21 mg/dL (9-16); Calcium 9.2 mg/dL (8.4-10.2); Carbon Dioxide 23 mmol/L (22-29); Chloride 102 mmol/L (96-108); Creatinine Clr Calc Pharmacy 101.4; Estimated Glomerular Filt Rate > 60; Glucose Random 94 mg/dL (60-115); Magnesium 2.2 mg/dL (1.6-2.6); Potassium 4.5 mmol/L (3.3-5.1); Sodium 136 mmol/L (135-145); Total Protein 8.1 g/dL (6.5-8.0)
[2024-09-17 19:30] LABS: INTERNATIONAL NORM RATIO 4.2 (0.9-1.1); Prothrombin Time 48.7 SEC (10.9-12.4)
[2024-09-17 22:06] VITALS: BP 149/108; PULSE 73; RESP 16; TEMP 36.6; O2SAT 96
--- NOTE | 2024-09-17 23:13 | PC.NURSE ---
Pt reports 8/10 chronic bilateral leg pain Bilateral leg redness and warmth to touch Plan of care ongoing.
[2024-09-18 00:16] LABS: Glucose, Whole Blood 120 mg/dL (60-115)
[2024-09-18 00:26] LABS: Appearance Urine Clear; Color Urine Yellow; Glucose Urine UA Negative (Negative); Leukocyte Esterase Urine Negative (Negative); Nitrite Urine Negative (Negative); PH 5.5 (5.0-9.0); Specific Gravity - Urine 1.015 (1.005-1.025); Urine Blood Negative (Negative); Urine Ketones Negative (Negative); Urine Protein Negative (Neg-Trace)
[2024-09-18 02:28] VITALS: BP 121/66; PULSE 71; RESP 16; TEMP 36.8; O2SAT 94
[2024-09-18] MEDS: Linezolid 600 MG TABLET PO (03:18)
[2024-09-18] MEDS: Ondansetron ODT 4 MG TAB.RAPDIS TRANSLINGU (03:19)
[2024-09-18 03:21] VITALS: BP 121/66; PULSE 71; RESP 16; TEMP 36.8; O2SAT 94
== END 2024-09-18 03:22 | disposition home or self-care (01) ==
PROVIDERS: Physician Assistant Medical; Emergency Provider Emergency Medicine; PCP Internal Medicine
DX: L03.116 Cellulitis of left lower limb (principal); R79.1 Abnormal coagulation profile; R60.0 Localized edema; Z87.891 Personal history of nicotine dependence; Z86.718 Personal history of other venous thrombosis and embolism; Z79.01 Long term (current) use of anticoagulants; Z79.899 Other long term (current) drug therapy
CPT/HCPCS: 36415; 80053; 81003; 82947; 83735; 85025; 85610; 99283; 99284

== ENCOUNTER → 2024-09-19 14:49 | Outpatient (BNVA) | payer OTHER, SELFPAY | PROVIDERS: PCP Internal Medicine; Visit Provider Internal Medicine ==

== ENCOUNTER 2024-09-22 13:00 | Outpatient (AMB) | payer OTHER, SELFPAY ==
[2024-09-22 13:07] LABS: Prothrombin Time Whole Bld POC 42.5 sec (11.1-13.5); ~PT, ~INR - Anti Coag Clinic 3.5 (0.9-1.1)
--- NOTE | 2024-09-22 13:12 | MHC.OFFVISCO ---
Intake Intake Visit Reasons: Anticoagulation Allergies No Known Allergies [No Known Allergies*] Allergy (Verified 09/22/24 13:00) Medication List - Last Reconciled 09/22/24 by Rashida Lee RN levothyroxine (Synthroid) 25 mcg PO DAILY linezolid 600 mg PO BID methadone 160 mg PO DAILY warfarin 2.5 mg See Protocol PO DAILY Nursing Note Amb to ACS feeling OK sts continues with a lot of pain in lower legs, bilat edema noted, left greater than right, weeping wounds uncovered elevated INR 09/17 from ED visit Medications and supplements reviewed, continues on Linezoid (x 7 days) antibiotic for cellulitis and can raise INR No other changes in health, diet, medications, or supplements, Denies any unusual signs and symptoms of bleeding, bruising, or clotting. Bleeding, bruising, clotting discussed INR 3.5 in therapeutic range (3.0-3.5) Dose: decrease dose today to 1.25mg (vs 2.5mg anticipating rise from antibiotic and pt not a green eater) then continue usual dosing try to get a green in, watch the reds that can raise (has a drinking cup full of cut up cantelope, discussed that is a raiser) F/U INR: Sunday09/26/24 Patient verbalizes understanding of instructions given Anti-Coag Initial Assessment Social Hx Patient Tobacco Use Status: Former Tobacco user alcohol intake: former Alcohol intake frequency: does not drink Cardiovascular Hx: HTN, Arrhythmias and Other Lung Disease HX: DVT/PE Endocrine Hx: Other Musculoskeletal Hx: Arthritis Blood Disorder Hx: Hepatitis GI Hx: Other Hx: Other Neurological Hx: Serious Head Injury and Migraines/Headaches Cancer HX: No Psych. Illness/Depression: No Questionnaires HAS-BLED Does the patient had uncontrolled Hypertension?: Yes Does the patient have renal disease?: No Does the patient have liver disease?: Yes Does the patient have a history of stroke?: No Has the patient had major bleeding or predisposition to bleeding?: No Does the patient have labile INRs?: Yes Is the patient over 65 years of age?: No Is the patient on medications that gives them a predisposition to bleeding?: Yes Does the patient use alcohol?: No HAS-BLED Score: 4 CHADSVASC Age: <65 Gender: Male Does the patient have a history of CHF?: No Does the patient have a history of Hypertension?: Yes Does the patient have a history of Stroke/TIA/Thromboembolism?: Yes Does the patient have a history of Vascular Disease (prior [place], PAD or aortic plaque)?: No Does the patient have a history of Diabetes?: No CHADS VACS Score: 3 Evgeny Prediction Score Rsk VTE Active Cancer: No Previous VTE, excluding superficial vein thrombosis: Yes Reduced mobility: No Already known Thrombophilic Condition: Yes With-in last month Trauma and/or Surgery: No Elderly 70 year or older: No Heart and/or Respiratory Failure: No Acute Myocardial infarction and/or Ischemic Stroke: No Acute Infection and/or Rheumatologic Disorder: Yes Obesity (BMI 30 or greater): Yes Ongoing Hormonal Treatment: No Score: 8 Evgeny Score less than 4; Low Risk of VTE Evgeny Score 4 or greater; High Risk of VTE Coding Level of Care Code Est Patient Level 1 Diagnoses Current use of anticoagulant therapy Z79.01 Time Spent (min) 15 Assessment & Plan Assessment & Plan (1) Current use of anticoagulant therapy: Code(s): 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
== END 2024-09-22 13:29 | disposition home or self-care (01) ==
LOC: HO.ACS 13:00
PROVIDERS: PCP Internal Medicine; Visit Provider Internal Medicine
DX: Z79.01 Long term (current) use of anticoagulants (principal)

== ENCOUNTER → 2024-09-22 13:00 | Outpatient (BNVA) | payer OTHER, SELFPAY | PROVIDERS: PCP Internal Medicine; Visit Provider Internal Medicine | DX: I26.99 Other pulmonary embolism without acute cor pulmonale (principal); Z86.718 Personal history of other venous thrombosis and embolism; Z79.01 Long term (current) use of anticoagulants; Z51.81 Encounter for therapeutic drug level monitoring | CPT/HCPCS: 85610; 99211 ==

== ENCOUNTER 2024-10-02 13:07 | Outpatient (AMB) | payer OTHER, SELFPAY ==
[2024-10-02 13:17] LABS: Prothrombin Time Whole Bld POC 27.6 sec (11.1-13.5); ~PT, ~INR - Anti Coag Clinic 2.3 (0.9-1.1)
--- NOTE | 2024-10-02 13:23 | MHC.OFFVISCO ---
Intake Intake Visit Reasons: Anticoagulation Allergies No Known Allergies [No Known Allergies*] Allergy (Verified 10/02/24 13:11) Medication List - Last Reconciled 10/02/24 by Rashida Cash RN levothyroxine (Synthroid) 25 mcg PO DAILY methadone 160 mg PO DAILY warfarin 2.5 mg See Protocol PO DAILY Nursing Note INR 2.3 out of therapeutic range of 3.0-3.5 Pt denies missed dose. Dose had been decreased last week due to antibiotic for lower leg infection. Medications and supplements reviewedno change Patient status: usual state of health. Leg improving per pt. Dsg intact. Medications or supplements: Linezolid course of treatment completed Diet: usual diet for pt Denies any signs and symptoms of bleeding or clotting or unusual bruising Bleeding, bruising, clotting discussed Nutritional guidance given: to avoid greens and review food list and have increase foods that raise the INR. Dose: increase today's dose to 2.5mg (1.25mg) then resume usual dose of 1.25mg X 4 days and 2.5mg X 3 days F/U INR Date : 1 week?? Patient verbalizing understanding of instructions given. Dr Kirk notified of INR with dosing plan and next retest date. Anti-Coag Initial Assessment Social Hx Patient Tobacco Use Status: Former Tobacco user alcohol intake: former Alcohol intake frequency: does not drink Cardiovascular Hx: HTN, Arrhythmias and Other Lung Disease HX: DVT/PE Endocrine Hx: Other Musculoskeletal Hx: Arthritis Blood Disorder Hx: Hepatitis GI Hx: Other Hx: Other Neurological Hx: Serious Head Injury and Migraines/Headaches Cancer HX: No Psych. 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
== END 2024-10-02 13:42 | disposition home or self-care (01) ==
LOC: HO.ACS 13:07
PROVIDERS: PCP Internal Medicine; Visit Provider Internal Medicine
DX: Z79.01 Long term (current) use of anticoagulants (principal)

== ENCOUNTER → 2024-10-02 13:07 | Outpatient (BNVA) | payer OTHER, SELFPAY | PROVIDERS: PCP Internal Medicine; Visit Provider Internal Medicine | DX: I26.99 Other pulmonary embolism without acute cor pulmonale (principal); Z86.718 Personal history of other venous thrombosis and embolism; Z79.01 Long term (current) use of anticoagulants; Z51.81 Encounter for therapeutic drug level monitoring | CPT/HCPCS: 85610; 99211 ==

== ENCOUNTER 2024-10-08 13:04 | Outpatient (AMB) | payer OTHER, SELFPAY ==
[2024-10-08 13:12] LABS: Prothrombin Time Whole Bld POC 26.9 sec (11.1-13.5); ~PT, ~INR - Anti Coag Clinic 2.2 (0.9-1.1)
--- NOTE | 2024-10-08 13:13 | MHC.OFFVISCO ---
Intake Intake Visit Reasons: Anticoagulation Allergies No Known Allergies [No Known Allergies*] Allergy (Verified 10/08/24 13:06) Medication List - Last Reconciled 10/08/24 by Gege Rose RN levothyroxine (Synthroid) 25 mcg PO DAILY methadone 160 mg PO DAILY warfarin 2.5 mg See Protocol PO DAILY Nursing Note INR 2.2-? out of therapeutic range 3-3.5 Medications and supplements reviewed Patient status: pt cont with c/o leg pain, weight gain Medications or supplements: linezodil d/c on 09/25/24 Diet: same Denies any signs and symptoms of bleeding or clotting or unusual bruising Bleeding, bruising, clotting discussed Nutritional guidance given: no greens for 2-3 days, eat reds to raise Dose: increase today to 3.75mg then increase weekly dosing sl F/U INR Date : 1 week? Patient verbalizing understanding of instructions given. composed note to dr sander Gama Initial Assessment Social Hx Patient Tobacco Use Status: Former Tobacco user alcohol intake: former Alcohol intake frequency: does not drink Cardiovascular Hx: HTN, Arrhythmias and Other Lung Disease HX: DVT/PE Endocrine Hx: Other Musculoskeletal Hx: Arthritis Blood Disorder Hx: Hepatitis GI Hx: Other Hx: Other Neurological Hx: Serious Head Injury and Migraines/Headaches Cancer HX: No Psych. Illness/Depression: No Coding Level of Care Code Est Patient Level 1 Diagnoses Current use of anticoagulant therapy Z79.01 Assessment & Plan Assessment & Plan (1) Current use of anticoagulant therapy: Code(s): Z79.01 - FPC (current) use of anticoagulants Category: Medical
== END 2024-10-08 14:23 | disposition home or self-care (01) ==
LOC: HO.ACS 13:04
PROVIDERS: PCP Internal Medicine; Visit Provider Internal Medicine
DX: Z79.01 Long term (current) use of anticoagulants (principal)

== ENCOUNTER → 2024-10-08 13:04 | Outpatient (BNVA) | payer OTHER, SELFPAY | PROVIDERS: PCP Internal Medicine; Visit Provider Internal Medicine | DX: I26.99 Other pulmonary embolism without acute cor pulmonale (principal); Z86.718 Personal history of other venous thrombosis and embolism; Z79.01 Long term (current) use of anticoagulants; Z51.81 Encounter for therapeutic drug level monitoring | CPT/HCPCS: 85610; 99211 ==

== ENCOUNTER 2024-10-14 21:51 | Emergency (ER) | payer OTHER, SELFPAY ==
--- NOTE | 2024-10-14 | ECG_ITS ---
Test Reason : syncope Blood Pressure : / mmHG Vent. Rate : 081 BPM Atrial Rate : 081 BPM P-R Int : 160 ms QRS Dur : 104 ms QT Int : 340 ms P-R-T Axes : 029 -17 026 degrees QTc Int : 394 ms Normal sinus rhythm Minimal voltage criteria for LVH, may be normal variant ( R in aVL ) Borderline ECG When compared with ECG of 10-DEC-2023 12:36, No significant change was found Referred By: Generic ED Physician Electronically Signed By:Hilario Agarwal
--- NOTE | ~2024-10-14 | MR_ITS ---
EXAMINATION: MR BRAIN WITHOUT CONTRAST CLINICAL INFORMATION: Unable to walk COMPARISON: None available. TECHNIQUE: MRI of the brain was obtained using routine sequences without contrast. FINDINGS: Motion artifact is present. No acute intracranial hemorrhage or infarct. There is a single focus of susceptibility artifact in the right parietal lobe. No midline shift or hydrocephalus. No acute extra-axial fluid collections. The osseous structures are unremarkable. The pituitary gland, pineal gland and remaining midline structures are unremarkable. No orbital pathology. The paranasal sinuses and mastoid air cells are clear. MR/MR head/brain wo con IMPRESSION: -No acute intracranial abnormalities. -Single nonspecific focus of susceptibility artifact in the right parietal lobe. Electronically signed by: Christina Sanchez MD 10/15/2024 01:25 PM EST
--- NOTE | ~2024-10-14 | CT_ITS ---
EXAMINATION: CT HEAD WITHOUT CONTRAST CLINICAL INFORMATION: Headaches. COMPARISON: January 22, 2019. TECHNIQUE: Contiguous axial imaging was performed from the skull base to vertex without intravenous administration of contrast. This CT examination was performed using dose optimization techniques as appropriate, variously including the following: *Automated exposure control *Adjustment of mA and/or kV according to patient size (this includes techniques or standardized protocols for targeted exams where dose is matched to indication/reason for exam; i.e. extremities or head) *Use of iterative reconstruction technique DLP: 634 mGy-cm FINDINGS: There is cerebral volume loss with prominence of the lateral and the third ventricles. The cortical sulci are widened appropriately. The fourth ventricle and basal cisterns are normally outlined. There is no acute territorial defect, hemorrhage or midline shift. The extra-axial spaces are unremarkable. Calvarium/scalp: Intact. Maxillofacial sinuses and mastoids: Clear as visualized. CT/CT head/brain wo IV con IMPRESSION: 1. No acute intracranial pathology. 2. Cerebral volume loss with prominence of the lateral and third ventricles. Electronically signed by: Deonte Charles MD 10/15/2024 04:46 AM EST
[2024-10-14 22:00] VITALS: BP 155/85; PULSE 82; RESP 16; TEMP 36.6; O2SAT 93
[2024-10-14 22:02] VITALS: BP 150/80; PULSE 95; O2SAT 96; BMI 41.8
[2024-10-14 22:08] VITALS: PULSE 83
[2024-10-14 22:30] LABS: MANUAL DIFF FLAG NO
[2024-10-14 22:31] LABS: Basophils Percent Auto 0.2 % (0-2); Eosinophils Absolute Auto 0.1 X10*3/uL (0.0-0.4); Hematocrit 38.2 % (42.0-52.0); Hemoglobin 12.4 g/dl (14.0-18.0); Imm Gran Abs Auto 0.02 X10*3/uL (0.00-0.03); Imm Gran Pct Auto 0.4 % (0.0-0.4); Lymphocytes Absolute Auto 1.1 X10*3/uL (1.2-4.9); Lymphocytes Percent Auto 21.8 % (20-40); Mean Corpuscular HGB Conc 32.5 g/dl (31.0-36.0); Mean Corpuscular Hemoglobin 28.8 pg (27.0-33.0); Mean Corpuscular Volume 88.8 fL (80.0-98.0); Mean Platelet Volume 9.2 fL (9.4-12.4); Monocytes Absolute Auto 0.5 X10*3/uL (0.1-1.2); Monocytes Percent Auto 9.4 % (2-11); Neutrophils Absolute Auto 3.3 x10*3/uL (2.0-8.3); Neutrophils Percent Auto 66.2 % (45-73); Platelet Count 240 X10*3/uL (160-400); Red Cell Distribution Width 14.1 % (11.0-16.0)
[2024-10-14 22:51] LABS: Alanine Aminotransferase 103 U/L (0-40); Albumin Level 3.5 g/dL (3.5-5.0); Alkaline Phosphatase 125 U/L (39-117); Anion Gap 13 (12-20); Aspartate Amino Transferase 102 U/L (5-37); Bilirubin Total 0.2 mg/dL (0.0-1.0); Blood Urea Nitrogen 15 mg/dL (9-16); Calcium 8.5 mg/dL (8.4-10.2); Carbon Dioxide 25 mmol/L (22-29); Chloride 104 mmol/L (96-108); Creatinine Clr Calc Pharmacy 126.8; Estimated Glomerular Filt Rate > 60; Glucose Random 135 mg/dL (60-115); Potassium 4.4 mmol/L (3.3-5.1); Sodium 138 mmol/L (135-145); Total Protein 7.8 g/dL (6.5-8.0)
[2024-10-14 23:25] VITALS: BP 142/87; PULSE 70; RESP 18; TEMP 36.8; O2SAT 97
--- NOTE | 2024-10-14 23:29 | MHC.EDTECH ---
This tech took over care of patient at 2300,rounded and introduced self to pt,vitals taken,pt urinated 300MLS in urinal,(yellow) in color,sample obtained and sent to lab,pt appears comfortable,call le in reach
[2024-10-14 23:39] LABS: Appearance Urine Clear; Color Urine Yellow; Glucose Urine UA Negative (Negative); Leukocyte Esterase Urine Negative (Negative); Nitrite Urine Negative (Negative); PH 7.5 (5.0-9.0); Specific Gravity - Urine 1.015 (1.005-1.025); Urine Blood Negative (Negative); Urine Ketones Negative (Negative); Urine Protein Negative (Neg-Trace)
[2024-10-15] VITALS (8 sets, daily range): BP systolic 122–186; BP diastolic 79–97; PULSE 70–84; RESP 16–20; TEMP 36.8–36.9; O2SAT 94–96
--- NOTE | 2024-10-15 00:24 | ED.SYNCOPE ---
HPI - Syncope General Chief Complaint: Syncope Stated Complaint: unwitnessed syncopal episode, +thinners Time Seen by Provider: 10/15/24 00:23 Source: patient History of Present Illness ED Provider: Dr. Junadi Hastings HPI narrative: 52-year-old male with a past medical history of polysubstance abuse including IVDU, cellulitis, migraines, hepatitis-C, and back pain who presents emergency department for evaluation of left-sided severe headache and syncope. Patient states he has been having severe, sharp, intermittent, brief stabbing pain behind his left ear for 8 months. States that today he had multiple episodes of this pain. He became dizzy and lightheaded and had a syncopal episode causing him to fall to the ground. Patient had loss of consciousness for an unknown amount of time. He was not certain if he hit his head. He was on warfarin. Patient has seen his PCP for the headache in his scheduled for a CT scan of the head next week. Related Data Home Medications ?Medication ?Instructions ?Recorded ?Confirmed methadone 10 mg/mL oral concentrate 160 mg PO DAILY 06/09/22 09/22/24 Previous Rx's ?Medication ?Instructions ?Recorded levothyroxine 25 mcg tablet 25 mcg PO DAILY #90 tabs 08/28/24 (Synthroid) warfarin 2.5 mg tablet 2.5 mg PO DAILY #90 tabs 08/28/24 Allergies Allergy/AdvReac Type Severity Reaction Status Date / Time No Known Allergies Allergy Verified 10/14/24 22:07 [No Known Allergies*] Review of Systems Review of Systems: Yes all other systems are reviewed and are negative PMFSH Past Medical History Medical History Headache DVT (deep venous thrombosis) Acquired hypothyroidism Pulmonary emboli DVT, bilateral lower limbs Obesity Polysubstance abuse Encounter to establish care Eyebrow laceration Surgical History No pertinent past surgical history Family History Family History Mother COPD (chronic obstructive pulmonary disease) Father Hepatitis Liver cirrhosis Maternal Grandmother Alzheimer disease Maternal Grandfather Prostate cancer Diabetes Other Mental health disorder Substance use disorder Social History Social History Household Members: Family Housing: House Unable to assess alcohol history related to: Refusing to respond Alcohol intake: former Year quit: 2011 Patient Tobacco Use Status: Former Tobacco user Smoked in Last 30 Days: No e-Cigarette/Vaping Use: Never Used Second Hand Smoke Exposure: No Use of substances other than those prescribed or required for medical reasons: No Substance Use Type: Heroin Advance Directives: No Advance Directives Information Provided: No Do you have a plan to hurt others: No Plan service: No Current occupational status: unemployed Current occupational exposures/hazards: No Cognitive needs: No Hearing needs: No Vision needs: Yes (reading) Physical Exam Vital Signs: Vital Signs: Last Vital Signs Temp 98.2 F 10/14/24 23:25 Pulse 70 10/14/24 23:25 Resp 18 10/14/24 23:25 BP 142/87 H 10/14/24 23:25 Pulse Ox 97 10/14/24 23:25 O2 Del Method Room Air 10/14/24 23:25 BMI result Body Mass Index 41.8 Vital signs revealed an elevated blood pressure of 142/87 Exam: General: Awake, alert in no distress Head: Normocephalic, atraumatic EENT: PERRL, Lids normal, sclera normal, conjunctiva normal, nose normal , ears normal, throat without erythema or exudates Neck: Supple, no adenopathy Lung: breath sounds symmetric, no wheezing, rales or rhonchi Chest: symmetric movement, nontender Heart: regular rate and rhythm, normal S1, S2 no murmurs or rubs Abdomen: soft, non-tender, nondistended, normal bowel sounds Back: no vertebral tenderness, no CVAT Extremities: no deformities, moves all extremities symmetrically Neuro: Awake, alert, oriented, normal speech, cranial nerves intact, moves all extremities symmetrically Psych: Pleasant, cooperative Medical Decision Making Medical Decision Making MDM Narrative: 52-year-old male with a past medical history of polysubstance abuse including IVDU, cellulitis, hepatitis-C, migraines, and back pain who presents emergency department for evaluation of left-sided severe headache x8 months worse today, dizziness and syncope with loss of consciousness and fall to the ground. Patient was on warfarin. Vital signs revealed elevated blood pressure otherwise unremarkable. Physical examination was unremarkable Differential diagnosis: ?Includes but is not limited to skull fracture, intracranial bleed, trigeminal neuralgia, myocardial infarction, myocardial ischemia, arrhythmia, vasovagal syncope Course: 02:00 My interpretation patient's laboratory evaluation is as follows: CBC was normal. Glucose elevated 135. AST, ALT and alkaline phosphatase were elevated at 102, 103, and 125-this is secondary to his hepatitis-C. Twelve EKG was unremarkable. At the end of my shift, the PT/INR, PTT and a CT scan of the head of the head and neck are pending therefore the patient's care was turned over to my colleague, Dr. Alyssa Riley. Admission/Observation Consideration of admission/observation: Escalation of care including admission/observation considered (Yes) Lab Data MDM Lab Attestation statement: I reviewed the patient's lab results. 10/14/24 22:22 10/14/24 22:22 Labs: Lab Results 10/14/24 10/14/24 10/15/24 Range/Units 22:22 23:28 02:09 WBC 5.0 (4.8-10.8) X10*3/uL RBC 4.30 L (4.60-5.80) X10*6/uL Hgb 12.4 L (14.0-18.0) g/dl Hct 38.2 L (42.0-52.0) % MCV 88.8 (80.0-98.0) fL MCH 28.8 (27.0-33.0) pg MCHC 32.5 (31.0-36.0) g/dl RDW 14.1 (11.0-16.0) % Plt Count 240 (160-400) X10*3/uL MPV 9.2 L (9.4-12.4) fL Immature Gran % (Auto) 0.4 (0.0-0.4) % Neut % (Auto) 66.2 (45-73) % Lymph % (Auto) 21.8 (20-40) % [place] % (Auto) 9.4 (2-11) % Eos % (Auto) 2.0 (0-4) % Baso % (Auto) 0.2 (0-2) % Lymph # (Auto) 1.1 L (1.2-4.9) X10*3/uL [place] # (Auto) 0.5 (0.1-1.2) X10*3/uL Eos # (Auto) 0.1 (0.0-0.4) X10*3/uL Baso # (Auto) 0.0 (0.0-0.2) X10*3/uL Abs Immat Gran (auto) 0.02 (0.00-0.03) X10*3/uL Absolute Neuts (auto) 3.3 (2.0-8.3) x10*3/uL Absolute Nucleated RBC 0.000 (0.0-0.012) X10*3/uL Nucleated RBC % (auto) 0.0 (0.0-0.2) /100WBC PT 41.7 H (10.9-12.4) SEC INR 3.6 H (0.9-1.1) APTT 53.6 H (26.0-36.8) SEC Sodium 138 (135-145) mmol/L Potassium 4.4 (3.3-5.1) mmol/L Chloride 104 (96-108) mmol/L Carbon Dioxide 25 (22-29) mmol/L Anion Gap 13 (12-20) BUN 15 (9-16) mg/dL Creatinine 0.83 (0.5-1.4) mg/dL Estim Creat Clear Calc 126.8 Estimated GFR > 60 Random Glucose 135 H (60-115) mg/dL Calcium 8.5 D (8.4-10.2) mg/dL Total Bilirubin 0.2 (0.0-1.0) mg/dL AST 102 H (5-37) U/L ALT 103 H (0-40) U/L Alkaline Phosphatase 125 H (39-117) U/L Total Protein 7.8 (6.5-8.0) g/dL Albumin 3.5 (3.5-5.0) g/dL Urine Color Yellow Urine Appearance Clear Urine pH 7.5 (5.0-9.0) Ur Specific [place] 1.015 (1.005-1.025) Urine Protein Negative (Neg-Trace) mg/dL Urine Glucose (UA) Negative (Negative) mg/dL Urine Ketones Negative (Negative) mg/dL Urine Blood Negative (Negative) Urine Nitrite Negative (Negative) Ur Leukocyte Esterase Negative (Negative) Independent Interpretation I performed an independent interpretation of an: EKG Interpretation: My independent interpretation patient's 12 EKG done at your 22:08 hours is as follows: Normal sinus rhythm rate of 81, normal VA interval, QRS duration and QTC interval, no ST segment elevation, no ST segment depression, no significant T-wave abnormalities, no PACs, no PVCs Prescription Management I considered prescription management with: Other (Hep C, polysubstance use disorder) Discharge Plan Discharge Clinical Impression: Syncope, Head injury, acute Patient Disposition: Still a Patient Instructions: Trigeminal Neuralgia (ED), Syncope (ED) Prescriptions: No Action levothyroxine [Synthroid] 25 mcg tablet 25 mcg PO DAILY Qty: 90 1RF warfarin 2.5 mg tablet 2.5 mg PO DAILY Qty: 90 1RF Protocol: Dose Management Condition: Sunday (Week One) Dose/Route: 1.25 mg Instruction: 0.5 x 2.5 mg tablets Condition: Sunday Dose/Route: 2.5 mg Instruction: 1 x 2.5 mg tablet Condition: Sunday Dose/Route: 1.25 mg Instruction: 0.5 x 2.5 mg tablets Condition: Sunday Dose/Route: 3.75 mg Instruction: 1.5 x 2.5 mg tablets Condition: Dose/Route: 1.25 mg Instruction: 0.5 x 2.5 mg tablets Condition: Sunday Dose/Route: 2.5 mg Instruction: 1 x 2.5 mg tablet Condition: Sunday Dose/Route: 1.25 mg Instruction: 0.5 x 2.5 mg tablets Condition: Sunday (Week Two) Dose/Route: 2.5 mg Instruction: 1 x 2.5 mg tablet Condition: Sunday Dose/Route: 1.25 mg Instruction: 0.5 x 2.5 mg tablets Condition: Sunday Dose/Route: 2.5 mg Instruction: 1 x 2.5 mg tablet Condition: Sunday Dose/Route: 1.25 mg Instruction: 0.5 x 2.5 mg tablets Condition: Dose/Route: 2.5 mg Instruction: 1 x 2.5 mg tablet Condition: Sunday Dose/Route: 1.25 mg Instruction: 0.5 x 2.5 mg tablets Condition: Sunday Dose/Route: 2.5 mg Instruction: 1 x 2.5 mg tablet Protocol Text: Adjustment Start Date: Sunday10/08/24 INR Value: 2.2 INR Date: 10/08/24 Recheck Date: 10/15/24 Additional Instructions: take 3.75mg today, increase weekly dosing sl no greens for 3 days, eat a red today methadone 10 mg/mL concentrate 160 mg PO DAILY Print Language: Bruneian
--- NOTE | 2024-10-15 02:10 | MHC.EDTECH ---
Lab drawn and sent to lab.
[2024-10-15 02:22] LABS: INTERNATIONAL NORM RATIO 3.6 (0.9-1.1); Prothrombin Time 41.7 SEC (10.9-12.4)
[2024-10-15 02:25] LABS: Partial Thromboplastin Time 53.6 SEC (26.0-36.8)
--- NOTE | 2024-10-15 03:23 | MHC.EDTECH ---
Rounds and vitals completed,emptied 600MLS from urinal,pt is resting quietly,call le in reach
--- NOTE | 2024-10-15 05:43 | MHC.EDTECH ---
Orthostatic vitals completed,attempted to ambulate pt,pt took a few steps stated I cant walk I'm to dizzy RN and provider were made aware
[2024-10-15] MEDS: LORazepam 1 MG TABLET 2 MG PO (05:51)
[2024-10-15] MEDS: Meclizine HCl 25 MG TABLET 50 MG PO (05:52)
--- NOTE | 2024-10-15 07:19 | PC.NURSE ---
Attempted to stand patient to ambulate, patient sitting on edge of bed with eyes closed stating he stills feels dizzy. Stood up but states feels drunk and wobbly. Returned to bed, provider aware.
--- NOTE | 2024-10-15 11:06 | MHC.EDTECH ---
attempted to walk patient , patient would not open his eyes when t/w called his name. Patient did not move when i gently shook his arm. Marcela ROUSE aware
--- NOTE | 2024-10-15 12:13 | PC.NURSE ---
MD attempted to ambulate patient, patient to dizzy to ambulate. MRI ordered. Transported to MRI at this time.
[2024-10-15 14:03] LABS: Amphetamine Screen Urine Not Detected (Not Detect); Barbiturates, Urine Not Detected (Not Detect); Benzodiazepines Screen Urine Not Detected (Not Detect); Buprenorphine Scr Not Detected (Not Detect); Cannabinoid Screen Urine Not Detected (Not Detect); Cocaine Screen Urine Not Detected (Not Detect); Fentanyl, urine Not Detected (Not Detect); Methadone Screen, Urine Positive (Not Detect); Opiate Screen Urine Not Detected (Not Detect); Oxycodone Screen Urine Not Detected (Not Detect); Phencyclidine Screen Urine Not Detected (Not Detect)
--- NOTE | 2024-10-15 14:23 | MHC.CM.ED ---
Received case management consult from Dr Mccabe. Patient came to the ER with vertigo symptoms. Work up essentially negative. Physical therapy eval completed. Rehab is recommended. It is felt patient is experiencing vertigo symptoms. Met with patient in regards to discharge planning. Patient lives with his mother and brother, ambulates independently and gets methadone from [facility] in [place], [place]. PCP verified. Copy of HCP verified to be on file. Patient aware referral will be broadcasted. Continue to monitor for d/c needs.
[2024-10-15 14:33] LABS: COVID-19 Test Negative (Negative); IDNOW Serial# 152EDE1D
--- NOTE | 2024-10-15 14:46 | PHA.MEDREC ---
Addendum entered by Killian Welsh RPh 10/15/24 15:01: Med rec was reviewed by Jennifer. Original Note: Pharmacy Consult ? Medication Reconciliation Pharmacy has completed the medication reconciliation. Spoke with patient and he confirmed his medicitons. Patient confirmed his Methadone and confirmed he is taking 160mg daily of that. He confirmed he is taking his Warfarin 2.5mg and confirmed he is taking 1 2.5mg tab on Sundays, Tuesdays, and Saturdays and states he has been taking 1.25mg (1/2 tab) on Mondays, Wednesdays and Fridays. He claims he has was not able to take any medications this morning but states he took all his medications yesterday.
--- NOTE | 2024-10-15 17:01 | PC.NURSE ---
Attempted to call [facility] to verify patients methadone dose , called multiple times and was unable to verify dose as playback operator stating that they do not have record of patient. Patient stating that he already had his mom bring him in his methadone dose for today so he does not need his methadone until tomorrow. Provider aware that patient took home dose of methadone today. Patient states has home methadone bottles for the month but they are at home.
--- NOTE | 2024-10-15 20:18 | PC.NURSE ---
Patient arrived from ED. Report received from PADMA Elmore. Pt ambulated with slow steady gait to bathroom. Moved to Overflow 3.
--- NOTE | 2024-10-15 22:40 | PC.NURSE ---
Spoke with Irma ROUSE who reported that patient's Methadone dose couldn't be confirmed by the listed clinic and was advised to contact [facility] at in the morning once they are open. Patient aware of this. Patient stated that he took his Methadone dose today and denies needing it during the overnight. Requested & given turkey sandwich, pudding, and water. Denies any other needs at this time. Care ongoing by this RN.
--- NOTE | 2024-10-16 03:20 | MHC.EDTECH ---
This tech took over care of patient at 0300AM,rounded and introduced self to pt,pt appears comfortable,call le in reach
[2024-10-16 05:47] VITALS: BP 160/94; PULSE 73; RESP 18; TEMP 36.9; O2SAT 94
--- NOTE | 2024-10-16 05:54 | MHC.EDTECH ---
Rounds and vitals completed,emptied 400MLS from urinal,(yellow in color) patient is resting quietly,call le in reach
--- NOTE | 2024-10-16 08:00 | PC.NURSE ---
This RN call [facility] [phone] and spoke with Priscilla SIM at facility and confirmed Methadone dosing for patient. Patient was last dosed at clinic 10/03 at 8am with 160mg oral suspension and given 27 take home doses. Patient states he did take his dose at home yesterday before arriving to hospital. made aware.
[2024-10-16] MEDS: Levothyroxine Sodium 25 MCG TABLET PO (09:42)
--- NOTE | 2024-10-16 10:17 | HE.PHANOTE ---
METHADONE VERIFICATION Dose: 160 mg, last dosed 10/15/24 @0830. Per [facility], patient was last given 160mg on 10/03 @0820 and given 27 home doses, patient states he took his dose yesterday 10/15/24 @0830.
[2024-10-16] MEDS: methADONE HCl 20 MG/2 ML ORAL.CONC 160 MG PO (11:22)
[2024-10-16 12:56] LABS: INTERNATIONAL NORM RATIO 3.2 (0.9-1.1); Prothrombin Time 37.9 SEC (10.9-12.4)
--- NOTE | 2024-10-16 13:24 | MHC.CM.ED ---
Patient remains in ER overflow. Repeat physical therapy eval is still recommending short term rehab. [facility] are able to offer a bed. [facility] still reviewing. Met with patient to discuss d/c plan. Patient feels he can safely return home with [facility]NA for prison and physical therapy. Patient agreeable to referral to [facility]. Patient's family will transport patient home. Patient, Bonita ROUSE and Ngoc LUCAS aware. Continue to monitor for d/c needs.
[2024-10-16 13:35] VITALS: BP 154/78; PULSE 76; RESP 18; TEMP 36.7; O2SAT 96
== END 2024-10-16 13:43 | disposition home or self-care (01) ==
PROVIDERS: Emergency Medicine Emergency Medical Services; Physician Assistant Medical; Emergency Provider Emergency Medicine; PCP Internal Medicine
DX: S09.90XA Unspecified injury of head, initial encounter (principal); R42 Dizziness and giddiness; R26.81 Unsteadiness on feet; R94.31 Abnormal electrocardiogram [ECG] [EKG]; R55 Syncope and collapse; R51.9 Headache, unspecified; W19.XXXA Unspecified fall, initial encounter; Y93.89 Activity, other specified; Y92.89 Other specified places as the place of occurrence of the external cause; Y99.8 Other external cause status; Z51.81 Encounter for therapeutic drug level monitoring; Z79.899 Other long term (current) drug therapy; Z11.52 Encounter for screening for COVID-19
CPT/HCPCS: 36415; 70450; 70551; 80053; 80307; 81003; 85025; 85610; 85730; 87635; 93005; 95992; 97162; 99285

== ENCOUNTER → 2024-10-14 22:08 | Outpatient (BNV) | payer OTHER, SELFPAY | PROVIDERS: Emergency Provider Emergency Medicine; PCP Internal Medicine; Visit Provider Internal Medicine Cardiovascular Disease | DX: R55 Syncope and collapse (principal); R94.31 Abnormal electrocardiogram [ECG] [EKG] | CPT/HCPCS: 93010 ==

== ENCOUNTER 2024-10-22 13:01 | Outpatient (AMB) | payer OTHER, SELFPAY ==
[2024-10-22 13:10] LABS: Prothrombin Time Whole Bld POC 53.5 sec (11.1-13.5); ~PT, ~INR - Anti Coag Clinic 4.5 (0.9-1.1)
--- NOTE | 2024-10-22 13:23 | MHC.OFFVISCO ---
Intake Intake Visit Reasons: Anticoagulation Allergies No Known Allergies [No Known Allergies*] Allergy (Verified 10/22/24 13:05) Medication List - Last Reconciled 10/22/24 by Adrienne Clemente RN levothyroxine 25 mcg PO DAILY@0600 methadone 160 mg PO DAILY warfarin 2.5 mg PO SUTUTHSA@1800 warfarin 1.25 mg See Protocol PO MOWEFR@1800 Nursing Note PT.STATES THAT HE CONTINUES TO HAVE DIZZINESS/VERTIGO. NO CP,SOB,DIET/MED CHANGES,FALLS OR SX OF BLEEDING. INR RANGE HAS WIDENED TO: 2.0-3.5 HOLD WARFARIN TODAY THEN REDUCE WEEKLY DOSE AND FOLLOW-UP IN 1 WEEK. PT.AGREES TO HAVE [place] TODAY AND TOMORROW. TO CALL [facility] IN MEANTIME IF ANY QUESTIONS/CONCERNS ARISE. Anti-Coag Initial Assessment Social Hx Patient Tobacco Use Status: Former Tobacco user alcohol intake: former Alcohol intake frequency: does not drink Cardiovascular Hx: HTN, Arrhythmias and Other Lung Disease HX: DVT/PE Endocrine Hx: Other Musculoskeletal Hx: Arthritis Blood Disorder Hx: Hepatitis GI Hx: Other Hx: Other Neurological Hx: Serious Head Injury and Migraines/Headaches Cancer HX: No Psych. Illness/Depression: No Coding Level of Care Code Est Patient Level 1 Diagnoses Current use of anticoagulant therapy Z79.01 Assessment & Plan Assessment & Plan (1) Current use of anticoagulant therapy: Code(s): Z79.01 - superintendent terminal (current) use of anticoagulants Category: Medical
== END 2024-10-22 13:27 | disposition home or self-care (01) ==
LOC: HO.ACS 13:01
PROVIDERS: PCP Internal Medicine; Visit Provider Internal Medicine
DX: Z79.01 Long term (current) use of anticoagulants (principal)

== ENCOUNTER → 2024-10-22 13:01 | Outpatient (BNVA) | payer OTHER, SELFPAY | PROVIDERS: PCP Internal Medicine; Visit Provider Internal Medicine | DX: I26.99 Other pulmonary embolism without acute cor pulmonale (principal); Z86.718 Personal history of other venous thrombosis and embolism; Z79.01 Long term (current) use of anticoagulants; Z51.81 Encounter for therapeutic drug level monitoring | CPT/HCPCS: 85610; 99211 ==

== ENCOUNTER 2024-11-13 14:23 | Outpatient (REF) | payer OTHER, SELFPAY ==
[2024-11-13 16:28] LABS: MANUAL DIFF FLAG NO
[2024-11-13 17:22] LABS: Basophils Percent Auto 0.3 % (0-2); Eosinophils Absolute Auto 0.2 X10*3/uL (0.0-0.4); Eosinophils Percent Auto 3.4 % (0-4); Hematocrit 42.5 % (42.0-52.0); Hemoglobin 13.4 g/dl (14.0-18.0); Imm Gran Abs Auto 0.01 X10*3/uL (0.00-0.03); Imm Gran Pct Auto 0.2 % (0.0-0.4); Lymphocytes Percent Auto 33.7 % (20-40); Mean Corpuscular HGB Conc 31.5 g/dl (31.0-36.0); Mean Corpuscular Hemoglobin 28.2 pg (27.0-33.0); Mean Corpuscular Volume 89.5 fL (80.0-98.0); Mean Platelet Volume 9.6 fL (9.4-12.4); Monocytes Absolute Auto 0.7 X10*3/uL (0.1-1.2); Monocytes Percent Auto 12.7 % (2-11); Neutrophils Absolute Auto 2.9 x10*3/uL (2.0-8.3); Neutrophils Percent Auto 49.7 % (45-73); Platelet Count 221 X10*3/uL (160-400); Red Blood Count 4.75 X10*6/uL (4.60-5.80); Red Cell Distribution Width 14.5 % (11.0-16.0); White Blood Count 5.8 X10*3/uL (4.8-10.8)
[2024-11-13 17:56] LABS: Alanine Aminotransferase 107 U/L (0-40); Albumin Level 3.9 g/dL (3.5-5.0); Alkaline Phosphatase 120 U/L (39-117); Anion Gap 10 (12-20); Aspartate Amino Transferase 89 U/L (5-37); Bilirubin Direct 0.1 mg/dL (0.0-0.5); Bilirubin Total 0.3 mg/dL (0.0-1.0); Blood Urea Nitrogen 16 mg/dL (9-16); Carbon Dioxide 28 mmol/L (22-29); Chloride 104 mmol/L (96-108); Estimated Glomerular Filt Rate > 60; Glucose Fasting 83 mg/dL (60-99); Magnesium 2.1 mg/dL (1.6-2.6); Potassium 4.7 mmol/L (3.3-5.1); Sodium 137 mmol/L (135-145); Total Protein 8.5 g/dL (6.5-8.0)
[2024-11-13 17:59] LABS: B Type Natriuretic Peptide < 10 pg/mL (<100)
== END 2024-11-13 14:24 | disposition home or self-care (01) ==
LOC: HO.LAB 14:23
PROVIDERS: Physician Assistant Medical; PCP Internal Medicine; Visit Provider Internal Medicine
DX: I10 Essential (primary) hypertension (principal); R60.0 Localized edema; R06.02 Shortness of breath; R06.09 Other forms of dyspnea; I80.9 Phlebitis and thrombophlebitis of unspecified site; R42 Dizziness and giddiness; R55 Syncope and collapse; I26.99 Other pulmonary embolism without acute cor pulmonale; Z86.718 Personal history of other venous thrombosis and embolism; Z51.81 Encounter for therapeutic drug level monitoring; Z79.01 Long term (current) use of anticoagulants
CPT/HCPCS: 36415; 80053; 80076; 82248; 83735; 83880; 85025; 85610; 99211; 99212

== ENCOUNTER 2024-11-13 14:23 | Outpatient (AMB) | payer OTHER, SELFPAY ==
[2024-11-13 14:38] LABS: Prothrombin Time Whole Bld POC 30.7 sec (11.1-13.5); ~PT, ~INR - Anti Coag Clinic 2.6 (0.9-1.1)
--- NOTE | 2024-11-13 14:43 | MHC.OFFVISCO ---
Intake Intake Visit Reasons: Anticoagulation Allergies No Known Allergies [No Known Allergies*] Allergy (Verified 11/13/24 14:33) Medication List - Last Reconciled 11/13/24 by Rashida Cash RN levothyroxine 25 mcg PO DAILY@0600 methadone 160 mg PO DAILY warfarin 2.5 mg See Protocol PO SUTUTHSA@1800 warfarin 1.25 mg See Protocol PO MOWEFR@1800 Nursing Note INR: 2.6 in therapeutic range of 2-3.5 Medications and supplements reviewed No changes in health, diet, medications, or supplements, Denies any signs and symptoms of bleeding or bruising or clotting. Bleeding, bruising, clotting discussed Nutritional guidance given Dose: 2.5mg X 3 days and 1.25mg X 4 days F/U INR: 11 days Patient verbalizes understanding of instructions given Anti-Coag Initial Assessment Social Hx Patient Tobacco Use Status: Former Tobacco user alcohol intake: former Alcohol intake frequency: does not drink Cardiovascular Hx: HTN, Arrhythmias and Other Lung Disease HX: DVT/PE Endocrine Hx: Other Musculoskeletal Hx: Arthritis Blood Disorder Hx: Hepatitis GI Hx: Other Hx: Other Neurological Hx: Serious Head Injury and Migraines/Headaches Cancer HX: No Psych. Illness/Depression: No Coding Level of Care Code Est Patient Level 1 Diagnoses Current use of anticoagulant therapy Z79.01 Assessment & Plan Assessment & Plan (1) Current use of anticoagulant therapy: Code(s): Z79.01 - [facility] (current) use of anticoagulants Category: Medical
== END 2024-11-13 14:45 | disposition home or self-care (01) ==
LOC: HO.ACS 14:23
PROVIDERS: PCP Internal Medicine; Visit Provider Internal Medicine
DX: Z79.01 Long term (current) use of anticoagulants (principal)

== ENCOUNTER 2024-11-13 14:55 | Outpatient (AMB) | payer OTHER, SELFPAY ==
--- NOTE | 2024-11-13 15:10 | A.OFFPC_ITS ---
Vital Signs 11/13/24 15:12 Height 5 ft 7 in Weight 268 lb 4 oz BMI 42.0 BP 138/82 Blood Pressure Location Lt brachial Position Sitting Pulse 71 Pulse Source Pulse Oximeter Pulse Oximetry (%) 95 Oxygen Delivery Method Room Air Intake Visit Reasons: 3mth f/u Intake Note: Patient is here to follow up on Hypothyroidism, DVT, Lymphedema. Pt decline flu shot today. Support Coordinator Required: No Network Desktop Support Specialist: Not Required per policy Accompanied by: Self / Same As Patient Allergies No Known Allergies [No Known Allergies*] Allergy (Verified 11/13/24 15:12) Tobacco use date assessed: 11/13/24 Dental Screening Dental Screen Date: 11/13/24 Did you have a dental visit in the last 12 months?: No Did you have a dental problem in the last 6 months where you did not have access to dental care?: No Was dental information given to patient?: No [facility] Medical History Headache DVT (deep venous thrombosis) Acquired hypothyroidism Pulmonary emboli DVT, bilateral lower limbs Obesity Polysubstance abuse Encounter to establish care Eyebrow laceration Surgical History No pertinent past surgical history Family History Mother COPD (chronic obstructive pulmonary disease) Father Hepatitis Liver cirrhosis Maternal Grandmother Alzheimer disease Maternal Grandfather Prostate cancer Diabetes Other Mental health disorder Substance use disorder Social History Household Members: Family Housing: House Unable to assess alcohol history related to: Refusing to respond Alcohol intake: former Year quit: 2011 Patient Tobacco Use Status: Former Tobacco user e-Cigarette/Vaping Use: Never Used Second Hand Smoke Exposure: Yes Substance Use Type: Heroin service: No Current occupational status: unemployed Current occupational exposures/hazards: No Cognitive needs: No Hearing needs: No Vision needs: Yes (reading) Questionnaire PHQ-9 Over the last 2 weeks, how often have you been bothered by any of the following problems? 1. Little interest or pleasure in doing things: not at all 2. Feeling down, depressed, or hopeless: not at all 3. Trouble falling or staying asleep, or sleeping too much: not at all 4. Feeling tired or having little energy: not at all 5. Poor appetite or overeating: not at all 6. Feeling bad about yourself - or that you are a failure or have let yourself or your family down: not at all 7. Trouble concentrating on things, such as reading the newspaper or watching television: not at all 8. Moving or speaking so slowly that other people could have noticed. Or the opposite - being so fidgety or restless that you have been moving around a lot more than usual: not at all 9. Thoughts that you would be better off or of hurting yourself in some way: not at all Total score: 0 Depression Screening Interpretation: Negative Depression Screening Done: Yes Source: Developed by Drs. Angel Dent, Maria Isabel Dash, Gelacio Hernandez and colleagues, with an educational quincy from [employer] Thrive Questionnaire Date Thrive assessed: 11/13/24 I am a: Patient What is your living situation today?: I have a steady place to live Within the past 12 months, did the food you bought not last and you didn't have the money to get more?: Never true Within the past 12 months, did you worry whether your food would run out before you got money to buy more?: Never true Do you have trouble paying for medicines?: No Do you have trouble getting transportation to medical appointments?: No Do you have trouble paying your heating and electricity bill?: No Do you have trouble taking care of your child, family member or friend?: No Do you have trouble with day-to-day activities such as bathing, preparing meals, shopping, managing finances, etc.?: No Are you currently unemployed and looking for a job?: No Are you interested in more education?: No Currently or been in a relationship where the following occur: No concerns reported THRIVE Score: 0 AUDIT C Alcohol Use Questionnaire (AUDIT-C) 1. How often do you have a drink containing alcohol?: Never Total Score: 0 TIFFANIE-7 AMB Questionnaire TIFFANIE-7 Date TIFFANIE - 7 assessed: 11/13/24 Feeling nervous, anxious, or on edge: 0 = Not at all Not being able to stop or control worryin = Not at all Worrying too much about different things: 0 = Not at all Trouble relaxin = Not at all Being so restless that it is hard to sit still: 0 = Not at all Becoming easily annoyed or irritable: 0 = Not at all Feeling afraid as if something awful might happen: 0 = Not at all Total TIFFANIE-7 score (0-4 normal; 5-9 mild; 10-14 moderate; 15-21 severe): 0 Source: Developed by Drs. Angel Dent, Maria Isabel Dash, Gelacio Hernandez and colleagues, with an educational quincy from [employer] Physical exam (Primary Care) Vital Signs: Last Vital Signs Pulse 71 11/13/24 15:12 BP 138/82 11/13/24 15:12 Pulse Ox 95 11/13/24 15:12 Oxygen Delivery Method Room Air 11/13/24 15:12 BMI result Body Mass Index 42.0 Tobacco/Smoking Status: Tobacco use Status Tobacco use date assessed 11/13/24 11/13/24 15:18 Patient Tobacco Use Status Former Tobacco user 11/13/24 15:18 e-Cigarette/Vaping Use Never Used 11/13/24 15:18 PHQ-9: PHQ-9 Score PHQ-9: Total score 0 11/13/24 15:18 Depression Screening Interpretation: Negative Thrive Assessment: Date of Thrive Assessment Date Thrive assessed 11/13/24 11/13/24 15:18 Currently or been in a relationship where the following occur: No concerns reported Coding Level of Care Code Est Pt Level 4 (31492) Complex EM visit Add On G2211 Diagnoses Follow-up exam, 3-6 months since previous exam Z09 Dyspnea on exertion R06.09 Shortness of breath R06.02 Pedal edema R60.0 Hypertension I10 Thrombophlebitis I80.9 Dizziness R42 Atypical syncope R55 Assessment & Plan Assessment & Plan (1) Follow-up exam, 3-6 months since previous exam: Code(s): Z09 - Encounter for follow-up examination after completed treatment for conditions other than malignant neoplasm Category: Medical (2) Dyspnea on exertion: Code(s): R06.09 - Other forms of dyspnea Category: Medical Plan: On exam vitals are stable. Lungs clear to auscultation. No rales rhonchi noted. No obvious JVD is noted. There is pedal edema. Will order BNP to evaluate for possible heart failure. Will continue to monitor (3) Shortness of breath: Code(s): R06.02 - Shortness of breath Category: Medical Plan: On exam vitals are stable. Lungs clear to auscultation. No rales rhonchi noted. No obvious JVD is noted. There is pedal edema. Will order BNP to evaluate for possible heart failure. Will continue to monitor (4) Pedal edema: Code(s): R60.0 - Localized edema Category: Medical Plan: On exam vitals are stable. Lungs clear to auscultation. No rales rhonchi noted. No obvious JVD is noted. There is pedal edema. Will order BNP to evaluate for possible heart failure. Will continue to monitor (5) Hypertension: Code(s): I10 - Essential (primary) hypertension Category: Medical Plan: Patient noted to be hypertensive in the emergency department and on today's visit. Patient's blood pressure 138/82. He denies any dizziness or any neuro or cardiac related complaints at this time. Patient will be started on lisinopril 10 mg daily. He is instructed to keep a diary of his blood pressure daily. Will continue to monitor. (6) Thrombophlebitis: Code(s): I80.9 - Phlebitis and thrombophlebitis of unspecified site Category: Medical Plan: Right elbow with full range of motion. There is no erythema or warmth to touch. Patient most likely superficial thrombophlebitis. Patient instructed to continue his warfarin as prescribed his INR was assessed today at 2.6 which is therapeutic level. Instructed to place warm compresses and to contact us if he develops any worsening swelling, erythema, warmth to touch or inability to flex or extend the joint. Will continue to monitor. (7) Dizziness: Code(s): R42 - Dizziness and giddiness Category: Medical Plan: Patient not currently dizzy at this time. Intermittent dizziness for the past 8 months. Has a normal neuro exam at this time. Had a negative CT and MRI in the emergency department on 10/15/2024. Will start the patient on meclizine as needed. Will place referral for Neurology. Patient is instructed to return if any new or worsening symptoms or go directly to the emergency department if he develops any new or worsening symptoms (8) Atypical syncope: Code(s): R55 - Syncope and collapse Category: Medical Plan: Will refer to neurology. Patient had a negative CT and MRI of brain on 10/15/2024. Normal neuro exam today. Will continue to monitor Plan Plan - Consider referral to neurology for evaluation of repeated syncope, vertigo, and sharp head pain. - Investigate potential congestive heart failure, particularly given symptoms of shortness of breath and history suggestive of possible cardiac events; will obtain labs which include BNP. - Address respiratory concerns by assessing potential fluid overload or related issues. - Continue warfarin therapy with close monitoring of INR levels; reassuring current INR levels adequate to prevent further thromboembolic events as per history. - Possibly implement vestibular rehabilitation therapy given past reporting of non-beneficial physical therapy and start the patient on Meclizine. - Due to elevated blood pressure patient will be started on 10 mg of lisinopril daily. - Patient to follow up in 2 weeks to 1 month for BP recheck and labs review. Orders: Orders B Type Natriuretic Peptide Today R60.0 - Localized edema Liver Panel Today I10 - Essential (primary) hypertension, R06.02 - Shortness of breath, R60.0 - Localized edema, Z09 - Encounter for follow-up examination after completed treatment for conditions other than malignant neoplasm Complete Blood Count Auto Diff Today I10 - Essential (primary) hypertension, R06.02 - Shortness of breath, R06.09 - Other forms of dyspnea, R60.0 - Localized edema, Z09 - Encounter for follow-up examination after completed treatment for conditions other than malignant neoplasm Comprehensive [place]. Panel Fast Today I10 - Essential (primary) hypertension, R06.02 - Shortness of breath, R60.0 - Localized edema, Z09 - Encounter for follow-up examination after completed treatment for conditions other than mal ignant neoplasm Magnesium Today I10 - Essential (primary) hypertension, R06.02 - Shortness of breath, R60.0 - Localized edema, Z09 - Encounter for follow-up examination after completed treatment for conditions other than malignant neoplasm Referrals Neurology Referral R42 - Dizziness and giddiness, R55 - Syncope and collapse Medications: New lisinopril 10 mg PO DAILY 30 tabs 2RF hypertension meclizine 50 mg PO DAILY 30 tabs 2RF dizziness Patient Instructions: Patient Instructions - Continue current medications as prescribed, including warfarin. - Apply warm compresses to aching elbow as needed; avoid overuse. - Monitor for any progression of dizziness, syncope, or respiratory difficulties. - Consider sleeping in a reclined position to alleviate symptoms when lying flat. - Follow up with specialists if referred and attend all scheduled diagnostic tests. - Report any worsening or new symptoms to our office promptly. Scribe Plan - Not visible on output: History of Present Illness The patient is a 54-year-old male presenting with symptoms related to his hypothyroidism, DVT, leg swelling, and new issues including syncope and breathing difficulties. Notably, he experiences sharp pain behind his left ear, dizziness, and frequent fainting episodes over the past eight months. These fainting episodes have been characterized by the sudden onset of severe, sharp pain accompanied by dizziness. He reported visiting the emergency room on 10/15/2024 following one such episode, where a CT scan and MRI were performed; the CT scan returned negative for acute issues while the MRI noted a single specific focus of suspected artifact, with unclear significance. The patient was seen by Physical therapy and vestibular maneuvers were trialed. After being at the emergency department for 24-48 hours patient started to feel better and was discharged with instructions to follow-up with PCP. Furthermore, the patient has a history of significant respiratory difficulties post-diagnosis with pulmonary embolism two years ago, which initially improved with blood thinners but has worsened in recent months. He reports shortness of breath, most severely at rest and when lying down, necessitating the use of a reclining chair for sleep or additional pillows. He also has concerns about prior blood clot episodes in his right leg and now reports pain in his elbow, suspecting potential blood clots due to this prior experience. He is on warfarin therapy, with a recent INR of 2.6. He reports this is where the IV in the emergency department was placed to his right arm and he is concerned for blood clot. Social History - History of substance use but sober for many years. - No specific information regarding employment, housing, education, or family status was discussed. - Relies on a reclining chair to manage breathing difficulties during sleep. Review of Systems - Neurological: Reports dizziness, off-balance feeling, occasional sharp pain behind left ear. - Cardiovascular: Denies chest pain, reports previous episodes suggestive of heart issues. - Respiratory: Reports shortness of breath worsening over the past month. - Musculoskeletal: Reports pain and potential swelling in elbow. - General: Reports episodes of syncope, generally feeling off balance. Physical Exam Appearance: Alert. Oriented X3. No acute distress. Head: Normal external exam. Normocephalic. Atraumatic. Reports sharp pain behind the left ear for the past eight months not present at this time. Eyes: Pupils are equal, round, and reactive to light. Extraocular movements intact. Conjunctiva and sclera normal. Eyelids normal. Ears: External auditory canal normal. Tympanic membranes normal. Throat: Pharynx normal. Uvula midline. Moist mucous membranes. No trismus noted. No drooling noted. No muffled voice noted. Neck: Normal inspection. Neck supple. Full range of motion. No adenopathy. T hyroid Normal. No meningeal signs. No neck mass noted. Cardiovascular: Normal heart rate and rhythm. Heart sound normal. No murmurs noted. Pulses normal throughout. Reports shortness of breath and difficulty catching breath, especially when lying down. Respiratory: No respiratory distress. Painless inspiration. Breath sounds normal. No wheezes/rales/rhonchi noted. Chest nontender. No accessory muscle usage noted or decreased air movement noted. Reports trouble breathing and using a reclining chair to sleep. Abdomen: Soft and nontender. Bowel sounds normal in all 4 quadrants. No distention noted. No organomegaly noted. No visible injury noted. Back: No costovertebral angle tenderness. Full range of motion noted. Skin: Skin warm and dry. Normal skin color. Normal skin turgor. No rashes/lesio ns/lacerations noted. Reports redness and pain in the elbow area. Extremities: +3 pitting lower extremity edema. Extremities exhibit normal range of motion. Extremities nontender. Neuro: Oriented X 3. No motor deficit. No sensory deficit. Reflexes normal. Reports dizziness, lightheadedness, and fainting episodes. Feels off balance. Negative pronator drift. Negative Romberg. Normal [id number] test. Normal [id number] test. Results - Imaging: Negative CT of the head; MRI showed a non-specific artifact in the right parietal lobe. - Labs: Recent INR of 2.6. Plan - Consider referral to neurology for evaluation of repeated syncope, vertigo, and sharp head pain. - Investigate potential congestive heart failure, particularly given symptoms of shortness of breath and history suggestive of possible cardiac events; will obtain labs which include BNP. - Address respiratory concerns by assessing potential fluid overload or related issues. - Continue warfarin therapy with close monitoring of INR levels; reassuring current INR levels adequate to prevent further thromboembolic events as per history. - Possibly implement vestibular rehabilitation therapy given past reporting of non-beneficial physical therapy and start the patient on Meclizine. - Due to elevated blood pressure patient will be started on lisinopril 10 mg daily - Patient to follow up in 2 weeks to 1 month for BP recheck and labs review. Patient was informed and verbally consented to the use of an ambient scribe for clinic note documentation during this visit. Discussion Notes I engaged in a detailed discussion about the ongoing symptoms and the inconclusive findings from recent diagnostic imaging. I explained the lack of acute findings on the MRI and discussed the artifact observed, offering reassurance about its likely benign nature. We considered the potential need for referrals to neurology and cardiology specialists to further investigate chronic dizziness, syncopal episodes, and breathing difficulties, potentially linked to cardiac or neurological origins. We discussed the possibility of congestive heart failure as a differential, particularly given the history of shortness of breath, and the necessity for relevant diagnostic tests. I addressed the adequacy of current INR levels to prevent additional clot formation. The patient expressed understanding and was agreeable to the suggested plans for further evaluation.
[2024-11-13 15:12] VITALS: BP 138/82; PULSE 71; O2SAT 95; BMI 42.0
== END 2024-11-13 16:01 | disposition home or self-care (01) ==
PROVIDERS: PCP Internal Medicine; Visit Provider Internal Medicine
DX: Z09 Encounter for follow-up examination after completed treatment for conditions other than malignant neoplasm (principal); R06.09 Other forms of dyspnea; R06.02 Shortness of breath; R60.0 Localized edema; I10 Essential (primary) hypertension; I80.9 Phlebitis and thrombophlebitis of unspecified site; R42 Dizziness and giddiness; R55 Syncope and collapse

== ENCOUNTER 2024-11-25 12:49 | Emergency (ER) | payer OTHER, SELFPAY ==
--- NOTE | ~2024-11-25 | US_ITS ---
EXAMINATION: US TRIPLEX UPPER EXTREMITY, RIGHT CLINICAL INFORMATION: Right arm swelling after IV, rule out DVT. COMPARISON: 11/28/2023. TECHNIQUE: Color-flow triplex imaging with spectral analysis and compression Doppler was performed on the right upper extremity. FINDINGS: The right internal jugular, subclavian, and axillary veins are patent and free of thrombus. The imaged segment of the right brachiocephalic vein is patent. Spectral doppler waveforms are normal. The brachial, basilic, cephalic, radial, and ulnar veins are patent and compressible. Incidental note made of 2 palpable cutaneous lipomas in the forearm, the proximal measuring 0.8 x 0.3 x 0.6 cm, and the more mid measuring 1.8 x 1.7 x 1.7 cm. US/US venous duplex UE RT IMPRESSION: No evidence of deep venous thrombosis involving the right upper extremity. Electronically signed by: Perfecto Moore MD 11/25/2024 02:20 PM [facility]
[2024-11-25 13:11] VITALS: BP 121/83; PULSE 92; RESP 20; TEMP 37.4; O2SAT 95; BMI 38.0
--- NOTE | 2024-11-25 13:15 | ED_ITS ---
HPI - General Adult General Chief complaint: Extremity Problem Stated complaint: r arm issue Time Seen by Provider: 11/25/24 15:01 Source: patient and old records reviewed Mode of arrival: ambulatory Limitations: no limitations History of Present Illness ED Provider: KALIA FINNEY narrative: 54 yo male PMH significant for DVT on coumadin, polysubstance abuse including IVDU, migraines, and back pain here c/o having R sided arm pain post IV when he was here on 11/16. States he has tiny bumps at IV site and it hurts. A friend told him it was red so he came to the ED to get it checked out. He denies any trauma. He states it hurts to move. No fevers reported. He has hx of DVTs but takes his coumadin MD complaint: R am pain Onset (ago): week(s) (1+) Location: right and upper extremity Radiation: non-radiation Severity: moderate Quality: aching Pain Consistency: intermittent Relieving factors: immobilization Exacerbating factors: movement and other (palpation) Associated symptoms: denies other symptoms Treatments prior to arrival: none Related Data Home Medications ?Medication ?Instructions ?Recorded ?Confirmed methadone 10 mg/mL oral concentrate 160 mg PO DAILY 06/09/22 11/13/24 warfarin 2.5 mg tablet 1.25 mg PO MOWEFR@1800 10/15/24 11/13/24 warfarin 2.5 mg tablet 2.5 mg PO SUTUTHSA@1800 10/15/24 11/13/24 levothyroxine 25 mcg tablet 25 mcg PO DAILY@0600 10/16/24 11/13/24 Previous Rx's ?Medication ?Instructions ?Recorded lisinopril 10 mg tablet 10 mg PO DAILY hypertension #30 11/13/24 tabs meclizine 50 mg tablet 50 mg PO DAILY dizziness #30 tabs 11/13/24 lidocaine 5 % topical ointment 1 appl topical DAILY PRN pain #30 11/25/24 grams Allergies Allergy/AdvReac Type Severity Reaction Status Date / Time No Known Allergies Allergy Verified 11/25/24 13:13 [No Known Allergies*] Review of Systems 2 Review of Systems: Constitutional : No Fever, No Chills ENT/Mouth : No sore throat, No Rhinorrhea Eyes: No Eye Pain, No Swelling, No Redness Cardiovascular : No Chest Pain, No SOB Respiratory : No Cough, No Sputum Gastrointestinal : No Nausea, No Vomiting, No Diarrhea, No abdominal Pain Genitourinary : No Dysuria, No Hematuria Musculoskeletal : No joint pain, No Myalgias, No Joint Swelling Skin : pos Skin Lesions, no skin rash Neuro : No Weakness, No Numbness, No Headache Psych : No Anxiety, No Depression All other systems reviewed and are negative [facility] Past Medical History Attestation statement: The following information was validated with the patient. Source: old records reviewed Medical History Headache DVT (deep venous thrombosis) Acquired hypothyroidism Pulmonary emboli DVT, bilateral lower limbs Obesity Polysubstance abuse Encounter to establish care Eyebrow laceration Surgical History No pertinent past surgical history Family History Family History Mother COPD (chronic obstructive pulmonary disease) Father Hepatitis Liver cirrhosis Maternal Grandmother Alzheimer disease Maternal Grandfather Prostate cancer Diabetes Other Mental health disorder Substance use disorder Social History Social History Household Members: Family Housing: House Unable to assess alcohol history related to: Refusing to respond Alcohol intake: former Year quit: 2011 Patient Tobacco Use Status: Former Tobacco user e-Cigarette/Vaping Use: Never Used Second Hand Smoke Exposure: Yes Substance Use Type: Heroin Advance Directives: No Advance Directives Information Provided: No service: No Current occupational status: unemployed Current occupational exposures/hazards: No Cognitive needs: No Hearing needs: No Vision needs: Yes (reading) Physical Exam ED Vital Signs: Vital Signs - 24 hr 11/25/24 13:11 11/25/24 15:16 Temperature 99.3 F 99.3 F Pulse Rate 92 92 Respiratory Rate 20 20 Blood Pressure 121/83 121/83 Pulse Oximetry 95 95 Oxygen Delivery Method Room Air Room Air BMI result Body Mass Index 38.0 Course Course Course Narrative: RmE; 54-year-old male presents to ED for right arm pain with swelling for the past 2 weeks since having IV placed in right arm. Patient is usually when he has IV placed in right arm he gets blood clots. Patient is on blood thinners. Labs ultrasound ordered Medical Decision Making Medical Decision Making [facility] Narrative: 54 yo male PMH significant for DVT on coumadin, polysubstance abuse including IVDU, migraines, and back pain here c/o R forearm pain s/p IV on exam there is no signs of infection and I feel two small rounded mobile non firm masses that feel like a lipoma but he states they hurt. Clinically not consistent with absess - distal NV intact, will obtain labs and DVT study Differential Diagnosis Differential Diagnoses: The differential diagnosis associated with the presentation includes lipoma, DVT, phlebitis no signs of redness to suggest infection/no joint effusion Admission/Observation Consideration of admission/observation: Escalation of care including admission/observation considered work up reassuring stable for DC Lab Data [facility] Lab Attestation statement: I reviewed the patient's lab results. 11/25/24 13:38 11/25/24 13:38 Labs: Lab Results 11/25/24 Range/Units 13:38 WBC 7.0 (4.8-10.8) X10*3/uL RBC 4.49 L (4.60-5.80) X10*6/uL Hgb 12.8 L (14.0-18.0) g/dl Hct 38.7 L (42.0-52.0) % MCV 86.2 (80.0-98.0) fL MCH 28.5 (27.0-33.0) pg MCHC 33.1 (31.0-36.0) g/dl RDW 14.6 (11.0-16.0) % Plt Count 209 (160-400) X10*3/uL MPV 9.0 L (9.4-12.4) fL Immature Gran % (Auto) 0.3 (0.0-0.4) % Neut % (Auto) 61.1 (45-73) % Lymph % (Auto) 27.8 (20-40) % [place] % (Auto) 8.8 (2-11) % Eos % (Auto) 1.7 (0-4) % Baso % (Auto) 0.3 (0-2) % Lymph # (Auto) 1.9 (1.2-4.9) X10*3/uL [place] # (Auto) 0.6 (0.1-1.2) X10*3/uL Eos # (Auto) 0.1 (0.0-0.4) X10*3/uL Baso # (Auto) 0.0 (0.0-0.2) X10*3/uL Abs Immat Gran (auto) 0.02 (0.00-0.03) X10*3/uL Absolute Neuts (auto) 4.3 (2.0-8.3) x10*3/uL Absolute Nucleated RBC 0.000 (0.0-0.012) X10*3/uL Nucleated RBC % (auto) 0.0 (0.0-0.2) /100WBC PT 39.0 H (10.9-12.4) SEC INR 3.3 H (0.9-1.1) APTT 46.9 H (26.0-36.8) SEC Sodium 137 (135-145) mmol/L Potassium 4.7 (3.3-5.1) mmol/L Chloride 105 (96-108) mmol/L Carbon Dioxide 29 (22-29) mmol/L Anion Gap 8 L (12-20) BUN 19 H (9-16) mg/dL Creatinine 1.04 (0.5-1.4) mg/dL Estim Creat Clear Calc 99.2 Estimated GFR > 60 Random Glucose 103 (60-115) mg/dL Calcium 8.6 (8.4-10.2) mg/dL Total Bilirubin 0.3 (0.0-1.0) mg/dL AST 99 H (5-37) U/L ALT 115 H (0-40) U/L Alkaline Phosphatase 133 H (39-117) U/L Total Protein 8.1 H (6.5-8.0) g/dL Albumin 3.8 (3.5-5.0) g/dL Independent Interpretation I performed an independent interpretation of an: Ultrasound (no DVT) Radiology Impression Discussion of test interpretation with radiology: I have reviewed the radiologist's reading. External Record Review External record reviewed: Outpatient record Prescription Management I considered prescription management with: Pain Medication Discharge Plan Discharge Clinical Impression: Arm pain Qualifiers: Laterality: right Qualified Code(s): M79.601 - Pain in right arm Lipoma Qualifiers: Lipoma location: upper extremity Laterality: right Qualified Code(s): D17.21 - Benign lipomatous neoplasm of skin and subcutaneous tissue of right arm Patient Disposition: Home, Self-Care Instructions: Arm Pain (ED), Lipoma (ED) Additional Instructions: labs reassuring INR 3.3 DVT study negative no signs of blood clots return for worsening pain, fevers, increased redness or any other concerns follow up with primary care doctor Prescriptions: New lidocaine 5 % ointment 1 appl topical DAILY PRN (Reason: pain) Qty: 30 0RF No Action warfarin 2.5 mg tablet 2.5 mg PO SUTUTHSA@1800 Protocol: Dose Management Condition: Sunday (Week One) Dose/Route: 1.25 mg Instruction: 0.5 x 2.5 mg tablets Condition: Sunday Dose/Route: 2.5 mg Instruction: 1 x 2.5 mg tablet Condition: Sunday Dose/Route: 1.25 mg Instruction: 0.5 x 2.5 mg tablets Condition: Sunday Dose/Route: 2.5 mg Instruction: 1 x 2.5 mg tablet Condition: Dose/Route: 1.25 mg Instruction: 0.5 x 2.5 mg tablets Condition: Sunday Dose/Route: 2.5 mg Instruction: 1 x 2.5 mg tablet Condition: Sunday Dose/Route: 1.25 mg Instruction: 0.5 x 2.5 mg tablets Condition: Sunday (Week Two) Dose/Route: 1.25 mg Instruction: 0.5 x 2.5 mg tablets Condition: Sunday Dose/Route: 2.5 mg Instruction: 1 x 2.5 mg tablet Condition: Sunday Dose/Route: 1.25 mg Instruction: 0.5 x 2.5 mg tablets Condition: Sunday Dose/Route: 2.5 mg Instruction: 1 x 2.5 mg tablet Condition: Dose/Route: 1.25 mg Instruction: 0.5 x 2.5 mg tablets Condition: Sunday Dose/Route: 2.5 mg Instruction: 1 x 2.5 mg tablet Condition: Sunday Dose/Route: 1.25 mg Instruction: 0.5 x 2.5 mg tablets Protocol Text: Adjustment Start Date: 11/13/24 INR Value: 2.6 INR Date: 11/13/24 Recheck Date: 11/24/24 warfarin 2.5 mg tablet 1.25 mg PO MOWEFR@1800 Protocol: Dose Management Condition: Sunday (Week One) Dose/Route: 1.25 mg Instruction: 0.5 x 2.5 mg tablets Condition: Sunday Dose/Route: 2.5 mg Instruction: 1 x 2.5 mg tablet Condition: Sunday Dose/Route: 1.25 mg Instruction: 0.5 x 2.5 mg tablets Condition: Sunday Dose/Route: 2.5 mg Instruction: 1 x 2.5 mg tablet Condition: Dose/Route: 1.25 mg Instruction: 0.5 x 2.5 mg tablets Condition: Sunday Dose/Route: 2.5 mg Instruction: 1 x 2.5 mg tablet Condition: Sunday Dose/Route: 1.25 mg Instruction: 0.5 x 2.5 mg tablets Condition: Sunday ( Two) Dose/Route: 1.25 mg Instruction: 0.5 x 2.5 mg tablets Condition: Sunday Dose/Route: 2.5 mg Instruction: 1 x 2.5 mg tablet Condition: Sunday Dose/Route: 1.25 mg Instruction: 0.5 x 2.5 mg tablets Condition: Sunday Dose/Route: 2.5 mg Instruction: 1 x 2.5 mg tablet Condition: Dose/Route: 1.25 mg Instruction: 0.5 x 2.5 mg tablets Condition: Sunday Dose/Route: 2.5 mg Instruction: 1 x 2.5 mg tablet Condition: Sunday Dose/Route: 1.25 mg Instruction: 0.5 x 2.5 mg tablets Protocol Text: Adjustment Start Date: 11/13/24 INR Value: 2.6 INR Date: 11/13/24 Recheck Date: 11/24/24 levothyroxine 25 mcg tablet 25 mcg PO DAILY@0600 methadone 10 mg/mL concentrate 160 mg PO DAILY Patient Comments: Confirmed with [facility] Priscilla SIM. Last does at clinic was 10/03/24 @ 8am 160mg with 27 take home dosages. lisinopril 10 mg tablet 10 mg PO DAILY Qty: 30 2RF meclizine 50 mg tablet 50 mg PO DAILY Qty: 30 2RF Interventions: ED Discharge Assessment Last Done: 11/25/24 15:16 Discharge Date/Time: 11/25/24 15:17 Print Language: Prydeinig
[2024-11-25 13:41] LABS: MANUAL DIFF FLAG NO
[2024-11-25 13:42] LABS: Basophils Percent Auto 0.3 % (0-2); Eosinophils Absolute Auto 0.1 X10*3/uL (0.0-0.4); Eosinophils Percent Auto 1.7 % (0-4); Hematocrit 38.7 % (42.0-52.0); Hemoglobin 12.8 g/dl (14.0-18.0); Imm Gran Abs Auto 0.02 X10*3/uL (0.00-0.03); Imm Gran Pct Auto 0.3 % (0.0-0.4); Lymphocytes Absolute Auto 1.9 X10*3/uL (1.2-4.9); Lymphocytes Percent Auto 27.8 % (20-40); Mean Corpuscular HGB Conc 33.1 g/dl (31.0-36.0); Mean Corpuscular Hemoglobin 28.5 pg (27.0-33.0); Mean Corpuscular Volume 86.2 fL (80.0-98.0); Monocytes Absolute Auto 0.6 X10*3/uL (0.1-1.2); Monocytes Percent Auto 8.8 % (2-11); Neutrophils Absolute Auto 4.3 x10*3/uL (2.0-8.3); Neutrophils Percent Auto 61.1 % (45-73); Platelet Count 209 X10*3/uL (160-400); Red Blood Count 4.49 X10*6/uL (4.60-5.80); Red Cell Distribution Width 14.6 % (11.0-16.0)
[2024-11-25 13:48] LABS: INTERNATIONAL NORM RATIO 3.3 (0.9-1.1)
[2024-11-25 13:51] LABS: Partial Thromboplastin Time 46.9 SEC (26.0-36.8)
[2024-11-25 13:59] LABS: Alanine Aminotransferase 115 U/L (0-40); Albumin Level 3.8 g/dL (3.5-5.0); Alkaline Phosphatase 133 U/L (39-117); Anion Gap 8 (12-20); Aspartate Amino Transferase 99 U/L (5-37); Bilirubin Total 0.3 mg/dL (0.0-1.0); Blood Urea Nitrogen 19 mg/dL (9-16); Calcium 8.6 mg/dL (8.4-10.2); Carbon Dioxide 29 mmol/L (22-29); Chloride 105 mmol/L (96-108); Creatinine Clr Calc Pharmacy 99.2; Estimated Glomerular Filt Rate > 60; Glucose Random 103 mg/dL (60-115); Potassium 4.7 mmol/L (3.3-5.1); Sodium 137 mmol/L (135-145); Total Protein 8.1 g/dL (6.5-8.0)
[2024-11-25 15:16] VITALS: BP 121/83; PULSE 92; RESP 20; TEMP 37.4; O2SAT 95
== END 2024-11-25 15:17 | disposition home or self-care (01) ==
PROVIDERS: Physician Assistant; Emergency Provider Emergency Medicine; PCP Internal Medicine
DX: M79.601 Pain in right arm (principal); D17.21 Benign lipomatous neoplasm of skin and subcutaneous tissue of right arm; F19.10 Other psychoactive substance abuse, uncomplicated; Z86.718 Personal history of other venous thrombosis and embolism
CPT/HCPCS: 36415; 80053; 85025; 85610; 85730; 93971; 99282; 99284

== ENCOUNTER → 2024-11-25 13:15 | Outpatient (BNV) | payer OTHER, SELFPAY | PROVIDERS: Emergency Provider Emergency Medicine; PCP Internal Medicine; Visit Provider Radiology Diagnostic Radiology | DX: R22.31 Localized swelling, mass and lump, right upper limb (principal) | CPT/HCPCS: 93971 ==

== ENCOUNTER → 2024-11-28 16:26 | Outpatient (BNVA) | payer OTHER, SELFPAY | PROVIDERS: PCP Internal Medicine; Visit Provider Internal Medicine ==

== ENCOUNTER 2024-12-05 12:58 | Outpatient (REF) | payer OTHER, SELFPAY | END 2024-12-05 12:59 | disposition home or self-care (01) | LOC: HO.LAB 12:58 | PROVIDERS: PCP Internal Medicine; Visit Provider Internal Medicine | DX: Z51.81 Encounter for therapeutic drug level monitoring (principal); Z79.01 Long term (current) use of anticoagulants; Z86.718 Personal history of other venous thrombosis and embolism; Z86.711 Personal history of pulmonary embolism | CPT/HCPCS: 85610; 99211 ==

== ENCOUNTER 2024-12-12 12:59 | Outpatient (AMB) | payer OTHER, SELFPAY ==
[2024-12-12 13:11] LABS: Prothrombin Time Whole Bld POC 44.9 sec (11.1-13.5); ~PT, ~INR - Anti Coag Clinic 3.7 (0.9-1.1)
--- NOTE | 2024-12-12 13:16 | MHC.OFFVISCO ---
Intake Intake Visit Reasons: Anticoagulation Allergies No Known Allergies [No Known Allergies*] Allergy (Verified 12/12/24 13:04) Medication List - Last Reconciled 12/12/24 by Rashida Cash RN levothyroxine 25 mcg PO DAILY@0600 lidocaine 5% 1 appl topical DAILY PRN lisinopril 10 mg PO DAILY meclizine 50 mg PO DAILY methadone 160 mg PO DAILY warfarin 2.5 mg See Protocol PO SUTUTHSA@1800 warfarin 1.25 mg See Protocol PO MOWEFR@1800 Nursing Note INR: 3.7 out of therapeutic range of 2.0-3.5 Pt states he has an appointment for an ultrasound of right arm to R/O clot as it is swollen and red. Right arm is swollen around the elbow with redness only around the elbow from upper forearm to just above the elbow. Medications and supplements reviewed No changes in health, diet, medications, or supplements, Denies any signs and symptoms of bleeding or bruising or clotting. Bleeding, bruising, clotting discussed Nutritional guidance given to have a serving of greens today Dose: 1.25mg X 4 days and 2.5mg X 3 days (Mon, Wed & Fri) F/U INR: 1 week Patient verbalizes understanding of instructions with read back given Anti-Coag Initial Assessment Social Hx Patient Tobacco Use Status: Former Tobacco user alcohol intake: former Alcohol intake frequency: does not drink Cardiovascular Hx: HTN, Arrhythmias and Other Lung Disease HX: DVT/PE Endocrine Hx: Other Musculoskeletal Hx: Arthritis Blood Disorder Hx: Hepatitis GI Hx: Other Hx: Other Neurological Hx: Serious Head Injury and Migraines/Headaches Cancer HX: No Psych. Illness/Depression: No Coding Level of Care Code Est Patient Level 1 Diagnoses Current use of anticoagulant therapy Z79.01 Assessment & Plan Assessment & Plan (1) Current use of anticoagulant therapy: Code(s): Z79.01 - long term care phlebotomist (current) use of anticoagulants Category: Medical
== END 2024-12-12 13:21 | disposition home or self-care (01) ==
LOC: HO.ACS 12:59
PROVIDERS: PCP Physician Assistant Medical; Visit Provider Internal Medicine
DX: Z79.01 Long term (current) use of anticoagulants (principal)

== ENCOUNTER 2024-12-16 14:43 | Outpatient (REF) | payer OTHER, SELFPAY ==
--- NOTE | ~2024-12-16 | US_ITS ---
EXAMINATION: US TRIPLEX UPPER EXTREMITY, RIGHT CLINICAL INFORMATION: Right arm swelling COMPARISON: None available. TECHNIQUE: Color-flow triplex imaging with spectral analysis and compression Doppler was performed on the right upper extremity. FINDINGS: The right internal jugular, subclavian, and axillary veins are patent and free of thrombus. The imaged segment of the right brachiocephalic vein is patent. Spectral doppler waveforms are normal. The brachial, basilic, cephalic, radial, and ulnar veins are patent and compressible. Interval finding of a well-defined subcutaneous echogenic lesion in right mid forearm similar to surrounding fat echogenicity and likely represents lipoma. It measures 2.18 x 0.54 cm. It is currently palpable. US/US venous duplex UE RT IMPRESSION: No evidence of deep venous thrombosis involving the right upper extremity. Small lipoma right mid forearm Electronically signed by: Addison Mathews MD 12/17/2024 09:00 AM [facility]
[2024-12-16 15:39] LABS: Hematocrit 39.6 % (42.0-52.0); Hemoglobin 12.8 g/dl (14.0-18.0); INTERNATIONAL NORM RATIO 2.8 (0.9-1.1); Mean Corpuscular HGB Conc 32.3 g/dl (31.0-36.0); Mean Corpuscular Hemoglobin 28.3 pg (27.0-33.0); Mean Corpuscular Volume 87.4 fL (80.0-98.0); Mean Platelet Volume 9.4 fL (9.4-12.4); Platelet Count 233 X10*3/uL (160-400); Prothrombin Time 32.8 SEC (10.9-12.4); Red Blood Count 4.53 X10*6/uL (4.60-5.80); Red Cell Distribution Width 14.7 % (11.0-16.0)
[2024-12-16 15:57] LABS: Anion Gap 12 (12-20); Blood Urea Nitrogen 20 mg/dL (9-16); C Reactive Protein 1.24 mg/dL (< or = 0.50); Calcium 9.4 mg/dL (8.4-10.2); Carbon Dioxide 28 mmol/L (22-29); Chloride 102 mmol/L (96-108); Estimated Glomerular Filt Rate > 60; Glucose Random 87 mg/dL (60-115); Potassium 4.7 mmol/L (3.3-5.1); Sodium 137 mmol/L (135-145)
[2024-12-16 16:06] LABS: Uric Acid 4.3 mg/dL (3.4-7.0)
[2024-12-16 16:16] LABS: Erythrocyte Sedimentation Rate 33 MM/HR (0-15)
[2024-12-16 16:20] LABS: TSH reflex Free T4 3.17 uIU/mL (0.32-4.0)
[2024-12-23 12:43] LABS: Anti Nuclear Antibody Screen POSITIVE
== END 2024-12-16 14:44 | disposition home or self-care (01) ==
LOC: HO.US 14:43
PROVIDERS: Internal Medicine; PCP Physician Assistant Medical; Visit Provider Physician Assistant Medical
DX: M79.89 Other specified soft tissue disorders (principal)
CPT/HCPCS: 36415; 80048; 84443; 84550; 85027; 85610; 85652; 86038; 86039; 86140; 93971; 97803

== ENCOUNTER → 2024-12-16 15:15 | Outpatient (BNV) | payer OTHER, SELFPAY | PROVIDERS: PCP Physician Assistant Medical; Visit Provider Radiology Diagnostic Radiology | DX: D17.21 Benign lipomatous neoplasm of skin and subcutaneous tissue of right arm (principal) | CPT/HCPCS: 93971 ==

== ENCOUNTER 2025-01-01 12:24 | Outpatient (AMB) | payer OTHER, SELFPAY ==
--- NOTE | 2025-01-01 12:50 | A.OFFPC_ITS ---
Vital Signs 01/01/25 12:51 Height 5 ft 8 in Weight 263 lb 8 oz BMI 40.1 BP 120/60 Blood Pressure Location Lt brachial Position Sitting Pulse 74 Pulse Source Pulse Oximeter Temp 96.8 F Temp Source Temporal Artery Scan Pulse Oximetry (%) 98 Oxygen Delivery Method Room Air Intake Visit Reasons: 1mth f/u Intake Note: Patient is here to follow up on Dizziness and lab results. Manager Fiber Required: No Crisis Intervention Counselor: Not Required per policy Accompanied by: Self / Same As Patient Allergies No Known Allergies [No Known Allergies*] Allergy (Verified 01/01/25 13:26) Medication List - Last Reconciled 01/01/25 by Cookie Donovan PA-C levothyroxine 25 mcg PO DAILY@0600 lidocaine 5% 1 appl topical DAILY PRN lisinopril 10 mg PO DAILY meclizine 50 mg PO DAILY methadone 160 mg PO DAILY warfarin 2.5 mg See Protocol PO SUTUTHSA@1800 warfarin 1.25 mg See Protocol PO MOWEFR@1800 Tobacco use date assessed: 01/01/25 Dental Screening Dental Screen Date: 11/13/24 [facility] Medical History (Updated 01/01/25 @ 13:39 by Cookie Donovan PA-C) Morbid obesity with BMI of 40.0-44.9, adult Swelling of right upper extremity Pain in right arm Positive KAYLEE (antinuclear antibody) Headache DVT (deep venous thrombosis) Acquired hypothyroidism Pulmonary emboli DVT, bilateral lower limbs Obesity Polysubstance abuse Encounter to establish care Eyebrow laceration Surgical History No pertinent past surgical history Family History Mother COPD (chronic obstructive pulmonary disease) Father Hepatitis Liver cirrhosis Maternal Grandmother Alzheimer disease Maternal Grandfather Prostate cancer Diabetes Other Mental health disorder Substance use disorder Social History Household Members: Family Housing: House Unable to assess alcohol history related to: Refusing to respond Alcohol intake: former Year quit: 2011 Patient Tobacco Use Status: Former Tobacco user e-Cigarette/Vaping Use: Never Used Second Hand Smoke Exposure: Yes Substance Use Type: Heroin service: No Current occupational status: unemployed Current occupational exposures/hazards: No Cognitive needs: No Hearing needs: No Vision needs: Yes (reading) Questionnaire Thrive Questionnaire Date Thrive assessed: 11/13/24 TIFFANIE-7 AMB Questionnaire TIFFANIE-7 Date TIFFANIE - 7 assessed: 11/13/24 Source: Developed by Drs. Angel Dent, Maria Isabel Dash, Gelacio Hernandez and colleagues, with an educational quincy from [employer]. Physical exam (Primary Care) Vital Signs: Last Vital Signs Temp 96.8 F 01/01/25 12:51 Pulse 74 01/01/25 12:51 BP 120/60 01/01/25 12:51 Pulse Ox 98 01/01/25 12:51 Oxygen Delivery Method Room Air 01/01/25 12:51 Care Plan Goal for BP management: 130/80 at goal BMI result Body Mass Index 40.1 BMI Assessment/Plan discussion: High BMI High, discussed plan: lifestyle, weight reduction, dietary, physical activity and alcohol moderation Tobacco/Smoking Status: Tobacco use Status Tobacco use date assessed 01/01/25 01/01/25 12:55 Patient Tobacco Use Status Former Tobacco user 01/01/25 12:55 e-Cigarette/Vaping Use Never Used 01/01/25 12:55 Thrive Assessment: Date of Thrive Assessment Date Thrive assessed 11/13/24 01/01/25 12:55 Results AMB INR Fingerstick AMB INR Fingerstick 2.7 Last Edit by Rashida Cash RN on 01/01/25 13:28 interface delay Coding Level of Care Code Est Pt Level 5 (05465) Complex EM visit Add On G2211 Diagnoses Swelling of right upper extremity M79.89 Pain in right arm M79.601 Shortness of breath R06.02 Swelling of extremity M79.89 Pedal edema R60.0 Positive KAYLEE (antinuclear antibody) R76.8 Hypertension I10 Acquired hypothyroidism E03.9 Pulmonary emboli I26.99 Deep vein thrombosis (DVT) of both lower extremities, unspecified chronicity, unspecified vein I82.403 Affected thrombotic vein of extremity: unspecified vein of extremity Chronicity: unspecified Current use of anticoagulant therapy Z79.01 History of opioid abuse F11.11 Morbid obesity with BMI of 40.0-44.9, adult E66.01; Z68.41 Assessment & Plan Assessment & Plan (1) Swelling of right upper extremity: Code(s): M79.89 - Other specified soft tissue disorders Category: Medical Plan: Patient had outpatient venous duplex ultrasound of right upper extremity which revealed lipomas negative for DVTs. Patient is still reporting pain and swelling will order CT scan of elbow with IV contrast. Condition is stable, will continue to monitor. (2) Pain in right arm: Code(s): M79.601 - Pain in right arm Category: Medical Plan: Patient had outpatient venous duplex ultrasound of right upper extremity which revealed lipomas negative for DVTs. Patient is still reporting pain and swelling will order CT scan of elbow with IV contrast. Condition is stable, will continue to monitor. (3) Shortness of breath: Code(s): R06.02 - Shortness of breath Category: Medical Plan: Patient has pitting edema to LE's not upper extremities. There is no calf tenderness. Currently on warfarin with INR of 2.8 on 12/16/2024 which is at therapeutic level. Will order chest x-ray and BNP to evaluate for possible congestive heart failure along with a pulmonary function test to evaluate for possible asthma/COPD due to patient's history of smoking 30 years ago. Conditi on is chronic and stable continue to monitor. (4) Swelling of extremity: Code(s): M79.89 - Other specified soft tissue disorders Category: Medical Plan: Patient has pitting edema to LE's not upper extremities. There is no calf tenderness. Currently on warfarin with INR of 2.8 on 12/16/2024 which is at therapeutic level. Will order chest x-ray and BNP to evaluate for possible congestive heart failure along with a pulmonary function test to evaluate for possible asthma/COPD due to patient's history of smoking 30 years ago. Condition is chronic and stable continue to monitor. (5) Pedal edema: Code(s): R60.0 - Localized edema Category: Medical Plan: Patient has pitting edema to LE's not upper extremities. There is no calf tenderness. Currently on warfarin with INR of 2.8 on 12/16/2024 which is at therapeutic level. Will order chest x-ray and BNP to evaluate for possible congestive heart failure along with a pulmonary function test to evaluate for possible asthma/COPD due to patient's history of smoking 30 years ago. Condition is chronic and stable continue to monitor. (6) Positive KAYLEE (antinuclear antibody): Code(s): R76.8 - Other specified abnormal immunological findings in serum Category: Medical Plan: Patient had a positive KAYLEE. Patient referred to rheumatology. Patient has an appointment scheduled already. Condition is chronic and stable continue to monitor. (7) Hypertension: Code(s): I10 - Essential (primary) hypertension Category: Medical Plan: Goal 130/80. Patient currently on lisinopril 10 mg daily. Condition is chronic and stable continue to monitor. (8) Acquired hypothyroidism: Code(s): E03.9 - Hypothyroidism, unspecified Category: Medical Plan: Patient to continue levothyroxine 25 mcg daily. Condition is chronic and stable continue to monitor. (9) Pulmonary emboli: Code(s): I26.99 - Other pulmonary embolism without acute cor pulmonale Category: Medical Plan: Patient to continue warfarin as prescribed by the Coumadin clinic. Condition is chronic and stable continue to monitor. (10) DVT, bilateral lower limbs: Code(s): I82.403 - Acute embolism and thrombosis of unspecified deep veins of lower extremity, bilateral Category: Medical Qualifiers: Affected thrombotic vein of extremity: unspecified vein of extremity Chronicity: unspecified Qualified Code(s): I82.403 - Acute embolism and thrombosis of unspecified deep veins of lower extremity, bilateral Plan: Patient to continue warfarin as prescribed by the Coumadin clinic. Condition is chronic and stable continue to monitor. 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 Condition is chronic and stable continue to monitor. (12) History of opioid abuse: Code(s): F11.11 - Opioid abuse, in remission Category: Medical Plan: Condition is chronic and stable continue to monitor. (13) Morbid obesity with BMI of 40.0-44.9, adult: Code(s): E66.01 - Morbid (severe) obesity due to excess calories; Z68.41 - Body mass index [BMI] 40.0-44.9, adult Category: Medical Plan: Patient to improve his diet and exercise regimen. Condition is chronic and stable continue to monitor. Plan Plan - Continue warfarin therapy to manage blood clotting. - Proceed with recommended CT scan of the upper arm to evaluate for infection or underlying issues related to lipoma. - Schedule chest x-ray to assess cardiac function and possible fluid retention. - Conduct BNP blood test to assess potential heart failure. - Encourage follow-up with rheumatology to review lupus-related findings. - Initiate pulmonary function test to evaluate for proactive management of asthma or COPD. - Arrange repeat thyroid function tests due to historical concern but not urgent given current results. Orders: Orders PFT pulmonary function test Today R06.02 - Shortness of breath CT elbow RT w IV con Today M79.601 - Pain in right arm, M79.89 - Other specified soft tissue disorders XR chest 2V Today R06.02 - Shortness of breath B Type Natriuretic Peptide Today R60.0 - Localized edema Patient Instructions: Patient Instructions - Continue current warfarin therapy and inform us of any unusual symptoms or bruising. - Attend scheduled CT scan for upper limb and chest x-ray. - Follow up with rheumatology as recommended for further lupus evaluation. - Monitor breathing and note symptoms of shortness of breath or chest pain. - Go for CXR and complete any pending lab work as instructed. - Maintain a list of any new symptoms and communicate these at the next visit. Scribe Plan - Not visible on output: History of Present Illness The patient is a 54-year-old male presenting with multiple complaints of leg pain and swelling, arm pain possibly related to lipoma or infection, and difficulty breathing. He reports a history of blood clots in his legs causing significant pain. Patient is currently on Coumadin taking as prescribed with frequent INR checks. Last INR was on 12/16/2024 which was 2.8. Recently, he noticed an aggravated condition with swelling in his arm, an ultrasound was ordered and revealed a lipoma. His concern includes potential infection, as he experiences frequent infections and questions whether this might be internally affecting his elbow, resulting in considerable pain. Patient had KAYLEE check which was positive, suggesting patient may have Systemic Lupus Erythematosus, indicating autoimmune implications. He also mentions persistent high blood pressure managed with medication and a history of thyroid concerns coupled with occasional anemia and elevated inflammatory markers. He also reports he has been having shortness of breath, dyspnea on exertion, orthopnea where he has to sleep in a recliner over the past few months. He reports he is a former smoker although quit many years ago. He denies any chest pain, paresthesias, worsening leg swelling or worsening calf tenderness. A chest x-ray are suggested for assessing possible heart congestion. Patient is a former smoker. In the past, he has encountered pulmonary issues such as asthma, raising concerns over COPD. Overall, these symptoms and their related concerns require ongoing evaluation through diagnostic imaging and blood tests to affirm diagnoses and guide management. Social History - Smoking History: Quit smoking 30 years ago after a brief duration of about three years. Review of Systems - General: Denies fever, denies generalized aches beyond areas described. - Respiratory: Reports shortness of breath, mainly while exerting. - Cardiovascular: Reports high blood pressure. - Musculoskeletal: Reports leg and arm pain with swelling. - Dermatological: Reports occasional sores on the skin, describes them as little sand pieces. - Endocrine: Briefly mentions thyroid checked, no current issues. - Hematologic: History of anemia. - Neurological: No details provided. Physical Exam Appearance: Alert. Oriented X3. No acute distress. Head: Normal external exam. Normocephalic. Atraumatic. Eyes: Pupils are equal, round, and reactive to light. Extraocular movements intact. Conjunctiva and sclera normal. Eyelids normal. Ears: External auditory canal normal. Tympanic membranes normal. Throat: Pharynx normal. Uvula midline. Moist mucous membranes. Neck: Normal inspection. Neck supple. Full range of motion. No adenopathy. Thyroid Normal. No meningeal signs. No neck mass noted. Cardiovascular: Normal heart rate and rhythm. Heart sound normal. No murmurs noted. Pulses normal throughout. Respiratory: No respiratory distress. Painless inspiration. Breath sounds normal. No wheezes/rales/rhonchi noted. Chest nontender. No accessory muscle usage noted or decreased air movement noted. Abdomen: Soft and nontender. Bowel sounds normal in all 4 quadrants. No dist ention noted. No organomegaly noted. No visible injury noted. Back: No costovertebral angle tenderness. Full range of motion noted. Skin: Skin warm and dry. Normal skin color. Normal skin turgor. No r ashes/lesions/lacerations noted. Lipomas noted to right forearm. Patient does have tenderness to palpation and mild soft tissue swelling to the right elbow/proximal aspect of forearm. There is no streaking, purulent drainage, fluctuance. Not consistent with septic joint. There are no rashes noted. Normal pulses and normal capillary refill. Extremities: Lower extremity edema noted. No calf tenderness is noted. Extremities exhibit normal range of motion. Extremities nontender. Neuro: Oriented X 3. No motor deficit. No sensory deficit. Reflexes normal. Results - Labs: Anemia detected with a level of 12/8. Inflammatory markers noted to be slightly elevated previously. - Imaging: Previous ultrasonography focusing on the detection of blood clots which were negative and revealed lipomas. Upcoming CT scan for further examination of the arm. Plan - Continue warfarin therapy to manage blood clotting. - Proceed with recommended CT scan of the upper arm to evaluate for infection or underlying issues related to lipoma. - Schedule chest x-ray to assess cardiac function and possible fluid retention. - Conduct BNP blood test to assess potential heart failure. - Encourage follow-up with rheumatology to review lupus-related findings. - Initiate pulmonary function test to evaluate for proactive management of asthma or COPD. - Arrange repeat thyroid function tests due to historical concern but not urgent given current results. Patient was informed and verbally consented to the use of an ambient scribe for clinic note documentation during this visit. Discussion Notes I discussed with the patient the potential diagnoses, including concerns about possible infection in the arm, which could relate to existing lipomas and noted pain. Explained the benefits and plan for ongoing imaging, including a CT scan of the arm to determine any infection, and a chest x-ray to investigate cardiac and pulmonary status, respectively. Clarified that while lupus could contribute to symptoms, an infection would typically present differently. Reviewed the need for pulmonary function tests to rule out COPD, given asthma history and previously suspected cardiovascular issues. Offered assurance regarding the plan for anemia and described why the thyroid re-check is not immediately pressing. Patient was advised about scheduled diagnostic tests and the importance of following medical recommendations for each condition. Explained next steps for comprehensive management and scheduling further appointments to address problems persistently. Patient Instructions - Continue current warfarin therapy and inform us of any unusual symptoms or bruising. - Attend scheduled CT scan for upper limb and chest x-ray. - Follow up with rheumatology as recommended for further lupus evaluation. - Monitor breathing and note symptoms of shortness of breath or chest pain. - Go for CXR and complete any pending lab work as instructed. - Maintain a list of any new symptoms and communicate these at the next visit.
[2025-01-01 12:51] VITALS: BP 120/60; PULSE 74; TEMP 36; O2SAT 98; BMI 40.1
== END 2025-01-01 13:17 | disposition home or self-care (01) ==
PROVIDERS: PCP Internal Medicine; Visit Provider Physician Assistant Medical
DX: M79.89 Other specified soft tissue disorders (principal); M79.601 Pain in right arm; R06.02 Shortness of breath; R60.0 Localized edema; R76.8 Other specified abnormal immunological findings in serum; I10 Essential (primary) hypertension; E03.9 Hypothyroidism, unspecified; I26.99 Other pulmonary embolism without acute cor pulmonale; I82.403 Acute embolism and thrombosis of unspecified deep veins of lower extremity, bilateral; F11.11 Opioid abuse, in remission; E66.01 Morbid (severe) obesity due to excess calories; Z68.41 Body mass index [BMI] 40.0-44.9, adult; Z79.01 Long term (current) use of anticoagulants

== ENCOUNTER → 2025-01-01 12:24 | Outpatient (BNVA) | payer OTHER, SELFPAY | PROVIDERS: PCP Internal Medicine; Visit Provider Physician Assistant Medical | DX: I26.99 Other pulmonary embolism without acute cor pulmonale (principal); Z51.81 Encounter for therapeutic drug level monitoring; Z79.01 Long term (current) use of anticoagulants; R60.0 Localized edema; M79.601 Pain in right arm; R06.02 Shortness of breath; R76.8 Other specified abnormal immunological findings in serum; E03.9 Hypothyroidism, unspecified; I10 Essential (primary) hypertension; I82.403 Acute embolism and thrombosis of unspecified deep veins of lower extremity, bilateral; F11.11 Opioid abuse, in remission; E66.01 Morbid (severe) obesity due to excess calories; Z68.41 Body mass index [BMI] 40.0-44.9, adult; Z71.3 Dietary counseling and surveillance | CPT/HCPCS: 85610; 99211; 99212 ==

== ENCOUNTER 2025-01-01 13:18 | Outpatient (AMB) | payer OTHER, SELFPAY ==
[2025-01-01 13:28] LABS: ~PT, ~INR - Anti Coag Clinic 2.7 (0.9-1.1)
--- NOTE | 2025-01-01 13:30 | MHC.OFFVISCO ---
Intake Intake Visit Reasons: Anticoagulation Allergies No Known Allergies [No Known Allergies*] Allergy (Verified 01/01/25 13:26) Medication List - Last Reconciled 01/01/25 by Rashida Cash RN levothyroxine 25 mcg PO DAILY@0600 lidocaine 5% 1 appl topical DAILY PRN lisinopril 10 mg PO DAILY meclizine 50 mg PO DAILY methadone 160 mg PO DAILY warfarin 2.5 mg See Protocol PO SUTUTHSA@1800 warfarin 1.25 mg See Protocol PO MOWEFR@1800 Nursing Note INR: 2.7 in therapeutic range 2.0-3.5 Medications and supplements reviewed No changes in health, diet, medications, or supplements, Denies any signs and symptoms of bleeding or bruising or clotting. Bleeding, bruising, clotting discussed Nutritional guidance given Dose: 1.25mg X 4 days and 2.5mg X 3 days F/U INR: 10 days Patient verbalizes understanding of instructions given Anti-Coag Initial Assessment Social Hx Patient Tobacco Use Status: Former Tobacco user alcohol intake: former Alcohol intake frequency: does not drink Cardiovascular Hx: HTN, Arrhythmias and Other Lung Disease HX: DVT/PE Endocrine Hx: Other Musculoskeletal Hx: Arthritis Blood Disorder Hx: Hepatitis GI Hx: Other Hx: Other Neurological Hx: Serious Head Injury and Migraines/Headaches Cancer HX: No Psych. Illness/Depression: No Coding Level of Care Code Est Patient Level 1 Diagnoses Current use of anticoagulant therapy Z79.01 Results AMB INR Fingerstick AMB INR Fingerstick 2.7 Last Edit by Rashida Cash RN on 01/01/25 13:28 interface delay Assessment & Plan Assessment & Plan (1) Current use of anticoagulant therapy: Code(s): Z79.01 - USP (current) use of anticoagulants Category: Medical
== END 2025-01-01 13:32 | disposition home or self-care (01) ==
LOC: HO.ACS 13:18
PROVIDERS: PCP Internal Medicine; Visit Provider Internal Medicine
DX: Z79.01 Long term (current) use of anticoagulants (principal)

== ENCOUNTER 2025-01-10 09:12 | Emergency (ER) | payer OTHER, SELFPAY ==
--- NOTE | ~2025-01-10 | XR_ITS ---
CLINICAL HISTORY: chest pain 2 view chest x-ray Comparison: CR/SR - XR CHEST 2V - 12/10/23 11:20 EST Findings: No consolidation or effusion. Normal size heart. No acute fracture. IMPRESSION: 1. No acute findings. This document has been electronically signed by: Jonnie Quinn MD on 01/10/2025 10:41:33
--- NOTE | 2025-01-10 09:27 | ECG_ITS ---
Test Reason : chest pain Blood Pressure : */* mmHG Vent. Rate : 90 BPM Atrial Rate : 90 BPM P-R Int : 162 ms QRS Dur : 100 ms QT Int : 366 ms P-R-T Axes : 28 -11 22 degrees QTcB Int : 447 ms Normal sinus rhythm Minimal voltage criteria for LVH, may be normal variant ( R in aVL ) Borderline ECG When compared with ECG of 14-Oct-2024 22:08, QT has lengthened Referred By: Riddhi Garza Electronically Signed By: Hilario Agarwal
--- NOTE | 2025-01-10 09:27 | ED_ITS ---
HPI - Chest Pain General Chief Complaint: Chest Pain Stated Complaint: CHEST PRESSURE Time Seen by Provider: 01/10/25 09:17 Source: patient and EMS Mode of arrival: EMS Limitations: no limitations History of Present Illness ED Provider: laurita domínguez np HPI narrative: Patient is a 54 year old male presents emergency department for evaluation. He reports that he awoke from a nap this morning at approximately 08:00 (admits to poor overnight sleep), upon awakening he was having severe diffuse left anterior chest pain with the associated dizziness. He felt unsteady when he walked in his house to go get his automated blood pressure cuff. Reports that he checked his blood pressure and noticed it was elevated 218/117. Pain persisted so he contacted EMS. He does endorse a history of hypertension he states a few months ago he was started on a medication does not recall the name but states he took it this morning in addition to his Coumadin, reports last INR pressure is 1 week ago at 2.4. When asked he does endorse shortness of breath but he states this is baseline in has no acute change. Denies any recent URI symptoms. Pre- hospital he received nitro x2 and aspirin 324 mg with near complete resolution of his symptoms, he reports a very mild pain 1/10 to the left anterior chest which is greatly improved. He denies associated radiation of the pain, nausea, vomiting. Related Data Home Medications ?Medication ?Instructions ?Recorded ?Confirmed methadone 10 mg/mL oral concentrate 160 mg PO DAILY 06/09/22 01/01/25 warfarin 2.5 mg tablet 1.25 mg PO MOWEFR@1800 10/15/24 01/01/25 warfarin 2.5 mg tablet 2.5 mg PO SUTUTHSA@1800 10/15/24 01/01/25 levothyroxine 25 mcg tablet 25 mcg PO DAILY@0600 10/16/24 01/01/25 Previous Rx's ?Medication ?Instructions ?Recorded meclizine 50 mg tablet 50 mg PO DAILY dizziness #30 tabs 11/13/24 lidocaine 5 % topical ointment 1 appl topical DAILY PRN pain #30 11/25/24 grams lisinopril 10 mg tablet 10 mg PO DAILY for blood pressure 12/15/24 #90 tabs Allergies Allergy/AdvReac Type Severity Reaction Status Date / Time No Known Allergies Allergy Verified 01/10/25 09:46 [No Known Allergies*] Review of Systems 2 Review of Systems: Yes all other systems are reviewed and are negative FORMERLY [facility], [facility] Past Medical History Attestation statement: The following information was validated with the patient. Source: old records reviewed Medical History Morbid obesity with BMI of 40.0-44.9, adult Swelling of right upper extremity Pain in right arm Positive KAYLEE (antinuclear antibody) Headache DVT (deep venous thrombosis) Acquired hypothyroidism Pulmonary emboli DVT, bilateral lower limbs Obesity Polysubstance abuse Encounter to establish care Eyebrow laceration Surgical History No pertinent past surgical history Family History Family History Mother COPD (chronic obstructive pulmonary disease) Father Hepatitis Liver cirrhosis Maternal Grandmother Alzheimer disease Maternal Grandfather Prostate cancer Diabetes Other Mental health disorder Substance use disorder Social History Social History Household Members: Family Housing: House Unable to assess alcohol history related to: Refusing to respond Alcohol intake: former Year quit: 2011 Patient Tobacco Use Status: Former Tobacco user Smoked in Last 30 Days: No e-Cigarette/Vaping Use: Never Used Second Hand Smoke Exposure: Yes Use of substances other than those prescribed or required for medical reasons: No Substance Use Type: Heroin Advance Directives: Yes Advance Directives Information Provided: Yes Advance Directives on File: No Do you have a plan to hurt others: No Plan service: No Current occupational status: unemployed Current occupational exposures/hazards: No Cognitive needs: No Hearing needs: No Vision needs: Yes (reading) Physical Exam 2 Vital Signs: Vital Signs: Last Vital Signs Temp 99.3 F 01/10/25 09:44 Pulse 72 01/10/25 11:32 Resp 14 01/10/25 11:32 BP 120/68 01/10/25 11:32 Pulse Ox 98 01/10/25 11:32 O2 Del Method Room Air 01/10/25 11:32 BMI result Body Mass Index 41.6 Appearance: Alert.?Oriented to person, place and time. No acute distress.?Normal affect. Eyes: Pupils equal, round and reactive to light.? ENT: Pharynx normal.?? Neck: Normal inspection.? Neck supple.??No JVD. CVS: Heart sounds normal. Normal heart rate and rhythm.? Pulses normal.?? Respiratory: No respiratory distress.? Lung sounds clear to auscultation bilaterally?? Abdomen: Soft and non-tender. Normoactive bowel sounds. No pulsatile mass.?? Skin: Skin warm and dry.? Normal skin color.? ?? Extremities: No lower extremity edema.? No calf ttp? Neuro: Moves all extremities spontaneously. Sensation intact bilaterally. CN II- XII intact. No focal neuro deficits. Ambulates with normal steady gait. Course Reevaluation(s) Reevaluation #1: EKG revealing a normal sinus rhythm with ventricular rate of 90, QTC 447, no ST elevation, no prominent T-wave inversion, high sensitive troponin within normal range at 3.2. Lower suspicion for ACS at this time, however given presenting symptoms resolution after nitro and aspirin will obtain delta troponin; heart score 2. CBC is without leukocytosis, has a mild normocytic anemia not meeting transfusion criteria, no thrombocytopenia. INR within therapeutic range at 2.6. No electrolyte derangement. No LUZ MARINA. LFTs minimally elevated with AST/ALT 83/99 respectively chronic stably elevated. Normal lipase. BNP below detectable range. viral serologies are negative. CXR is without consolidation or infiltrate to suggest pneumonia. Reevaluation #2: Delta Troponin is negative. No further episodes of chest pain. At this time feel stable for discharge home, close outpatient follow-up with primary care doctor and strict return precautions. Time: 13:32 Medical Decision Making Medical Decision Making MDM Narrative: Patient is a 54-year-old male with past medical history of obesity, hypothyroidism, polysubstance use, history of DVT/PE anticoagulated on warfarin, hypertension presents emergency department for evaluation of chest pain as per HPI. Greatly improved after receiving nitro x2 and aspirin 324 mg p.o. prior to arrival. He appears anxious at the time my evaluation does able to be calmed with verbal instructions/reassurance. Pain is currently 1/10. Denies persistent dizziness. On evaluation does not appear to have signs of volume overload or shock. He is anticoagulated with warfarin, with recent therapeutic INR, lower suspicion for pulmonary embolism as etiology for symptoms. No recent trauma or injury no tracheal deviation unlikely pneumothorax. Denies recent URI symptoms, however will obtain chest x-ray to evaluate for consolidation/infiltrate. No abdominal tenderness upon palpation negative Muniz sign, lower suspicion for acute hepatobiliary etiology. Denies associated acid reflux, pain over the epigastrium left upper quadrant to suggest gastritis and no recent hematemesis to suggest PUD. Will obtain CBC to evaluate for leukocytosis/ anemia, CMP and lipase to evaluate for abnormal electrolytes /abnormal renal function/ abnormal hepatic/biliary function, EKG and troponin to evaluate for ischemia/ACS. Chest x-ray to evaluate for consolidation/ infiltrate/ mass/ pulmonary congestion, pain control and reassessment Differential Diagnosis Differential Diagnoses: The differential diagnosis associated with the presentation includes (See narrative above) Admission/Observation Consideration of admission/observation: Escalation of care including admission/observation considered (See narrative above and course narrative for further detail) Lab Data MDM Lab Attestation statement: I reviewed the patient's lab results. 01/10/25 10:13 01/10/25 10:13 Labs: Lab Results 01/10/25 01/10/25 Range/Units 10:13 12:25 WBC 5.7 (4.8-10.8) X10*3/uL RBC 4.23 L (4.60-5.80) X10*6/uL Hgb 12.1 L (14.0-18.0) g/dl Hct 36.7 L (42.0-52.0) % MCV 86.8 (80.0-98.0) fL MCH 28.6 (27.0-33.0) pg MCHC 33.0 (31.0-36.0) g/dl RDW 14.9 (11.0-16.0) % Plt Count 209 (160-400) X10*3/uL MPV 9.1 L (9.4-12.4) fL Immature Gran % (Auto) 0.4 (0.0-0.4) % Neut % (Auto) 57.2 (45-73) % Lymph % (Auto) 26.8 (20-40) % [place] % (Auto) 11.7 H (2-11) % Eos % (Auto) 3.5 (0-4) % Baso % (Auto) 0.4 (0-2) % Lymph # (Auto) 1.5 (1.2-4.9) X10*3/uL [place] # (Auto) 0.7 (0.1-1.2) X10*3/uL Eos # (Auto) 0.2 (0.0-0.4) X10*3/uL Baso # (Auto) 0.0 (0.0-0.2) X10*3/uL Abs Immat Gran (auto) 0.02 (0.00-0.03) X10*3/uL Absolute Neuts (auto) 3.3 (2.0-8.3) x10*3/uL Absolute Nucleated RBC 0.000 (0.0-0.012) X10*3/uL Nucleated RBC % (auto) 0.0 (0.0-0.2) /100WBC PT 30.6 H (10.9-12.4) SEC INR 2.6 H (0.9-1.1) Sodium 137 (135-145) mmol/L Potassium 4.7 (3.3-5.1) mmol/L Chloride 105 (96-108) mmol/L Carbon Dioxide 25 (22-29) mmol/L Anion Gap 12 (12-20) BUN 20 H (9-16) mg/dL Creatinine 0.77 (0.5-1.4) mg/dL Estim Creat Clear Calc 140.6 Estimated GFR > 60 Random Glucose 106 (60-115) mg/dL Calcium 8.8 D (8.4-10.2) mg/dL Magnesium 2.2 (1.6-2.6) mg/dL Total Bilirubin 0.2 (0.0-1.0) mg/dL AST 83 H (5-37) U/L ALT 99 H (0-40) U/L Alkaline Phosphatase 111 (39-117) U/L Troponin I High Sens 3.2 6.5 D (<3.5-35.0) ng/L B-Natriuretic Peptide < 10 (<100) pg/mL Total Protein 8.0 (6.5-8.0) g/dL Albumin 3.5 (3.5-5.0) g/dL Lipase 18 (8-78) U/L Influenza Type A (PCR) NEGATIVE (Negative) Influenza Type B (PCR) NEGATIVE (Negative) RSV RNA Qual (PCR) NEGATIVE (Negative) SARS-CoV-2 RNA (RT-PCR) NEGATIVE (Negative) Independent Interpretation I performed an independent interpretation of an: EKG Interpretation: Rate: Rhythm:? [place]:? Normal P waves.? Normal RJ.?? Normal QRS complex.?? ST T wave :?? qTC: prior studies:? The study has been interpreted contemporaneously by me. Radiology Impression Discussion of test interpretation with radiology: I have reviewed the radiologist's reading. Independent Historian Clinical information obtained from an independent historian. History obtained from or confirmed by: EMS External Record Review External record reviewed: Outpatient record Chronic Conditions Patient?s care impacted by: Other (See narrative above) Discharge Plan Discharge Clinical Impression: Chest pain Patient Disposition: Home, Self-Care Instructions: Chest Pain (ED), Noncardiac Chest Pain (ED) Additional Instructions: workup today was very reassuring, no signs of a heart attack here. Blood pressure has been controlled without use of medications. EKG was normal. Troponin; a cardiac enzyme marker was normal x2 which is very reassuring. Chest x-ray does not show evidence of pneumonia. Negative for COVID, flu, and RSV were negative. Follow-up with your primary care doctor. Return with any new or worsening symptoms or concerns Prescriptions: No Action lisinopril 10 mg tablet 10 mg PO DAILY Qty: 90 0RF warfarin 2.5 mg tablet 2.5 mg PO SUTUTHSA@1800 Protocol: Dose Management Condition: Sunday (Week One) Dose/Route: 1.25 mg Instruction: 0.5 x 2.5 mg tablets Condition: Sunday Dose/Route: 2.5 mg Instruction: 1 x 2.5 mg tablet Condition: Sunday Dose/Route: 1.25 mg Instruction: 0.5 x 2.5 mg tablets Condition: Sunday Dose/Route: 2.5 mg Instruction: 1 x 2.5 mg tablet Condition: Dose/Route: 1.25 mg Instruction: 0.5 x 2.5 mg tablets Condition: Sunday Dose/Route: 2.5 mg Instruction: 1 x 2.5 mg tablet Condition: Sunday Dose/Route: 1.25 mg Instruction: 0.5 x 2.5 mg tablets Condition: Sunday (Week Two) Dose/Route: 1.25 mg Instruction: 0.5 x 2.5 mg tablets Condition: Sunday Dose/Route: 2.5 mg Instruction: 1 x 2.5 mg tablet Condition: Sunday Dose/Route: 1.25 mg Instruction: 0.5 x 2.5 mg tablets Condition: Sunday Dose/Route: 2.5 mg Instruction: 1 x 2.5 mg tablet Condition: Dose/Route: 1.25 mg Instruction: 0.5 x 2.5 mg tablets Condition: Sunday Dose/Route: 2.5 mg Instruction: 1 x 2.5 mg tablet Condition: Sunday Dose/Route: 1.25 mg Instruction: 0.5 x 2.5 mg tablets Protocol Text: Adjustment Start Date: 01/01/25 INR Value: 2.7 INR Date: 01/01/25 Recheck Date: 01/11/25 warfarin 2.5 mg tablet 1.25 mg PO MOWEFR@1800 Protocol: Dose Management Condition: Sunday (Week One) Dose/Route: 1.25 mg Instruction: 0.5 x 2.5 mg tablets Condition: Sunday Dose/Route: 2.5 mg Instruction: 1 x 2.5 mg tablet Condition: Sunday Dose/Route: 1.25 mg Instruction: 0.5 x 2.5 mg tablets Condition: Sunday Dose/Route: 2.5 mg Instruction: 1 x 2.5 mg tablet Condition: Dose/Route: 1.25 mg Instruction: 0.5 x 2.5 mg tablets Condition: Sunday Dose/Route: 2.5 mg Instruction: 1 x 2.5 mg tablet Condition: Sunday Dose/Route: 1.25 mg Instruction: 0.5 x 2.5 mg tablets Condition: Sunday (Week Two) Dose/Route: 1.25 mg Instruction: 0.5 x 2.5 mg tablets Condition: Sunday Dose/Route: 2.5 mg Instruction: 1 x 2.5 mg tablet Condition: Sunday Dose/Route: 1.25 mg Instruction: 0.5 x 2.5 mg tablets Condition: Sunday Dose/Route: 2.5 mg Instruction: 1 x 2.5 mg tablet Condition: Dose/Route: 1.25 mg Instruction: 0.5 x 2.5 mg tablets Condition: Sunday Dose/Route: 2.5 mg Instruction: 1 x 2.5 mg tablet Condition: Sunday Dose/Route: 1.25 mg Instruction: 0.5 x 2.5 mg tablets Protocol Text: Adjustment Start Date: 01/01/25 INR Value: 2.7 INR Date: 01/01/25 Recheck Date: 01/11/25 levothyroxine 25 mcg tablet 25 mcg PO DAILY@0600 lidocaine 5 % ointment 1 appl topical DAILY PRN (Reason: pain) Qty: 30 0RF methadone 10 mg/mL concentrate 160 mg PO DAILY Patient Comments: Confirmed with [facility] Priscilla SIM. Last does at clinic was 10/03/24 @ 8am 160mg with 27 take home dosages. meclizine 50 mg tablet 50 mg PO DAILY Qty: 30 2RF Referrals: Kyler Daley MD [Primary Care Provider] - Print Language: Bolivian
[2025-01-10 09:44] VITALS: BP 130/80; BP 132/75; PULSE 85; PULSE 99; RESP 16; TEMP 37.4; O2SAT 95; O2SAT 98; BMI 41.6
[2025-01-10 10:19] LABS: MANUAL DIFF FLAG NO
[2025-01-10 10:27] LABS: Basophils Percent Auto 0.4 % (0-2); Eosinophils Absolute Auto 0.2 X10*3/uL (0.0-0.4); Eosinophils Percent Auto 3.5 % (0-4); Hematocrit 36.7 % (42.0-52.0); Hemoglobin 12.1 g/dl (14.0-18.0); Imm Gran Abs Auto 0.02 X10*3/uL (0.00-0.03); Imm Gran Pct Auto 0.4 % (0.0-0.4); Lymphocytes Absolute Auto 1.5 X10*3/uL (1.2-4.9); Lymphocytes Percent Auto 26.8 % (20-40); Mean Corpuscular Hemoglobin 28.6 pg (27.0-33.0); Mean Corpuscular Volume 86.8 fL (80.0-98.0); Mean Platelet Volume 9.1 fL (9.4-12.4); Monocytes Absolute Auto 0.7 X10*3/uL (0.1-1.2); Monocytes Percent Auto 11.7 % (2-11); Neutrophils Absolute Auto 3.3 x10*3/uL (2.0-8.3); Neutrophils Percent Auto 57.2 % (45-73); Platelet Count 209 X10*3/uL (160-400); Red Blood Count 4.23 X10*6/uL (4.60-5.80); Red Cell Distribution Width 14.9 % (11.0-16.0); White Blood Count 5.7 X10*3/uL (4.8-10.8)
[2025-01-10 10:32] LABS: INTERNATIONAL NORM RATIO 2.6 (0.9-1.1); Prothrombin Time 30.6 SEC (10.9-12.4)
[2025-01-10 10:50] LABS: Alanine Aminotransferase 99 U/L (0-40); Albumin Level 3.5 g/dL (3.5-5.0); Alkaline Phosphatase 111 U/L (39-117); Anion Gap 12 (12-20); Aspartate Amino Transferase 83 U/L (5-37); Bilirubin Total 0.2 mg/dL (0.0-1.0); Blood Urea Nitrogen 20 mg/dL (9-16); Calcium 8.8 mg/dL (8.4-10.2); Carbon Dioxide 25 mmol/L (22-29); Chloride 105 mmol/L (96-108); Creatinine Clr Calc Pharmacy 140.6; Estimated Glomerular Filt Rate > 60; Glucose Random 106 mg/dL (60-115); Lipase 18 U/L (8-78); Magnesium 2.2 mg/dL (1.6-2.6); Potassium 4.7 mmol/L (3.3-5.1); Sodium 137 mmol/L (135-145)
[2025-01-10 10:55] LABS: B Type Natriuretic Peptide < 10 pg/mL (<100)
[2025-01-10 10:56] LABS: Troponin-I High Sensitivity 3.2 ng/L (<3.5-35.0)
[2025-01-10 11:11] LABS: Influenza A PCR NEGATIVE (Negative); Influenza B PCR NEGATIVE (Negative); Resp Syncy Virus RNA Qual PCR NEGATIVE (Negative); SARS COV2 PCR INHOUSE NEGATIVE (Negative)
[2025-01-10 11:32] VITALS: BP 120/68; PULSE 72; RESP 14; O2SAT 98
[2025-01-10 12:52] LABS: Troponin-I High Sensitivity 6.5 ng/L (<3.5-35.0)
[2025-01-10 14:13] VITALS: BP 137/76; PULSE 67; RESP 18; TEMP 37.4; O2SAT 97
== END 2025-01-10 14:15 | disposition home or self-care (01) ==
PROVIDERS: Nurse Practitioner Family; Emergency Provider Emergency Medicine; PCP Internal Medicine
DX: R07.9 Chest pain, unspecified (principal); I10 Essential (primary) hypertension; E03.9 Hypothyroidism, unspecified; F19.10 Other psychoactive substance abuse, uncomplicated; Z86.718 Personal history of other venous thrombosis and embolism; Z87.891 Personal history of nicotine dependence; Z79.01 Long term (current) use of anticoagulants; Z03.818 Encounter for observation for suspected exposure to other biological agents ruled out
CPT/HCPCS: 0241U; 36415; 71046; 80053; 83690; 83735; 83880; 84484; 85025; 85610; 93005; 99283; 99285

== ENCOUNTER → 2025-01-10 09:27 | Outpatient (BNV) | payer OTHER, SELFPAY | PROVIDERS: Emergency Provider Emergency Medicine; PCP Internal Medicine; Visit Provider Internal Medicine Cardiovascular Disease | DX: R07.9 Chest pain, unspecified (principal); R94.31 Abnormal electrocardiogram [ECG] [EKG] | CPT/HCPCS: 93010 ==

== ENCOUNTER → 2025-01-10 09:31 | Outpatient (BNV) | payer OTHER, SELFPAY | PROVIDERS: Emergency Provider Emergency Medicine; PCP Internal Medicine; Visit Provider Radiology Diagnostic Radiology | DX: R07.9 Chest pain, unspecified (principal) | CPT/HCPCS: 71046 ==

== ENCOUNTER 2025-02-05 13:03 | Outpatient (AMB) | payer OTHER, SELFPAY ==
[2025-02-05 13:18] LABS: Prothrombin Time Whole Bld POC 36.6 sec (11.1-13.5); ~PT, ~INR - Anti Coag Clinic 3.1 (0.9-1.1)
--- NOTE | 2025-02-05 13:31 | MHC.OFFVISCO ---
Intake Intake Visit Reasons: Anticoagulation Allergies No Known Allergies [No Known Allergies*] Allergy (Verified 02/05/25 13:07) Medication List - Last Reconciled 02/05/25 by Ana Lilia Garibay RN levothyroxine 25 mcg PO DAILY@0600 lidocaine 5% 1 appl topical DAILY PRN lisinopril 10 mg PO DAILY meclizine 50 mg PO DAILY methadone 160 mg PO DAILY warfarin 2.5 mg See Protocol PO SUTUTHSA@1800 warfarin 1.25 mg See Protocol PO MOWEFR@1800 Nursing Note INR: 3.1 in therapeutic range 2.0-3.5- has wide range due to labile INR possible r/t lupus He is waiting an appt for Rheumatology appt in July. He has an ortho appt today for his on going elbow discomfort and unusual swelling and lumps He has several different kinds of symptoms going on- he is somewhat relieved that Lupus was diagnosed because his pain was in different places or traveled it seemed, had episodes of dizziness and pain etc. He also has hypothyroid. Medications and supplements reviewed- no new meds at this time No changes in health, diet, medications, or supplements, Denies any signs and symptoms of bleeding or bruising or clotting. Bleeding, bruising, clotting discussed Nutritional guidance given - cont to eat a mix of fruits and vegetables and healthy diet Dose: keep same dose 2.5mg mwf/ 1.25mg x 4 days F/U INR: 02/25/25 same day as another appt Patient verbalizes understanding of instructions given Anti-Coag Initial Assessment Social Hx Patient Tobacco Use Status: Former Tobacco user alcohol intake: former Alcohol intake frequency: does not drink Cardiovascular Hx: HTN, Arrhythmias and Other Lung Disease HX: DVT/PE Endocrine Hx: Other Musculoskeletal Hx: Arthritis Blood Disorder Hx: Hepatitis GI Hx: Other Hx: Other Neurological Hx: Serious Head Injury and Migraines/Headaches Cancer HX: No Psych. Illness/Depression: No Coding Level of Care Code Est Patient Level 1 Diagnoses Current use of anticoagulant therapy Z79.01 Results AMB INR Fingerstick AMB INR Fingerstick 3.1 Last Edit by Ana Lilia Garibay RN on 02/05/25 13:14 manual entry Assessment & Plan Assessment & Plan (1) Current use of anticoagulant therapy: Code(s): Z79.01 - nursing home (current) use of anticoagulants Category: Medical
== END 2025-02-05 13:56 | disposition home or self-care (01) ==
LOC: HO.ACS 13:03
PROVIDERS: PCP Internal Medicine; Visit Provider Internal Medicine Medical Oncology
DX: Z79.01 Long term (current) use of anticoagulants (principal)

== ENCOUNTER → 2025-02-05 13:03 | Outpatient (BNVA) | payer OTHER, SELFPAY | PROVIDERS: PCP Internal Medicine; Visit Provider Internal Medicine Medical Oncology | DX: M77.11 Lateral epicondylitis, right elbow (principal); D17.21 Benign lipomatous neoplasm of skin and subcutaneous tissue of right arm; I26.99 Other pulmonary embolism without acute cor pulmonale; Z86.718 Personal history of other venous thrombosis and embolism; Z51.81 Encounter for therapeutic drug level monitoring; Z79.01 Long term (current) use of anticoagulants | CPT/HCPCS: 85610; 99202; 99211 ==

== ENCOUNTER 2025-02-05 13:31 | Outpatient (AMB) | payer OTHER, SELFPAY ==
--- NOTE | 2025-02-05 13:37 | MHC.OFFVIS ---
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 He was evaluated and referred by his PCP Cookie Donovan. He has had Ultrasound done that showed Lipoma but no DVT. Upcoming CT Scan 02/25/25. He reports 2-3 months ago he started having dizziness, pain and had an IV placed at the hospital and he had lumps present 2 days later. He also was recently diagnosed with lupus. Referred to Rheumatology for Positive KAYLEE. 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 He was evaluated and referred by his PCP Cookie Donovan. He has had Ultrasound done that showed Lipoma but no DVT. Upcoming CT Scan 02/25/25. He reports 2-3 months ago he started having dizziness, pain and had an IV placed at the hospital and he had lumps present 2 days later. He also was recently diagnosed with lupus. Referred to Rheumatology for Positive KAYLEE. [facility] Medical History Morbid obesity with BMI of 40.0-44.9, adult Swelling of right upper extremity Pain in right arm Positive KAYLEE (antinuclear antibody) Headache DVT (deep venous thrombosis) Acquired hypothyroidism Pulmonary emboli DVT, bilateral lower limbs Obesity Polysubstance abuse Encounter to establish care Eyebrow laceration Surgical History No pertinent past surgical history Family History Mother COPD (chronic obstructive pulmonary disease) Father Hepatitis Liver cirrhosis Maternal Grandmother Alzheimer disease Maternal Grandfather Prostate cancer Diabetes Other Mental health disorder Substance use disorder Social History Household Members: Family Housing: House Unable to assess alcohol history related to: Refusing to respond Alcohol intake: former Year quit: 2012 Patient Tobacco Use Status: Former Tobacco user e-Cigarette/Vaping Use: Never Used Second Hand Smoke Exposure: Yes Substance Use Type: Heroin service: No Current occupational status: unemployed Current occupational exposures/hazards: No Cognitive needs: No Hearing needs: No Vision needs: Yes (reading) Review of Systems Const All systems reviewed & are unremarkable except as noted in HPI and below Physical Exam Extrem Other: Patient is alert, oriented, and in no acute distress. Neuro: Normal sensation of the tips of all digits of the right hand at this time Vascular: Cap refill brisk Pain: Tenderness to palpation over the lateral epicondyle of the right elbow Positive Cozen's test ROM: Patient is able to make a closed fist and extend all digits of the right hand fully Skin: No lacerations or abrasions. There was noted to be a small, mobile, subcutaneous nodule approximately 1-2 cm in diameter noted over the mid shaft ulna on the ulnar aspect of the forearm General: No ecchymosis, erythema, or evidence of infection. Psych: Appears grossly normal Affect normal Attitude cooperative Results AMB INR Fingerstick AMB INR Fingerstick 3.1 Last Edit by Ana Lilia Garibay RN on 02/05/25 13:14 manual entry Assessment & Plan Assessment & Plan (1) Lateral epicondylitis of right elbow: Code(s): M77.11 - Lateral epicondylitis, right elbow Category: Medical (2) Lipoma of right upper extremity: Code(s): D17.21 - Benign lipomatous neoplasm of skin and subcutaneous tissue of right arm Category: Medical Plan 1. Lateral epicondylitis of right elbow Patient is educated about this condition Patient is educated about the typical treatment course At this time, patient was referred to occupational therapy for treatment of lateral epicondylitis Patient was amenable to this plan 2. Lipomas of right forearm Patient is educated about this condition Patient is educated about the treatment options available At this time, patient was referred to Dr. Delgadillo for consultation of potential lipoma removal of the right forearm Patient was amenable to this plan Orders: Orders OT Evaluation and Treatment Today M77.11 - Lateral epicondylitis, right elbow Coding Level of Care Code New Pt Level 3 (66419) Diagnoses Lateral epicondylitis of right elbow M77.11 Lipoma of right upper extremity D17.21
== END 2025-02-05 13:51 | disposition home or self-care (01) ==
LOC: HO.HOS 13:32
PROVIDERS: PCP Internal Medicine
DX: M77.11 Lateral epicondylitis, right elbow (principal); D17.21 Benign lipomatous neoplasm of skin and subcutaneous tissue of right arm
CPT/HCPCS: 99203

== ENCOUNTER 2025-03-12 13:25 | Outpatient (AMB) | payer OTHER, SELFPAY ==
--- NOTE | 2025-03-12 13:40 | A.OFFPC_ITS ---
Vital Signs 03/12/25 13:41 Height 5 ft 8 in Weight 261 lb 6 oz BMI 39.7 BP 130/72 Blood Pressure Location Rt brachial Position Sitting Pulse 77 Pulse Source Pulse Oximeter Temp 97.8 F Temp Source Temporal Artery Scan Pulse Oximetry (%) 97 Oxygen Delivery Method Room Air Intake Visit Reasons: 1mth f/u, resched Intake Note: Patient is here to follow up on med review. 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: No [place] Construction Supervisor: Not Required per policy Accompanied by: Self / Same As Patient Allergies No Known Allergies [No Known Allergies*] Allergy (Verified 03/12/25 14:24) Medication List - Last Reconciled 03/12/25 by Cookie Donovan PA-C levothyroxine 25 mcg PO DAILY@0600 lidocaine 5% 1 appl topical DAILY PRN lisinopril 10 mg PO DAILY meclizine 50 mg PO DAILY methadone 160 mg PO DAILY warfarin 2.5 mg See Protocol PO SUTUTHSA@1800 warfarin 1.25 mg See Protocol PO MOWEFR@1800 Tobacco use date assessed: 03/12/25 Dental Screening Dental Screen Date: 11/13/24 HPI 1mth f/u, resched HPI Details The patient is a 54-year-old male presenting with concerns of heart and pulmonary health, and follow-up on arm swelling. Approximately four to five months ago, the patient began experiencing right elbow swelling and pain, initially evaluated via an ultrasound, which the insurance company used as grounds to deny a requested CT scan recommended a x-ray of his elbow/right upper extremity which was ordered today. Patient agreeable to obtaining these x-rays. Reports he continues to have pain and worse with flexion. He reports the swelling improved mildly although still has significant swelling. The issues also include significant variations in blood pressure and intermittent systemic symptoms such as shortness of breath and dizziness. Intermittent chest pain has been noted, with prior pulmonary embolism and a history of elevated CHAPIS posing continued concern. He denies any chest pain at this time. Cardiac symptoms have prompted consideration for a holistic cardiovascular evaluation, integrating stress testing to address potential cardiac involvement. Patient also requesting to have black mold testing due to prior exposure. Social History - Housing: Concerns of black mold have e merged after residing in a home for seven years. - Substance Exposure: Noted past exposur e to black mold in residence. [facility] Medical History Intermittent chest pain Morbid obesity with BMI of 40.0-44.9, adult Swelling of right upper extremity Pain in right arm Positive CHAPIS (antinuclear antibody) Headache DVT (deep venous thrombosis) Acquired hypothyroidism Pulmonary emboli DVT, bilateral lower limbs Obesity Polysubstance abuse Encounter to establish care Eyebrow laceration Surgical History No pertinent past surgical history Family History Mother COPD (chronic obstructive pulmonary disease) Father Hepatitis Liver cirrhosis Maternal Grandmother Alzheimer disease Maternal Grandfather Prostate cancer Diabetes Other Mental health disorder Substance use disorder Social History Household Members: Family Housing: House Unable to assess alcohol history related to: Refusing to respond Alcohol intake: former Year quit: 2011 Patient Tobacco Use Status: Former Tobacco user e-Cigarette/Vaping Use: Never Used Second Hand Smoke Exposure: Yes Substance Use Type: Heroin service: No Current occupational status: unemployed Current occupational exposures/hazards: No Cognitive needs: No Hearing needs: No Vision needs: Yes (reading) Questionnaire PHQ-9 Over the last 2 weeks, how often have you been bothered by any of the following problems? 1. Little interest or pleasure in doing things: not at all 2. Feeling down, depressed, or hopeless: several days 3. Trouble falling or staying asleep, or sleeping too much: nearly every day 4. Feeling tired or having little energy: several days 5. Poor appetite or overeating: several days 6. Feeling bad about yourself - or that you are a failure or have let yourself or your family down: not at all 7. Trouble concentrating on things, such as reading the newspaper or watching television: several days 8. Moving or speaking so slowly that other people could have noticed. Or the opposite - being so fidgety or restless that you have been moving around a lot more than usual: not at all 9. Thoughts that you would be better off or of hurting yourself in some way: not at all Total score: 7 Depression Screening Interpretation: Positive Depression Screening Follow-up: Existing condition Depression Screening Done: Yes 64987 - PHQ-9 Billing: Yes Source: Developed by Drs. Angel Dent, Gelacio Jimenez and colleagues, with an educational quincy from [employer]. Thrive Questionnaire Date Thrive assessed: 11/13/24 I am a: Patient What is your living situation today?: I have a steady place to live Within the past 12 months, did the food you bought not last and you didn't have the money to get more?: Never true Within the past 12 months, did you worry whether your food would run out before you got money to buy more?: Never true Do you have trouble paying for medicines?: No Do you have trouble getting transportation to medical appointments?: No Do you have trouble paying your heating and electricity bill?: No Do you have trouble taking care of your child, family member or friend?: No Do you have trouble with day-to-day activities such as bathing, preparing meals, shopping, managing finances, etc.?: Yes Are you currently unemployed and looking for a job?: No Are you interested in more education?: Yes Please select the resources that you would like help with: Housing/Chcf, Food, Utilities, Daily support and Education Currently or been in a relationship where the following occur: No concerns reported THRIVE Score: 0 AUDIT C Alcohol Use Questionnaire (AUDIT-C) 1. How often do you have a drink containing alcohol?: Never Total Score: 0 Score Reviewed/Action Taken: No TIFFANIE-7 AMB Questionnaire TIFFANIE-7 Date TIFFANIE - 7 assessed: 03/12/25 Feeling nervous, anxious, or on edge: 0 = Not at all Not being able to stop or control worryin = Not at all Worrying too much about different things: 1 = Several days Trouble relaxin = Several days Being so restless that it is hard to sit still: 1 = Several days Becoming easily annoyed or irritable: 0 = Not at all Feeling afraid as if something awful might happen: 0 = Not at all Total TIFFANIE-7 score (0-4 normal; 5-9 mild; 10-14 moderate; 15-21 severe): 3 Source: Developed by Maria Isabel Covington Kurt Kroenke and colleagues, with an educational quincy from [employer]. TIFFANIE-7 Assessment Billing TIFFANIE-7 Assessment Tool: TIFFANIE-7 Assessment 73637 Review of Systems Const Details: - Cardiovascular: Reports intermittent chest pain, dizziness. - Respiratory: Reports shortness of breath. - Musculoskeletal: Reports swelling and pain in the right elbow. - Neurological: Reports dizziness and history of passing out. - Cardiovascular: Denies current chest pain at the time of the conversation. Physical exam (Primary Care) Vital Signs: Last Vital Signs Temp 97.8 F 03/12/25 13:41 Pulse 77 03/12/25 13:41 BP 140/72 H 03/12/25 13:41 Pulse Ox 97 03/12/25 13:41 Oxygen Delivery Method Room Air 03/12/25 13:41 Care Plan Goal for BP management: <130/90 at Goal BMI result Body Mass Index 39.7 BMI Assessment/Plan discussion: High BMI High, discussed plan: lifestyle, weight reduction, dietary, physical activity and alcohol moderation Tobacco/Smoking Status: Tobacco use Status Tobacco use date assessed 03/12/25 03/12/25 13:45 Patient Tobacco Use Status Former Tobacco user 03/12/25 13:45 e-Cigarette/Vaping Use Never Used 03/12/25 13:45 PHQ-9: PHQ-9 Score PHQ-9: Total score 7 03/12/25 13:45 Depression Screening Interpretation: Positive Depression Screening Follow-up: Existing condition Thrive Assessment: Date of Thrive Assessment Date Thrive assessed 11/13/24 03/12/25 13:45 Currently or been in a relationship where the following occur: No concerns reported Const Other: Appearance: Alert. Oriented X3. No acute distress. Head: Normal external exam. Normocephalic. Atraumatic. Eyes: Pupils are equal, round, and reactive to light. Extraocular movements intact. Conjunctiva and sclera normal. Eyelids normal. Throat: Pharynx normal. Uvula midline. Moist mucous membranes. Neck: Normal inspection. Neck supple. Full range of motion. Cardiovascular: Normal heart rate and rhythm. Heart sound normal. No murmurs n oted. Pulses normal throughout. Respiratory: No respiratory distress. Painless inspiration. Breath sounds normal. No wheezes/rales/rhonchi noted. Chest nontender. No accessory muscle usage noted or decreased air movement noted. Back: Full range of motion noted. Skin: Skin warm and dry. Normal skin color. Normal skin turgor. No rashes/lesions/lacerations noted. Extremities: No lower extremity edema. Right elbow and forearm swollen, with pain noted primarily in the elbow with pain upon flexion although patient does have good range of motion. Bending the elbow does cause significant pain. Otherwise all other extremities exhibit normal range of motion nontender. Neuro: Oriented X 3. No motor deficit. No sensory deficit. Reflexes normal. Normal steady gait. Normal neuro exam. Results AMB INR Fingerstick AMB INR Fingerstick 3.6 Last Edit by Ana Lilia Garibay RN on 03/12/25 14:32 MANUAL ENTRY Results Reviewed Results Reviewed: - Labs: History of positive CHAPIS, noted. - Tests: Pulmonary function test in order; previously recommended ultrasound completed. - Imaging: Recent chest x-ray reported as normal; x-ray for elbow injury recommended. Coding Level of Care Code Est Pt Level 4 (43344) Complex EM visit Add On G2211 Diagnoses Hypertension I10 Pain in right arm M79.601 Swelling of extremity M79.89 Shortness of breath R06.02 Dizziness R42 Intermittent chest pain R07.9 Pulmonary emboli I26.99 Positive CHAPIS (antinuclear antibody) R76.8 Additional Codes TIFFANIE-7 Assessment Billing - TIFFANIE-7 Assessment Tool: TIFFANIE-7 Assessment 88371 ([id number]) PHQ-9 - 75376 - PHQ-9 Billing: Yes ([id number]) Assessment & Plan Assessment & Plan (1) Hypertension: Code(s): I10 - Essential (primary) hypertension Category: Medical Plan: Encouraged home blood pressure monitoring with regular documentation, continue current lisinopril regimen. Condition is chronic and stable will continue to monitor. (2) Pain in right arm: Code(s): M79.601 - Pain in right arm Category: Medical Plan: Ordered elbow x-ray to determine etiology. Awaiting imaging results for diagnostic clarification and subsequent management planning. Condition is subacute and stable. (3) Swelling of extremity: Code(s): M79.89 - Other specified soft tissue disorders Category: Medical Plan: Ordered elbow x-ray to determine etiology. Awaiting imaging results for diagnostic clarification and subsequent management planning. Condition is subacute and stable. (4) Shortness of breath: Code(s): R06.02 - Shortness of breath Category: Medical Plan: Ordered pulmonary function test to assess respiratory status given symptomatology and previous embolic history. Condition is intermittent and stable will continue to monitor. (5) Dizziness: Code(s): R42 - Dizziness and giddiness Category: Medical Plan: Advised monitoring of symptoms and consideration of correlating factors with blood pressure variation and stress. Patient has a normal neuro exam. Denies any other symptoms. Condition is intermittent stable will continue to monitor. (6) Intermittent chest pain: Code(s): R07.9 - Chest pain, unspecified Category: Medical Plan: Recommended cardiac stress test and EKG to explore etiology of chest pains, patient education on symptoms requiring immediate care highlighted. Condition is chronic and stable. (7) Pulmonary emboli: Code(s): I26.99 - Other pulmonary embolism without acute cor pulmonale Category: Medical Plan: Continued vigilance for thromboembolic recurrence urged, plan adjust pending pulmonary function results. Condition is chronic and she will continue to monitor. (8) Positive CHAPIS (antinuclear antibody): Code(s): R76.8 - Other specified abnormal immunological findings in serum Category: Medical Plan: Encouraged rheumatological consultation amidst current scheduling lags, advising exploration of alternative appointments. Condition is chronic and stable will continue to monitor. Plan Plan Patient was informed and verbally consented to the use of an ambient scribe for clinic note documentation during this visit. 1. Essential Hypertension Encouraged home blood pressure monitoring with regular documentation, continue current lisinopril regimen. 2. Swelling Of Right Elbow Ordered elbow x-ray to determine etiology. Awaiting imaging results for diagnostic clarification and subsequent management planning. 3. Intermittent Chest Pain Recommended cardiac stress test and EKG to explore etiology of chest pains, patient education on symptoms requiring immediate care highlighted. 4. Dizziness And Syncope Advised monitoring of symptoms and consideration of correlating factors with blood pressure variation and stress. 5. Shortness Of Breath Ordered pulmonary function test to assess respiratory status given symptomatology and previous embolic history. 6. History Of Pulmonary Embolism Continued vigilance for thromboembolic recurrence urged, plan adjust pending pulmonary function results. 7. Positive Antinuclear Antibody Chapis Encouraged rheumatological consultation amidst current scheduling lags, advising exploration of alternative appointments. During the consultation, detailed discussion ensued about the patient's relevant symptomatology and potential underlying causes. I elaborated on potential implications of fluctuating blood pressure, assuring no current medication changes were necessary unless symptom patterns became more consistent or concerning. We explored diagnostic evaluations for existing symptoms, with imaging plans integrated into his management plan. Delliance of symptoms in relation to previously treated pulmonary embolism was duly noted, prompting inclusion of a pulmonary function test to remain vigilant in respiratory health assessment. Consciousness of black mold exposure incited additional health consideration, albeit current x-rays presenting no pulmonary abnormality offered reassurance. Cardiovascular evaluation through stress testing was elucidated for specific insight into characterizing described chest pain incidents, warranting further inquiry into potential cardiac involvement. Nuclear imaging negativity regarding systemic autoimmune potential incentivizes formal rheumatology review for a comprehensive appraisal. Orders: Orders XR elbow RT min 3V Today M79.601 - Pain in right arm, M79.89 - Other specified soft tissue disorders CA stress test Today M79.601 - Pain in right arm, M79.89 - Other specified soft tissue disorders, R06.02 - Shortness of breath, R07.9 - Chest pain, unspecified, R42 - Dizziness and giddiness IgE Antibody (Anti-IgE IgG) Today R42 - Dizziness and giddiness XR forearm RT 2V Today M79.601 - Pain in right arm, M79.89 - Other specified soft tissue disorders CA echo transthoracic complete Today R06.02 - Shortness of breath, R07.9 - Chest pain, unspecified, R42 - Dizziness and giddiness Patient Instructions: - Monitor your blood pressure regularly at home and record the results. - Go for your scheduled x-ray of the right elbow. - Perform your pulmonary function test as planned and watch for any breathing difficulties. - Be mindful of any chest pain and seek emergency care if it worsens. - Attend your follow-up appointments, including the stress test. - Follow up with a interior assemblies developer prover to explore autoimmune concerns.
[2025-03-12 13:41] VITALS: BP 130/72; PULSE 77; TEMP 36.6; O2SAT 97; BMI 39.7
== END 2025-03-12 14:20 | disposition home or self-care (01) ==
LOC: HO.HMCH 13:26
PROVIDERS: PCP Physician Assistant Medical; Visit Provider Physician Assistant Medical
DX: I10 Essential (primary) hypertension (principal); M79.601 Pain in right arm; I26.99 Other pulmonary embolism without acute cor pulmonale; R07.9 Chest pain, unspecified; M79.89 Other specified soft tissue disorders; R06.02 Shortness of breath; R42 Dizziness and giddiness; R76.8 Other specified abnormal immunological findings in serum

== ENCOUNTER → 2025-03-12 13:25 | Outpatient (BNVA) | payer OTHER, SELFPAY | PROVIDERS: PCP Physician Assistant Medical; Visit Provider Physician Assistant Medical | DX: I10 Essential (primary) hypertension (principal); M79.601 Pain in right arm; M79.89 Other specified soft tissue disorders; R06.02 Shortness of breath; R42 Dizziness and giddiness; R07.9 Chest pain, unspecified; I26.99 Other pulmonary embolism without acute cor pulmonale; R76.8 Other specified abnormal immunological findings in serum; Z87.891 Personal history of nicotine dependence; Z86.718 Personal history of other venous thrombosis and embolism; Z51.81 Encounter for therapeutic drug level monitoring; Z79.01 Long term (current) use of anticoagulants | CPT/HCPCS: 85610; 96127; 99211; 99212 ==

== ENCOUNTER 2025-03-12 14:21 | Outpatient (AMB) | payer OTHER, SELFPAY ==
--- NOTE | 2025-03-12 14:38 | MHC.OFFVISCO ---
Intake Intake Visit Reasons: Anticoagulation Allergies No Known Allergies [No Known Allergies*] Allergy (Verified 03/12/25 14:24) Medication List - Last Reconciled 03/12/25 by Ana Lilia Garibay RN levothyroxine 25 mcg PO DAILY@0600 lidocaine 5% 1 appl topical DAILY PRN lisinopril 10 mg PO DAILY meclizine 50 mg PO DAILY methadone 160 mg PO DAILY warfarin 2.5 mg See Protocol PO SUTUTHSA@1800 warfarin 1.25 mg See Protocol PO MOWEFR@1800 Nursing Note INR: 3.6 out of therapeutic range Medications and supplements reviewed Has lupsus dx which can run psudo-elevated INRs on burris meters - pt a hard lab stick, Has skin rash with open areas possibly r/t lupus Denies any signs and symptoms of bleeding or bruising or clotting. Bleeding, bruising, clotting discussed Nutritional guidance given - greens today and weekly Dose: keep same dose 2.5mg mwf/ 1.25mg x 4 days F/U INR: 2 weeks Patient verbalizes understanding of instructions given Anti-Coag Initial Assessment Social Hx Patient Tobacco Use Status: Former Tobacco user alcohol intake: former Alcohol intake frequency: does not drink Cardiovascular Hx: HTN, Arrhythmias and Other Lung Disease HX: DVT/PE Endocrine Hx: Other Musculoskeletal Hx: Arthritis Blood Disorder Hx: Hepatitis GI Hx: Other Hx: Other Neurological Hx: Serious Head Injury and Migraines/Headaches Cancer HX: No Psych. Illness/Depression: No Coding Level of Care Code Est Patient Level 1 Diagnoses Current use of anticoagulant therapy Z79.01 Results AMB INR Fingerstick AMB INR Fingerstick 3.6 Last Edit by Ana Lilia Garibay RN on 03/12/25 14:32 MANUAL ENTRY Assessment & Plan Assessment & Plan (1) Current use of anticoagulant therapy: Code(s): Z79.01 - senior living (current) use of anticoagulants Category: Medical
[2025-03-12 14:53] LABS: Prothrombin Time Whole Bld POC 42.8 sec (11.1-13.5); ~PT, ~INR - Anti Coag Clinic 3.6 (0.9-1.1)
== END 2025-03-12 14:43 | disposition home or self-care (01) ==
LOC: HO.ACS 14:21
PROVIDERS: PCP Physician Assistant Medical; Visit Provider Internal Medicine Medical Oncology
DX: Z79.01 Long term (current) use of anticoagulants (principal)

== ENCOUNTER 2025-04-03 12:59 | Outpatient (AMB) | payer OTHER, SELFPAY ==
[2025-04-03 13:09] LABS: Prothrombin Time Whole Bld POC 42.7 sec (11.1-13.5); ~PT, ~INR - Anti Coag Clinic 3.6 (0.9-1.1)
--- NOTE | 2025-04-03 13:19 | MHC.OFFVISCO ---
Intake Intake Visit Reasons: Anticoagulation Allergies No Known Allergies [No Known Allergies*] Allergy (Verified 04/03/25 13:03) Medication List - Last Reconciled 04/03/25 by Ana Lilia Garibay RN levothyroxine 25 mcg PO DAILY lidocaine 5% 1 appl topical DAILY PRN lisinopril 10 mg PO DAILY meclizine 50 mg PO DAILY methadone 160 mg PO DAILY warfarin 2.5 mg See Protocol PO SUTUTHSA@1800 warfarin 2.5 mg PO DAILY Nursing Note INR: 3.6 almost in therapeutic range 2.0-3.5 - pt states his legs feel better in upper ranges Medications and supplements reviewed No changes in health, diet, medications, or supplements, Denies any signs and symptoms of bleeding or bruising or clotting. Bleeding, bruising, clotting discussed Nutritional guidance given - enc to eat a little bit of greens today because INR over range Dose: keep same dose 2.5mg x 3 days/ 1.25mg x 4 days F/U INR: 2 weeks Patient verbalizes understanding of instructions given Anti-Coag Initial Assessment Social Hx Patient Tobacco Use Status: Former Tobacco user alcohol intake: former Alcohol intake frequency: does not drink Cardiovascular Hx: HTN, Arrhythmias and Other Lung Disease HX: DVT/PE Endocrine Hx: Other Musculoskeletal Hx: Arthritis Blood Disorder Hx: Hepatitis GI Hx: Other Hx: Other Neurological Hx: Serious Head Injury and Migraines/Headaches Cancer HX: No Psych. 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
== END 2025-04-03 13:22 | disposition home or self-care (01) ==
LOC: HO.ACS 12:59
PROVIDERS: PCP Physician Assistant Medical; Visit Provider Internal Medicine Medical Oncology
DX: Z79.01 Long term (current) use of anticoagulants (principal)

== ENCOUNTER → 2025-04-03 12:59 | Outpatient (BNVA) | payer OTHER, SELFPAY | PROVIDERS: PCP Physician Assistant Medical; Visit Provider Internal Medicine Medical Oncology | DX: I26.99 Other pulmonary embolism without acute cor pulmonale (principal); Z86.718 Personal history of other venous thrombosis and embolism; Z79.01 Long term (current) use of anticoagulants; Z51.81 Encounter for therapeutic drug level monitoring | CPT/HCPCS: 85610; 99211 ==

== ENCOUNTER 2025-04-24 13:28 | Outpatient (AMB) | payer OTHER, SELFPAY ==
[2025-04-24 13:40] LABS: ~PT, ~INR - Anti Coag Clinic 3.1 (0.9-1.1)
--- NOTE | 2025-04-24 13:43 | MHC.OFFVISCO ---
Intake Intake Visit Reasons: Anticoagulation Allergies No Known Allergies [No Known Allergies*] Allergy (Verified 04/24/25 13:34) Medication List - Last Reconciled 04/24/25 by Rashida Cash RN levothyroxine 25 mcg PO DAILY lidocaine 5% 1 appl topical DAILY PRN lisinopril 10 mg PO DAILY meclizine 50 mg PO DAILY methadone 160 mg PO DAILY warfarin 2.5 mg See Protocol PO SUTUTHSA@1800 warfarin 2.5 mg See Protocol PO DAILY Nursing Note INR: 3.1 in therapeutic range of 2-3.5 Medications and supplements reviewed No changes in diet, medications, or supplements Pt has a toothache is taking the remainder of an old antibiotic prescription. There are 3 pills remaining. He is calling a dentist today and will call [facility] if he starts another antibiotic Denies any signs and symptoms of bleeding or bruising or clotting. Bleeding, bruising, clotting discussed Nutritional guidance given Dose: 1.25mg X 4 days and 2.5mg X 3 days (M/W/F) F/U INR: 2 weeks Patient verbalizes understanding of instructions given Anti-Coag Initial Assessment Social Hx Patient Tobacco Use Status: Former Tobacco user alcohol intake: former Alcohol intake frequency: does not drink Cardiovascular Hx: HTN, Arrhythmias and Other Lung Disease HX: DVT/PE Endocrine Hx: Other Musculoskeletal Hx: Arthritis Blood Disorder Hx: Hepatitis GI Hx: Other Hx: Other Neurological Hx: Serious Head Injury and Migraines/Headaches Cancer HX: No Psych. 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
== END 2025-04-24 13:48 | disposition home or self-care (01) ==
LOC: HO.ACS 13:28
PROVIDERS: PCP Physician Assistant Medical; Visit Provider Internal Medicine Medical Oncology
DX: Z79.01 Long term (current) use of anticoagulants (principal)

== ENCOUNTER 2025-04-24 13:47 | Outpatient (REF) | payer OTHER, SELFPAY ==
--- NOTE | 2025-04-24 14:15 | PFT_ITS ---
Flows: FEV1: 87 % of predicted at 3.07 L FVC: 84 % of predicted at 3.79 L FEV1/FVC: 81 % Bronchodilator response: Present in small to medium airways only. Volumes: Total lung capacity: 76 % of predicted at 5.11 L Residual volume: 69 % of predicted at 1.31 L Slow vital capacity: 77 % of predicted at 3.80 L Expiratory reserve volume: 15 % of predicted at 0.19 L Diffusion capacity: Mildly decreased, corrects to normal after adjustment for alveolar ventilation. Impression: Mild restrictive ventilatory defect with bronchodilator response present in small to medium airways only. Decreased expiratory reserve volume suggests extrathoracic restriction likely secondary to abdominal obesity. Combination of restrictive ventilatory defect with decreased diffusion capacity suggests underlying pulmonary parenchymal disease. Clinical correlation is advised. ANASTASIYAD
[2025-04-24 14:58] VITALS: PULSE 73; O2SAT 95
== END 2025-04-24 13:48 | disposition home or self-care (01) ==
LOC: HO.RESP 13:47
PROVIDERS: PCP Physician Assistant Medical; Visit Provider Physician Assistant Medical
DX: R06.02 Shortness of breath (principal); I26.99 Other pulmonary embolism without acute cor pulmonale; Z86.718 Personal history of other venous thrombosis and embolism; Z51.81 Encounter for therapeutic drug level monitoring; Z79.01 Long term (current) use of anticoagulants
CPT/HCPCS: 85610; 94010; 94640; 94727; 94729; 99211

== ENCOUNTER → 2025-04-24 14:15 | Outpatient (BNV) | payer OTHER, SELFPAY | PROVIDERS: PCP Physician Assistant Medical; Visit Provider Internal Medicine Pulmonary Disease | DX: R06.00 Dyspnea, unspecified (principal) | CPT/HCPCS: 94060; 94727; 94729 ==

== ENCOUNTER 2025-05-18 10:08 | Outpatient (AMB) | payer OTHER, SELFPAY ==
[2025-05-18 10:26] LABS: Prothrombin Time Whole Bld POC 43.4 sec (11.1-13.5); ~PT, ~INR - Anti Coag Clinic 3.6 (0.9-1.1)
--- NOTE | 2025-05-18 10:28 | MHC.OFFVISCO ---
Intake Intake Visit Reasons: Anticoagulation Allergies No Known Allergies (No Known Allergies*) Allergy (Verified 05/18/25 10:22) Medication List - Last Reconciled 05/18/25 by Rashida Cash RN levothyroxine 25 mcg PO DAILY lidocaine 5% 1 appl topical DAILY PRN lisinopril 10 mg PO DAILY meclizine 50 mg PO DAILY methadone 160 mg PO DAILY warfarin 2.5 mg See Protocol PO SUTUTHSA@1800 warfarin 2.5 mg See Protocol PO DAILY Nursing Note INR: 3.6 out of therapeutic range of 2.0-3.5 Medications and supplements reviewed No changes in health, diet, medications, or supplements, Denies any signs and symptoms of bleeding or bruising or clotting. Bleeding, bruising, clotting discussed Nutritional guidance given to have a serving of greens today Dose: 1.25mg X 4 days and 2.5mg X 3 days F/U INR: 2 weeks Patient verbalizes understanding of instructions given Anti-Coag Initial Assessment Social Hx Patient Tobacco Use Status: Former Tobacco user alcohol intake: former Alcohol intake frequency: does not drink Cardiovascular Hx: HTN, Arrhythmias and Other Lung Disease HX: DVT/PE Endocrine Hx: Other Musculoskeletal Hx: Arthritis Blood Disorder Hx: Hepatitis GI Hx: Other Hx: Other Neurological Hx: Serious Head Injury and Migraines/Headaches Cancer HX: No Psych. 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
== END 2025-05-18 10:31 | disposition home or self-care (01) ==
LOC: HO.ACS 10:08
PROVIDERS: PCP Physician Assistant Medical; Visit Provider Internal Medicine Medical Oncology
DX: Z79.01 Long term (current) use of anticoagulants (principal)

== ENCOUNTER → 2025-05-18 10:08 | Outpatient (BNVA) | payer OTHER, SELFPAY | PROVIDERS: PCP Physician Assistant Medical; Visit Provider Internal Medicine Medical Oncology | DX: I26.99 Other pulmonary embolism without acute cor pulmonale (principal); I82.403 Acute embolism and thrombosis of unspecified deep veins of lower extremity, bilateral; Z51.81 Encounter for therapeutic drug level monitoring; Z79.01 Long term (current) use of anticoagulants | CPT/HCPCS: 85610; 99211 ==

== ENCOUNTER 2025-05-30 23:13 | Emergency (ER) | payer OTHER, SELFPAY ==
[2025-05-30 23:44] VITALS: BP 148/76; PULSE 73; RESP 20; TEMP 36.2; O2SAT 97; BMI 38.8
[2025-05-31 00:40] VITALS: BP 155/78; PULSE 76; RESP 16; TEMP 37.3; O2SAT 98
--- NOTE | 2025-05-31 02:48 | ED.SKABFB ---
HPI - Skin/Abscess/Foreign Bdy General Chief complaint: Skin/Abscess/Foreign Body Stated complaint: ? cellulitis Time Seen by Provider: 05/31/25 02:36 Source: patient Mode of arrival: ambulatory Limitations: no limitations History of Present Illness ED Provider: Dr. Junaid Hastings HPI narrative: 55-year-old male with a history of hypertension, bilateral DVTs, lymphedema, migraine headaches who presents emergency department for evaluation of redness, swelling and blisters to his lower extremities. Patient states that he gets frequent recurrent episodes of cellulitis secondary to the swelling in his legs. He states that over the last 3 days he has noticed increased redness with weeping blisters to his lower extremities. Patient states that he has had MRSA infections in the past. He has not been on antibiotics recently. Related Data Home Medications ?Medication ?Instructions ?Recorded ?Confirmed methadone 10 mg/mL oral concentrate 160 mg PO DAILY 06/09/22 05/18/25 warfarin 2.5 mg tablet 2.5 mg PO SUTUTHSA@1800 10/15/24 05/18/25 Previous Rx's ?Medication ?Instructions ?Recorded meclizine 50 mg tablet 50 mg PO DAILY dizziness #30 tabs 11/13/24 lidocaine 5 % topical ointment 1 appl topical DAILY PRN pain #30 11/25/24 grams levothyroxine 25 mcg tablet 25 mcg PO DAILY #90 tabs 03/13/25 warfarin 2.5 mg tablet 2.5 mg PO DAILY #90 tabs 03/13/25 lisinopril 10 mg tablet 10 mg PO DAILY for blood pressure 05/11/25 #90 tabs doxycycline hyclate 100 mg tablet 100 mg PO Q12H 10 days #20 tabs 05/31/25 Allergies Allergy/AdvReac Type Severity Reaction Status Date / Time No Known Allergies (No Known Allergy Verified 05/30/25 23:45 Allergies*) [facility] Past Medical History Medical History Intermittent chest pain Morbid obesity with BMI of 40.0-44.9, adult Swelling of right upper extremity Pain in right arm Positive KAYLEE (antinuclear antibody) Headache DVT (deep venous thrombosis) Acquired hypothyroidism Pulmonary emboli DVT, bilateral lower limbs Obesity Polysubstance abuse Encounter to establish care Eyebrow laceration Surgical History No pertinent past surgical history Family History Family History Mother COPD (chronic obstructive pulmonary disease) Father Hepatitis Liver cirrhosis Maternal Grandmother Alzheimer disease Maternal Grandfather Prostate cancer Diabetes Other Mental health disorder Substance use disorder Social History Social History Household Members: Family Housing: House Unable to assess alcohol history related to: Refusing to respond Alcohol intake: former Year quit: 2011 Patient Tobacco Use Status: Former Tobacco user e-Cigarette/Vaping Use: Never Used Second Hand Smoke Exposure: Yes Substance Use Type: Heroin service: No Current occupational status: unemployed Current occupational exposures/hazards: No Cognitive needs: No Hearing needs: No Vision needs: Yes (reading) Physical Exam Exam: Exam: Vital Signs: Vital Signs: Last Vital Signs Temp 98.2 F 05/31/25 03:06 Pulse 76 05/31/25 03:06 Resp 16 05/31/25 03:06 BP 155/78 H 05/31/25 03:06 Pulse Ox 98 05/31/25 03:06 O2 Del Method Room Air 05/31/25 03:06 BMI result Body Mass Index 38.8 vital signs revealed an elevated blood pressure otherwise unremarkable Exam: General: Awake, alert in no distress Head: Normocephalic, atraumatic EENT: PERRL, Lids normal, sclera normal, conjunctiva normal, nose normal , ears normal, throat without erythema or exudates Neck: Supple, no adenopathy Lung: breath sounds symmetric, no wheezing, rales or rhonchi Chest: symmetric movement, nontender Heart: regular rate and rhythm, normal S1, S2 no murmurs or rubs Abdomen: soft, non-tender, nondistended, normal bowel sounds Back: no vertebral tenderness, no CVAT Extremities: no deformities, moves all extremities symmetrically, the patient in his blanching erythema which is warm to the touch to both lower extremities in the pretibial and calf areas, there are several blisters, some of which that are open in leaking clear fluid. Neuro: Awake, alert, oriented, normal speech, cranial nerves intact, moves all extremities symmetrically Psych: Pleasant, cooperative Medications Administered Discontinued Medications Generic Name Dose Route Start Last Admin Trade Name Melia PRN Reason Stop Dose Admin Doxycycline Monohydrate 100 mg 05/31/25 02:49 05/31/25 03:03 Doxycycline Monohydrate 100 Mg Capsule PO 05/31/25 02:50 100 mg ONCE ONE Administration Medical Decision Making Medical Decision Making MDM Narrative: 55-year-old male with a history of hypertension, bilateral DVTs, lymphedema, migraine headaches who presents emergency department for evaluation of redness, swelling and blisters to his lower extremities. Patient states that he gets frequent recurrent episodes of cellulitis secondary to the swelling in his legs. He states that over the last 3 days he has noticed increased redness with weeping blisters to his lower extremities. Patient states that he has had MRSA infections in the past. He has not been on antibiotics recently. vital signs revealed an elevated blood pressure otherwise unremarkable. Exam was significant for erythema with increased warmth to both lower extremities with blisters on which your weeping clear fluid. Differential diagnosis: Includes but is not limited to cellulitis, chronic dermatitis, anemia, electrolyte abnormalities Course: The patient's physical examination and presentation is consistent with cellulitis of the lower extremities. Patient has had a history of MRSA in the past. He states that in the past he has been successfully treated with doxycycline therefore he was given doxycycline 100 mg orally and given a prescription for doxycycline 100 mg q.12 hours times 10 days. He was given printed and verbal instructions and discharged home. Admission/Observation Consideration of admission/observation: Escalation of care including admission/observation considered ( Yes) Prescription Management I considered prescription management with: Antibiotic ( doxycycline 100 mg q.12 hours times 10 days) Discharge Plan Discharge Clinical Impression: Bilateral cellulitis of lower leg Patient Disposition: Home, Self-Care Instructions: Cellulitis (ED) Additional Instructions: Cellulitis Discharge Instructions You have an infection of your skin. This is called cellulitis. This is usually caused by bacteria on your skin that gets under your skin and then causes the infection Take doxycycline 100 mg pills, 1 pill every 12 hours for 10 days This is an antibiotic that should help your body fight off the infection. Keep the your legs elevated to help reduce swelling in the infected area and this helps with the healing process Also apply a heating pad on low or a warm compress for 15 minutes, 4-6 times a day. This will increase the blood flow to the area and will bring white blood cells to the area which will help your body fight off the infection. Also take Tylenol( acetaminophen) 325 mg pills, 2 pills every 4 hours as needed for pain. Watch for signs of worsening infection include fever, chills, weakness, increased pain, increased redness, increased swelling or red streaks going away from the area of infection. If you develop any of these symptoms or any other symptoms that are concerning to you, see your doctor immediately or return to the Emergency Department. Follow up with your doctor in 3 days for a recheck Please read the other printed instructions that we printed for you. Prescriptions: New doxycycline hyclate 100 mg tablet 100 mg PO Q12H 10 Days Qty: 20 0RF No Action levothyroxine 25 mcg tablet 25 mcg PO DAILY Qty: 90 1RF warfarin 2.5 mg tablet 2.5 mg PO DAILY Qty: 90 1RF Protocol: Dose Management Condition: Sunday (Week One) Dose/Route: 1.25 mg Instruction: 0.5 x 2.5 mg tablets Condition: Sunday Dose/Route: 2.5 mg Instruction: 1 x 2.5 mg tablet Condition: Sunday Dose/Route: 1.25 mg Instruction: 0.5 x 2.5 mg tablets Condition: Sunday Dose/Route: 2.5 mg Instruction: 1 x 2.5 mg tablet Condition: Dose/Route: 1.25 mg Instruction: 0.5 x 2.5 mg tablets Condition: Sunday Dose/Route: 2.5 mg Instruction: 1 x 2.5 mg tablet Condition: Sunday Dose/Route: 1.25 mg Instruction: 0.5 x 2.5 mg tablets Condition: Sunday (Week Two) Dose/Route: 1.25 mg Instruction: 0.5 x 2.5 mg tablets Condition: Sunday Dose/Route: 2.5 mg Instruction: 1 x 2.5 mg tablet Condition: Sunday Dose/Route: 1.25 mg Instruction: 0.5 x 2.5 mg tablets Condition: Sunday Dose/Route: 2.5 mg Instruction: 1 x 2.5 mg tablet Condition: Dose/Route: 1.25 mg Instruction: 0.5 x 2.5 mg tablets Condition: Sunday Dose/Route: 2.5 mg Instruction: 1 x 2.5 mg tablet Condition: Sunday Dose/Route: 1.25 mg Instruction: 0.5 x 2.5 mg tablets Protocol Text: Adjustment Start Date: Sunday05/18/25 INR Value: 3.6 INR Date: 05/18/25 Recheck Date: 06/01/25 lisinopril 10 mg tablet 10 mg PO DAILY Qty: 90 0RF warfarin 2.5 mg tablet 2.5 mg PO SUTUTHSA@1800 Protocol: Dose Management Condition: Sunday (Week One) Dose/Route: 1.25 mg Instruction: 0.5 x 2.5 mg tablets Condition: Sunday Dose/Route: 2.5 mg Instruction: 1 x 2.5 mg tablet Condition: Sunday Dose/Route: 1.25 mg Instruction: 0.5 x 2.5 mg tablets Condition: Sunday Dose/Route: 2.5 mg Instruction: 1 x 2.5 mg tablet Condition: Dose/Route: 1.25 mg Instruction: 0.5 x 2.5 mg tablets Condition: Sunday Dose/Route: 2.5 mg Instruction: 1 x 2.5 mg tablet Condition: Sunday Dose/Route: 1.25 mg Instruction: 0.5 x 2.5 mg tablets Condition: Sunday (Week Two) Dose/Route: 1.25 mg Instruction: 0.5 x 2.5 mg tablets Condition: Sunday Dose/Route: 2.5 mg Instruction: 1 x 2.5 mg tablet Condition: Sunday Dose/Route: 1.25 mg Instruction: 0.5 x 2.5 mg tablets Condition: Sunday Dose/Route: 2.5 mg Instruction: 1 x 2.5 mg tablet Condition: Dose/Route: 1.25 mg Instruction: 0.5 x 2.5 mg tablets Condition: Sunday Dose/Route: 2.5 mg Instruction: 1 x 2.5 mg tablet Condition: Sunday Dose/Route: 1.25 mg Instruction: 0.5 x 2.5 mg tablets Protocol Text: Adjustment Start Date: Sunday05/18/25 INR Value: 3.6 INR Date: 05/18/25 Recheck Date: 06/01/25 lidocaine 5 % ointment 1 appl topical DAILY PRN (Reason: pain) Qty: 30 0RF methadone 10 mg/mL concentrate 160 mg PO DAILY Patient Comments: Confirmed with [facility] Priscilla SIM. Last does at clinic was 10/03/24 @ 8am 160mg with 27 take home dosages. meclizine 50 mg tablet 50 mg PO DAILY Qty: 30 2RF Interventions: ED Discharge Assessment Last Done: 05/31/25 03:06 Discharge Date/Time: 05/31/25 03:07 Print Language: Polish
[2025-05-31 03:06] VITALS: BP 155/78; PULSE 76; RESP 16; TEMP 36.8; O2SAT 98
== END 2025-05-31 03:07 | disposition home or self-care (01) ==
PROVIDERS: Emergency Provider Emergency Medicine Emergency Medical Services; PCP Physician Assistant Medical
DX: L03.115 Cellulitis of right lower limb (principal); L03.116 Cellulitis of left lower limb; R60.0 Localized edema; Z79.899 Other long term (current) drug therapy
CPT/HCPCS: 99283; 99284

== ENCOUNTER 2025-06-03 14:02 | Outpatient (AMB) | payer OTHER, SELFPAY ==
[2025-06-03 14:14] LABS: Prothrombin Time Whole Bld POC 40.0 sec (11.1-13.5); ~PT, ~INR - Anti Coag Clinic 3.3 (0.9-1.1)
--- NOTE | 2025-06-03 14:16 | MHC.OFFVISCO ---
Intake Intake Visit Reasons: Anticoagulation Allergies No Known Allergies (No Known Allergies*) Allergy (Verified 06/03/25 14:07) Medication List - Last Reconciled 06/03/25 by Adrienne Clemente RN doxycycline hyclate 100 mg PO Q12H 10 days levothyroxine 25 mcg PO DAILY lidocaine 5% 1 appl topical DAILY PRN lisinopril 10 mg PO DAILY meclizine 50 mg PO DAILY methadone 160 mg PO DAILY warfarin 2.5 mg See Protocol PO SUTUTHSA@1800 warfarin 2.5 mg See Protocol PO DAILY Nursing Note PT.STARTED DOXY.ON 05/31 FOR CELLULITIS BOTH LEGS, OTHERWISE NO MED CHANGES,FALLS ,CP,SOB OR SX OF BLEEDING. CONTINUE SAME DOSE AND FOLLOW-UP IN 1 WEEK. GOOD UNDERSTANDING OF DOSING INSTR. Anti-Coag Initial Assessment Social Hx Patient Tobacco Use Status: Former Tobacco user alcohol intake: former Alcohol intake frequency: does not drink Cardiovascular Hx: HTN, Arrhythmias and Other Lung Disease HX: DVT/PE Endocrine Hx: Other Musculoskeletal Hx: Arthritis Blood Disorder Hx: Hepatitis GI Hx: Other Hx: Other Neurological Hx: Serious Head Injury and Migraines/Headaches Cancer HX: No Psych. Illness/Depression: No Coding Level of Care Code Est Patient Level 1 Diagnoses Current use of anticoagulant therapy Z79.01 Assessment & Plan Assessment & Plan (1) Current use of anticoagulant therapy: Code(s): Z79.01 - buttermaker (current) use of anticoagulants Category: Medical
== END 2025-06-03 14:22 | disposition home or self-care (01) ==
LOC: HO.ACS 14:02
PROVIDERS: PCP Internal Medicine; Visit Provider Internal Medicine Medical Oncology
DX: Z79.01 Long term (current) use of anticoagulants (principal)

== ENCOUNTER → 2025-06-03 14:02 | Outpatient (BNVA) | payer OTHER, SELFPAY | PROVIDERS: PCP Internal Medicine; Visit Provider Internal Medicine Medical Oncology | DX: I26.99 Other pulmonary embolism without acute cor pulmonale (principal); Z86.718 Personal history of other venous thrombosis and embolism; Z79.01 Long term (current) use of anticoagulants; Z51.81 Encounter for therapeutic drug level monitoring | CPT/HCPCS: 85610; 99211; 99212 ==

== ENCOUNTER 2025-06-03 14:21 | Outpatient (AMB) | payer OTHER, SELFPAY ==
--- NOTE | 2025-06-03 14:24 | MHC.PC.OV ---
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 Required: No Accompanied by: Self / Same As Patient Allergies No Known Allergies (No Known Allergies*) Allergy (Verified 06/03/25 14:39) Medication List - Last Reconciled 06/03/25 by RIKI Goodman doxycycline hyclate 100 mg PO Q12H 10 days levothyroxine 25 mcg PO DAILY lidocaine 5% 1 appl topical DAILY PRN lisinopril 10 mg PO DAILY meclizine 50 mg PO DAILY methadone 160 mg PO DAILY warfarin 2.5 mg See Protocol PO SUTUTHSA@1800 warfarin 2.5 mg See Protocol PO DAILY Tobacco use date assessed: 06/03/25 Dental Screening Dental Screen Date: 06/03/25 Did you have a dental visit in the last 12 months?: No Did you have a dental problem in the last 6 months where you did not have access to dental care?: No Was dental information given to patient?: Patient has dentist HPI CARA Dr Chi HPI Details The patient is a 55-year-old male presenting with a positive KAYLEE, blood clots (DVT&PE), cellulitis, and lymphedema. The patient reports being diagnosed with lupus by an emergency room physician based on a positive KAYLEE test several months ago. He has not yet seen a packager head due to scheduling issues, and there is uncertainty about the diagnosis. The patient has a history of blood clots, which were initially not addressed promptly, leading to a significant clot that required surgical intervention. He experiences pain in his leg due to the clot and follows up with a vascular specialist every six months. Cellulitis was diagnosed in the emergency room recently. The patient is currently on antibiotics but reports that the condition is worsening, with multiple bumps turning black and spreading. The patient has lymphedema, causing swelling in the legs, and he follows up regularly with a vascular specialist. He reports that the swelling leads to blistering and drainage, which he manages by dressing the wounds himself. The patient experiences chronic constipation, sometimes not having a bowel movement for up to 12 days. He has tried various [id number] and prescription medications with limited success. He reports shortness of breath even at rest, which has not been addressed with inhalers or other treatments. However, he was referred to pulmonology The patient also mentions folliculitis, which he attributes to hair loss and irritation from his blanket, on bilateral forearms. The patient adamantly denied suspicion of him picking his skin on his forearms cause multiple small scabbed over areas. [facility] Medical History Intermittent chest pain Morbid obesity with BMI of 40.0-44.9, adult Swelling of right upper extremity Pain in right arm Positive KAYLEE (antinuclear antibody) Headache DVT (deep venous thrombosis) Acquired hypothyroidism Pulmonary emboli DVT, bilateral lower limbs Obesity Polysubstance abuse Encounter to establish care Eyebrow laceration Surgical History No pertinent past surgical history Family History Mother COPD (chronic obstructive pulmonary disease) Father Hepatitis Liver cirrhosis Maternal Grandmother Alzheimer disease Maternal Grandfather Prostate cancer Diabetes Other Mental health disorder Substance use disorder Social History Household Members: Family Housing: House Unable to assess alcohol history related to: Refusing to respond Alcohol intake: former Year quit: 2012 Patient Tobacco Use Status: Former Tobacco user e-Cigarette/Vaping Use: Never Used Second Hand Smoke Exposure: Yes Substance Use Type: Heroin service: No Current occupational status: unemployed Current occupational exposures/hazards: No Cognitive needs: No Hearing needs: No Vision needs: Yes (reading) Questionnaire Thrive Questionnaire Date Thrive assessed: 06/03/25 I am a: Patient What is your living situation today?: I have a steady place to live Within the past 12 months, did the food you bought not last and you didn't have the money to get more?: Never true Within the past 12 months, did you worry whether your food would run out before you got money to buy more?: Never true Do you have trouble paying for medicines?: No Do you have trouble getting transportation to medical appointments?: No Do you have trouble paying your heating and electricity bill?: No Do you have trouble taking care of your child, family member or friend?: No Do you have trouble with day-to-day activities such as bathing, preparing meals, shopping, managing finances, etc.?: Yes Are you currently unemployed and looking for a job?: No Are you interested in more education?: Yes Currently or been in a relationship where the following occur: No concerns reported THRIVE Score: 0 TIFFANIE-7 AMB Questionnaire TIFFANIE-7 Date TIFFANIE - 7 assessed: 06/03/25 Source: Developed by Drs. Angel Dent, Maria Isabel Dash, Gelacio Hernandez and colleagues, with an educational quincy from [employer]. Review of Systems Const Reports headache(s) (on and off-he is doing well today) Eyes Denies loss of vision ENT Denies vertigo, Denies dizziness, Reports headache(s) (on and off-he is doing well today) and Denies sore throat Card Reports acrocyanosis, Denies chest pain, Reports leg ulcers, Reports leg edema (bilateral hx of lymphedema/DVT), Denies lightheadedness and Reports dyspnea (HX pe) Resp Denies cough, Denies hemoptysis, Reports dyspnea (HX pe) and Denies wheezing GI Denies abdominal pain, Denies melena, Reports constipation, Denies diarrhea and Denies vomiting Denies dysuria, Denies urinary frequency and Denies urinary urgency Musc Denies arthralgias, Denies joint swelling, Denies numbness and Denies tingling Neuro Denies Abnormal speech present, Denies behavioral changes, Denies vertigo, Denies dizziness, Reports headache(s) (on and off-he is doing well today), Denies loss of vision, Denies memory loss, Denies numbness and Denies tingling Psych Denies anxiety, Denies behavioral changes, Denies depression, Denies memory loss and Denies panic attacks Fidencio/Lymph Denies easy bleeding and Denies easy bruising Aller/Immun Denies wheezing Physical exam (Primary Care) Vital Signs: Last Vital Signs Pulse 76 06/03/25 14:26 BP 138/82 06/03/25 14:26 Pulse Ox 97 06/03/25 14:26 Oxygen Delivery Method Room Air 06/03/25 14:26 BMI result Body Mass Index 41.9 Tobacco/Smoking Status: Tobacco use Status Tobacco use date assessed 06/03/25 06/03/25 14:33 Patient Tobacco Use Status Former Tobacco user 06/03/25 14:33 e-Cigarette/Vaping Use Never Used 06/03/25 14:33 Thrive Assessment: Date of Thrive Assessment Date Thrive assessed 06/03/25 06/03/25 14:33 Currently or been in a relationship where the following occur: No concerns reported Const General: healthy appearing, no acute distress, alert and awake Nutritional Appearance: obese Orientation/consciousness: oriented to person, oriented to place and oriented to time HENMT Ears: TM's normal bilaterally General nose exam: Normal nasal mucous membranes and turbinates present Eyes Conjunctivae: conjunctivae normal Sclerae: sclerae normal Pupils: Equal, round and reactive pupils present Neck Neck: Yes no lymphadenopathy and Yes no JVD Thyroid: Thyroid normal Carotids: no bruits Resp Effort & Inspection: normal respiratory effort and not tachypneic Auscultation: clear to auscultation bilaterally, no crackles, no rales, no rhonchi, no wheezes and diminished lung sounds bilateral in the lower lung ge Cardio Rate: regular rate Rhythm: regular rhythm Heart sounds: S1 normal heart sound present, S2 normal heart sound present, no murmurs and normal S1 and S2 GI Palpation (GI): Soft to palpation and nontender Auscultation: normal bowel sounds General: Yes no CVA tenderness Back/Spine/Pelvis Back: no CVA tenderness Skin Other: right upper kunz right lower medial/posterior leg left lower leg General skin exam: dry skin and other (Bilateral lower legs hyperpigmentation) Lesions: lesion noted (multiple small scabbed over areas on bilateral forearms) Wounds: wounds noted (two small open areas on right leg and one on leg lower leg) Neuro General: oriented to person, oriented to place and oriented to time Cranial nerves: Yes Equal, round and reactive pupils present Speech: No Abnormal speech present Gait exam (Neuro): Normal gait present Motor exam (neuro): no tremor noted Extrem Right upper extremity: full ROM Left upper extremity: full ROM Right lower extremity: full ROM, edema and lower leg Details: non-pitting edema (hyperpigmentation) Details: 3+ Left lower extremity: full ROM, edema and lower leg (hyperpigmentation) Details: non-pitting edema Details: 3+ Psych Mental Status: mental status grossly normal Speech and movement: Normal speech and movement present Affect: normal affect Attitude: cooperative Thought process: Normal thought process present Coding Level of Care Code Est Pt Level 4 (99989) Diagnoses History of opioid abuse F11.11 Hypertension, unspecified type I10 Hypertension type: unspecified Deep vein thrombosis (DVT) of both lower extremities, unspecified chronicity, unspecified vein I82.403 Affected thrombotic vein of extremity: unspecified vein of extremity Chronicity: unspecified Chronic pulmonary embolism without acute cor pulmonale, unspecified pulmonary embolism type I27.82 Acute cor pulmonale presence: without acute cor pulmonale Chronicity: chronic Pulmonary embolism type: unspecified Current use of anticoagulant therapy Z79.01 Acquired hypothyroidism E03.9 Morbid obesity with BMI of 40.0-44.9, adult E66.01; Z68.41 Elevated LFTs R79.89 Positive KAYLEE (antinuclear antibody) R76.8 Shortness of breath R06.02 Lymphedema I89.0 Cellulitis of both lower extremities L03.115; L03.116 Open wound of both lower extremities with complication, subsequent encounter S81.801D; S81.802D Encounter type: subsequent encounter Constipation, unspecified constipation type K59.00 Constipation type: unspecified constipation type Time Spent (min) 45 Assessment & Plan Assessment & Plan (1) History of opioid abuse: Code(s): F11.11 - Opioid abuse, in remission Category: Medical Plan: Continue methadone 160 mg daily. Follow up with methadone clinic as scheduled. (2) Hypertension: Code(s): I10 - Essential (primary) hypertension Category: Medical Qualifiers: Hypertension type: unspecified Qualified Code(s): I10 - Essential (primary) hypertension Plan: Initial blood pressure was 155/78, repeated BP in 5 minutes was 138/82. Reinforced low-salt diet/low caffeine intake. Continue lisinopril 10 mg daily. (3) DVT, bilateral lower limbs: Code(s): I82.403 - Acute embolism and thrombosis of unspecified deep veins of lower extremity, bilateral Category: Medical Qualifiers: Affected thrombotic vein of extremity: unspecified vein of extremity Chronicity: unspecified Qualified Code(s): I82.403 - Acute embolism and thrombosis of unspecified deep veins of lower extremity, bilateral Plan: Ongoing DVT. Continue Coumadin per order and follow up with Coumadin clinic as scheduled. Monitor for s/sx of bleeding (4) Pulmonary emboli: Code(s): I26.99 - Other pulmonary embolism without acute cor pulmonale Category: Medical Qualifiers: Acute cor pulmonale presence: without acute cor pulmonale Chronicity: chronic Pulmonary embolism type: unspecified Qualified Code(s): I27.82 - Chronic pulmonary embolism Plan: Ongoing PE possibly contributing to the patient ongoing sob. Continue warfarin regimen as ordered and follow with coumadin clinic as scheduled. (5) Current use of anticoagulant therapy: Code(s): Z79.01 - long term acute care registered nurse (current) use of anticoagulants Category: Medical Plan: ongoing coumadin therapy. No s/sx of bleeding noted (6) Acquired hypothyroidism: Code(s): E03.9 - Hypothyroidism, unspecified Category: Medical Plan: TSH 0.17 on 12/16/2024 Continue levothyroxine 25 mcg daily TFTs ordered, we will advise (7) Morbid obesity with BMI of 40.0-44.9, adult: Code(s): E66.01 - Morbid (severe) obesity due to excess calories; Z68.41 - Body mass index [BMI] 40.0-44.9, adult Category: Medical Plan: Encouraged to exercise for at least 30 minutes a day/5 days a week Healthy eating discussed. Encouraged to eat fruits/vegetables, protein-fish/baked chicken, and to avoid salty/fried foods, sweets, caffeine and carbohydrates. Encouraged to increase water intake 6-8 glasses a day (8) Elevated LFTs: Code(s): R79.89 - Other specified abnormal findings of blood chemistry Category: Medical Plan: AST 83, ALT 99 on 01/10/2025 Limit Tylenol/alcohol/high fat foods CMP ordered, we will advise (9) Positive KAYLEE (antinuclear antibody): Code(s): R76.8 - Other specified abnormal immunological findings in serum Category: Medical Plan: Positive KAYLEE on 01/13/2025. Patient has an appointment with Rheumatology on 07/03/2025. Adhere to this appointment. (10) Shortness of breath: Code(s): R06.02 - Shortness of breath Category: Medical Plan: On and off shortness of breath. BNP less than 10, no signs of heart failure. Lungs clear in the upper face to auscultation and diminished in the lower bases. Patient history of PE that might be contributing to his SOB. He has an appt with Pulmonology on 06/17/2025. (11) Lymphedema: Code(s): I89.0 - Lymphedema, not elsewhere classified Category: Medical Plan: History of lymphedema. Patient reports on and off BLE oozing and recurrent forming of blisters that turns dark colored after blisters pop and heal. Follow up with vascular as scheduled. (12) Cellulitis of both lower extremities: Code(s): L03.115 - Cellulitis of right lower limb; L03.116 - Cellulitis of left lower limb Category: Medical Plan: Bilateral lower extremities open wounds and discoloration. He was evaluated in the ED and started on doxycycline. He already completed 3 days with 7 more to go BID. Continue antibiotics as scheduled. Encouraged the patient to follow up with clonic if legs worsen or persist (13) Open wound of both legs with complication: Code(s): S81.801A - Unspecified open wound, right lower leg, initial encounter; S81.802A - Unspecified open wound, left lower leg, initial encounter Category: Medical Qualifiers: Encounter type: subsequent encounter Qualified Code(s): S81.801D - Unspecified open wound, right lower leg, subsequent encounter; S81.802D - Unspecified open wound, left lower leg, subsequent encounter Plan: Two small open area on right lower leg with small amount of yellowish drainage on base. Left lower leg with one small open area, similarly, with scantly yellowish drainage on dressing. Continue cleansing wounds and applying clean dry dressing. Wound clinic referral placed. Complete ordered antibiotic. (14) Constipation: Code(s): K59.00 - Constipation, unspecified Category: Medical Qualifiers: Constipation type: unspecified constipation type Qualified Code(s): K59.00 - Constipation, unspecified Plan: Reports that sometimes it takes him 12 days to have a bowel movement. The patient denied recommended laxative orders, stating that he took all of them before and none of it works. Explained to the patient that he could have a perforated bowel. The patient reports that he has miralax at home and will take this if he cannot go. The patient abdomen is soft and non-tender to palpation with positive bowel sounds. Encouraged increasing fluids and dietary fiber. GI referral placed Plan The patient will continue with the current antibiotic regimen for cellulitis, with a follow-up to assess the need for additional antibiotics if the condition does not improve. A referral to a wound care clinic has been made to address the lymphedema-related wounds and ensure proper management. The patient is advised to maintain regular follow-ups with the vascular specialist for blood clot management and to monitor the lymphedema. A referral to rheumatology is in place for further evaluation of the suspected autoimmune disease, and the patient is encouraged to attend the upcoming appointment. The patient will also see a building tech to evaluate the persistent shortness of breath, with an appointment already scheduled. The importance of addressing the chronic constipation with appropriate medications and possibly consulting a industrial eng if symptoms persist was discussed. Patient was informed and verbally consented to the use of an ambient scribe for clinic note documentation during this visit. Orders: Orders Complete Blood Count Auto Diff 06/03/25 E03.9 - Hypothyroidism, unspecified, E66.9 - Obesity, unspecified, I10 - Essential (primary) hypertension, I26.99 - Other pulmonary embolism without acute cor pulmonale, I82.403 - Acute embolism and thrombosis of unspecified deep veins of lower extremity, bilateral, I89.0 - Lymphedema, not elsewhere classified, M79.601 - Pain in right arm, M79.89 - Other specified soft tissue disorders, R07.9 - Chest pain, unspecified, R79.89 - Other specified abnormal findings of blood chemistry, Z13.220 - Encounter for screening for lipoid disorders, Z13.29 - Encounter for screening for other suspected endocrine disorder, Z79.01 - skilled nursing (current) use of anticoagulants Comprehensive [place]. Panel Fast 06/03/25 E03.9 - Hypothyroidism, unspecified, E66.9 - Obesity, unspecified, I10 - Essential (primary) hypertension, I26.99 - Other pulmonary embolism without acute cor pulmonale, I82.403 - Acute embolism and thrombosis of unspecified deep veins of lower extremity, bilateral, I89.0 - Lymphedema, not elsewhere classified, M79.601 - Pain in right arm, M79.89 - Other specified soft tissue disorders, R07.9 - Chest pain, unspecified, R79.89 - Other specified abnormal findings of blood chemistry, Z13.220 - Encounter for screening for lipoid disorders, Z13.29 - Encounter for screening for other suspected endocrine disorder, Z79.01 - skilled nursing (current) use of anticoagulants Lipid Panel 06/03/25 E03.9 - Hypothyroidism, unspecified, E66.9 - Obesity, unspecified, I10 - Essential (primary) hypertension, I26.99 - Other pulmonary embolism without acute cor pulmonale, I82.403 - Acute embolism and thrombosis of unspecified deep veins of lower extremity, bilateral, I89.0 - Lymphedema, not elsewhere classified, M79.601 - Pain in right arm, M79.89 - Other specified soft tissue disorders, R07.9 - Chest pain, unspecified, R79.89 - Other specified abnormal findings of blood chemistry, Z13.220 - Encounter for screening for lipoid disorders, Z13.29 - Encounter for screening for other suspected endocrine disorder, Z79.01 - skilled nursing (current) use of anticoagulants TSH reflex Free T4 06/03/25 E03.9 - Hypothyroidism, unspecified, E66.9 - Obesity, unspecified, I10 - Essential (primary) hypertension, I26.99 - Other pulmonary embolism without acute cor pulmonale, I82.403 - Acute embolism and thrombosis of unspecified deep veins of lower extremity, bilateral, I89.0 - Lymphedema, not elsewhere classified, M79.601 - Pain in right arm, M79.89 - Other specified soft tissue disorders, R07.9 - Chest pain, unspecified, R79.89 - Other specified abnormal findings of blood chemistry, Z13.220 - Encounter for screening for lipoid disorders, Z13.29 - Encounter for screening for other suspected endocrine disorder, Z79.01 - skilled nursing (current) use of anticoagulants Free T4 (Free Thyroxine) 06/03/25 E03.9 - Hypothyroidism, unspecified, E66.9 - Obesity, unspecified, I10 - Essential (primary) hypertension, I26.99 - Other pulmonary embolism without acute cor pulmonale, I82.403 - Acute embolism and thrombosis of unspecified deep veins of lower extremity, bilateral, I89.0 - Lymphedema, not elsewhere classified, M79.601 - Pain in right arm, M79.89 - Other specified soft tissue disorders, R07.9 - Chest pain, unspecified, R79.89 - Other specified abnormal findings of blood chemistry, Z13.220 - Encounter for screening for lipoid disorders, Z13.29 - Encounter for screening for other suspected endocrine disorder, Z79.01 - long term acute care registered nurse (current) use of anticoagulants Vitamin D 25-OH Total 06/03/25 E03.9 - Hypothyroidism, unspecified, E66.9 - Obesity, unspecified, I10 - Essential (primary) hypertension, I26.99 - Other pulmonary embolism without acute cor pulmonale, I82.403 - Acute embolism and thrombosis of unspecified deep veins of lower extremity, bilateral, I89.0 - Lymphedema, not elsewhere classified, M79.601 - Pain in right arm, M79.89 - Other specified soft tissue disorders, R07.9 - Chest pain, unspecified, R79.89 - Other specified abnormal findings of blood chemistry, Z13.220 - Encounter for screening for lipoid disorders, Z13.29 - Encounter for screening for other suspected endocrine disorder, Z79.01 - long term acute care registered nurse (current) use of anticoagulants UA CC w/rflx Micro + Cult 06/03/25 E03.9 - Hypothyroidism, unspecified, E66.9 - Obesity, unspecified, I10 - Essential (primary) hypertension, I26.99 - Other pulmonary embolism without acute cor pulmonale, I82.403 - Acute embolism and thrombosis of unspecified deep veins of lower extremity, bilateral, I89.0 - Lymphedema, not elsewhere classified, M79.601 - Pain in right arm, M79.89 - Other specified soft tissue disorders, R07.9 - Chest pain, unspecified, R79.89 - Other specified abnormal findings of blood chemistry, Z13.220 - Encounter for screening for lipoid disorders, Z13.29 - Encounter for screening for other suspected endocrine disorder, Z79.01 - skilled nursing (current) use of anticoagulants Vitamin B12 and Folate 06/03/25 E03.9 - Hypothyroidism, unspecified, E66.9 - Obesity, unspecified, I10 - Essential (primary) hypertension, I26.99 - Other pulmonary embolism without acute cor pulmonale, I82.403 - Acute embolism and thrombosis of unspecified deep veins of lower extremity, bilateral, I89.0 - Lymphedema, not elsewhere classified, M79.601 - Pain in right arm, M79.89 - Other specified soft tissue disorders, R07.9 - Chest pain, unspecified, R79.89 - Other specified abnormal findings of blood chemistry, Z13.220 - Encounter for screening for lipoid disorders, Z13.29 - Encounter for screening for other suspected endocrine disorder, Z79.01 - long term acute care registered nurse (current) use of anticoagulants Referrals Gastroenterology Referral K59.00 - Constipation, unspecified Wound Care Referral S81.801D - Unspecified open wound, right lower leg, subsequent encounter, S81.802D - Unspecified open wound, left lower leg, subsequent encounter Medications: Refilled lisinopril 10 mg PO DAILY 90 tabs 3RF for blood pressure lisinopril 10 mg PO DAILY 90 tabs 0RF for blood pressure
[2025-06-03 14:26] VITALS: BP 138/82; PULSE 76; O2SAT 97; BMI 41.9
== END 2025-06-03 15:12 | disposition home or self-care (01) ==
LOC: HO.HMCH 14:22
PROVIDERS: PCP Internal Medicine
DX: I82.403 Acute embolism and thrombosis of unspecified deep veins of lower extremity, bilateral (principal); I27.82 Chronic pulmonary embolism; F11.11 Opioid abuse, in remission; E66.01 Morbid (severe) obesity due to excess calories; Z68.41 Body mass index [BMI] 40.0-44.9, adult; I10 Essential (primary) hypertension; Z79.01 Long term (current) use of anticoagulants; E03.9 Hypothyroidism, unspecified; R79.89 Other specified abnormal findings of blood chemistry; R76.8 Other specified abnormal immunological findings in serum; R06.02 Shortness of breath; I89.0 Lymphedema, not elsewhere classified

== ENCOUNTER 2025-06-16 11:27 | Outpatient (AMB) | payer OTHER, SELFPAY ==
--- NOTE | 2025-06-16 11:42 | MHC.OFFVISCO ---
Intake Intake Visit Reasons: Anticoagulation Allergies No Known Allergies (No Known Allergies*) Allergy (Verified 06/16/25 11:32) Medication List - Last Reconciled 06/16/25 by Rashida Cash RN doxycycline hyclate 100 mg PO Q12H 10 days levothyroxine 25 mcg PO DAILY lidocaine 5% 1 appl topical DAILY PRN lisinopril 10 mg PO DAILY meclizine 50 mg PO DAILY methadone 160 mg PO DAILY warfarin 2.5 mg See Protocol PO SUTUTHSA@1800 warfarin 2.5 mg See Protocol PO DAILY Nursing Note INR: 3.8?out of therapeutic range of 2-3.5 Medications and supplements reviewed Patient status: pt just finished doxycycline for cellulitis. Medications or supplements: no changes Diet: same Denies any signs and symptoms of bleeding or clotting or unusual bruising Bleeding, bruising, clotting discussed Nutritional guidance given: to have a serving of greens today Dose: pt already took today's dose of 1.25mg so will decrease tomorrow's dose from 2.5mg to 1.25mg then pt to resume usual dose of 1.25mg X 4 days and 2.5mg X 3 days (M/W/F) F/U INR Date: 2 weeks?? Patient verbalizing understanding of instructions given. Anti-Coag Initial Assessment Social Hx Patient Tobacco Use Status: Former Tobacco user alcohol intake: former Alcohol intake frequency: does not drink Cardiovascular Hx: HTN, Arrhythmias and Other Lung Disease HX: DVT/PE Endocrine Hx: Other Musculoskeletal Hx: Arthritis Blood Disorder Hx: Hepatitis GI Hx: Other Hx: Other Neurological Hx: Serious Head Injury and Migraines/Headaches Cancer HX: No Psych. Illness/Depression: No Coding Level of Care Code Est Patient Level 1 Diagnoses Current use of anticoagulant therapy Z79.01 Results AMB INR Fingerstick AMB INR Fingerstick 3.8 Last Edit by Rashida Cash RN on 06/16/25 11:37 interface delay Assessment & Plan Assessment & Plan (1) Current use of anticoagulant therapy: Code(s): Z79.01 - alf (current) use of anticoagulants Category: Medical
[2025-06-16 12:23] LABS: Prothrombin Time Whole Bld POC 45.8 sec (11.1-13.5); ~PT, ~INR - Anti Coag Clinic 3.8 (0.9-1.1)
== END 2025-06-16 12:04 | disposition home or self-care (01) ==
LOC: HO.ACS 11:27
PROVIDERS: PCP Internal Medicine; Visit Provider Internal Medicine Medical Oncology
DX: Z79.01 Long term (current) use of anticoagulants (principal)

== ENCOUNTER → 2025-06-16 11:27 | Outpatient (BNVA) | payer OTHER, SELFPAY | PROVIDERS: PCP Internal Medicine; Visit Provider Internal Medicine Medical Oncology | DX: Z79.01 Long term (current) use of anticoagulants (principal) | CPT/HCPCS: 85610; 99211 ==

== ENCOUNTER 2025-06-30 13:03 | Outpatient (AMB) | payer OTHER, SELFPAY ==
--- NOTE | 2025-06-30 13:16 | MHC.OFFVISCO ---
Intake Intake Visit Reasons: Anticoagulation Allergies No Known Allergies (No Known Allergies*) Allergy (Verified 06/30/25 13:07) Medication List - Last Reconciled 06/30/25 by Adrienne Clemente RN doxycycline hyclate 100 mg PO Q12H 10 days levothyroxine 25 mcg PO DAILY lidocaine 5% 1 appl topical DAILY PRN lisinopril 10 mg PO DAILY meclizine 50 mg PO DAILY methadone 160 mg PO DAILY warfarin 2.5 mg See Protocol PO SUTUTHSA@1800 warfarin 2.5 mg See Protocol PO DAILY Nursing Note PT.IS DONE WITH ANTIBIOTICS NO CP,SOB,DIET/MED CHANGES,FALLS OR SX OF BLEEDING. CONTINUE PRESENT DOSING AND FOLLOW-UP IN 2 WEEKS GOOD UNDERSTANDING OF DOSING INSTR. Anti-Coag Initial Assessment Social Hx Patient Tobacco Use Status: Former Tobacco user alcohol intake: former Alcohol intake frequency: does not drink Cardiovascular Hx: HTN, Arrhythmias and Other Lung Disease HX: DVT/PE Endocrine Hx: Other Musculoskeletal Hx: Arthritis Blood Disorder Hx: Hepatitis GI Hx: Other Hx: Other Neurological Hx: Serious Head Injury and Migraines/Headaches Cancer HX: No Psych. Illness/Depression: No Coding Level of Care Code Est Patient Level 1 Diagnoses Current use of anticoagulant therapy Z79.01 Results AMB INR Fingerstick AMB INR Fingerstick 3.1 Last Edit by Adrienne Clemente RN on 06/30/25 13:14 Assessment & Plan Assessment & Plan (1) Current use of anticoagulant therapy: Code(s): Z79.01 - prison (current) use of anticoagulants Category: Medical
[2025-07-01 10:01] LABS: Prothrombin Time Whole Bld POC 37.7 sec (11.1-13.5); ~PT, ~INR - Anti Coag Clinic 3.1 (0.9-1.1)
== END 2025-06-30 13:20 | disposition home or self-care (01) ==
LOC: HO.ACS 13:03
PROVIDERS: PCP Internal Medicine; Visit Provider Internal Medicine Medical Oncology
DX: Z79.01 Long term (current) use of anticoagulants (principal)

== ENCOUNTER → 2025-06-30 13:03 | Outpatient (BNVA) | payer OTHER, SELFPAY | PROVIDERS: PCP Internal Medicine; Visit Provider Internal Medicine Medical Oncology | DX: I48.20 Chronic atrial fibrillation, unspecified (principal); Z79.01 Long term (current) use of anticoagulants; Z51.81 Encounter for therapeutic drug level monitoring | CPT/HCPCS: 85610; 99211 ==

== ENCOUNTER 2025-07-03 10:30 | Outpatient (AMB) | payer OTHER, SELFPAY ==
--- NOTE | 2025-07-03 10:54 | MHC.OFFVIS ---
Vital Signs 07/03/25 11:03 Height 5 ft 7 in Weight 271 lb 6.224 oz BMI 42.5 BP 132/80 Blood Pressure Location Rt brachial Position Sitting Pulse 66 Pulse Source Pulse Oximeter Pulse Oximetry (%) 98 Oxygen Delivery Method Room Air Intake Visit Reasons: abnormal lab/New Patient Intake Note: New patient presents for abnormal lab. Allergies No Known Allergies (No Known Allergies*) Allergy (Verified 07/03/25 11:01) Medication List - Last Reconciled 07/03/25 by Sabrina Hui MD levothyroxine 25 mcg PO DAILY lisinopril 10 mg PO DAILY methadone 160 mg PO DAILY warfarin 2.5 mg See Protocol PO SUTUTHSA@1800 warfarin 2.5 mg See Protocol PO DAILY HPI Comments Details: Patient is a 55 year old male with hypothyroidism, HTN, Chronic lymphedema, hx substance abuse: heroin and fentanyl currently on methadone, hx of DVT and PE on warfarin and migraines here for evaluation of positive KAYLEE Circumstances around checking the KAYLEE unclear Patient states that he has been having a lot of weird stuff happen to him so they check his KAYLEE and told him it was high ROS - weight gain. 100lb in 2 years - Rash: Cuts all over body - Sometimes he will have a pain behind the eye that will self resolve over a 2-4 weeks - Intermittent and transient joint pain: elbow, shoulder - Finger tips change color in the cold: red Substance abuse history - Injected heroin and Fentanyl Denies photosensitivity, alopecia, oral/nasal ulcers, sicca symptoms, lymphadenopathy, chest pain/shortness of breath, inflammatory type joint pain, foamy urine, lower extremity edema, muscle weakness, Raynaud's Also denies history of seizure, CVA, psychosis, history of kidney problems, history of cytopenias [facility] Medical History Intermittent chest pain Morbid obesity with BMI of 40.0-44.9, adult Swelling of right upper extremity Pain in right arm Positive KAYLEE (antinuclear antibody) Headache DVT (deep venous thrombosis) Acquired hypothyroidism Pulmonary emboli DVT, bilateral lower limbs Obesity Polysubstance abuse Encounter to establish care Eyebrow laceration Surgical History (Reviewed 07/03/25 @ 11:03 by Jeanette Fraire [facility] No pertinent past surgical history Family History Mother COPD (chronic obstructive pulmonary disease) Father Hepatitis Liver cirrhosis Maternal Grandmother Alzheimer disease Maternal Grandfather Prostate cancer Diabetes Other Mental health disorder Substance use disorder Social History Household Members: Family Housing: House Unable to assess alcohol history related to: Refusing to respond Alcohol intake: former Year quit: 2011 Patient Tobacco Use Status: Former Tobacco user e-Cigarette/Vaping Use: Never Used Second Hand Smoke Exposure: Yes Substance Use Type: Heroin service: No Current occupational status: unemployed Current occupational exposures/hazards: No Cognitive needs: No Hearing needs: No Vision needs: Yes (reading) Review of Systems Const Details: see HPI Physical Exam Exam Exam: Vital signs reviewed Physical Examination CONSTITUITIONAL Patient alert and cooperative. Well appearing and in no apparent painful distress MSK Hands Right Hand: Able to make a fist. No swelling or tenderness to palpation of the MCPs, PIPs or DIPs. No deformities noted. Left Hand: Able to make a fist. No swelling or tenderness to palpation of the MCPs, PIPs or DIPs. No deformities noted. Wrists Right Wrist: Full ROM to flexion and extension. No swelling or TTP Left Wrist: Full ROM to flexion and extension. No swelling or TTP Elbows Right Elbow: Full ROM. No swelling or TTP. No TTP of the medial epicondyle. TTP of the lateral epicondyle. 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 No swelling or TTP. No TTP of the medial epicondyle. No TTP of the lateral epicondyle Shoulders Right shoulder: Full ROM. No swelling noted. No TTP of the AC joint. No TTP of the subacromial bursa. No TTP of the posterior shoulder Left shoulder: Full ROM. No swelling noted. No TTP of the AC joint. No TTP of the subacromial bursa. No TTP of the posterior shoulder Knees Right knee: Full ROM. No swelling noted. No TTP of the knee joint line. No TTP of pes anserine bursa Left knee: Full ROM. No swelling noted. No TTP of the knee joint line. No TTP of pes anserine bursa. Lower extremities wrapped in bandage and 3+edema SKIN Sores noted to anterior forearms bilaterally Scaling noted behind the ear and in the scalp Normal nailfold capilloroscopy Vital Signs: Last Vital Signs Pulse 66 07/03/25 11:03 BP 132/80 07/03/25 11:03 Pulse Ox 98 07/03/25 11:03 Oxygen Delivery Method Room Air 07/03/25 11:03 BMI result Body Mass Index 42.5 Results Reviewed Results Reviewed: Laboratory Tests 12/16/24 01/10/25 15:07 10:13 WBC 5.7 RBC 4.23 L Hgb 12.1 L Hct 36.7 L Plt Count 209 ESR 33 H Sodium 137 Potassium 4.7 Chloride 105 Carbon Dioxide 25 BUN 20 H Creatinine 0.77 AST 83 H ALT 99 H Laboratory Tests 12/16/24 15:07 KAYLEE Screen POSITIVE KAYLEE Titer 1:1280 Assessment & Plan Assessment & Plan (1) Positive KAYLEE (antinuclear antibody): Code(s): R76.8 - Other specified abnormal immunological findings in serum Category: Medical Plan: #Positive KAYLEE Patient is a 55-year-old male with history of substance abuse presenting with multiple complaints and found to have a positive KAYLEE here today for evaluation. At this time there is no obvious clinical or examination finding consistent with lupus. He does have a very high titer KAYLEE which could be related to his previous drug use. We will check labs and review them in 2 weeks with the patient Plan - Labs sent - Derm referral for arm rash - RTC 2 weeks Plan I spent 45 minutes reviewing the record and labs, taking a history, examining the patient, discussing the treatment plan, ordering diagnostic work up and documenting in the medical record Orders: Orders Erythrocyte Sedimentation Rate Today R76.0 - Raised antibody titer Complement C3 Today R76.0 - Raised antibody titer Complement C4 Today R76.0 - Raised antibody titer Protein Creatinine Ratio, Ur Today R76.0 - Raised antibody titer UA ClnCatch+Micro w/rflx Cult Today R76.0 - Raised antibody titer Cyclic Citrullinated Peptide Today R76.0 - Raised antibody titer Thyroid Peroxidase Antibodies Today R76.0 - Raised antibody titer Beta-2 Glycoprotein Antibody Today D68.61 - Antiphospholipid syndrome Cardiolipin Antibodies Today D68.61 - Antiphospholipid syndrome Syphilis Screen Today D68.61 - Antiphospholipid syndrome Complete Blood Count Auto Diff Today R76.0 - Raised antibody titer C Reactive Protein Today R76.0 - Raised antibody titer Anti DNA DS Antibody Today R76.0 - Raised antibody titer Sm Sm/[employer] Antibodies Today R76.0 - Raised antibody titer Sjogren's Antibodies Today R76.0 - Raised antibody titer Rheumatoid Factor Today R76.0 - Raised antibody titer Scleroderma 70 Antibody Today R76.0 - Raised antibody titer Thyroglobulin Antibodies Today R76.0 - Raised antibody titer Thyroid Stimulating Hormone Today R76.0 - Raised antibody titer Hepatitis B,C Profile Today Z79.899 - Other skilled nursing (current) drug therapy T Spot TB Today Z79.899 - Other termite technician (current) drug therapy HIV Ab/Ag Today Z79.899 - Other skilled nursing (current) drug therapy Lupus Anticoagulant Panel Today D68.61 - Antiphospholipid syndrome Cryoglobulin Today B18.2 - Chronic viral hepatitis C, D89.1 - Cryoglobulinemia Referrals Dermatology Referral R21 - Rash and other nonspecific skin eruption, R76.8 - Other specified abnormal immunological findings in serum Coding Level of Care Code New Pt Level 4 (72164) Diagnoses Positive KAYLEE (antinuclear antibody) R76.8
[2025-07-03 11:03] VITALS: BP 132/80; PULSE 66; O2SAT 98; BMI 42.5
== END 2025-07-03 11:54 | disposition home or self-care (01) ==
LOC: HO.RHES 10:31
PROVIDERS: Visit Provider Student in an Organized Health Care Education/Training Program
DX: R76.8 Other specified abnormal immunological findings in serum (principal)
CPT/HCPCS: 99204

== ENCOUNTER → 2025-07-03 10:30 | Outpatient (BNVA) | payer OTHER, SELFPAY | PROVIDERS: Visit Provider Student in an Organized Health Care Education/Training Program | DX: R76.0 Raised antibody titer (principal); R76.8 Other specified abnormal immunological findings in serum; Z79.899 Other long term (current) drug therapy | CPT/HCPCS: 99202 ==

== ENCOUNTER 2025-07-14 13:14 | Outpatient (AMB) | payer OTHER, SELFPAY ==
[2025-07-14 13:24] LABS: Prothrombin Time Whole Bld POC 34.8 sec (11.1-13.5); ~PT, ~INR - Anti Coag Clinic 2.9 (0.9-1.1)
--- NOTE | 2025-07-14 13:26 | MHC.OFFVISCO ---
Intake Intake Visit Reasons: Anticoagulation Allergies No Known Allergies (No Known Allergies*) Allergy (Verified 07/14/25 13:18) Medication List - Last Reconciled 07/14/25 by Rashida Cash, PADMA levothyroxine 25 mcg PO DAILY lisinopril 10 mg PO DAILY methadone 160 mg PO DAILY warfarin 2.5 mg See Protocol PO SUTUTHSA@1800 warfarin 2.5 mg See Protocol PO DAILY Nursing Note INR: 2.9 in therapeutic range of 2.0-3.5 Medications and supplements reviewed No changes in health, diet, medications, or supplements, Denies any signs and symptoms of bleeding or bruising or clotting. Bleeding, bruising, clotting discussed Nutritional guidance given Dose: 1.25mg X 4 days and 2.5mg X 3 days (M/W/) F/U INR: 2 weeks Patient verbalizes understanding of instructions given Anti-Coag Initial Assessment Social Hx Patient Tobacco Use Status: Former Tobacco user alcohol intake: former Alcohol intake frequency: does not drink Cardiovascular Hx: HTN, Arrhythmias and Other Lung Disease HX: DVT/PE Endocrine Hx: Other Musculoskeletal Hx: Arthritis Blood Disorder Hx: Hepatitis GI Hx: Other Hx: Other Neurological Hx: Serious Head Injury and Migraines/Headaches Cancer HX: No Psych. Illness/Depression: No Coding Level of Care Code Est Patient Level 1 Diagnoses Current use of anticoagulant therapy Z79.01 Assessment & Plan Assessment & Plan (1) Current use of anticoagulant therapy: Code(s): Z79.01 - half-way (current) use of anticoagulants Category: Medical
== END 2025-07-14 13:38 | disposition home or self-care (01) ==
LOC: HO.ACS 13:14
PROVIDERS: Visit Provider Internal Medicine Medical Oncology
DX: Z79.01 Long term (current) use of anticoagulants (principal)

== ENCOUNTER 2025-07-14 13:14 | Outpatient (REF) | payer OTHER, SELFPAY ==
[2025-07-14 14:47] LABS: Appearance Urine Clear; Glucose Urine UA Negative (Negative); PH 5.5 (5.0-9.0); Specific Gravity - Urine 1.020 (1.005-1.025)
[2025-07-14 16:13] LABS: Protein/Creatinine Ratio, Ur 0.05 (<0.2); Total Protein Urine Random 9 mg/dL (<12)
== END 2025-07-14 13:15 | disposition home or self-care (01) ==
LOC: HO.LAB 13:14
PROVIDERS: Absent Provider Student in an Organized Health Care Education/Training Program; Visit Provider Internal Medicine Medical Oncology
DX: R76.0 Raised antibody titer (principal); Z11.59 Encounter for screening for other viral diseases
CPT/HCPCS: 81001; 82570; 84156; 85610; 86704; 86706; 87340; 99211

== ENCOUNTER 2025-07-28 13:59 | Outpatient (AMB) | payer OTHER, SELFPAY ==
[2025-07-28 14:11] LABS: Prothrombin Time Whole Bld POC 39.7 sec (11.1-13.5); ~PT, ~INR - Anti Coag Clinic 3.3 (0.9-1.1)
--- NOTE | 2025-07-28 14:20 | MHC.OFFVISCO ---
Intake Intake Visit Reasons: Anticoagulation Allergies No Known Allergies (No Known Allergies*) Allergy (Verified 07/28/25 14:05) Medication List - Last Reconciled 07/28/25 by Ana Lilia Garibay RN levothyroxine 25 mcg PO DAILY lisinopril 10 mg PO DAILY methadone 160 mg PO DAILY warfarin 2.5 mg See Protocol PO SUTUTHSA@1800 warfarin 2.5 mg See Protocol PO DAILY Nursing Note INR: 3.34 in therapeutic range 2.0-3.5 Medications and supplements reviewed- no changes at this time *Pt finally saw rhuematology and has labs ordered including thyroid, he complains of his legs aching, being tiered, body weight and loosing body hair, and man boobs . *Cont. to go to wound care for leg wounds, * To have ENT appt for nasal ulcer and dermatology appt for skin erruptions Denies any signs and symptoms of bleeding or bruising or clotting. Bleeding, bruising, clotting discussed Nutritional guidance given - eat healthy - eat a mix of fruits and vegetables to balance INR Dose: keep same dose 2.5 mg mwf/ 1.25mg x 4 days F/U INR: 2 weeks per pt request Patient verbalizes understanding of instructions given Anti-Coag Initial Assessment Social Hx Patient Tobacco Use Status: Former Tobacco user alcohol intake: former Alcohol intake frequency: does not drink Cardiovascular Hx: HTN, Arrhythmias and Other Lung Disease HX: DVT/PE Endocrine Hx: Other Musculoskeletal Hx: Arthritis Blood Disorder Hx: Hepatitis GI Hx: Other Hx: Other Neurological Hx: Serious Head Injury and Migraines/Headaches Cancer HX: No Psych. Illness/Depression: No Coding Level of Care Code Est Patient Level 1 Diagnoses Current use of anticoagulant therapy Z79.01 Results AMB INR Fingerstick AMB INR Fingerstick 3.3 Last Edit by Ana Lilia Garibay RN on 07/28/25 14:11 manual entry Assessment & Plan Assessment & Plan (1) Current use of anticoagulant therapy: Code(s): Z79.01 - senior care (current) use of anticoagulants Category: Medical
== END 2025-07-28 14:25 | disposition home or self-care (01) ==
LOC: HO.ACS 13:59
PROVIDERS: Visit Provider Internal Medicine Medical Oncology
DX: Z79.01 Long term (current) use of anticoagulants (principal)

== ENCOUNTER 2025-07-28 13:59 | Outpatient (REF) | payer OTHER, SELFPAY ==
[2025-07-28 16:16] LABS: MANUAL DIFF FLAG NO
[2025-07-28 17:11] LABS: Hematocrit 39.7 % (42.0-52.0); Hemoglobin 12.7 g/dl (14.0-18.0); Imm Gran Abs Auto 0.02 X10*3/uL (0.00-0.03); Imm Gran Pct Auto 0.3 % (0.0-0.4); Lymphocytes Absolute Auto 1.9 X10*3/uL (1.2-4.9); Mean Corpuscular HGB Conc 32.0 g/dl (31.0-36.0); Mean Corpuscular Hemoglobin 27.7 pg (27.0-33.0); Mean Corpuscular Volume 86.5 fL (80.0-98.0); NRBC Abs Auto 0.000 X10*3/uL (0.0-0.012); NRBC Pct Auto 0.0 /100WBC (0.0-0.2); Platelet Count 217 X10*3/uL (160-400); Red Blood Count 4.59 X10*6/uL (4.60-5.80); White Blood Count 7.5 X10*3/uL (4.8-10.8)
[2025-07-28 18:22] LABS: Thyroid Stimulating Hormone 4.82 uIU/mL (0.32-4.0)
[2025-07-29 18:02] LABS: Thyroglobulin Antibodies 1 IU/mL (< or = 1)
[2025-07-30 04:59] LABS: Syphilis Screen Nonreactive (Nonreactive)
[2025-07-30 06:27] LABS: HBS Num1 0.78 mIU/mL (0-7.99); HBc Num1 0.09 S/CO (0.00-0.79); HBsAGNum1 0.38 S/CO (0.00-0.99); HIV Num 1 0.07 S/CO (0.00-0.99); Hepatitis B Surface Antigen Negative (Negative); ~HepC Num1 12.45 S/CO (0.00-0.79); ~Hepatitis B Surface Antibody NONREACTIVE (Nonreactive); ~Hepatitis C Antibody Reactive (Nonreactive)
[2025-07-30 15:39] LABS: Antibody to SS-A Antigen >8.0 POS AI (<1.0 NEG); Antibody to SS-B Antigen <1.0 NEG AI (<1.0 NEG); SM/Ribonucleoprotein Ab <1.0 NEG AI (<1.0 NEG); Smith Protein <1.0 NEG AI (<1.0 NEG)
[2025-08-03 21:03] LABS: Cryoglobulin, Qual Negative (Negative)
[2025-08-03 22:39] LABS: TS Negative Control Passed; TS Panel A 0; TS Panel B 0; TS Positive Control Passed; TSpotTB Negative (Negative)
== END 2025-07-28 14:00 | disposition home or self-care (01) ==
LOC: HO.LAB 13:59
PROVIDERS: Absent Provider Student in an Organized Health Care Education/Training Program; Visit Provider Internal Medicine Medical Oncology
DX: D68.61 Antiphospholipid syndrome (principal); D89.1 Cryoglobulinemia; B18.2 Chronic viral hepatitis C; Z79.899 Other long term (current) drug therapy
CPT/HCPCS: 36415; 82595; 84443; 85025; 85597; 85598; 85610; 85613; 85652; 85730; 86140; 86146; 86147; 86160; 86200; 86225; 86235; 86376; 86431; 86481; 86704; 86706; 86780; 86800; 86803; 87340; 87389; 99211

== ENCOUNTER 2025-07-28 14:30 | Outpatient (RCR) | payer OTHER, SELFPAY | END 2025-08-12 16:59 | disposition home or self-care (01) | LOC: HO.WCC 14:30 | PROVIDERS: PCP Internal Medicine; Visit Provider Surgery Surgical Oncology | DX: I87.032 Postthrombotic syndrome with ulcer and inflammation of left lower extremity (principal); L97.821 Non-pressure chronic ulcer of other part of left lower leg limited to breakdown of skin; I87.021 Postthrombotic syndrome with inflammation of right lower extremity; I73.9 Peripheral vascular disease, unspecified; E03.8 Other specified hypothyroidism; E66.01 Morbid (severe) obesity due to excess calories; F11.20 Opioid dependence, uncomplicated; Z79.01 Long term (current) use of anticoagulants; Z86.711 Personal history of pulmonary embolism; Z86.718 Personal history of other venous thrombosis and embolism; Z86.19 Personal history of other infectious and parasitic diseases; Z68.37 Body mass index [BMI] 37.0-37.9, adult | CPT/HCPCS: 87070; 87073; 87205; 97597; 99203; 99213 ==

== ENCOUNTER 2025-08-04 23:25 | Emergency (ER) | payer OTHER, SELFPAY ==
--- NOTE | 2025-08-04 | ECG_ITS ---
Test Reason : CP Blood Pressure : */* mmHG Vent. Rate : 82 BPM Atrial Rate : 82 BPM P-R Int : 158 ms QRS Dur : 108 ms QT Int : 386 ms P-R-T Axes : 29 -17 23 degrees QTcB Int : 450 ms Normal sinus rhythm Minimal voltage criteria for LVH, may be normal variant ( R in aVL ) Borderline ECG When compared with ECG of 10-Jan-2025 10:02, No significant change was found Referred By: Generic ED Physician Electronically Signed By: Hilario Agarwal
--- NOTE | ~2025-08-04 | XR_ITS ---
CLINICAL HISTORY: chest px 1 view chest x-ray Comparison: None provided Findings: No consolidation or effusion. Heart size is normal. No acute fracture. IMPRESSION: 1. No acute findings. This document has been electronically signed by: Brant Dick MD on 08/04/2025 23:53:18
[2025-08-04 23:27] VITALS: BP 140/60; BP 151/82; PULSE 80; PULSE 90; RESP 16; TEMP 36.8; O2SAT 98; BMI 42.1
[2025-08-04 23:36] VITALS: BP 151/82; PULSE 80; RESP 16; TEMP 36.8; O2SAT 98
--- NOTE | 2025-08-04 23:42 | PC.NURSE ---
pt states cc is sharp ice pick type headache coming on every hour since this morning. he olivares shad something lie this happen it he past but not so often nd so strong. Secondary pt started feeling chest pain as his blood pressure was elevated. he took his pressure at home at states it was 180/90; WNL here a with EMS.
[2025-08-05 00:11] LABS: Hematocrit 36.8 % (42.0-52.0); Hemoglobin 12.2 g/dl (14.0-18.0); Imm Gran Abs Auto 0.01 X10*3/uL (0.00-0.03); Imm Gran Pct Auto 0.2 % (0.0-0.4); Lymphocytes Absolute Auto 2.1 X10*3/uL (1.2-4.9); MANUAL DIFF FLAG NO; Mean Corpuscular HGB Conc 33.2 g/dl (31.0-36.0); Mean Corpuscular Hemoglobin 28.4 pg (27.0-33.0); Mean Corpuscular Volume 85.6 fL (80.0-98.0); NRBC Abs Auto 0.000 X10*3/uL (0.0-0.012); NRBC Pct Auto 0.0 /100WBC (0.0-0.2); Platelet Count 227 X10*3/uL (160-400); Red Blood Count 4.30 X10*6/uL (4.60-5.80); White Blood Count 6.4 X10*3/uL (4.8-10.8)
[2025-08-05 00:28] LABS: Alanine Aminotransferase 72 U/L (0-40); Albumin Level 3.8 g/dL (3.5-5.0); Alkaline Phosphatase 103 U/L (39-117); Anion Gap 14 (12-20); Aspartate Amino Transferase 66 U/L (5-37); Blood Urea Nitrogen 21 mg/dL (9-16); Calcium 8.9 mg/dL (8.4-10.2); Carbon Dioxide 27 mmol/L (22-29); Chloride 103 mmol/L (96-108); Creatinine Clr Calc Pharmacy 117.3; Estimated Glomerular Filt Rate > 60; Potassium 4.6 mmol/L (3.3-5.1); Sodium 139 mmol/L (135-145); Total Protein 7.7 g/dL (6.5-8.0)
[2025-08-05 00:41] LABS: Troponin-I High Sensitivity < 2.7 ng/L (<3.5-35.0)
[2025-08-05 02:27] VITALS: BP 137/65; PULSE 79; RESP 16; O2SAT 97
[2025-08-05 03:04] LABS: INTERNATIONAL NORM RATIO 2.6 (0.9-1.1); Prothrombin Time 30.0 SEC (10.9-12.4)
--- NOTE | 2025-08-05 04:26 | ED.HA ---
HPI - Headache General Chief Complaint: Headache Stated Complaint: CHEST PAIN/PAIN IN HEAD Time Seen by Provider: 08/05/25 02:31 Source: patient and old records reviewed Mode of arrival: ambulatory Limitations: no limitations History of Present Illness ED Provider: Dr. Mindy Mackey HPI Narrative: 55-year-old male with a history of migraine headaches, opioid use disorder on methadone, pulmonary embolism and DVT on warfarin presenting with pain in his left confucianist that has been ongoing for about a year now. Patient states that he has been having sharp, stabbing pains that are fleeting, intermittent in nature and not associated with any particular activity. This has been ongoing for at least a year. Does not take anything for pain at home. Came in tonight because he developed substernal chest pain that radiated to his left arm while he was sitting down watching television tonight. Describes a sharp pain in his chest and then noticed a tingling in his left arm. Patient reports improved pain upon arrival to the emergency department. Denies associated shortness of breath. No changes in his leg swelling. Has been taking his warfarin as prescribed. Denies associated fever, cough or cold-type symptoms, abdominal pain, nausea or vomiting, bowel changes or urinary complaints, known sick contacts or travel. Related Data Home Medications ?Medication ?Instructions ?Recorded ?Confirmed methadone 10 mg/mL oral concentrate 160 mg PO DAILY 06/09/22 07/28/25 warfarin 2.5 mg tablet 2.5 mg PO SUTUTHSA@1800 10/15/24 07/28/25 Previous Rx's ?Medication ?Instructions ?Recorded levothyroxine 25 mcg tablet 25 mcg PO DAILY #90 tabs 03/13/25 warfarin 2.5 mg tablet 2.5 mg PO DAILY #90 tabs 03/13/25 lisinopril 10 mg tablet 10 mg PO DAILY for blood pressure 06/03/25 #90 tabs carbamazepine 100 mg 100 mg PO DAILY PRN Cluster 08/05/25 capsule,extended release headache #20 caps [id number] (Carbatrol) Allergies Allergy/AdvReac Type Severity Reaction Status Date / Time No Known Allergies (No Known Allergy Verified 08/04/25 23:32 Allergies*) Review of Systems Review of Systems: As per HPI, full review of systems performed and negative but for the above mentioned pertinent positives and negatives. [facility] Past Medical History Medical History Intermittent chest pain Morbid obesity with BMI of 40.0-44.9, adult Swelling of right upper extremity Pain in right arm Positive KAYLEE (antinuclear antibody) Headache DVT (deep venous thrombosis) Acquired hypothyroidism Pulmonary emboli DVT, bilateral lower limbs Obesity Polysubstance abuse Encounter to establish care Eyebrow laceration Surgical History No pertinent past surgical history Family History Family History Mother COPD (chronic obstructive pulmonary disease) Father Hepatitis Liver cirrhosis Maternal Grandmother Alzheimer disease Maternal Grandfather Prostate cancer Diabetes Other Mental health disorder Substance use disorder Social History Social History Household Members: Family Housing: House Alcohol intake: former Year quit: 2011 Patient Tobacco Use Status: Former Tobacco user Smoked in Last 30 Days: No e-Cigarette/Vaping Use: Never Used Second Hand Smoke Exposure: Yes Use of substances other than those prescribed or required for medical reasons: No Substance Use Type: Heroin Advance Directives: Yes Advance Directives Information Provided: Yes Advance Directives on File: No service: No Current occupational status: unemployed Current occupational exposures/hazards: No Cognitive needs: No Hearing needs: No Vision needs: Yes (reading) Physical Exam Exam: Exam: GENERAL: Anxious, chronically ill-appearing. SKIN: Normal skin color for ethnicity, warm, dry, multiple skin excoriations of various degrees of healing, no crepitus, no petechiae, no blistering. HEENT: Normocephalic, atraumatic, no stridor, posterior oropharynx nonerythematous, poor [place] dentition, dry mucous membranes, EOMI. NECK: Soft, supple, full ROM, midline structures nontender, no step-offs, no deformities, no lymphadenopathy. CHEST: Heart regular rhythm, no murmurs, symmetric chest rise and fall, no crepitus. PULMONARY: Clear to auscultation bilaterally, no labored breathing, no wheezes/rhales/rhonchi. ABDOMINAL: Soft, nondistended, nontender, positive bowel sounds in all quadrants. : Deferred. MUSCULOSKELETAL: Normal tone, full range of motion, no deformities, no peripheral edema. NEURO: Alert and oriented to person, CN II through XII intact, equal strength and sensation bilateral upper and lower extremities, no focal neurologic deficits. PSYCHIATRIC: Anxious affect, tangential speech, good eye contact. Vital Signs: Vital Signs: Last Vital Signs Temp 98.2 F 08/04/25 23:36 Pulse 79 08/05/25 02:27 Resp 16 08/05/25 02:27 BP 137/65 08/05/25 02:27 Pulse Ox 97 08/05/25 02:27 O2 Del Method Room Air 08/05/25 02:27 BMI result Body Mass Index 42.1 Medical Decision Making Medical Decision Making MDM Narrative: Patient presents with a chief complaint of headache. The differential diagnosis on this patient includes but is not limited to migraine headache, tension headache, cluster headache, subarachnoid hemorrhage, dissection, venous thrombosis, meningitis, sinusitis, bleeding or tumor. Based on history and physical exam, appropriate work-up was initiated. Medicated with Tegretol for headache. Clinical picture consistent with cluster headache. He has no focal neurologic deficits on exam and is currently pain-free. He had some fleeting chest pain. In the setting of pulmonary embolism and DVT currently on warfarin in a therapeutic range at 2.6, very low suspicion for blood clot. He has normal oxygen levels, normal heart rate and has no dyspnea on exertion. Chest pain is not pleuritic. Heart score is 2. Low risk for major adverse cardiac event in the next 30 days. Using shared decision making, plan for discharge home to follow-up with primary care and/or specialist. Patient understands and agrees with plan for discharge. Discharged home in stable condition. Differential Diagnosis Differential Diagnoses: The differential diagnosis associated with the presentation includes (As above) Admission/Observation Consideration of admission/observation: Escalation of care including admission/observation considered Lab Data [facility] Lab Attestation statement: I reviewed the patient's lab results. 08/05/25 00:07 08/05/25 00:07 Labs: Lab Results 08/05/25 08/05/25 Range/Units 00:07 02:53 WBC 6.4 (4.8-10.8) X10*3/uL RBC 4.30 L (4.60-5.80) X10*6/uL Hgb 12.2 L (14.0-18.0) g/dl Hct 36.8 L (42.0-52.0) % MCV 85.6 (80.0-98.0) fL MCH 28.4 (27.0-33.0) pg MCHC 33.2 (31.0-36.0) g/dl RDW 14.9 (11.0-16.0) % Plt Count 227 (160-400) X10*3/uL MPV 9.0 L (9.4-12.4) fL Immature Gran % (Auto) 0.2 (0.0-0.4) % Neut % (Auto) 49.4 (45-73) % Lymph % (Auto) 33.0 (20-40) % [place] % (Auto) 13.6 H (2-11) % Eos % (Auto) 3.3 (0-4) % Baso % (Auto) 0.5 (0-2) % Lymph # (Auto) 2.1 (1.2-4.9) X10*3/uL [place] # (Auto) 0.9 (0.1-1.2) X10*3/uL Eos # (Auto) 0.2 (0.0-0.4) X10*3/uL Baso # (Auto) 0.0 (0.0-0.2) X10*3/uL Abs Immat Gran (auto) 0.01 (0.00-0.03) X10*3/uL Absolute Neuts (auto) 3.2 (2.0-8.3) x10*3/uL Absolute Nucleated RBC 0.000 (0.0-0.012) X10*3/uL Nucleated RBC % (auto) 0.0 (0.0-0.2) /100WBC PT 30.0 H (10.9-12.4) SEC INR 2.6 H (0.9-1.1) Sodium 139 (135-145) mmol/L Potassium 4.6 (3.3-5.1) mmol/L Chloride 103 (96-108) mmol/L Carbon Dioxide 27 (22-29) mmol/L Anion Gap 14 (12-20) BUN 21 H (9-16) mg/dL Creatinine 0.89 (0.5-1.4) mg/dL Estim Creat Clear Calc 117.3 Estimated GFR > 60 Random Glucose 116 H (60-115) mg/dL Calcium 8.9 (8.4-10.2) mg/dL Total Bilirubin 0.2 (0.0-1.0) mg/dL AST 66 H (5-37) U/L ALT 72 H (0-40) U/L Alkaline Phosphatase 103 (39-117) U/L Troponin I High Sens < 2.7 D (<3.5-35.0) ng/L Total Protein 7.7 (6.5-8.0) g/dL Albumin 3.8 (3.5-5.0) g/dL Independent Interpretation I performed an independent interpretation of an: EKG and Plain X-Ray Interpretation: My independent interpretation of the ECG reveals normal sinus rhythm with rate of 82, normal axis, normal intervals, no ST elevations or depressions to suggest ischemic changes, LVH, relatively unchanged from previous on 01/10/2025. My independent interpretation of the chest x-ray reveals no consolidations, pulmonary edema, pleural effusion, pneumothorax, obvious bony abnormalities. Radiology Impression Discussion of test interpretation with radiology: I have reviewed the radiologist's reading. External Record Review External record reviewed: Inpatient record Prescription Management I considered prescription management with: Pain Medication (tegretol) Chronic Conditions Patient?s care impacted by: Other (OUD, DVT) Social Determinants Patient?s care significantly limited by Social Determinants of Health including: Other Social Determinant of Health Discharge Plan Discharge Clinical Impression: Chronic cluster headache, not intractable, Acute chest pain Patient Disposition: Home, Self-Care Instructions: Chest Pain (ED), Cluster Headache (ED) Additional Instructions: DIAGNOSIS & TREATMENT: You were seen in the Emergency Department for your chest discomfort. We performed an EKG, laboratory work and chest xray which did not reveal any acute abnormalities that would explain your symptoms. FURTHER CARE: We have not found any emergent physical exam or lab abnormalities that would require admission to the hospital today. Many people who come to the ER with chest discomfort do not leave with a specific diagnosis at the end of their visit. In the Emergency Department we try to make sure that there is no emergent problem that needs admission to the hospital or antibiotics right now. This does not mean that your evaluation is complete--please be sure to follow up with your regular doctor as additional testing as an outpatient may be indicated. Please be certain to drink plenty of fluids over the next several days. WHEN YOU SHOULD BE SEEN NEXT: Please follow-up with your primary care provider within the next 2-3 days for reevaluation of your symptoms. WHEN TO RETURN TO THE ED: Monitor your symptoms closely and return to the emergency department immediately for any new/worsening symptoms including: Worsening chest pain, difficulty breathing, fevers greater than 100 degrees, passing out, any new symptom that concerns you. Call 911 with any medical emergency. Prescriptions: New carbamazepine [Carbatrol] 100 mg capsule, ER multiphase 12 hr 100 mg PO DAILY PRN (Reason: Cluster headache) Qty: 20 0RF No Action levothyroxine 25 mcg tablet 25 mcg PO DAILY Qty: 90 1RF warfarin 2.5 mg tablet 2.5 mg PO DAILY Qty: 90 1RF Protocol: Dose Management Condition: Sunday (Week One) Dose/Route: 1.25 mg Instruction: 0.5 x 2.5 mg tablets Condition: Sunday Dose/Route: 2.5 mg Instruction: 1 x 2.5 mg tablet Condition: Sunday Dose/Route: 1.25 mg Instruction: 0.5 x 2.5 mg tablets Condition: Sunday Dose/Route: 2.5 mg Instruction: 1 x 2.5 mg tablet Condition: Dose/Route: 1.25 mg Instruction: 0.5 x 2.5 mg tablets Condition: Sunday Dose/Route: 2.5 mg Instruction: 1 x 2.5 mg tablet Condition: Sunday Dose/Route: 1.25 mg Instruction: 0.5 x 2.5 mg tablets Condition: Sunday (Week Two) Dose/Route: 1.25 mg Instruction: 0.5 x 2.5 mg tablets Condition: Sunday Dose/Route: 2.5 mg Instruction: 1 x 2.5 mg tablet Condition: Sunday Dose/Route: 1.25 mg Instruction: 0.5 x 2.5 mg tablets Condition: Sunday Dose/Route: 2.5 mg Instruction: 1 x 2.5 mg tablet Condition: Dose/Route: 1.25 mg Instruction: 0.5 x 2.5 mg tablets Condition: Sunday Dose/Route: 2.5 mg Instruction: 1 x 2.5 mg tablet Condition: Sunday Dose/Route: 1.25 mg Instruction: 0.5 x 2.5 mg tablets Protocol Text: Adjustment Start Date: Sunday07/28/25 INR Value: 3.3 INR Date: 07/28/25 Recheck Date: 08/11/25 Additional Instructions: REVIEW FOOD LISST WEEKLY, EAT A MIX OF FRUITS AND VEGETABLES YOU ENJOY AND CAN BALANCE YOUR INR warfarin 2.5 mg tablet 2.5 mg PO SUTUTHSA@1800 Protocol: Dose Management Condition: Sunday (Week One) Dose/Route: 1.25 mg Instruction: 0.5 x 2.5 mg tablets Condition: Sunday Dose/Route: 2.5 mg Instruction: 1 x 2.5 mg tablet Condition: Sunday Dose/Route: 1.25 mg Instruction: 0.5 x 2.5 mg tablets Condition: Sunday Dose/Route: 2.5 mg Instruction: 1 x 2.5 mg tablet Condition: Dose/Route: 1.25 mg Instruction: 0.5 x 2.5 mg tablets Condition: Sunday Dose/Route: 2.5 mg Instruction: 1 x 2.5 mg tablet Condition: Sunday Dose/Route: 1.25 mg Instruction: 0.5 x 2.5 mg tablets Condition: Sunday (Week Two) Dose/Route: 1.25 mg Instruction: 0.5 x 2.5 mg tablets Condition: Sunday Dose/Route: 2.5 mg Instruction: 1 x 2.5 mg tablet Condition: Sunday Dose/Route: 1.25 mg Instruction: 0.5 x 2.5 mg tablets Condition: Sunday Dose/Route: 2.5 mg Instruction: 1 x 2.5 mg tablet Condition: Dose/Route: 1.25 mg Instruction: 0.5 x 2.5 mg tablets Condition: Sunday Dose/Route: 2.5 mg Instruction: 1 x 2.5 mg tablet Condition: Sunday Dose/Route: 1.25 mg Instruction: 0.5 x 2.5 mg tablets Protocol Text: Adjustment Start Date: Sunday07/28/25 INR Value: 3.3 INR Date: 07/28/25 Recheck Date: 08/11/25 Additional Instructions: REVIEW FOOD LISST WEEKLY, EAT A MIX OF FRUITS AND VEGETABLES YOU ENJOY AND CAN BALANCE YOUR INR methadone 10 mg/mL concentrate 160 mg PO DAILY Patient Comments: Confirmed with [facility] Priscilla SIM. Last does at clinic was 10/03/24 @ 8am 160mg with 27 take home dosages. lisinopril 10 mg tablet 10 mg PO DAILY Qty: 90 3RF Print Language: Polish
--- NOTE | 2025-08-05 04:33 | PC.NURSE ---
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
[2025-08-05 04:39] VITALS: BP 140/72; PULSE 76; RESP 18; TEMP 36.9; O2SAT 96
== END 2025-08-05 04:40 | disposition home or self-care (01) ==
PROVIDERS: Emergency Provider Emergency Medicine; PCP Internal Medicine
DX: G44.029 Chronic cluster headache, not intractable (principal); R07.9 Chest pain, unspecified; G43.909 Migraine, unspecified, not intractable, without status migrainosus; F11.20 Opioid dependence, uncomplicated; E66.01 Morbid (severe) obesity due to excess calories; E03.8 Other specified hypothyroidism; Z87.891 Personal history of nicotine dependence; Z86.711 Personal history of pulmonary embolism; Z86.718 Personal history of other venous thrombosis and embolism; Z79.01 Long term (current) use of anticoagulants; Z68.41 Body mass index [BMI] 40.0-44.9, adult
CPT/HCPCS: 36415; 71045; 80053; 84484; 85025; 85610; 93005; 99284

== ENCOUNTER → 2025-08-04 23:31 | Outpatient (BNV) | payer OTHER, SELFPAY | PROVIDERS: Emergency Provider Emergency Medicine; PCP Internal Medicine; Visit Provider Internal Medicine Cardiovascular Disease | DX: R07.9 Chest pain, unspecified (principal) | CPT/HCPCS: 93010 ==

== ENCOUNTER → 2025-08-04 23:35 | Outpatient (BNV) | payer OTHER, SELFPAY | PROVIDERS: PCP Internal Medicine; Visit Provider Radiology Diagnostic Radiology | DX: R07.9 Chest pain, unspecified (principal) | CPT/HCPCS: 71045 ==

== ENCOUNTER 2025-08-12 14:04 | Outpatient (AMB) | payer OTHER, SELFPAY ==
--- NOTE | 2025-08-12 14:31 | MHC.OFFVIS ---
Vital Signs 08/12/25 14:37 Height 5 ft 7 in Weight 269 lb 2.951 oz BMI 42.2 BP 140/82 H Blood Pressure Location Rt brachial Position Sitting Pulse 71 Pulse Source Pulse Oximeter Pulse Oximetry (%) 97 Oxygen Delivery Method Room Air Intake Visit Reasons: 2 week f/u Intake Note: Patient presents for two weeks follow up. Allergies No Known Allergies (No Known Allergies*) Allergy (Verified 08/12/25 14:36) HPI Comments Details: Patient is a 55 year old male with hypothyroidism, HTN, Chronic lymphedema, hx substance abuse: heroin and fentanyl currently on methadone, hx of DVT and PE on warfarin and migraines here for follow up evaluation of positive KAYLEE Interval History: Patient last seen 07/03/25 - New patient visit for evaluation of positive KAYLEE - Labs ordered Today - Not on any DMARDs - Following up post labs for evaluation of positive KAYLEE Rheumatologic History: Initial history: Circumstances around checking the KAYLEE unclear Patient states that he has been having a lot of weird stuff happen to him so they check his KAYLEE and told him it was high ROS - weight gain. 100lb in 2 years - Rash: Cuts all over body - Sometimes he will have a pain behind the eye that will self resolve over a 2-4 weeks - Intermittent and transient joint pain: elbow, shoulder - Finger tips change color in the cold: red Substance abuse history - Injected heroin and Fentanyl Denies photosensitivity, alopecia, oral/nasal ulcers, sicca symptoms, lymphadenopathy, chest pain/shortness of breath, inflammatory type joint pain, foamy urine, lower extremity edema, muscle weakness, Raynaud's Also denies history of seizure, CVA, psychosis, history of kidney problems, history of cytopenias Current Rheumatology Medication(s): [facility] Medical History Intermittent chest pain Morbid obesity with BMI of 40.0-44.9, adult Swelling of right upper extremity Pain in right arm Positive KAYLEE (antinuclear antibody) Headache DVT (deep venous thrombosis) Acquired hypothyroidism Pulmonary emboli DVT, bilateral lower limbs Obesity Polysubstance abuse Encounter to establish care Eyebrow laceration Surgical History No pertinent past surgical history Family History Mother COPD (chronic obstructive pulmonary disease) Father Hepatitis Liver cirrhosis Maternal Grandmother Alzheimer disease Maternal Grandfather Prostate cancer Diabetes Other Mental health disorder Substance use disorder Social History Household Members: Family Housing: House Unable to assess alcohol history related to: Refusing to respond Alcohol intake: former Year quit: 2011 Patient Tobacco Use Status: Former Tobacco user e-Cigarette/Vaping Use: Never Used Second Hand Smoke Exposure: Yes Substance Use Type: Heroin service: No Current occupational status: unemployed Current occupational exposures/hazards: No Cognitive needs: No Hearing needs: No Vision needs: Yes (reading) Review of Systems Const All systems reviewed & are unremarkable except as noted in HPI and below Physical Exam Exam Exam: Exam deferred today Vital Signs: Last Vital Signs Pulse 71 08/12/25 14:37 BP 140/82 H 08/12/25 14:37 Pulse Ox 97 08/12/25 14:37 Oxygen Delivery Method Room Air 08/12/25 14:37 BMI result Body Mass Index 42.2 Results Reviewed Results Reviewed: Laboratory Tests 07/28/25 08/05/25 16:11 00:07 WBC 6.4 RBC 4.30 L Hgb 12.2 L Hct 36.8 L Plt Count 227 ESR 39 H Sodium 139 Potassium 4.6 Chloride 103 Carbon Dioxide 27 BUN 21 H Creatinine 0.89 AST 66 H ALT 72 H C-Reactive Protein 1.41 H Laboratory Tests 12/16/24 07/28/25 15:07 16:11 Rheumatoid Factor < 13.0 Cycl Citrul Peptide IgG <16 KAYLEE Screen POSITIVE KAYLEE Titer 1:1280 SS-A/Ro Antibody >8.0 POS A Thyroid Peroxidase Ab 66 H Complement C3 161 Complement C4 26 Laboratory Tests 07/28/25 16:11 Lupus Anticoag Interp see note Beta-2-GPI IgG Ab <2.0 Beta-2-GPI IgA Ab 2.5 Beta-2-GPI IgM Ab <2.0 Anti-Cardiolipin IgG Ab <2.0 Anti-Cardiolipin IgM Ab <2.0 Hep Bs Antigen Negative Hep Bs Antibody NONREACTIVE Hep B Core Total Ab Nonreactive Hepatitis C Ab (EIA) Reactive H HIV 1&2 Ab/P24 Ag 4thGn Nonreactive TB Test (T-Spot) Com Negative Assessment & Plan Assessment & Plan (1) Positive KAYLEE (antinuclear antibody): Code(s): R76.8 - Other specified abnormal immunological findings in serum Category: Medical Plan: #Positive KAYLEE Patient is a 55-year-old male with history of substance abuse presenting with multiple complaints and found to have a positive KAYLEE here today for evaluation. At this time there is no obvious clinical or examination finding consistent with lupus. KAYLEE subserologies positive for TPO and SSA, which could indicate an autoimmune thyroid condition and this can explain his high titre KAYLEE. Does not meet criteria for lupus at this time. Has derm appt in 1 year Patient can follow up if there are any new concerns Recommended patient follow up with PCP about his positive hepatitis C and elevated TSH Plan - RTC prn Plan I spent 25 minutes reviewing the record and labs, taking a history, discussing the treatment plan, and documenting in the medical record Coding Level of Care Code Est Pt Level 3 (39562) Diagnoses Positive KAYLEE (antinuclear antibody) R76.8
[2025-08-12 14:37] VITALS: BP 140/82; PULSE 71; O2SAT 97; BMI 42.2
== END 2025-08-12 14:56 | disposition home or self-care (01) ==
LOC: HO.RHES 14:05
PROVIDERS: Visit Provider Student in an Organized Health Care Education/Training Program
DX: R76.0 Raised antibody titer (principal)
CPT/HCPCS: 99213

== ENCOUNTER → 2025-08-12 14:04 | Outpatient (BNVA) | payer OTHER, SELFPAY | PROVIDERS: Visit Provider Student in an Organized Health Care Education/Training Program | DX: R76.89 Other specified abnormal immunological findings in serum (principal) | CPT/HCPCS: 99212 ==

== ENCOUNTER → 2025-08-18 08:03 | Outpatient (REF) | payer OTHER, SELFPAY ==
--- NOTE | 2025-08-18 08:06 | CA_ITS ---
Transthoracic Echocardiogram Patient (Last, First, Middle): Don Spence, Gender: Male Date of : 1970 Age: 55 Procedure Date: 08/18/2025 Procedure Type: Transthoracic Echocardiogram Location: OP Height: 170.18 cm Weight: 113.4 kg BSA: 2.22 m2 Heart Rate: bpm BP: 101 / 71 mmHg Fibre Cement Moulder: BERNARDO/RC Referring MD: Cookie Donovan PA-C Pet Groomer: Ciro Gramajo MD Symptoms: R42 - Dizziness and giddiness, R06.02 SOB, R07.9 CHEST PAIN Study Quality: Fair ECG Rhythm: Sinus with extra beats Conclusions: - Essentially normal study Findings Left Ventricle Normal left ventricular size, thickness, and systolic function. The visually estimated ejection fraction is between 60-65%. Spectral Doppler is indicative of a normal filling pattern. Right Ventricle Normal right ventricular cavity size and systolic function. Atria The left atrium is normal in size. Interatrial shunt cannot be excluded. The right atrium was not well visualized. Aortic Valve The aortic valve structure and function is likely normal. There is no aortic valve stenosis. There is no aortic valve regurgitation. Mitral Valve Likely normal mitral valve structure and function. There is trace mitral valve regurgitation. There is no mitral valve stenosis. Pulmonic Valve The pulmonic valve was not well visualized. Tricuspid Valve Likely normal tricuspid valve structure and function. There is trace tricuspid valve regurgitation. The right ventricular systolic pressure is normal. The right ventricular systolic pressure is 19 mmHg. Normal right atrial pressure. There is no evidence of pulmonary hypertension. Great Vessels All visible segments of the aorta are normal in size. The pulmonary artery was not well visualized. There is no dilatation of the ascending aorta measuring 3.00 cm. Venous The inferior vena cava is normal in size and collapses greater than 50% with inspiration. Pericardium/Pleural There is no evidence of pericardial effusion. Measurements 2D Linear Measurements IVSd: 0.79 0.6-0.9/0.6-1.0 cm LVIDd: 4.80 3.9-5.3/4.2-5.9 cm LVIDd Index: 2.16 2.4-3.2/2.2-3.1 cm/m2 LVIDs: 3.20 2.0-3.6 cm LVPWd: 0.79 0.7-1.1 cm Ao Root: 3.30 2.1-3.5 cm LA Diam: 4.10 2.7-3.8/3.0-4.0 cm LAIDs Index: 1.85 1.5-2.3 cm/m2 LV Mass: 155.70 67-162/88-224 g LV Mass Index: 70.14 43-95/49-115 g/m2 LVOT Diam: 2.10 3.0+(-)1.3 cm 2D Systolic Function EF 4C: 64.40 >55% EF 2C: 59.90 >55% EF BiP: 60.10 >55% Mitral Valve MV Pk E: 0.97 MV PK A: 0.62 MV Decel Time: 159.00 E/A: 1.60 E'Lateral: 13.20 E'Medial: 9.14 E/E' Med: 10.60 E/E' Lat: 7.30 PHT: 47.00 MVA PHT: 4.68 Decel [place]: 6.09 Aortic Valve AoV Pk Librado: 1.45 AoV Mn Librado: 1.08 AoV VTI: 0.32 AoV Pk Grad: 8.00 Aov Mn Grad: 5.00 SHAUNNA Cont.VTI: 2.22 LVOT LVOT Pk Librado: 1.09 LVOT Mn Librado: 0.69 LVOT VTI: 0.21 LVOT Pk Grad: 5.00 LVOT Mn Grad: 2.00 LVOT Diam: 2.10 LVOT Area: 3.46 Diastolic Function MV Pk E: 0.97 MV Pk A: 0.62 E/A: 1.60 E'Medial: 9.14 E/E' Med: 10.60 E' Laterial: 13.20 E/E' Lat: 7.30 Right Ventricle TAPSE (mm): 33.00 TVS' Librado: 13.00 Tricuspid Valve TR Pk Librado: 2.00 TR Pk Grad: 16.00 RA Press: 3.00 RVSP: 19.00 Great Vessels Aorta Ao Root-2D: 3.30 2.0-3.7 cm Ao Asc: 3.00 2.1-3.4 cm Pulmonary Veins Pulm Vein S/D 1.40 Pulmonary Valve PV Pk Librado: 1.06 Peak PV Grad: 4.00 Updated in Other Vendor System with Status of Final Ciro Gramajo MD electronically signed on 08/18/2025 1:21:15 PM with status of Final
== END ==
LOC: HO.CARD 08:03
PROVIDERS: Visit Provider Physician Assistant Medical
DX: R07.9 Chest pain, unspecified (principal); R06.02 Shortness of breath; R42 Dizziness and giddiness; R60.0 Localized edema; I48.20 Chronic atrial fibrillation, unspecified; Z51.81 Encounter for therapeutic drug level monitoring; Z79.01 Long term (current) use of anticoagulants
CPT/HCPCS: 85610; 93306; 99211

== ENCOUNTER → 2025-08-18 08:06 | Outpatient (BNV) | payer OTHER, SELFPAY | PROVIDERS: Visit Provider Internal Medicine Cardiovascular Disease | DX: R07.9 Chest pain, unspecified (principal); R06.02 Shortness of breath; R42 Dizziness and giddiness | CPT/HCPCS: 93306 ==

== ENCOUNTER 2025-08-18 09:39 | Outpatient (AMB) | payer OTHER, SELFPAY ==
--- NOTE | 2025-08-18 10:01 | MHC.OFFVISCO ---
Intake Intake Visit Reasons: Anticoagulation Allergies No Known Allergies (No Known Allergies*) Allergy (Verified 08/18/25 09:44) Medication List - Last Reconciled 08/18/25 by Ana Lilia Garibay RN carbamazepine ER (Carbatrol) 100 mg PO DAILY PRN levothyroxine 25 mcg PO DAILY lisinopril 10 mg PO DAILY methadone 160 mg PO DAILY warfarin See Protocol 2.5 mg tab: 1- 2 tabs daily per INR per Anticoag 2.5mg mwf/1.25mg x 4 days Nursing Note INR: 2.9 in therapeutic range Medications and supplements reviewed * Pt add into schedule today because he was here for another appt * Pt TSH levels slightly elevated - c/o being tiered cold and has constipation and body aches - Thyroid function and thyroid meds can effect coaulation cascade *Will ask providers if his levothyroxine will be adjusted to his symptoms *Pt knows to call when med is changed Denies any signs and symptoms of bleeding or bruising or clotting. Bleeding, bruising, clotting discussed Nutritional guidance given - cont to eat a mix of fruits and vegetables Dose: keep same dose for now 2.5mg mwf/ 1.25mg x 4 days F/U INR: 2 weeks Patient verbalizes understanding of instructions given and will call with any medication changes Anti-Coag Initial Assessment Social Hx Patient Tobacco Use Status: Former Tobacco user alcohol intake: former Alcohol intake frequency: does not drink Cardiovascular Hx: HTN, Arrhythmias and Other Lung Disease HX: DVT/PE Endocrine Hx: Other Musculoskeletal Hx: Arthritis Blood Disorder Hx: Hepatitis GI Hx: Other Hx: Other Neurological Hx: Serious Head Injury and Migraines/Headaches Cancer HX: No Psych. 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
[2025-08-18 10:21] LABS: Prothrombin Time Whole Bld POC 34.4 sec (11.1-13.5); ~PT, ~INR - Anti Coag Clinic 2.9 (0.9-1.1)
== END 2025-08-18 10:10 | disposition home or self-care (01) ==
LOC: HO.ACS 09:39
PROVIDERS: Visit Provider Internal Medicine Medical Oncology
DX: Z79.01 Long term (current) use of anticoagulants (principal)

== ENCOUNTER 2025-09-07 11:24 | Outpatient (AMB) | payer OTHER, SELFPAY ==
[2025-09-07 11:44] VITALS: BP 124/68; PULSE 78; O2SAT 96; BMI 41.6
--- NOTE | 2025-09-07 11:44 | A.OFFVIS_ITS ---
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 He was referred by PCP for pulmonary evaluation. He reports ongoing dyspnea with moderate exertion that has been progressively worsening over the last year. Denies wheezing, chest tightness or cough. Denies prior h/o asthma/COPD. He underwent PFT 04/2025 which revealed mild restrictive ventilatory defect with bronchodilator response present in small to medium airways only. Decreased expiratory reserve volume suggests extrathoracic restriction likely secondary to abdominal obesity. Combination of restrictive ventilatory defect with decreased diffusion capacity suggests underlying pulmonary parenchymal disease. Chest CT 2022 which demonstrated resolution of prior PE and mild bibasilar linear atelectasis/scarring. CXR 07/2025 unremarkable. Echo 08/2025 essentially normal study. Denies any occupational exposures. Reports mother, smoker, with COPD. He is under the care of hematology and has been compliant with warfarin. [facility] Medical History Intermittent chest pain Morbid obesity with BMI of 40.0-44.9, adult Swelling of right upper extremity Pain in right arm Positive KAYLEE (antinuclear antibody) Headache DVT (deep venous thrombosis) Acquired hypothyroidism Pulmonary emboli DVT, bilateral lower limbs Obesity Polysubstance abuse Encounter to establish care Eyebrow laceration Surgical History No pertinent past surgical history Family History Mother COPD (chronic obstructive pulmonary disease) Father Hepatitis Liver cirrhosis Maternal Grandmother Alzheimer disease Maternal Grandfather Prostate cancer Diabetes Other Mental health disorder Substance use disorder Social History Household Members: Family Housing: House Alcohol intake: former Year quit: 2011 Patient Tobacco Use Status: Former Tobacco user e-Cigarette/Vaping Use: Never Used Second Hand Smoke Exposure: Yes Substance Use Type: Heroin service: No Current occupational status: unemployed Current occupational exposures/hazards: No Cognitive needs: No Hearing needs: No Vision needs: Yes (reading) Review of Systems Const Denies chills, Denies excessive sweating, Denies fever(s), Denies headache(s) and Denies night sweats Eyes Denies dry eyes, Denies irritation and Denies itchy eyes ENT Reports Normal hearing present, Denies headache(s), Denies nasal congestion, Denies nasal discharge, Denies post nasal drip and Denies sore throat Card Denies chest pain, Denies chest pain at rest, Denies chest pain with activity, Denies claudication, Denies orthopnea and Denies paroxysmal nocturnal dyspnea Resp Denies chest congestion, Denies cough, Denies excessive phlegm production, Denies pain on inspiration, Denies pain with cough, Denies stridor and Denies wheezing Musc Denies myalgias Neuro Reports Normal hearing present and Denies headache(s) Endo Denies excessive sweating Fidencio/Lymph Denies lymphadenopathy Aller/Immun Denies itchy eyes, Denies seasonal rhinorrhea and Denies wheezing Physical Exam Vital Signs: Last Vital Signs Pulse 78 09/07/25 11:44 BP 124/68 09/07/25 11:44 Pulse Ox 96 09/07/25 11:44 Oxygen Delivery Method Room Air 09/07/25 11:44 BMI result Body Mass Index 41.6 Const General: cooperative, healthy appearing, comfortable, no acute distress, well developed and alert Nutritional Appearance: obese Orientation/consciousness: patient oriented x3 Limitations: no limitations HEENT Head: Yes normal to inspection, Yes normocephalic and Yes atraumatic Ears: hearing grossly normal bilaterally and external ears normal Eyes General: appearance normal, both eyes and all related structures Eyelids: Yes eyelids normal Sclerae: sclerae normal EOM: EOMs intact bilaterally Neck Neck: Yes normal visual inspection and Yes no lymphadenopathy Lymphatic: no lymphadenopathy noted Chest Chest palpation & inspection: normal inspection of the chest Resp Effort & Inspection: normal respiratory effort, able to speak in complete sentences, no audible wheezes, no cough, no stridor, not tachypneic, no tripod positioning and no use of accessory muscles Auscultation: diminished lung sounds Cardio Jugular venous distension: no JVD Rate: regular rate Rhythm: regular rhythm Skin Other: warm, dry General skin exam: no rashes or lesions noted Neuro General: patient oriented x3 Cranial nerves: Yes Normal hearing present Cognition (Neuro): normal cognition Gait exam (Neuro): Normal gait present Extrem Other: BLE edema secondary to wounds with dressings intact Psych Appearance: grossly normal and well kempt Speech and movement: Normal speech and movement present and Clear speech present Affect: normal affect Attitude: cooperative Thought process: Normal thought process present Thought content: Normal thought content present Insight: Good insight present (Psych) Judgement: Good judgement present (Psych) Assessment & Plan Assessment & Plan (1) Shortness of breath: Code(s): R06.02 - Shortness of breath Category: Medical (2) Decreased diffusion capacity: Code(s): R94.2 - Abnormal results of pulmonary function studies Category: Medical (3) History of pulmonary embolism: Code(s): Z86.711 - Personal history of pulmonary embolism Category: Medical Plan Reviewed PFT from 04/2025 which revealed mild restrictive ventilatory defect with bronchodilator response present in small to medium airways only. Decreased expiratory reserve volume suggests extrathoracic restriction likely secondary to abdominal obesity. Combination of restrictive ventilatory defect with decreased diffusion capacity suggests underlying pulmonary parenchymal disease. Suggestive of small airways disease such as asthma, will start albuterol MDI and consider ICS at next visit. Will also send for chest CT given decreased diffusion capacity to assess for any underlying parenchymal condition contributing to findings. Reviewed echo which did not demonstrate any signs of pulmonary hypertension from prior PE. All questions were answered and patient is in agreement of plan. Will follow up to review results or sooner if needed. Medications: New albuterol sulfate 90 mcg/actuation 2 puffs inhalation Q4-6H PRN 1 ea 0RF shortness of breath or wheezing Coding Level of Care Code New Pt Level 4 (03902) Diagnoses Shortness of breath R06.02 Decreased diffusion capacity R94.2 History of pulmonary embolism Z86.711
== END 2025-09-07 12:17 | disposition home or self-care (01) ==
LOC: HO.HPS 11:25
PROVIDERS: Visit Provider Nurse Practitioner Family
DX: R06.02 Shortness of breath (principal); R94.2 Abnormal results of pulmonary function studies; Z86.711 Personal history of pulmonary embolism
CPT/HCPCS: 99204

== ENCOUNTER → 2025-09-07 11:24 | Outpatient (BNVA) | payer OTHER, SELFPAY | PROVIDERS: Visit Provider Nurse Practitioner Family | DX: I10 Essential (primary) hypertension (principal); F11.20 Opioid dependence, uncomplicated; I82.403 Acute embolism and thrombosis of unspecified deep veins of lower extremity, bilateral; I27.82 Chronic pulmonary embolism; E03.9 Hypothyroidism, unspecified; E66.01 Morbid (severe) obesity due to excess calories; Z68.41 Body mass index [BMI] 40.0-44.9, adult; R79.89 Other specified abnormal findings of blood chemistry; R76.89 Other specified abnormal immunological findings in serum; R06.02 Shortness of breath; I89.0 Lymphedema, not elsewhere classified; S81.801D Unspecified open wound, right lower leg, subsequent encounter; S81.802D Unspecified open wound, left lower leg, subsequent encounter; K59.00 Constipation, unspecified; J34.81 Nasal mucositis (ulcerative); B19.20 Unspecified viral hepatitis C without hepatic coma; R94.2 Abnormal results of pulmonary function studies; I48.20 Chronic atrial fibrillation, unspecified; Z51.81 Encounter for therapeutic drug level monitoring; Z79.01 Long term (current) use of anticoagulants; Z79.899 Other long term (current) drug therapy | CPT/HCPCS: 85610; 99202; 99211; 99212 ==

== ENCOUNTER 2025-09-07 13:00 | Outpatient (AMB) | payer OTHER, SELFPAY ==
--- NOTE | 2025-09-07 13:10 | MHC.OFFVISCO ---
Intake Intake Visit Reasons: Anticoagulation Allergies No Known Allergies (No Known Allergies*) Allergy (Verified 09/07/25 13:05) Medication List - Last Reconciled 09/07/25 by Rashida Cash RN albuterol sulfate 90 mcg/actuation 2 puffs inhalation Q4-6H PRN levothyroxine 25 mcg PO DAILY lisinopril 10 mg PO DAILY methadone 160 mg PO DAILY warfarin See Protocol 2.5 mg tab: 1- 2 tabs daily per INR per Anticoag 2.5mg mwf/1.25mg x 4 days Nursing Note INR: 3.0 in therapeutic range of 2-3.5 Medications and supplements reviewed No changes in health, diet, medications, or supplements, Denies any signs and symptoms of bleeding or bruising or clotting. Bleeding, bruising, clotting discussed Nutritional guidance given Dose: 1.25mg X 4 days and 2.5mg X 3 days F/U INR: 3 weeks Patient verbalizes understanding of instructions given Anti-Coag Initial Assessment Social Hx Patient Tobacco Use Status: Former Tobacco user alcohol intake: former Alcohol intake frequency: does not drink Cardiovascular Hx: HTN, Arrhythmias and Other Lung Disease HX: DVT/PE Endocrine Hx: Other Musculoskeletal Hx: Arthritis Blood Disorder Hx: Hepatitis GI Hx: Other Hx: Other Neurological Hx: Serious Head Injury and Migraines/Headaches Cancer HX: No Psych. Illness/Depression: No Questionnaires HAS-BLED Does the patient had uncontrolled Hypertension?: Yes Does the patient have renal disease?: No Does the patient have liver disease?: Yes Does the patient have a history of stroke?: No Has the patient had major bleeding or predisposition to bleeding?: No Does the patient have labile INRs?: Yes Is the patient over 65 years of age?: No Is the patient on medications that gives them a predisposition to bleeding?: Yes Does the patient use alcohol?: No HAS-BLED Score: 4 CHADSVASC Age: <65 Gender: Male Does the patient have a history of CHF?: No Does the patient have a history of Hypertension?: Yes Does the patient have a history of Stroke/TIA/Thromboembolism?: Yes Does the patient have a history of Vascular Disease (prior CA, PAD or aortic plaque)?: Yes (thrombophlebitis) Does the patient have a history of Diabetes?: No CHADS VACS Score: 4 Evgeny Prediction Score Rsk VTE Active Cancer: No Previous VTE, excluding superficial vein thrombosis: No Reduced mobility: No Already known Thrombophilic Condition: Yes With-in last month Trauma and/or Surgery: No Elderly 70 year or older: No Heart and/or Respiratory Failure: No Acute Myocardial infarction and/or Ischemic Stroke: No Acute Infection and/or Rheumatologic Disorder: No Obesity (BMI 30 or greater): Yes Ongoing Hormonal Treatment: No Score: 4 Evgeny Score less than 4; Low Risk of VTE Evgeny Score 4 or greater; High Risk of VTE Coding Level of Care Code Est Patient Level 1 Diagnoses Current use of anticoagulant therapy Z79.01 Assessment & Plan Assessment & Plan (1) Current use of anticoagulant therapy: Code(s): Z79.01 - assisted (current) use of anticoagulants Category: Medical
[2025-09-07 13:11] LABS: Prothrombin Time Whole Bld POC 36.6 sec (11.1-13.5); ~PT, ~INR - Anti Coag Clinic 3.0 (0.9-1.1)
--- NOTE | 2025-09-07 15:50 | MHC.OFFVISCO ---
Intake Intake Visit Reasons: Anticoagulation Allergies No Known Allergies (No Known Allergies*) Allergy (Verified 09/07/25 13:39) Medication List - Last Reconciled 09/07/25 by Rashida Cash RN albuterol sulfate 90 mcg/actuation 2 puffs inhalation Q4-6H PRN levothyroxine 25 mcg PO DAILY lisinopril 10 mg PO DAILY methadone 160 mg PO DAILY warfarin See Protocol 2.5 mg tab: 1- 2 tabs daily per INR per Anticoag 2.5mg mwf/1.25mg x 4 days Nursing Note INR: 3.0 in therapeutic range of 2-3.5 Medications and supplements reviewed No changes in health, diet, medications, or supplements, Denies any signs and symptoms of bleeding or bruising or clotting. Bleeding, bruising, clotting discussed Nutritional guidance given Dose: 1.25mg X 4 days and 2.5mg X 3 days F/U INR: 3 weeks Patient verbalizes understanding of instructions given Anti-Coag Initial Assessment Social Hx Patient Tobacco Use Status: Former Tobacco user alcohol intake: former Alcohol intake frequency: does not drink Cardiovascular Hx: HTN, Arrhythmias and Other Lung Disease HX: DVT/PE Endocrine Hx: Other Musculoskeletal Hx: Arthritis Blood Disorder Hx: Hepatitis GI Hx: Other Hx: Other Neurological Hx: Serious Head Injury and Migraines/Headaches Cancer HX: No Psych. Illness/Depression: No Questionnaires HAS-BLED Does the patient had uncontrolled Hypertension?: Yes Does the patient have renal disease?: No Does the patient have liver disease?: Yes Does the patient have a history of stroke?: No Has the patient had major bleeding or predisposition to bleeding?: No Does the patient have labile INRs?: Yes Is the patient over 65 years of age?: No Is the patient on medications that gives them a predisposition to bleeding?: Yes Does the patient use alcohol?: No HAS-BLED Score: 4 CHADSVASC Age: <65 Gender: Male Does the patient have a history of CHF?: No Does the patient have a history of Hypertension?: Yes Does the patient have a history of Stroke/TIA/Thromboembolism?: Yes Does the patient have a history of Vascular Disease (prior PR, PAD or aortic plaque)?: Yes (thrombophlebitis) Does the patient have a history of Diabetes?: No CHADS VACS Score: 4 Evgeny Prediction Score Rsk VTE Active Cancer: No Previous VTE, excluding superficial vein thrombosis: Yes Reduced mobility: No Already known Thrombophilic Condition: Yes With-in last month Trauma and/or Surgery: No Elderly 70 year or older: No Heart and/or Respiratory Failure: No Acute Myocardial infarction and/or Ischemic Stroke: No Acute Infection and/or Rheumatologic Disorder: No Obesity (BMI 30 or greater): Yes Ongoing Hormonal Treatment: No Score: 7 Evgeny Score less than 4; Low Risk of VTE Evgeny Score 4 or greater; High Risk of VTE Coding Level of Care Code Est Patient Level 1 Diagnoses Current use of anticoagulant therapy Z79.01 Assessment & Plan Assessment & Plan (1) Current use of anticoagulant therapy: Code(s): Z79.01 - half-way (current) use of anticoagulants Category: Medical
== END 2025-09-07 13:23 | disposition home or self-care (01) ==
LOC: HO.ACS 13:00
PROVIDERS: Visit Provider Internal Medicine Medical Oncology
DX: Z79.01 Long term (current) use of anticoagulants (principal)

== ENCOUNTER 2025-09-07 13:25 | Outpatient (AMB) | payer OTHER, SELFPAY ==
[2025-09-07 13:28] VITALS: BP 120/64; PULSE 75; RESP 18; TEMP 36.3; O2SAT 94; BMI 41.0
--- NOTE | 2025-09-07 13:28 | MHC.PC.OV ---
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 Accompanied by: Self / Same As Patient Allergies No Known Allergies (No Known Allergies*) Allergy (Verified 09/07/25 13:39) Medication List - Last Reconciled 09/07/25 by RIKI Goodman albuterol sulfate 90 mcg/actuation 2 puffs inhalation Q4-6H PRN levothyroxine 25 mcg PO DAILY lisinopril 10 mg PO DAILY methadone 160 mg PO DAILY warfarin See Protocol 2.5 mg tab: 1- 2 tabs daily per INR per Anticoag 2.5mg mwf/1.25mg x 4 days Tobacco use date assessed: 09/07/25 Dental Screening Dental Screen Date: 09/07/25 Did you have a dental visit in the last 12 months?: No Did you have a dental problem in the last 6 months where you did not have access to dental care?: No Was dental information given to patient?: No HPI DVT/Migraine/hypothyroidism/dyspena HPI Details Presenting for DVT, migraines, hypothyroidism, asthma follow up Follow up labs were not completed-labs done last month for different specialty reviewed with the patient. Patient was seen rheumatology for positive KAYLEE who found that there were no obvious evidence for lupus instead the patient KAYLEE sub serologies positive for TPO and SSA which could indicate an autoimmune thyroid condition. The patient positive hepatitis-C he was referred to Gastroenterology The patient has elevated TSH and is currently on levothyroxine 25 mcg daily. Follow up TSH and T4 was ordered but has not been completed as yet. The patient was treated for cellulitis of lower extremity and referred to wound clinic for recurrent lower extremity open areas. He was seen by wound clinic and completed antibiotics. No signs and symptoms of infection at this time. Left nasal ulcerative area that the patient removed the scab and noted some brownish secretion. The area remains reddened and swollen with a small open area. Mupirocin ointment and augmentin 875-125mg bid x 10 days ordered. The patient to return in 3 weeks for revaluation. The patient have history of DVT and PEs manages on Warfarin-goes to clinic. He denies calf tenderness, small amount of hyperpigmentation to bilateral lower extremites. [facility] Medical History Intermittent chest pain Morbid obesity with BMI of 40.0-44.9, adult Swelling of right upper extremity Pain in right arm Positive KAYLEE (antinuclear antibody) Headache DVT (deep venous thrombosis) Acquired hypothyroidism Pulmonary emboli DVT, bilateral lower limbs Obesity Polysubstance abuse Encounter to establish care Eyebrow laceration Surgical History No pertinent past surgical history Family History Mother COPD (chronic obstructive pulmonary disease) Father Hepatitis Liver cirrhosis Maternal Grandmother Alzheimer disease Maternal Grandfather Prostate cancer Diabetes Other Mental health disorder Substance use disorder Social History Household Members: Family Housing: House Alcohol intake: former Year quit: 2012 Patient Tobacco Use Status: Former Tobacco user e-Cigarette/Vaping Use: Never Used Second Hand Smoke Exposure: Yes Substance Use Type: Heroin service: No Current occupational status: unemployed Current occupational exposures/hazards: No Cognitive needs: No Hearing needs: No Vision needs: Yes (reading) Questionnaire Thrive Questionnaire Date Thrive assessed: 03/12/25 I am a: Patient What is your living situation today?: I have a steady place to live Within the past 12 months, did the food you bought not last and you didn't have the money to get more?: Never true Within the past 12 months, did you worry whether your food would run out before you got money to buy more?: Never true Do you have trouble paying for medicines?: No Do you have trouble getting transportation to medical appointments?: No Do you have trouble paying your heating and electricity bill?: No Do you have trouble taking care of your child, family member or friend?: No Do you have trouble with day-to-day activities such as bathing, preparing meals, shopping, managing finances, etc.?: Yes Are you currently unemployed and looking for a job?: No Are you interested in more education?: Yes Currently or been in a relationship where the following occur: No concerns reported THRIVE Score: 0 TIFFANIE-7 AMB Questionnaire TIFFANIE-7 Date TIFFANIE - 7 assessed: 06/03/25 Source: Developed by Drs. Angel Dent, Maria Isabel Dash, Gelacio Hernandez and colleagues, with an educational quincy from [employer]. Review of Systems Const Denies headache(s) Eyes Denies loss of vision ENT Denies vertigo, Denies dizziness, Denies headache(s) and Denies sore throat Card Denies chest pain, Denies leg edema, Denies lightheadedness and Reports dyspnea (on and off) Resp Denies cough, Denies hemoptysis, Reports dyspnea (on and off) and Denies wheezing GI Denies abdominal pain, Denies melena, Denies constipation, Denies diarrhea and Denies vomiting Denies dysuria, Denies urinary frequency and Denies urinary urgency Musc Denies arthralgias, Reports joint swelling (recurrent swelling in lower extremities), Denies numbness, Denies tingling and Reports other Skin/Breast Reports rash (recurrent to arms and back areas) Neuro Denies Abnormal speech present, Denies behavioral changes, Denies vertigo, Denies dizziness, Denies headache(s), Denies loss of vision, Denies memory loss, Denies numbness and Denies tingling Psych Denies anxiety, Denies behavioral changes, Denies depression, Denies memory loss and Denies panic attacks Fidencio/Lymph Denies easy bleeding and Denies easy bruising Aller/Immun Denies wheezing Physical exam (Primary Care) Vital Signs: Last Vital Signs Temp 97.3 F 09/07/25 13:28 Pulse 75 09/07/25 13:28 Resp 18 09/07/25 13:28 BP 120/64 09/07/25 13:28 Pulse Ox 94 09/07/25 13:28 Oxygen Delivery Method Room Air 09/07/25 13:28 BMI result Body Mass Index 41.0 Tobacco/Smoking Status: Tobacco use Status Tobacco use date assessed 09/07/25 09/07/25 13:34 Patient Tobacco Use Status Former Tobacco user 09/07/25 13:34 e-Cigarette/Vaping Use Never Used 09/07/25 13:34 Thrive Assessment: Date of Thrive Assessment Date Thrive assessed 03/12/25 09/07/25 13:34 Currently or been in a relationship where the following occur: No concerns reported Const General: healthy appearing, no acute distress, alert and awake Nutritional Appearance: well nourished Orientation/consciousness: oriented to person, oriented to place and oriented to time HENMD Ears: TM's normal bilaterally General nose exam: Abnormal mucous membranes and turbinates present erythematous, Nasal discharge present purulent on the right and Other nasal findings present (right nare open area s/p removal of scab) Eyes Conjunctivae: conjunctivae normal Sclerae: sclerae normal Pupils: Equal, round and reactive pupils present Neck Neck: Yes no lymphadenopathy and Yes no JVD Thyroid: Thyroid normal Carotids: no bruits Resp Effort & Inspection: normal respiratory effort and not tachypneic Auscultation: no crackles, no rales, no rhonchi and no wheezes Cardio Rate: regular rate Rhythm: regular rhythm Heart sounds: S1 normal heart sound present, S2 normal heart sound present, no murmurs and normal S1 and S2 GI Palpation (GI): Soft to palpation, nontender, no hepatomegaly and no splenomegaly Auscultation: normal bowel sounds Skin General skin exam: no rashes or lesions noted and dry skin Neuro General: oriented to person, oriented to place and oriented to time Cranial nerves: Yes Equal, round and reactive pupils present Speech: No Abnormal speech present Gait exam (Neuro): Normal gait present Motor exam (neuro): no tremor noted Extrem Right upper extremity: full ROM Left upper extremity: full ROM Right lower extremity: full ROM and edema Details: non-pitting and 2+ Left lower extremity: full ROM and edema Details: non-pitting and 2+ Psych Mental Status: mental status grossly normal Speech and movement: Normal speech and movement present Affect: normal affect Attitude: cooperative Thought process: Normal thought process present Results Reviewed Results Reviewed: Laboratory Tests 07/14/25 08/05/25 13:42 00:07 WBC 6.4 RBC 4.30 L Hgb 12.2 L Hct 36.8 L MCV 85.6 MCH 28.4 MCHC 33.2 RDW 14.9 Plt Count 227 MPV 9.0 L Immature Gran % (Auto) 0.2 Neut % (Auto) 49.4 Lymph % (Auto) 33.0 Bullitt % (Auto) 13.6 H Eos % (Auto) 3.3 Baso % (Auto) 0.5 Lymph # (Auto) 2.1 Bullitt # (Auto) 0.9 Eos # (Auto) 0.2 Baso # (Auto) 0.0 Abs Immat Gran (auto) 0.01 Absolute Neuts (auto) 3.2 Absolute Nucleated RBC 0.000 Nucleated RBC % (auto) 0.0 Sodium 139 Potassium 4.6 Chloride 103 Carbon Dioxide 27 Anion Gap 14 BUN 21 H Creatinine 0.89 Estim Creat Clear Calc 117.3 Estimated GFR > 60 Random Glucose 116 H Calcium 8.9 Total Bilirubin 0.2 AST 66 H ALT 72 H Alkaline Phosphatase 103 Urine Color Yellow Urine Appearance Clear Urine pH 5.5 Ur Specific [place] 1.020 Urine Protein Negative Urine Glucose (UA) Negative Urine Ketones Negative Urine Blood Negative Urine Nitrite Negative Ur Leukocyte Esterase Negative Urine RBC 0-2 Urine WBC 0-5 Ur Squamous Epith Cells 0-2 Urine Bacteria None Seen Hyaline Casts 0-2 U Random Total Protein 9 Urine Creatinine 171.11 Protein/Creatinin Ratio 0.05 Coding Level of Care Code Est Pt Level 4 (53820) Diagnoses History of opioid abuse F11.11 Hypertension, unspecified type I10 Hypertension type: unspecified Deep vein thrombosis (DVT) of both lower extremities, unspecified chronicity, unspecified vein I82.403 Affected thrombotic vein of extremity: unspecified vein of extremity Chronicity: unspecified Chronic pulmonary embolism without acute cor pulmonale, unspecified pulmonary embolism type I27.82 Acute cor pulmonale presence: without acute cor pulmonale Chronicity: chronic Pulmonary embolism type: unspecified Current use of anticoagulant therapy Z79.01 Acquired hypothyroidism E03.9 Morbid obesity with BMI of 40.0-44.9, adult E66.01; Z68.41 Elevated LFTs R79.89 Positive KAYLEE (antinuclear antibody) R76.8 Shortness of breath R06.02 Lymphedema I89.0 Open wound of both lower extremities with complication, subsequent encounter S81.801D; S81.802D Encounter type: subsequent encounter Constipation, unspecified constipation type K59.00 Constipation type: unspecified constipation type Nasal mucositis (ulcerative) J34.81 Time Spent (min) 38 Assessment & Plan Assessment & Plan (1) History of opioid abuse: Code(s): F11.11 - Opioid abuse, in remission Category: Medical Plan: Continue methadone 160 mg daily. Follow up with methadone clinic as scheduled. (2) Hypertension: Code(s): I10 - Essential (primary) hypertension Category: Medical Qualifiers: Hypertension type: unspecified Qualified Code(s): I10 - Essential (primary) hypertension Plan: Initial blood pressure was 120/64, goal systolic 130 mmhg or less. Reinforced low-salt diet/low caffeine intake. Continue lisinopril 10 mg daily. (3) DVT, bilateral lower limbs: Code(s): I82.403 - Acute embolism and thrombosis of unspecified deep veins of lower extremity, bilateral Category: Medical Qualifiers: Affected thrombotic vein of extremity: unspecified vein of extremity Chronicity: unspecified Qualified Code(s): I82.403 - Acute embolism and thrombosis of unspecified deep veins of lower extremity, bilateral Plan: Ongoing DVT. Continue Coumadin per order and follow up with Coumadin clinic as scheduled. Monitor for s/sx of bleeding (4) Pulmonary emboli: Code(s): I26.99 - Other pulmonary embolism without acute cor pulmonale Category: Medical Qualifiers: Acute cor pulmonale presence: without acute cor pulmonale Chronicity: chronic Pulmonary embolism type: unspecified Qualified Code(s): I27.82 - Chronic pulmonary embolism Plan: Ongoing PE possibly contributing to the patient ongoing sob. Continue warfarin regimen as ordered and follow with coumadin clinic as scheduled. 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 No s/sx of bleeding noted (6) Acquired hypothyroidism: Code(s): E03.9 - Hypothyroidism, unspecified Category: Medical Plan: TSH 0.17 on 12/16/2024,TSH 4.82 on 07/28/25, T4 was orderd, but has not completed as yet. -encouraged the patient to completed preordered labs Continue levothyroxine 25 mcg daily TFTs ordered, we will advise (7) Morbid obesity with BMI of 40.0-44.9, adult: Code(s): E66.01 - Morbid (severe) obesity due to excess calories; Z68.41 - Body mass index [BMI] 40.0-44.9, adult Category: Medical Plan: Encouraged to exercise for at least 30 minutes a day/5 days a week Healthy eating discussed. Encouraged to eat fruits/vegetables, protein-fish/baked chicken, and to avoid salty/fried foods, sweets, caffeine and carbohydrates. Encouraged to increase water intake 6-8 glasses a day (8) Elevated LFTs: Code(s): R79.89 - Other specified abnormal findings of blood chemistry Category: Medical Plan: AST 83, ALT 99 on 01/10/2025, AST 66 and ALT 72 on 08/05/25 Limit Tylenol/alcohol/high fat foods CMP ordered, we will advise (9) Positive KAYLEE (antinuclear antibody): Code(s): R76.8 - Other specified abnormal immunological findings in serum Category: Medical Plan: Positive KAYLEE on 01/13/2025. Patient has an appointment with Rheumatology on 07/03/2025. Patient was seen rheumatology for positive KAYLEE who found that there were no obvious evidence for lupus instead the patient KAYLEE subserologies positive for TPO and SSA which could indicate an autoimmune thyroid condition. (10) Shortness of breath: Code(s): R06.02 - Shortness of breath Category: Medical Plan: On and off shortness of breath. BNP less than 10, no signs of heart failure. Lungs clear in the upper face to auscultation and diminished in the lower bases. Patient history of PE that might be contributing to his SOB. The patient was seen by pulmonology who is plans on repeating imaging. Continue albuterol sulfate 90 mcg/actuation 2 puffs q 4-6H prn (11) Lymphedema: Code(s): I89.0 - Lymphedema, not elsewhere classified Category: Medical Plan: History of lymphedema. Patient reports on and off BLE oozing and recurrent forming of blisters that turns dark colored after blisters pop and heal. Follow up with vascular as scheduled. The was treated in the ER recently for cellulitis, and he was referred to wound clinic due to open areas to lower extremities. Follow up with wound clinic as scheduled. (12) Open wound of both legs with complication: Code(s): S81.801A - Unspecified open wound, right lower leg, initial encounter; S81.802A - Unspecified open wound, left lower leg, initial encounter Category: Medical Qualifiers: Encounter type: subsequent encounter Qualified Code(s): S81.801D - Unspecified open wound, right lower leg, subsequent encounter; S81.802D - Unspecified open wound, left lower leg, subsequent encounter Plan: Two small open area on right lower leg with small amount of yellowish drainage on base. Left lower leg with one small open area, similarly, with scantly yellowish drainage on dressing. Continue cleansing wounds and applying clean dry dressing. Wound clinic referral placed. Patient already completed antibiotics. No signs of infection. Follow up with wound clinic as scheduled (13) Constipation: Code(s): K59.00 - Constipation, unspecified Category: Medical Qualifiers: Constipation type: unspecified constipation type Qualified Code(s): K59.00 - Constipation, unspecified Plan: Reports that sometimes it takes him 12 days to have a bowel movement. The patient denied recommended laxative orders, stating that he took all of them before and none of it works. Explained to the patient that he could have a perforated bowel. The patient reports that he has miralax at home and will take this if he cannot go. The patient abdomen is soft and non-tender to palpation with positive bowel sounds. Encouraged increasing fluids and dietary fiber. GI referral placed (14) Nasal mucositis (ulcerative): Code(s): J34.81 - Nasal mucositis (ulcerative) Category: Medical Plan: Left nostril ulcer appearing area where the patient removed scab. Reports brown thick drainage from area when scab was removed. Mupirocin 2% topical b.i.d. ordered to be applied locally. Augmentin 875-125 mg b.i.d. times 10 days ordered. Return in 3 weeks for re-evaluation. Medications: New triamcinolone acetonide 0.5% 1 appl topical BID 15 grams 0RF mupirocin 2% 1 appl topical BID 15 grams 0RF amoxicillin-pot clavulanate 875-125 mg 1 tab PO BID 20 tabs 0RF 10 days
== END 2025-09-07 14:12 | disposition home or self-care (01) ==
LOC: HO.HMCH 13:26
DX: I82.403 Acute embolism and thrombosis of unspecified deep veins of lower extremity, bilateral (principal); F11.11 Opioid abuse, in remission; I27.82 Chronic pulmonary embolism; E66.01 Morbid (severe) obesity due to excess calories; Z68.41 Body mass index [BMI] 40.0-44.9, adult; I10 Essential (primary) hypertension; Z79.01 Long term (current) use of anticoagulants; E03.9 Hypothyroidism, unspecified; J34.81 Nasal mucositis (ulcerative); R76.8 Other specified abnormal immunological findings in serum; R06.02 Shortness of breath

== ENCOUNTER 2025-09-29 13:19 | Outpatient (AMB) | payer OTHER, SELFPAY ==
[2025-09-29 13:26] LABS: Prothrombin Time Whole Bld POC 42.8 sec (11.1-13.5); ~PT, ~INR - Anti Coag Clinic 3.6 (0.9-1.1)
--- NOTE | 2025-09-29 13:36 | MHC.OFFVISCO ---
Intake Intake Visit Reasons: Anticoagulation Allergies No Known Allergies (No Known Allergies*) Allergy (Verified 09/29/25 13:21) Nursing Note INR: 3.5 in therapeutic range of 2.0-3.5 Medications and supplements reviewed No changes in diet, medications, or supplements. Pt states he has been having dizzy spells. Denies any signs and symptoms of bleeding or bruising or clotting. Bleeding, bruising, clotting discussed Nutritional guidance given to have a serving of greens today. Pt states he will have broccoli or green beans. Dose: 1.25mg X 4 days and 2.5mg X 3 days (M/W/F) F/U INR: 3 weeks Patient verbalizes understanding of instructions with read back given Anti-Coag Initial Assessment Social Hx Patient Tobacco Use Status: Former Tobacco user alcohol intake: former Alcohol intake frequency: does not drink Cardiovascular Hx: HTN, Arrhythmias and Other Lung Disease HX: DVT/PE Endocrine Hx: Other Musculoskeletal Hx: Arthritis Blood Disorder Hx: Hepatitis GI Hx: Other Hx: Other Neurological Hx: Serious Head Injury and Migraines/Headaches Cancer HX: No Psych. Illness/Depression: No Coding Level of Care Code Est Patient Level 1 Diagnoses Current use of anticoagulant therapy Z79.01 Results AMB INR Fingerstick AMB INR Fingerstick 3.6 Last Edit by Rashida Cash RN on 09/29/25 13:29 interface delay Assessment & Plan Assessment & Plan (1) Current use of anticoagulant therapy: Code(s): Z79.01 - skilled nursing (current) use of anticoagulants Category: Medical
== END 2025-09-29 13:42 | disposition home or self-care (01) ==
LOC: HO.ACS 13:19
PROVIDERS: Visit Provider Internal Medicine Medical Oncology
DX: Z79.01 Long term (current) use of anticoagulants (principal)

== ENCOUNTER → 2025-09-29 13:19 | Outpatient (BNVA) | payer OTHER, SELFPAY | PROVIDERS: Visit Provider Internal Medicine Medical Oncology | DX: I48.20 Chronic atrial fibrillation, unspecified (principal); Z51.81 Encounter for therapeutic drug level monitoring; Z79.01 Long term (current) use of anticoagulants | CPT/HCPCS: 85610; 99211 ==

== ENCOUNTER 2025-10-28 13:15 | Outpatient (AMB) | payer OTHER, SELFPAY ==
[2025-10-28 13:24] LABS: Prothrombin Time Whole Bld POC 35.0 sec (11.1-13.5); ~PT, ~INR - Anti Coag Clinic 2.9 (0.9-1.1)
--- NOTE | 2025-10-28 13:29 | MHC.OFFVISCO ---
Intake Intake Visit Reasons: Anticoagulation Allergies No Known Allergies (No Known Allergies*) Allergy (Verified 10/28/25 13:21) Medication List - Last Reconciled 10/28/25 by Adrienne Clemente RN albuterol sulfate 90 mcg/actuation 2 puffs inhalation Q4-6H PRN amoxicillin-pot clavulanate 875-125 mg 1 tab PO BID 10 days levothyroxine 25 mcg PO DAILY lisinopril 10 mg PO DAILY methadone 160 mg PO DAILY mupirocin 2% 1 appl topical BID triamcinolone acetonide 0.5% 1 appl topical BID warfarin See Protocol 2.5 mg tab: 1- 2 tabs daily per INR per Anticoag 2.5mg mwf/1.25mg x 4 days Nursing Note NO CP,SOB,DIET/MED CHANGES,FALLS OR SX OF BLEEDING. CONTINUE PRESENT DOSING AND FOLLOW-UP IN 3 WEEKS GOOD UNDERSTANDING OF DOSING INSTR. Anti-Coag Initial Assessment Social Hx Patient Tobacco Use Status: Former Tobacco user alcohol intake: former Alcohol intake frequency: does not drink Cardiovascular Hx: HTN, Arrhythmias and Other Lung Disease HX: DVT/PE Endocrine Hx: Other Musculoskeletal Hx: Arthritis Blood Disorder Hx: Hepatitis GI Hx: Other Hx: Other Neurological Hx: Serious Head Injury and Migraines/Headaches Cancer HX: No Psych. 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
== END 2025-10-28 14:51 | disposition home or self-care (01) ==
LOC: HO.ACS 13:15
PROVIDERS: Visit Provider Internal Medicine Medical Oncology
DX: Z79.01 Long term (current) use of anticoagulants (principal)

== ENCOUNTER → 2025-10-28 13:15 | Outpatient (BNVA) | payer OTHER, SELFPAY | PROVIDERS: Visit Provider Internal Medicine Medical Oncology | DX: I48.20 Chronic atrial fibrillation, unspecified (principal); Z51.81 Encounter for therapeutic drug level monitoring; Z79.01 Long term (current) use of anticoagulants | CPT/HCPCS: 85610; 99211 ==